=== PATIENT | male | born 1930 | race Caucasian/White ===

== ENCOUNTER → 2016-08-13 | Outpatient (CLI) | payer MEDICARE ==
[~2016-08-13] VITALS: Ht 180.3 cm; Wt 93.0 kg
[~2016-08-13] MED LIST: AMLO5TAB2 PO; ASCO25TA PO; BUSP5TA PO; CELE40TA PO; FERR325T3 PO; FIOR1CAP2 PO; FLOM5CAP PO; FURO20TA2 PO; GABA300C3 PO; GLUCTAB6 PO; LIDOCAINE 2% INJ 100 MG/5 ML SDV (FOR ANES.) As Ordered ONE; LIPI20TA PO; LOSA100T36 PO; MAGN1TAB25 PO; MECL-68 PO; MECL12.575 PO; MECL25CH PO; MIDO25TA PO; MIRA3350 PO; NITR4TASL SL; NS 1,000 ML IV SCH; OMEP40CA2 PO; PERC5TAB6 PO; PROPOFOL 200 MG/20 ML VIAL As Ordered ONE; PROS5TAB PO; PROT1TAB2 PO; PROTPAK PO; RIBO100C PO; ROBA750T4 PO; SENO8.6T2 PO; SUCR1TA PO; TYLE325T5 PO; TYLE650T30 PO; VITA-112 PO; VITA10002 PO; WARF05TA PO; ZONI100C2 PO; ZYRT10CA PO; [UNRECOGNIZED DRUG - CODE] SL; ePHEDrine SULFATE 25 MG/5 ML(5MG/ML) SYRINGE As Ordered ONE
--- NOTE | 2016-08-13 07:52 | ROOR ---
Patient Name: Grupo Shah Procedure Date: 08/13/2016 7:27 AM Date of : 1930 Age: 86 Room: M OPP Gender: Male Note Status: Finalized Procedure: Upper GI endoscopy Indications: Heartburn Providers: Marty FERNANDEZ MD Referring MD: Josep Solitario MD Requesting Provider: Medicines: Monitored Anesthesia Care Complications: No immediate complications. Procedure: Pre-Anesthesia Assessment: - The heart rate, respiratory rate, oxygen saturations, blood pressure, adequacy of pulmonary ventilation, and response to care were monitored throughout the procedure. The Endoscope was introduced through the mouth, and advanced to the second part of duodenum. The upper GI endoscopy was accomplished without difficulty. The patient tolerated the procedure well. Findings: The esophagus was normal. The stomach was normal. The examined duodenum was normal. Impression: - Normal esophagus. - Normal stomach. - Normal examined duodenum. - No specimens collected. Recommendation: - Continue present medications. - Observe patient's clinical course. Marty Fernandez MD Marty FERNANDEZ MD 08/13/2016 7:52:17 AM This report has been signed electronically. Number of Addenda: 0 Note Initiated On: 08/13/2016 7:27 AM Estimated Blood Loss: Estimated blood loss: none.
--- NOTE | 2016-08-13 08:15 | ROOR ---
Patient Name: Grupo Shah Procedure Date: 08/13/2016 7:28 AM Date of : 1930 Age: 86 Room: [facility] Gender: Male Note Status: Finalized Procedure: Colonoscopy Indications: High risk colon cancer surveillance: Personal history of colonic polyps, Last colonoscopy: April 2013 Providers: Marty FERNANDEZ MD Referring MD: Josep Solitario MD Requesting Provider: Medicines: Monitored Anesthesia Care Complications: No immediate complications. Procedure: Pre-Anesthesia Assessment: - The heart rate, respiratory rate, oxygen saturations, blood pressure, adequacy of pulmonary ventilation, and response to care were monitored throughout the procedure. The Colonoscope was introduced through the anus and advanced to the cecum, identified by appendiceal orifice and ileocecal valve. The colonoscopy was performed without difficulty. The patient tolerated the procedure well. The quality of the bowel preparation was good. Findings: The perianal and digital rectal examinations were normal. Three semi-sessile polyps were found in the sigmoid colon and in the ascending colon. The polyps were 4 to 6 mm in size. These polyps were removed with a cold snare. Resection and retrieval were complete. Multiple diverticula were found in the sigmoid colon. Internal hemorrhoids were found during retroflexion. The hemorrhoids were medium-sized. The exam was otherwise without abnormality on direct and retroflexion views. Impression: - Three 4 to 6 mm polyps in the sigmoid colon and in the ascending colon, removed with a cold snare. Resected and retrieved. - Mild diverticulosis in the sigmoid colon. - Internal hemorrhoids. - The examination was otherwise normal on direct and retroflexion views. Recommendation: - Await pathology results. - Telephone endoscopist for pathology results in 2 weeks. - If the pathology report reveals adenomatous tissue, then repeat the colonoscopy for surveillance in 3 years. Marty Fernandez MD Marty FERNANDEZ MD 08/13/2016 8:15:01 AM This report has been signed electronically. Number of Addenda: 0 Note Initiated On: 08/13/2016 7:28 AM Estimated Blood Loss: Estimated blood loss: none.
[2016-08-13 08:40] VITALS: BP 109/74
== END | disposition home or self-care (01) ==
LOC: M OPP 06:30
PROVIDERS: ATTEND Internal Medicine Gastroenterology
DX: Z12.11 Encounter for screening for malignant neoplasm of colon (principal); D12.5 Benign neoplasm of sigmoid colon; D12.2 Benign neoplasm of ascending colon; K57.30 Diverticulosis of large intestine without perforation or abscess without bleeding; K64.8 Other hemorrhoids; R12 Heartburn; Z95.5 Presence of coronary angioplasty implant and graft; I48.91 Unspecified atrial fibrillation; I25.10 Atherosclerotic heart disease of native coronary artery without angina pectoris; I25.2 Old myocardial infarction; E78.00 Pure hypercholesterolemia, unspecified; D64.9 Anemia, unspecified; Z97.4 Presence of external hearing-aid; Z95.0 Presence of cardiac pacemaker; Z79.899 Other long term (current) drug therapy

== ENCOUNTER 2016-08-14 16:43 | Emergency (ER) | payer MEDICARE ==
[~2016-08-14 16:43] MED LIST changes: -LIDOCAINE 2% INJ 100 MG/5 ML SDV (FOR ANES.) As Ordered ONE; -NS 1,000 ML IV SCH; -PROPOFOL 200 MG/20 ML VIAL As Ordered ONE; -ePHEDrine SULFATE 25 MG/5 ML(5MG/ML) SYRINGE As Ordered ONE
[2016-08-14 19:08] LABS: BASO % 0.5 % (0.0-1.0); EOS # 0.2 K/mm3 (0.0-0.50); EOS % 3.8 % (0.0-3.0); LARGE UNSTAINED CELL # 0.1 K/mm3 (0.0-0.4); LARGE UNSTAINED CELL % 1.6 % (0.0-4.0); LYMPH # 1.5 K/mm3 (1.5-4.5); LYMPH % 23.9 % (24.0-44.0); MEAN CORPUSCULAR HEMOGLOBIN 30.7 pg (27.0-33.0); MEAN CORPUSCULAR HGB CONC 33.9 g/dl (32.0-36.5); MEAN CORPUSCULAR VOLUME 90.6 fl (80.0-96.0); MONO # 0.5 K/mm3 (0.0-0.8); NEUTROPHILS # 3.9 K/mm3 (1.8-7.7); NEUTROPHILS % 62.3 % (36.0-66.0); PLATELET COUNT, AUTOMATED 166 k/mm3 (150-450); RED CELL DISTRIBUTION WIDTH 12.8 % (11.5-14.5); WHITE BLOOD COUNT 6.3 K/mm3 (4.0-10.0)
--- NOTE | 2016-08-14 19:10 | REPUSA ---
CLINICAL HISTORY: Weakness. TECHNIQUE: Multiple axial CT images were obtained through the brain without IV contrast material. COMMENTS: There is normal configuration of sella turcica. There are no intra or extra-axial collections. There is no mass effect or midline shift. There is no evidence of hematoma formation. No hydrocephalus is p resent. The ventricles are symmetrical. No abnormal calcifications are present. There is diffuse age-appropriate cerebellar and cerebral atrophy with proportionally dilated ventricl es and cortical sulci. There are bilateral periventricular and subcortical white matter hypolucencies compatible with mild c hronic microvascular disease. Otherwise, no significant focal abnormalities are seen either in the posterior fossa or supratentoria l compartment. IMPRESSION: 1. 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 2. Mild chronic microvascular disease. 3. No evidence of acute intracranial pathology. Thank you for your kind referral of this patient.
[2016-08-14 19:19] LABS: INR 1.19
[2016-08-14 19:35] LABS: ANION GAP 12 MEQ/L (8-16); BLOOD UREA NITROGEN 38 MG/DL (7-18); CALCIUM LEVEL 9.1 MG/DL (8.8-10.2); CARBON DIOXIDE LEVEL 24 MEQ/L (21-32); CHLORIDE LEVEL 108 MEQ/L (98-107); CREATININE FOR GFR 3.13 MG/DL (0.70-1.30); GLOMERULAR FILTRATION RATE 20.2 (>35); GLUCOSE, FASTING 106 MG/DL (83-110); SODIUM LEVEL 144 MEQ/L (136-145)
--- NOTE | 2016-08-14 22:00 | EDDOCDS ---
Nurse's Notes [facility] Name: Grupo Shah Age: 86 yrs Sex: Male : 1930 Arrival Date: 08/14/2016 Time: 16:43 Bed 10 Private MD: Sharad Mclaughlin D Diagnosis: Dehydration Presentation: 08/14 16:46 Presenting complaint: Patient states: im shakey and cant talk right- states all srm day. pt states probably started around 0830. weakness. states he cant seem to get the words out and sentences. headache everyday but not new and no different than any other day. dizziness all day also. Presenting complaint: Patient states: feels like when i walk like my legs are going to go out from under me. The last date and time the patient was known to be well was on August 13, 2016. No acute neurological deficit is noted. Adult Sepsis Screening: The patient does not have new or worsening altered mentation. Patient's respiratory rate is less than 22. Systolic blood pressure is greater than 100. Patient has a qSOFA score of 0- Negative Sepsis Screen. Suicide/Homicide risk assessment- the patient denies having any suicidal and/or homicidal ideations and does not present with any other emotional, behavioral or mental health complaints. Status: Patient is not a pharmacy services director or dependent. Transition of care: patient was not received from another setting of care. 16:46 Acuity: NOMI Level 3 [facility] 16:46 Method Of Arrival: Walkin/Carried/[facility] Triage Assessment: 16:56 The onset of the patients symptoms was more than three hours ago. General: Appears in [facility] no apparent distress, Behavior is appropriate for age, cooperative. Pain: Pain currently is 6 out of 10 on a pain scale. Neurological: Level of Consciousness is awake, alert, Oriented to person, place, time, Moves all extremities. Full function Facial symmetry appears normal, Reports dizziness, headache weakness. Historical: - Allergies: no known allergies; - Home Meds: 1. zonisamide 200mg oral cap 2 times per day (Last dose: Unknown) 2. riboflavin (vitamin B2) 100 mg oral tab daily (Last dose: 08/14/2016 09:00) 3. gabapentin 300 mg Oral tab twice a day 4. Lipitor 40 mg Oral tab 1 tab nightly 5. furosemide 20 mg Oral tab 1 tab once daily 6. Vitamin D Oral 1000 unit daily 7. midodrine 2.5 mg oral tab 1 tab 3 times per day 8. Flomax 0.4 mg Oral cp24 2 caps once daily 9. cefdinir 300 mg Oral cap every 12 hours 10. omeprazole 40 mg oral cpDR 2 times per day 11. Proscar 5 mg Oral tab 1 tab once daily 12. meclizine 25 mg Oral tab 4 times per day prn (Last dose: 08/14/2016 09:00) 13. Coumadin 1 mg tabs- 3 tabs m,w,f,sun and 2 mg tues, th, sat oral tab 14. Vitamin C 500 mg Oral tab 500 mg daily 15. cpap 16. Nitrostat 0.4 mg SL subl 1 tab every 5 minutes - PMHx: Arthritis; BPH; gi bleed; Hard of Hearing; Hypercholesterolemia; Hypertension; Myocardial infarction; Sleep Apnea w/ CPAP; - PSHx: Cataract Surgery- Bilateral; Stents, Coronary; inguinal hernia; knee left- arthritis; Pacemaker Insertion; Colonoscopy; - Social history: Smoking status: Patient states former smoker of tobacco. No barriers to communication noted, The patient speaks fluent Ecuadorean, Speaks appropriately for age. - Family history: Not pertinent. - : The pt / caregiver states he / she is on anticoagulants: coumadin. Home medication list is obtained from the patient. - Exposure Risk Screening:: None identified. Screenin:15 Screening information is obtained from the patient. Fall risk: At risk due to age, gait js13 disturbance. Assistance ADL's: requires no assistance with activities of daily living. Abuse/DV Screen: The patient / caregiver reports he/she is: not in a situation that causes fear, pain or injury. Nutritional screening: No deficits noted. Advance Directives: There is no active DNR order. home support is adequate. Assessment: 18:16 General: Appears in no apparent distress, Behavior is appropriate for age, cooperative. js13 Pain: Location: head Pain currently is 5 out of 10 on a pain scale. Neurological: Level of Consciousness is awake, alert, obeys commands, Oriented to person, place, time. Cardiovascular: Rhythm is sinus rhythm Chest pain is denied. Respiratory: Airway is patent Respiratory effort is even, unlabored, Respiratory pattern is regular, symmetrical. Derm: Skin is pink, warm & dry. 18:16 Neurological: Reports dizziness. js13 19:55 General: Appears in no apparent distress, comfortable, Behavior is appropriate for age, mlc cooperative. Pain: Denies pain. Neurological: Level of Consciousness is awake, alert, obeys commands, Oriented to person, place, time, Merchandise Carrier are equal bilaterally Moves all extremities. Speech is normal, Facial droop on left, Facial symmetry: tongue is midline, Pupils are PERRLA, Reports dizziness. Cardiovascular: Heart tones S1 S2 present Rhythm is sinus rhythm. Respiratory: Airway is patent Respiratory effort is even, unlabored, Respiratory pattern is regular, symmetrical, Breath sounds are clear bilaterally. Denies shortness of breath. Derm: Skin is pink, warm & dry. 20:40 Reassessment: Patient appears in no apparent distress at this time. IV fluids infusing mlc per order. . 21:05 Reassessment: Patient appears in no apparent distress at this time. Patient denies pain mlc at this time. pt able to stand and use urinal. resp easy/unlabored. pt offers no complaints. . 21:57 General: Appears in no apparent distress, Behavior is appropriate for age, cooperative. mgs Pain: Denies pain. Neurological: Level of Consciousness is awake, alert, Oriented to person, place, time. Cardiovascular: Capillary refill < 3 seconds. Respiratory: Airway is patent Respiratory effort is even, unlabored, Respiratory pattern is regular, symmetrical. Derm: Skin is pink, warm & dry. Vital Signs: 16:44 BP 136 / 81; Pulse 91; Resp 18 S; Temp 95.9(O); Weight 90.72 kg (R); Height 5 ft. 11 gr2 in. (180.34 cm) (R); Pain 2/10; 17:18 BP 128 / 81 (auto/); js13 17:18 Pulse 72 MON; Resp 16; Pulse Ox 96% on R/A; 13 17:33 BP 130 / 88 (auto/); 13 17:33 Pulse 72 MON; Resp 16; Pulse Ox 98% on R/A; 13 17:48 BP 118 / 85 (auto/); 13 17:48 Pulse 78 MON; Resp 16; Pulse Ox 95% on R/A; 13 18:03 BP 147 / 84 (auto/); 13 18:03 Pulse 68 MON; Resp 16; Pulse Ox 97% on R/A; js13 18:18 BP 143 / 88 (auto/); mlc 18:18 Pulse 68 MON; Pulse Ox 96% ; mlc 19:19 Pulse 70 MON; Pulse Ox 93% ; mlc 19:19 BP 153 / 87 (auto/); mlc 21:05 Pulse 78 MON; Pulse Ox 95% ; mlc 21:50 BP 138 / 86 (man/); Pulse 84; Resp 18; Temp 99.1(TE); Pulse Ox 96% on R/A; Pain 0/10; mireille 16:44 Body Mass Index 27.89 (90.72 kg, 180.34 cm) gr2 16:44 O2 UNABLE TO READ gr2 Vitals: 16:44 Log In Time: August 14, 2016 at 16:44. gr2 ED Course: 16:44 Patient visited by Catalina Guo. gr2 16:44 Sharad Mclaughlin is Private Physician. gr2 16:44 Patient moved to Waiting gr2 16:46 Patient visited by Catalina Guo. gr2 16:46 Patient visited by Catalina Guo. gr2 16:46 Patient moved to Pre RCE gr2 16:49 Triage Initiated srm 16:57 Eveline Mack,RN is Primary Nurse. srm 16:57 Patient moved to 10 srm 17:02 [facility] Fitzgerald [facility]. jo4 17:02 Jace Allan MD is Attending Physician. jo4 17:30 Patient visited by Fide Fitzgerald DO. jo4 18:15 The patient / caregiver is instructed regarding the plan of care and ED course. Placed js13 in gown. Bed in low position. Call light in reach. Side rails up X2. manager respiratory on. Pulse ox on. NIBP on. 18:17 Patient visited by Eveline Mack,RENEE. js13 18:18 [facility] Payment Agreement was scanned into [employer] and attached to record. ks16 18:43 Patient visited by Sallie Richards PCA. mireille 18:43 EKG done. (by ED staff). Reviewed by Fide Fitzgerald DO. mireille 18:58 Wilma Tilley,RENEE is Primary Nurse. mlc 19:00 PT/INR Sent. js13 19:00 Cardiac Marker Panel Sent. js13 19:00 BMP Sent. js13 19:00 CBC with Diff Sent. js13 19:00 Inserted saline lock: 18 gauge in right antecubital area and blood collected. The js13 patient tolerated the procedure well. No procedures done that require assistance. 19:01 Patient visited by Eveline Mack,RENEE. js13 19:18 CT Head Without Contrast Returned. EDMS 19:25 Attending Physician role handed off by Jace Allan MD mm11 19:25 Alfred Harris DO is Attending Physician. mm11 19:57 Patient visited by Wilma Tilley RN. mlc 20:08 Primary Nurse role handed off by Eveline Mack,RENEE sls1 20:59 Patient visited by Glenna Gonzales PCA. ar3 20:59 Urine Culture Sent. ar3 20:59 UA Sent. ar3 21:44 Josep Solitario is Referral Physician. mm11 21:50 Patient visited by Sallie Richards PCA. mireille Administered Medications: 19:54 Drug: NS 0.9% 500 ml [sodium chloride 0.9 % intravenous solution] Route: IV; Rate: mlc bolus; Site: right antecubital; Order Results: Lab Order: CBC with Diff; SPEC'M 08/14/16 18:51 Test: WHITE BLOOD COUNT; Value: 6.3; Range: 4.0-10.0; Units: K/mm3; Status: F Test: RED BLOOD COUNT; Value: 4.06; Range: 4.30-6.10; Abnormal: Below low normal; Units: M/mm3; Status: F Test: HEMOGLOBIN; Value: 12.5; Range: 14.0-18.0; Abnormal: Below low normal; Units: g/dl; Status: F Test: HEMATOCRIT; Value: 36.7; Range: 42.0-52.0; Abnormal: Below low normal; Units: %; Status: F Test: MEAN CORPUSCULAR VOLUME; Value: 90.6; Range: 80.0-96.0; Units: fl; Status: F Test: MEAN CORPUSCULAR HEMOGLOBIN; Value: 30.7; Range: 27.0-33.0; Units: pg; Status: F Test: MEAN CORPUSCULAR HGB CONC; Value: 33.9; Range: 32.0-36.5; Units: g/dl; Status: F Test: RED CELL DISTRIBUTION WIDTH; Value: 12.8; Range: 11.5-14.5; Units: %; Status: F Test: PLATELET COUNT, AUTOMATED; Value: 166; Range: 150-450; Units: k/mm3; Status: F Test: NEUTROPHILS %; Value: 62.3; Range: 36.0-66.0; Units: %; Status: F Test: LYMPH %; Value: 23.9; Range: 24.0-44.0; Abnormal: Below low normal; Units: %; Status: F Test: MONO %; Value: 8.0; Range: 0.0-5.0; Abnormal: Above high normal; Units: %; Status: F Test: EOS %; Value: 3.8; Range: 0.0-3.0; Abnormal: Above high normal; Units: %; Status: F Test: BASO %; Value: 0.5; Range: 0.0-1.0; Units: %; Status: F Test: LARGE UNSTAINED CELL %; Value: 1.6; Range: 0.0-4.0; Units: %; Status: F Test: NEUTROPHILS #; Value: 3.9; Range: 1.8-7.7; Units: K/mm3; Status: F Test: LYMPH #; Value: 1.5; Range: 1.5-4.5; Units: K/mm3; Status: F Test: MONO #; Value: 0.5; Range: 0.0-0.8; Units: K/mm3; Status: F Test: EOS #; Value: 0.2; Range: 0.0-0.50; Units: K/mm3; Status: F Test: BASO #; Value: 0.0; Range: 0.0-0.2; Units: K/mm3; Status: F Test: LARGE UNSTAINED CELL #; Value: 0.1; Range: 0.0-0.4; Units: K/mm3; Status: F Lab Order: [facility]; SPEC'M 08/14/16 18:51 Test: GLUCOSE, FASTING; Value: 106; Range: 83-110; Units: MG/DL; Status: F Test: BLOOD UREA NITROGEN; Value: 38; Range: 7-18; Abnormal: Above high normal; Units: MG/DL; Status: F Test: CREATININE FOR GFR; Value: 3.13; Range: 0.70-1.30; Abnormal: Above high normal; Units: MG/DL; Status: F Test: GLOMERULAR FILTRATION RATE; Value: 20.2; Range: >35; Abnormal: Below low normal; Status: F Test: SODIUM LEVEL; Value: 144; Range: 136-145; Units: MEQ/L; Status: F Test: POTASSIUM SERUM; Value: 4.0; Range: 3.5-5.1; Units: MEQ/L; Status: F Test: CHLORIDE LEVEL; Value: 108; Range: 98-107; Abnormal: Above high normal; Units: MEQ/L; Status: F Test: CARBON DIOXIDE LEVEL; Value: 24; Range: 21-32; Units: MEQ/L; Status: F Test: ANION GAP; Value: 12; Range: 8-16; Units: MEQ/L; Status: F Test: CALCIUM LEVEL; Value: 9.1; Range: 8.8-10.2; Units: MG/DL; Status: F Test Note: ; Units are mL/min/1.73 m2 Chronic Kidney Disease Staging per NKF: Stage I & II GFR >=60 Normal to Mildly Decreased Stage III GFR 30-59 Moderately Decreased Stage IV GFR 15-29 Severely Decreased Stage V GFR <15 Very Little GFR Left ESRD GFR <15 on NEGOTIATOR Lab Order: Cardiac Marker Panel; SPEC'M 08/14/16 18:51 Test: CPK CREATINE PHOSPHOKINASE; Value: 107; Range: 39-308; Units: U/L; Status: F Test: CK-MB VALUE MASS; Value: 5.9; Range: 0.0-3.6; Abnormal: Above high normal; Units: NG/ML; Status: F Test: MB/CK RELATIVE INDEX; Value: 5.51; Range: < OR =4; Abnormal: Above high normal; Status: F Test: TROPONIN I; Value: < 0.02; Range: < 0.10; Units: NG/ML; Status: F Test Note: ; DIAGNOSIS CRITERIA MMB ng/ml Relative Index (RI) NON-AMI < or = 5 N/A JIMÉNEZ ZONE > 5 < or = 4 AMI > 5 > 4 Lab Order: PT/INR; SPEC'M 08/14/16 18:51 Test: PROTHROMBIN TIME; Value: 15.2; Range: 12.3-14.5; Abnormal: Above high normal; Units: SECONDS; Status: F Test: INR; Value: 1.19; Status: F Test Note: ; THERAPUTIC HUMAN INR VALUES INDICATIONS NORMAL RANGES PROPHYLAXIS/TREATMENT OF: VENOUS THROMBOSIS 2.0-3.0 PULMONARY EMBOLISM 2.0-3.0 PREVENTION OF SYSTEMIC EMBOLISM FROM: TISSUE HEART VALVES 2.0-3.0 ACUTE MYOCARDIAL INFARCTION 2.0-3.0 VALVULAR HEART DISEASE 2.0-3.0 ATRIAL FIBRILLATION 2.0-3.0 MECHANICAL VALVES(HIGH RISK) 2.5-3.5 RECURRENT MYOCARDIAL INFARCTION 2.5-3.5 Lab Order: UA; SPEC'M 08/14/16 20:58 Test: APPEARANCE, URINE; Value: CLEAR; Range: CLEAR; Status: F Test: COLOR, URINE; Value: YELLOW; Range: YELLOW; Status: F Test: PH,URINE; Value: 7.0; Range: 5.0-9.0; Units: UNITS; Status: F Test: SPECIFIC GRAVITY URINE AUTO; Value: 1.008; Range: 1.002-1.035; Status: F Test: PROTEIN, URINE AUTO; Value: NEGATIVE; Range: NEGATIVE; Units: mg/dL; Status: F Test: GLUCOSE, URINE (UA) AUTO; Value: NEGATIVE; Range: NEGATIVE; Units: mg/dL; Status: F Test: KETONE, URINE AUTO; Value: NEGATIVE; Range: NEGATIVE; Units: mg/dL; Status: F Test: UROBILINOGEN, URINE AUTO; Value: 0.2; Range: 0.0-2.0; Units: mg/dL; Status: F Test: BILIRUBIN, URINE AUTO; Value: NEGATIVE; Range: NEGATIVE; Status: F Test: NITRITE, URINE AUTO; Value: NEGATIVE; Range: NEGATIVE; Status: F Test: LEUKOCYTE ESTERASE, URINE AUTO; Value: TRACE; Range: NEGATIVE; Abnormal: Above high normal; Status: F Test: BLOOD, URINE BLOOD; Value: NEGATIVE; Range: NEGATIVE; Status: F Test: WBC, URINE AUTO; Value: 1; Range: 0-3; Units: /HPF; Status: F Test: RBC, URINE AUTO; Value: 1; Range: 0-3; Units: /HPF; Status: F Test: BACTERIA, URINE AUTO; Value: NEGATIVE; Range: NEGATIVE; Status: F Test: SQUAMOUS EPITHELIAL CELL UR AU; Value: 0; Range: 0-6; Units: /HPF; Status: F Test: HYALINE CAST, URINE AUTO; Value: 0; Range: 0-1; Units: /LPF; Status: F Radiology Order: CT Head Without Contrast Test: CT Head Without Contrast REASON FOR EXAMINATION: Weakness; ; CLINICAL HISTORY: Weakness.; TECHNIQUE: Multiple axial CT images were obtained through the brain without IV contrast material.; COMMENTS:; There is normal configuration of sella turcica. There are no intra or extra-axial collections. There; is no mass effect or midline shift. There is no evidence of hematoma formation. No hydrocephalus is p; resent. The ventricles are symmetrical. No abnormal calcifications are present.; There is diffuse age-appropriate cerebellar and cerebral atrophy with proportionally dilated ventricl; es and cortical sulci.; There are bilateral periventricular and subcortical white matter hypolucencies compatible with mild c; hronic microvascular disease.; Otherwise, no significant focal abnormalities are seen either in the posterior fossa or supratentoria; l compartment.; IMPRESSION:; 1. 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 Mild chronic microvascular disease.; 3. No evidence of acute intracranial pathology.; Thank you for your kind referral of this patient.; ; ; Outcome: 19:57 CT Study completed. [facility] 21:44 Discharge ordered by Provider. mm11 21:58 Discharge Assessment: Patient awake, alert and oriented x 3. No cognitive and/or mgs functional deficits noted. Patient verbalized understanding of disposition instructions. patient administered narcotics - no. The following High Risk Discharge criteria are identified: None. Discharged to home ambulatory, with family. Condition: stable. Discharge instructions given to patient, family, Instructed on discharge instructions, follow up and referral plans. Demonstrated understanding of instructions, Pt was receptive of discharge instructions/ teaching. Property sent home with patient. 21:59 Patient left the ED. mgs Signatures: Dispatcher [employer] EDMS Carly Armando RN RN srm Maynard, Matthew, DO DO mm11 Glenna Gonzales, CERTIFIED PHYSICIAN'S ASSISTANT CERTIFIED PHYSICIAN'S ASSISTANT ar3 Maurice, Sallie, CERTIFIED PHYSICIAN'S ASSISTANT CERTIFIED PHYSICIAN'S ASSISTANT mireille Krissy Ash RN RN sls1 Eveline Mack RN RN js13 Catalina Guo gr2 Wilma Tilley RN RN [facility] Alfred Barrios RN RN mgs Fide Fitzgerald DO DO jo4 [place], Reg Reg [id number] Corrections: (The following items were deleted from the chart) 16:46 16:44 BP 136 / 81; Pulse 91bpm; Resp 18bpm; Spontaneous; Temp 95.9F Oral; 90.72 kg gr2 Reported; Height 5 ft. 11 in. Reported; BMI: 27.8; Pain 2/10; UNABLE TO READ O2, PT HAND IS COLD.; gr2 MTDD
--- NOTE | 2016-08-14 22:00 | EDDOCDS ---
Physician Documentation [facility] Name: Grupo Shah Age: 86 yrs Sex: Male : 1930 Arrival Date: 08/14/2016 Time: 16:43 Bed 10 Private MD: Sharad Mclaughlin D Disposition: 08/14/16 21:44 Discharged to Home/Self Care. Impression: Dehydration. - Condition is Stable. - Discharge Instructions: Dehydration, Elderly, Rehydration, Elderly. - Medication Reconciliation, Local Pharmacy Hours form. - Follow up: Josep Solitario; When: 1 week; Reason: Continuance of care. - Problem is an acute exacerbation. - Symptoms have improved. Historical: - Allergies: no known allergies; - Home Meds: 1. zonisamide 200mg oral cap 2 times per day (Last dose: Unknown) 2. riboflavin (vitamin B2) 100 mg oral tab daily (Last dose: 08/14/2016 09:00) 3. gabapentin 300 mg Oral tab twice a day 4. Lipitor 40 mg Oral tab 1 tab nightly 5. furosemide 20 mg Oral tab 1 tab once daily 6. Vitamin D Oral 1000 unit daily 7. midodrine 2.5 mg oral tab 1 tab 3 times per day 8. Flomax 0.4 mg Oral cp24 2 caps once daily 9. cefdinir 300 mg Oral cap every 12 hours 10. omeprazole 40 mg oral cpDR 2 times per day 11. Proscar 5 mg Oral tab 1 tab once daily 12. meclizine 25 mg Oral tab 4 times per day prn (Last dose: 08/14/2016 09:00) 13. Coumadin 1 mg tabs- 3 tabs m,w,f,sun and 2 mg tu, , sat oral tab 14. Vitamin C 500 mg Oral tab 500 mg daily 15. cpap 16. Nitrostat 0.4 mg SL subl 1 tab every 5 minutes - PMHx: Arthritis; BPH; gi bleed; Hard of Hearing; Hypercholesterolemia; Hypertension; Myocardial infarction; Sleep Apnea w/ CPAP; - PSHx: Cataract Surgery- Bilateral; Stents, Coronary; inguinal hernia; knee left- arthritis; Pacemaker Insertion; Colonoscopy; - Social history: Smoking status: Patient states former smoker of tobacco. No barriers to communication noted, The patient speaks fluent Danish, Speaks appropriately for age. - Family history: Not pertinent. - : The pt / caregiver states he / she is on anticoagulants: coumadin. Home medication list is obtained from the patient. - Exposure Risk Screening:: None identified. Vital Signs: 08/14 16:44 BP 136 / 81; Pulse 91; Resp 18 S; Temp 95.9(O); Weight 90.72 kg / 200 lbs (R); Height 5 gr2 ft. 11 in. (180.34 cm) (R); Pain 2/10; 17:18 BP 128 / 81 (auto/); js13 17:18 Pulse 72 MON; Resp 16; Pulse Ox 96% on R/A; js13 17:33 BP 130 / 88 (auto/); js13 17:33 Pulse 72 MON; Resp 16; Pulse Ox 98% on R/A; js13 17:48 BP 118 / 85 (auto/); js13 17:48 Pulse 78 MON; Resp 16; Pulse Ox 95% on R/A; js13 18:03 BP 147 / 84 (auto/); js13 18:03 Pulse 68 MON; Resp 16; Pulse Ox 97% on R/A; js13 18:18 BP 143 / 88 (auto/); mlc 18:18 Pulse 68 MON; Pulse Ox 96% ; mlc 19:19 Pulse 70 MON; Pulse Ox 93% ; mlc 19:19 BP 153 / 87 (auto/); mlc 21:05 Pulse 78 MON; Pulse Ox 95% ; mlc 21:50 BP 138 / 86 (man/); Pulse 84; Resp 18; Temp 99.1(TE); Pulse Ox 96% on R/A; Pain 0/10; mireille 16:44 Body Mass Index 27.89 (90.72 kg, 180.34 cm) gr2 16:44 O2 UNABLE TO READ gr2 MDM: 18:18 Financial registration complete. [email or web address] 18:18 [place] Payment Agreement was scanned into [employer] and attached to record. [email or web address] 18:25 CT Head Without Contrast Ordered. EDMS 18:25 ECG WITH READING ER PHYS+CARDIAG ordered. EDMS 18:26 CBC with Diff Ordered. EDMS 18:26 BMP Ordered. EDMS 18:26 Cardiac Marker Panel Ordered. EDMS 18:26 PT/INR Ordered. EDMS 19:00 IV Saline Lock ordered. js13 19:13 CBC with Diff Reviewed. jo4 19:27 PT/INR Reviewed. mm11 19:27 CT Head Without Contrast Reviewed. mm11 19:28 UA Ordered. EDMS 19:28 Urine Culture Ordered. EDMS 19:49 BMP Reviewed. mm11 19:49 Cardiac Marker Panel Reviewed. mm11 19:51 NS 0.9% 500 ml IV at bolus once ordered. mm11 21:24 UA Reviewed. mm11 Administered Medications: 19:54 Drug: NS 0.9% 500 ml [sodium chloride 0.9 % intravenous solution] Route: IV; Rate: mlc bolus; Site: right antecubital; Signatures: Dispatcher [employer] EDMS Carly Armando, RN RN Alfred Edwards DO DO mm11 Eveline Mack RN RN js13 Alfred aBrrios RN RN Fide Fuentes DO DO jo4 Winnie Collado, Reg Reg ks16 Wilma Tilley RN mlc The chart was reviewed and I authenticate all verbal orders and agree with the evaluation and treatment provided.Attachments: 18:18 [facility] Payment Agreement [email or web address] MTDD
--- NOTE | 2016-08-15 08:03 | ECGEPIP ---
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
--- NOTE | 2016-08-16 23:01 | EDDOCDS ---
Physician Documentation [facility] Name: Grupo Shah Age: 86 yrs Sex: Male : 1930 Arrival Date: 08/14/2016 Time: 16:43 Bed 10 Private MD: Sharad Mclaughlin D Disposition: 08/14/16 21:44 Discharged to Home/Self Care. Impression: Dehydration. - Condition is Stable. - Discharge Instructions: Dehydration, Elderly, Rehydration, Elderly. - Medication Reconciliation, Local Pharmacy Hours form. - Follow up: Josep Solitario; When: 1 week; Reason: Continuance of care. - Problem is an acute exacerbation. - Symptoms have improved. Historical: - Allergies: no known allergies; - Home Meds: 1. zonisamide 200mg oral cap 2 times per day (Last dose: Unknown) 2. riboflavin (vitamin B2) 100 mg oral tab daily (Last dose: 08/14/2016 09:00) 3. gabapentin 300 mg Oral tab twice a day 4. Lipitor 40 mg Oral tab 1 tab nightly 5. furosemide 20 mg Oral tab 1 tab once daily 6. Vitamin D Oral 1000 unit daily 7. midodrine 2.5 mg oral tab 1 tab 3 times per day 8. Flomax 0.4 mg Oral cp24 2 caps once daily 9. cefdinir 300 mg Oral cap every 12 hours 10. omeprazole 40 mg oral cpDR 2 times per day 11. Proscar 5 mg Oral tab 1 tab once daily 12. meclizine 25 mg Oral tab 4 times per day prn (Last dose: 08/14/2016 09:00) 13. Coumadin 1 mg tabs- 3 tabs m,w,f,sun and 2 mg tu, , sat oral tab 14. Vitamin C 500 mg Oral tab 500 mg daily 15. cpap 16. Nitrostat 0.4 mg SL subl 1 tab every 5 minutes - PMHx: Arthritis; BPH; gi bleed; Hard of Hearing; Hypercholesterolemia; Hypertension; Myocardial infarction; Sleep Apnea w/ CPAP; - PSHx: Cataract Surgery- Bilateral; Stents, Coronary; inguinal hernia; knee left- arthritis; Pacemaker Insertion; Colonoscopy; - Social history: Smoking status: Patient states former smoker of tobacco. No barriers to communication noted, The patient speaks fluent Mozambican, Speaks appropriately for age. - Family history: Not pertinent. - : The pt / caregiver states he / she is on anticoagulants: coumadin. Home medication list is obtained from the patient. - Exposure Risk Screening:: None identified. Vital Signs: 08/14 16:44 BP 136 / 81; Pulse 91; Resp 18 S; Temp 95.9(O); Weight 90.72 kg / 200 lbs (R); Height 5 gr2 ft. 11 in. (180.34 cm) (R); Pain 2/10; 17:18 BP 128 / 81 (auto/); js13 17:18 Pulse 72 MON; Resp 16; Pulse Ox 96% on R/A; js13 17:33 BP 130 / 88 (auto/); js13 17:33 Pulse 72 MON; Resp 16; Pulse Ox 98% on R/A; js13 17:48 BP 118 / 85 (auto/); js13 17:48 Pulse 78 MON; Resp 16; Pulse Ox 95% on R/A; js13 18:03 BP 147 / 84 (auto/); js13 18:03 Pulse 68 MON; Resp 16; Pulse Ox 97% on R/A; js13 18:18 BP 143 / 88 (auto/); mlc 18:18 Pulse 68 MON; Pulse Ox 96% ; mlc 19:19 Pulse 70 MON; Pulse Ox 93% ; mlc 19:19 BP 153 / 87 (auto/); mlc 21:05 Pulse 78 MON; Pulse Ox 95% ; mlc 21:50 BP 138 / 86 (man/); Pulse 84; Resp 18; Temp 99.1(TE); Pulse Ox 96% on R/A; Pain 0/10; mireille 16:44 Body Mass Index 27.89 (90.72 kg, 180.34 cm) gr2 16:44 O2 UNABLE TO READ gr2 MDM: 18:18 Financial registration complete. [email or web address] 18:18 [facility] Payment Agreement was scanned into [employer] and attached to record. [email or web address] 18:25 CT Head Without Contrast Ordered. EDMS 18:25 ECG WITH READING ER PHYS+CARDIAG ordered. EDMS 18:26 CBC with Diff Ordered. EDMS 18:26 BMP Ordered. EDMS 18:26 Cardiac Marker Panel Ordered. EDMS 18:26 PT/INR Ordered. EDMS 19:00 IV Saline Lock ordered. js13 19:13 CBC with Diff Reviewed. jo4 19:27 PT/INR Reviewed. mm11 19:27 CT Head Without Contrast Reviewed. mm11 19:28 UA Ordered. EDMS 19:28 Urine Culture Ordered. EDMS 19:49 BMP Reviewed. mm11 19:49 Cardiac Marker Panel Reviewed. mm11 19:51 NS 0.9% 500 ml IV at bolus once ordered. mm11 21:24 UA Reviewed. mm11 08/15 10:15 T-Sheet-- Draft Copy was scanned into [employer] and attached to record. gb 10:15 ECG/EKG was scanned into [employer] and attached to record. gb Administered Medications: 08/14 19:54 Drug: NS 0.9% 500 ml [sodium chloride 0.9 % intravenous solution] Route: IV; Rate: mlc bolus; Site: right antecubital; Signatures: Dispatcher [employer] Carly Garcia, RN RN [facility] Keyla Leal, Reg Reg gb Alfred Harris, DO mm11 Eveline Mack RN RN js13 Alfred Barrios RN RN s Fide Fitzgerald, DO DO jo4 Winnie Collado, Reg Reg ks16 Wilma Tilley RN mlc The chart was reviewed and I authenticate all verbal orders and agree with the evaluation and treatment provided.Attachments: 18:18 [facility] Payment Agreement [email or web address] 08/15 10:15 T-Sheet-- Draft Copy gb 10:15 ECG/EKG gb Chart Complete MTDD
--- NOTE | 2016-08-16 23:01 | EDDOCDS ---
Nurse's Notes [facility] Name: Jasmyne De Jesus Age: 86 yrs Sex: Male : 1930 Arrival Date: 08/14/2016 Time: 16:43 Bed 10 Private MD: Sharad Mclaughlin D Diagnosis: Dehydration Presentation: 08/14 16:46 Presenting complaint: Patient states: im shakey and cant talk right- states all srm day. pt states probably started around 0830. weakness. states he cant seem to get the words out and sentences. headache everyday but not new and no different than any other day. dizziness all day also. Presenting complaint: Patient states: feels like when i walk like my legs are going to go out from under me. The last date and time the patient was known to be well was on August 13, 2016. No acute neurological deficit is noted. Adult Sepsis Screening: The patient does not have new or worsening altered mentation. Patient's respiratory rate is less than 22. Systolic blood pressure is greater than 100. Patient has a qSOFA score of 0- Negative Sepsis Screen. Suicide/Homicide risk assessment- the patient denies having any suicidal and/or homicidal ideations and does not present with any other emotional, behavioral or mental health complaints. Status: Patient is not a donor services coordinator or dependent. Transition of care: patient was not received from another setting of care. 16:46 Acuity: [facility] Level [facility] 16:46 Method Of Arrival: Walkin/Carried/[facility] Triage Assessment: 16:56 The onset of the patients symptoms was more than three hours ago. General: Appears in [facility] no apparent distress, Behavior is appropriate for age, cooperative. Pain: Pain currently is 6 out of 10 on a pain scale. Neurological: Level of Consciousness is awake, alert, Oriented to person, place, time, Moves all extremities. Full function Facial symmetry appears normal, Reports dizziness, headache weakness. Historical: - Allergies: no known allergies; - Home Meds: 1. zonisamide 200mg oral cap 2 times per day (Last dose: Unknown) 2. riboflavin (vitamin B2) 100 mg oral tab daily (Last dose: 08/14/2016 09:00) 3. gabapentin 300 mg Oral tab twice a day 4. Lipitor 40 mg Oral tab 1 tab nightly 5. furosemide 20 mg Oral tab 1 tab once daily 6. Vitamin D Oral 1000 unit daily 7. midodrine 2.5 mg oral tab 1 tab 3 times per day 8. Flomax 0.4 mg Oral cp24 2 caps once daily 9. cefdinir 300 mg Oral cap every 12 hours 10. omeprazole 40 mg oral cpDR 2 times per day 11. Proscar 5 mg Oral tab 1 tab once daily 12. meclizine 25 mg Oral tab 4 times per day prn (Last dose: 08/14/2016 09:00) 13. Coumadin 1 mg tabs- 3 tabs m,w,f,sun and 2 mg tues, th, sat oral tab 14. Vitamin C 500 mg Oral tab 500 mg daily 15. cpap 16. Nitrostat 0.4 mg SL subl 1 tab every 5 minutes - PMHx: Arthritis; BPH; gi bleed; Hard of Hearing; Hypercholesterolemia; Hypertension; Myocardial infarction; Sleep Apnea w/ CPAP; - PSHx: Cataract Surgery- Bilateral; Stents, Coronary; inguinal hernia; knee left- arthritis; Pacemaker Insertion; Colonoscopy; - Social history: Smoking status: Patient states former smoker of tobacco. No barriers to communication noted, The patient speaks fluent Bolivian, Speaks appropriately for age. - Family history: Not pertinent. - : The pt / caregiver states he / she is on anticoagulants: coumadin. Home medication list is obtained from the patient. - Exposure Risk Screening:: None identified. Screenin:15 Screening information is obtained from the patient. Fall risk: At risk due to age, gait js13 disturbance. Assistance ADL's: requires no assistance with activities of daily living. Abuse/DV Screen: The patient / caregiver reports he/she is: not in a situation that causes fear, pain or injury. Nutritional screening: No deficits noted. Advance Directives: There is no active DNR order. home support is adequate. Assessment: 18:16 General: Appears in no apparent distress, Behavior is appropriate for age, cooperative. js13 Pain: Location: head Pain currently is 5 out of 10 on a pain scale. Neurological: Level of Consciousness is awake, alert, obeys commands, Oriented to person, place, time. Cardiovascular: Rhythm is sinus rhythm Chest pain is denied. Respiratory: Airway is patent Respiratory effort is even, unlabored, Respiratory pattern is regular, symmetrical. Derm: Skin is pink, warm & dry. 18:16 Neurological: Reports dizziness. js13 19:55 General: Appears in no apparent distress, comfortable, Behavior is appropriate for age, mlc cooperative. Pain: Denies pain. Neurological: Level of Consciousness is awake, alert, obeys commands, Oriented to person, place, time, Apron Trimmer are equal bilaterally Moves all extremities. Speech is normal, Facial droop on left, Facial symmetry: tongue is midline, Pupils are PERRLA, Reports dizziness. Cardiovascular: Heart tones S1 S2 present Rhythm is sinus rhythm. Respiratory: Airway is patent Respiratory effort is even, unlabored, Respiratory pattern is regular, symmetrical, Breath sounds are clear bilaterally. Denies shortness of breath. Derm: Skin is pink, warm & dry. 20:40 Reassessment: Patient appears in no apparent distress at this time. IV fluids infusing mlc per order. . 21:05 Reassessment: Patient appears in no apparent distress at this time. Patient denies pain mlc at this time. pt able to stand and use urinal. resp easy/unlabored. pt offers no complaints. . 21:57 General: Appears in no apparent distress, Behavior is appropriate for age, cooperative. mgs Pain: Denies pain. Neurological: Level of Consciousness is awake, alert, Oriented to person, place, time. Cardiovascular: Capillary refill < 3 seconds. Respiratory: Airway is patent Respiratory effort is even, unlabored, Respiratory pattern is regular, symmetrical. Derm: Skin is pink, warm & dry. Vital Signs: 16:44 BP 136 / 81; Pulse 91; Resp 18 S; Temp 95.9(O); Weight 90.72 kg (R); Height 5 ft. 11 gr2 in. (180.34 cm) (R); Pain 2/10; 17:18 BP 128 / 81 (auto/); js13 17:18 Pulse 72 MON; Resp 16; Pulse Ox 96% on R/A; 13 17:33 BP 130 / 88 (auto/); 13 17:33 Pulse 72 MON; Resp 16; Pulse Ox 98% on R/A; 13 17:48 BP 118 / 85 (auto/); 13 17:48 Pulse 78 MON; Resp 16; Pulse Ox 95% on R/A; 13 18:03 BP 147 / 84 (auto/); 13 18:03 Pulse 68 MON; Resp 16; Pulse Ox 97% on R/A; js13 18:18 BP 143 / 88 (auto/); mlc 18:18 Pulse 68 MON; Pulse Ox 96% ; mlc 19:19 Pulse 70 MON; Pulse Ox 93% ; mlc 19:19 BP 153 / 87 (auto/); mlc 21:05 Pulse 78 MON; Pulse Ox 95% ; mlc 21:50 BP 138 / 86 (man/); Pulse 84; Resp 18; Temp 99.1(TE); Pulse Ox 96% on R/A; Pain 0/10; mireille 16:44 Body Mass Index 27.89 (90.72 kg, 180.34 cm) gr2 16:44 O2 UNABLE TO READ gr2 Vitals: 16:44 Log In Time: August 14, 2016 at 16:44. gr2 ED Course: 16:44 Patient visited by Catalina Guo. gr2 16:44 Sharad Mclaughlin is Private Physician. gr2 16:44 Patient moved to Waiting gr2 16:46 Patient visited by Catalina Guo. gr2 16:46 Patient visited by Catalina Guo. gr2 16:46 Patient moved to Pre RCE gr2 16:49 Triage Initiated srm 16:57 Eveline Mack,RN is Primary Nurse. srm 16:57 Patient moved to 10 srm 17:02 [facility] Fitzgerald [facility] jo4 17:02 Jace Allan MD is Attending Physician. jo4 17:30 Patient visited by Fide Fitzgerald DO. jo4 18:15 The patient / caregiver is instructed regarding the plan of care and ED course. Placed js13 in gown. Bed in low position. Call light in reach. Side rails up X2. night monitor on. Pulse ox on. NIBP on. 18:17 Patient visited by Eveline Mack,RENEE. js13 18:18 [facility] [place] was scanned into [employer] and attached to record. ks16 18:43 Patient visited by Sallie Richards PCA. mireille 18:43 EKG done. (by ED staff). Reviewed by Fide Fitzgerald DO. mireille 18:58 Wilma Tilley,RENEE is Primary Nurse. mlc 19:00 PT/INR Sent. js13 19:00 Cardiac Marker Panel Sent. js13 19:00 BMP Sent. js13 19:00 CBC with Diff Sent. js13 19:00 Inserted saline lock: 18 gauge in right antecubital area and blood collected. The js13 patient tolerated the procedure well. No procedures done that require assistance. 19:01 Patient visited by Eveline Mack,RENEE. js13 19:18 CT Head Without Contrast Returned. EDMS 19:25 Attending Physician role handed off by Jace Allan MD mm11 19:25 Alfred Harris DO is Attending Physician. mm11 19:57 Patient visited by Wilma Tilley,RENEE. mlc 20:08 Primary Nurse role handed off by Eveline Mack,RENEE sls1 20:59 Patient visited by Glenna Gonzales PCA. ar3 20:59 Urine Culture Sent. ar3 20:59 UA Sent. ar3 21:44 Josep Solitario is Referral Physician. mm11 21:50 Patient visited by Sallie Richards PCA. mireille 08/15 08:22 EKG-ADULT Returned. EDMS 10:15 T-Sheet-- Draft Copy was scanned into [employer] and attached to record. gb 10:15 ECG/EKG was scanned into [employer] and attached to record. gb Administered Medications: 08/14 19:54 Drug: NS 0.9% 500 ml [sodium chloride 0.9 % intravenous solution] Route: IV; Rate: mlc bolus; Site: right antecubital; Order Results: Lab Order: CBC with Diff; SPEC'M 08/14/16 18:51 Test: WHITE BLOOD COUNT; Value: 6.3; Range: 4.0-10.0; Units: K/mm3; Status: F Test: RED BLOOD COUNT; Value: 4.06; Range: 4.30-6.10; Abnormal: Below low normal; Units: M/mm3; Status: F Test: HEMOGLOBIN; Value: 12.5; Range: 14.0-18.0; Abnormal: Below low normal; Units: g/dl; Status: F Test: HEMATOCRIT; Value: 36.7; Range: 42.0-52.0; Abnormal: Below low normal; Units: %; Status: F Test: MEAN CORPUSCULAR VOLUME; Value: 90.6; Range: 80.0-96.0; Units: fl; Status: F Test: MEAN CORPUSCULAR HEMOGLOBIN; Value: 30.7; Range: 27.0-33.0; Units: pg; Status: F Test: MEAN CORPUSCULAR HGB CONC; Value: 33.9; Range: 32.0-36.5; Units: g/dl; Status: F Test: RED CELL DISTRIBUTION WIDTH; Value: 12.8; Range: 11.5-14.5; Units: %; Status: F Test: PLATELET COUNT, AUTOMATED; Value: 166; Range: 150-450; Units: k/mm3; Status: F Test: NEUTROPHILS %; Value: 62.3; Range: 36.0-66.0; Units: %; Status: F Test: LYMPH %; Value: 23.9; Range: 24.0-44.0; Abnormal: Below low normal; Units: %; Status: F Test: MONO %; Value: 8.0; Range: 0.0-5.0; Abnormal: Above high normal; Units: %; Status: F Test: EOS %; Value: 3.8; Range: 0.0-3.0; Abnormal: Above high normal; Units: %; Status: F Test: BASO %; Value: 0.5; Range: 0.0-1.0; Units: %; Status: F Test: LARGE UNSTAINED CELL %; Value: 1.6; Range: 0.0-4.0; Units: %; Status: F Test: NEUTROPHILS #; Value: 3.9; Range: 1.8-7.7; Units: K/mm3; Status: F Test: LYMPH #; Value: 1.5; Range: 1.5-4.5; Units: K/mm3; Status: F Test: MONO #; Value: 0.5; Range: 0.0-0.8; Units: K/mm3; Status: F Test: EOS #; Value: 0.2; Range: 0.0-0.50; Units: K/mm3; Status: F Test: BASO #; Value: 0.0; Range: 0.0-0.2; Units: K/mm3; Status: F Test: LARGE UNSTAINED CELL #; Value: 0.1; Range: 0.0-0.4; Units: K/mm3; Status: F Lab Order: BMP; SPEC'M 01/17/17 18:51 Test: GLUCOSE, FASTING; Value: 106; Range: 83-110; Units: MG/DL; Status: F Test: BLOOD UREA NITROGEN; Value: 38; Range: 7-18; Abnormal: Above high normal; Units: MG/DL; Status: F Test: CREATININE FOR GFR; Value: 3.13; Range: 0.70-1.30; Abnormal: Above high normal; Units: MG/DL; Status: F Test: GLOMERULAR FILTRATION RATE; Value: 20.2; Range: >35; Abnormal: Below low normal; Status: F Test: SODIUM LEVEL; Value: 144; Range: 136-145; Units: MEQ/L; Status: F Test: POTASSIUM SERUM; Value: 4.0; Range: 3.5-5.1; Units: MEQ/L; Status: F Test: CHLORIDE LEVEL; Value: 108; Range: 98-107; Abnormal: Above high normal; Units: MEQ/L; Status: F Test: CARBON DIOXIDE LEVEL; Value: 24; Range: 21-32; Units: MEQ/L; Status: F Test: ANION GAP; Value: 12; Range: 8-16; Units: MEQ/L; Status: F Test: CALCIUM LEVEL; Value: 9.1; Range: 8.8-10.2; Units: MG/DL; Status: F Test Note: ; Units are mL/min/1.73 m2 Chronic Kidney Disease Staging per NKF: Stage I & II GFR >=60 Normal to Mildly Decreased Stage III GFR 30-59 Moderately Decreased Stage IV GFR 15-29 Severely Decreased Stage V GFR <15 Very Little GFR Left ESRD GFR <15 on LOSS PREVENTION COORDINATOR Lab Order: Cardiac Marker Panel; SPEC'M 08/14/16 18:51 Test: CPK CREATINE PHOSPHOKINASE; Value: 107; Range: 39-308; Units: U/L; Status: F Test: CK-MB VALUE MASS; Value: 5.9; Range: 0.0-3.6; Abnormal: Above high normal; Units: NG/ML; Status: F Test: MB/CK RELATIVE INDEX; Value: 5.51; Range: < OR =4; Abnormal: Above high normal; Status: F Test: TROPONIN I; Value: < 0.02; Range: < 0.10; Units: NG/ML; Status: F Test Note: ; DIAGNOSIS CRITERIA MMB ng/ml Relative Index (RI) NON-AMI < or = 5 N/A JIMÉNEZ ZONE > 5 < or = 4 AMI > 5 > 4 Lab Order: PT/INR; SPEC'M 08/14/16 18:51 Test: PROTHROMBIN TIME; Value: 15.2; Range: 12.3-14.5; Abnormal: Above high normal; Units: SECONDS; Status: F Test: INR; Value: 1.19; Status: F Test Note: ; THERAPUTIC HUMAN INR VALUES INDICATIONS NORMAL RANGES PROPHYLAXIS/TREATMENT OF: VENOUS THROMBOSIS 2.0-3.0 PULMONARY EMBOLISM 2.0-3.0 PREVENTION OF SYSTEMIC EMBOLISM FROM: TISSUE HEART VALVES 2.0-3.0 ACUTE MYOCARDIAL INFARCTION 2.0-3.0 VALVULAR HEART DISEASE 2.0-3.0 ATRIAL FIBRILLATION 2.0-3.0 MECHANICAL VALVES(HIGH RISK) 2.5-3.5 RECURRENT MYOCARDIAL INFARCTION 2.5-3.5 Lab Order: UA; SPEC'M 08/14/16 20:58 Test: APPEARANCE, URINE; Value: CLEAR; Range: CLEAR; Status: F Test: COLOR, URINE; Value: YELLOW; Range: YELLOW; Status: F Test: PH,URINE; Value: 7.0; Range: 5.0-9.0; Units: UNITS; Status: F Test: SPECIFIC GRAVITY URINE AUTO; Value: 1.008; Range: 1.002-1.035; Status: F Test: PROTEIN, URINE AUTO; Value: NEGATIVE; Range: NEGATIVE; Units: mg/dL; Status: F Test: GLUCOSE, URINE (UA) AUTO; Value: NEGATIVE; Range: NEGATIVE; Units: mg/dL; Status: F Test: KETONE, URINE AUTO; Value: NEGATIVE; Range: NEGATIVE; Units: mg/dL; Status: F Test: UROBILINOGEN, URINE AUTO; Value: 0.2; Range: 0.0-2.0; Units: mg/dL; Status: F Test: BILIRUBIN, URINE AUTO; Value: NEGATIVE; Range: NEGATIVE; Status: F Test: NITRITE, URINE AUTO; Value: NEGATIVE; Range: NEGATIVE; Status: F Test: LEUKOCYTE ESTERASE, URINE AUTO; Value: TRACE; Range: NEGATIVE; Abnormal: Above high normal; Status: F Test: BLOOD, URINE BLOOD; Value: NEGATIVE; Range: NEGATIVE; Status: F Test: WBC, URINE AUTO; Value: 1; Range: 0-3; Units: /HPF; Status: F Test: RBC, URINE AUTO; Value: 1; Range: 0-3; Units: /HPF; Status: F Test: BACTERIA, URINE AUTO; Value: NEGATIVE; Range: NEGATIVE; Status: F Test: SQUAMOUS EPITHELIAL CELL UR AU; Value: 0; Range: 0-6; Units: /HPF; Status: F Test: HYALINE CAST, URINE AUTO; Value: 0; Range: 0-1; Units: /LPF; Status: F Lab Order: Urine Culture; SPEC'M 08/14/16 20:58 Test: URINE CULTURE; Value: URINE CULTURE RESULT NO GROWTH; Status: F Radiology Order: CT Head Without Contrast Test: CT Head Without Contrast REASON FOR EXAMINATION: Weakness; ; CLINICAL HISTORY: Weakness.; TECHNIQUE: Multiple axial CT images were obtained through the brain without IV contrast material.; COMMENTS:; There is normal configuration of sella turcica. There are no intra or extra-axial collections. There; is no mass effect or midline shift. There is no evidence of hematoma formation. No hydrocephalus is p; resent. The ventricles are symmetrical. No abnormal calcifications are present.; There is diffuse age-appropriate cerebellar and cerebral atrophy with proportionally dilated ventricl; es and cortical sulci.; There are bilateral periventricular and subcortical white matter hypolucencies compatible with mild c; hronic microvascular disease.; Otherwise, no significant focal abnormalities are seen either in the posterior fossa or supratentoria; l compartment.; IMPRESSION:; 1. 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 Mild chronic microvascular disease.; 3. 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 [facility] [place]:44 Discharge ordered by Provider. mm11 21:58 Discharge Assessment: Patient awake, alert and oriented x 3. No cognitive and/or mgs functional deficits noted. Patient verbalized understanding of disposition instructions. patient administered narcotics - no. The following High Risk Discharge criteria are identified: None. Discharged to home ambulatory, with family. Condition: stable. Discharge instructions given to patient, family, Instructed on discharge instructions, follow up and referral plans. Demonstrated understanding of instructions, Pt was receptive of discharge instructions/ teaching. Property sent home with patient. 21:59 Patient left the ED. mgs Signatures: Dispatcher [employer] EDMS Carly Armando, RN [facility] Keyla Leal, Reg Reg gb Alfred Harris, DO mm11 Glenna Gonzales, LEAK GANG SUPERVISOR LEAK GANG SUPERVISOR ar3 Sallie Richards, LEAK GANG SUPERVISOR LEAK GANG SUPERVISOR Krissy Boswell RN RN sls1 Eveline Mack RN RN js13 Catalina Guo gr2 Wilma Tilley RN RN mlc Sheldon, Matthew, RN RN s Fide Fitzgerald, DO DO jo4 Winnie Collado, Reg Reg ks16 Corrections: (The following items were deleted from the chart) 16:46 16:44 BP 136 / 81; Pulse 91bpm; Resp 18bpm; Spontaneous; Temp 95.9F Oral; 90.72 kg gr2 Reported; Height 5 ft. 11 in. Reported; BMI: 27.8; Pain 2/10; UNABLE TO READ O2, PT HAND IS COLD.; gr2 Chart Complete MTDD
--- NOTE | 2016-08-16 23:01 | EDDOCDS ---
Physician Documentation [facility] Name: Grupo Shah Age: 86 yrs Sex: Male : 1930 Arrival Date: 08/14/2016 Time: 16:43 Bed 10 Private MD: Sharad Mclaughlin D Disposition: 08/14/16 21:44 Discharged to Home/Self Care. Impression: Dehydration. - Condition is Stable. - Discharge Instructions: Dehydration, Elderly, Rehydration, Elderly. - Medication Reconciliation, Local Pharmacy Hours form. - Follow up: Josep Solitario; When: 1 week; Reason: Continuance of care. - Problem is an acute exacerbation. - Symptoms have improved. Historical: - Allergies: no known allergies; - Home Meds: 1. zonisamide 200mg oral cap 2 times per day (Last dose: Unknown) 2. riboflavin (vitamin B2) 100 mg oral tab daily (Last dose: 08/14/2016 09:00) 3. gabapentin 300 mg Oral tab twice a day 4. Lipitor 40 mg Oral tab 1 tab nightly 5. furosemide 20 mg Oral tab 1 tab once daily 6. Vitamin D Oral 1000 unit daily 7. midodrine 2.5 mg oral tab 1 tab 3 times per day 8. Flomax 0.4 mg Oral cp24 2 caps once daily 9. cefdinir 300 mg Oral cap every 12 hours 10. omeprazole 40 mg oral cpDR 2 times per day 11. Proscar 5 mg Oral tab 1 tab once daily 12. meclizine 25 mg Oral tab 4 times per day prn (Last dose: 08/14/2016 09:00) 13. Coumadin 1 mg tabs- 3 tabs m,w,f,sun and 2 mg tu, , sat oral tab 14. Vitamin C 500 mg Oral tab 500 mg daily 15. cpap 16. Nitrostat 0.4 mg SL subl 1 tab every 5 minutes - PMHx: Arthritis; BPH; gi bleed; Hard of Hearing; Hypercholesterolemia; Hypertension; Myocardial infarction; Sleep Apnea w/ CPAP; - PSHx: Cataract Surgery- Bilateral; Stents, Coronary; inguinal hernia; knee left- arthritis; Pacemaker Insertion; Colonoscopy; - Social history: Smoking status: Patient states former smoker of tobacco. No barriers to communication noted, The patient speaks fluent Filipino, Speaks appropriately for age. - Family history: Not pertinent. - : The pt / caregiver states he / she is on anticoagulants: coumadin. Home medication list is obtained from the patient. - Exposure Risk Screening:: None identified. Vital Signs: 08/14 16:44 BP 136 / 81; Pulse 91; Resp 18 S; Temp 95.9(O); Weight 90.72 kg / 200 lbs (R); Height 5 gr2 ft. 11 in. (180.34 cm) (R); Pain 2/10; 17:18 BP 128 / 81 (auto/); js13 17:18 Pulse 72 MON; Resp 16; Pulse Ox 96% on R/A; js13 17:33 BP 130 / 88 (auto/); js13 17:33 Pulse 72 MON; Resp 16; Pulse Ox 98% on R/A; js13 17:48 BP 118 / 85 (auto/); js13 17:48 Pulse 78 MON; Resp 16; Pulse Ox 95% on R/A; js13 18:03 BP 147 / 84 (auto/); js13 18:03 Pulse 68 MON; Resp 16; Pulse Ox 97% on R/A; js13 18:18 BP 143 / 88 (auto/); mlc 18:18 Pulse 68 MON; Pulse Ox 96% ; mlc 19:19 Pulse 70 MON; Pulse Ox 93% ; mlc 19:19 BP 153 / 87 (auto/); mlc 21:05 Pulse 78 MON; Pulse Ox 95% ; mlc 21:50 BP 138 / 86 (man/); Pulse 84; Resp 18; Temp 99.1(TE); Pulse Ox 96% on R/A; Pain 0/10; mireille 16:44 Body Mass Index 27.89 (90.72 kg, 180.34 cm) gr2 16:44 O2 UNABLE TO READ gr2 MDM: 18:18 Financial registration complete. ks16 18:18 [facility] [place] Payment Agreement was scanned into [employer] and attached to record. ks16 18:25 CT Head Without Contrast Ordered. EDMS 18:25 ECG WITH READING ER PHYS+CARDIAG ordered. EDMS 18:26 CBC with Diff Ordered. EDMS 18:26 BMP Ordered. EDMS 18:26 Cardiac Marker Panel Ordered. EDMS 18:26 PT/INR Ordered. EDMS 19:00 IV Saline Lock ordered. js13 19:13 CBC with Diff Reviewed. jo4 19:27 PT/INR Reviewed. mm11 19:27 CT Head Without Contrast Reviewed. mm11 19:28 UA Ordered. EDMS 19:28 Urine Culture Ordered. EDMS 19:49 BMP Reviewed. mm11 19:49 Cardiac Marker Panel Reviewed. mm11 19:51 NS 0.9% 500 ml IV at bolus once ordered. mm11 21:24 UA Reviewed. mm11 08/15 10:15 T-Sheet-- Draft Copy was scanned into [employer] and attached to record. gb 10:15 ECG/EKG was scanned into [employer] and attached to record. gb Administered Medications: 08/14 19:54 Drug: NS 0.9% 500 ml [sodium chloride 0.9 % intravenous solution] Route: IV; Rate: mlc bolus; Site: right antecubital; Signatures: Dispatcher [employer] Carly Garcia, RN RN [facility] Keyla Leal, Reg Reg gb Alfred Harris, DO mm11 Eveline Mack RN RN js13 Alfred Barrios RN RN s Fide Fitzgerald, DO DO jo4 Winnie Collado, Reg Reg ks16 Wilma Tilley RN mlc The chart was reviewed and I authenticate all verbal orders and agree with the evaluation and treatment provided.Attachments: 18:18 [facility] Payment Agreement [email or web address] 08/15 10:15 T-Sheet-- Draft Copy gb 10:15 ECG/EKG gb Chart Complete MTDD
== END 2016-08-14 21:59 | disposition home or self-care (01) ==
LOC: M ED 16:43
DX: E86.0 Dehydration (principal); R94.31 Abnormal electrocardiogram [ECG] [EKG]; E78.00 Pure hypercholesterolemia, unspecified; I10 Essential (primary) hypertension; I25.2 Old myocardial infarction; G47.30 Sleep apnea, unspecified; Z95.5 Presence of coronary angioplasty implant and graft; Z95.0 Presence of cardiac pacemaker; Z87.891 Personal history of nicotine dependence; Z79.01 Long term (current) use of anticoagulants; Z79.899 Other long term (current) drug therapy

== ENCOUNTER → 2016-08-20 | Outpatient (REF) | payer MEDICARE ==
[2016-08-20 15:48] LABS: CALCIUM LEVEL 8.6 MG/DL (8.8-10.2); CREATININE FOR GFR 2.86 MG/DL (0.70-1.30); GLOMERULAR FILTRATION RATE 22.4 (>35); POTASSIUM SERUM 4.6 MEQ/L (3.5-5.1)
== END ==
LOC: M SFHCPLAZ 13:39
PROVIDERS: ATTEND Internal Medicine
DX: I12.9 Hypertensive chronic kidney disease with stage 1 through stage 4 chronic kidney disease, or unspecified chronic kidney disease (principal); N18.3 Chronic kidney disease, stage 3 (moderate)
CPT/HCPCS: 36415; 80048; 83735; G0463

== ENCOUNTER → 2016-08-29 | Outpatient (REF) | payer MEDICARE | LOC: M LAB REF 16:47 | PROVIDERS: ATTEND Internal Medicine Nephrology | DX: N18.9 Chronic kidney disease, unspecified (principal); D63.1 Anemia in chronic kidney disease ==

== ENCOUNTER → 2016-10-10 | Outpatient (REF) | payer MEDICARE ==
[~2016-10-10] MED LIST changes: +CIPR500T89 PO
[2016-10-10 12:52] LABS: ALBUMIN 3.6 GM/DL (3.2-5.2); ALBUMIN/GLOBULIN RATIO 1.5 (1.00-1.93); BILIRUBIN,TOTAL 0.4 MG/DL (0.2-1.0); CALCIUM LEVEL 8.6 MG/DL (8.8-10.2); CREATININE FOR GFR 2.68 MG/DL (0.70-1.30); GLOMERULAR FILTRATION RATE 24.2 (>35); POTASSIUM SERUM 4.9 MEQ/L (3.5-5.1)
== END ==
LOC: M SFHCPLAZ 09:41
PROVIDERS: ATTEND Internal Medicine
DX: N18.3 Chronic kidney disease, stage 3 (moderate) (principal)

== ENCOUNTER → 2016-10-11 | Outpatient (CLI) | payer MEDICARE ==
--- NOTE | 2016-10-11 13:27 | REP ---
CT LUMBAR SPINE WITHOUT CONTRAST: 10/11/2016. Comparison: 12/23/2015. Clinical history: Spinal stenosis. Technique: Axial thin-section images with coronal and sagittal bone reconstructions. Angled images through the L4-5 and L5-S1 were reconstructed. Findings: Normal lumbar lordosis is maintained. T11-12 and T12-L1 levels show no spinal or foraminal stenosis. There are marginal osteophytes anteriorly at T11-12. No compression deformities of those vertebral bodies. At L1-2, there is broad-based disc bulge with ligamentum flavum and facet hypertrophy. Cross-sectional area of the canal is minimally stenotic due to combined factors. No foraminal encroachment. Marginal osteophytes are greatest at this level in the lumbar spine. At L3-4, there is a diffuse broad-based disc bulge, ligamentum flavum and facet hypertrophy. Central canal stenosis without significant foraminal encroachment or nerve root compression. At L3-L4, there is a broad-based disc bulge, ligamentum flavum and facet hypertrophy which combined cause moderately severe spinal stenosis and this is unchanged. The L3 foramina show nerve root compression of the L3 roots. At L4-L5, there is a broad-based disc bulge, vacuum phenomenon at that disc level with discogenic endplate changes noted. Small posterior osteophyte is seen. All of this grossly unchanged. There is ligamentum flavum and facet hypertrophy combining to cause moderately severe to severe spinal stenosis, unchanged. There is some foraminal encroachment due to combined factors with L4 nerve root compression as before. At L5-S1, there is broad-based disc bulge with flattening of the ventral thecal sac. Facet hypertrophy is noted. No central canal stenosis is seen. The L5 nerve roots view do show nerve root compression due to combined factor, narrowing of facet and marginal osteophytes on the foramina. The degree of degenerative disc change at L4-5 is the greatest and is unchanged from the previous study. Impression: 1. L4-5 spinal stenosis, moderately severe to severe with moderate stenosis at L3-4 and mild stenosis at L1-2, L2-3 levels. 2. Foraminal encroachment at L4-5 and L5-S1 bilaterally due to combined factors. Stable exam. No new or progressive findings. Signed by Shawn Bonilla MD 10/11/2016 04:16 P
== END ==
LOC: M RAD 09:24
PROVIDERS: ATTEND Orthopaedic Surgery
DX: M54.5 Low back pain (principal)

== ENCOUNTER → 2016-10-14 | Outpatient (REF) | payer MEDICARE | LOC: M LAB REF 10:04 | PROVIDERS: ATTEND Physician Assistant | DX: N39.0 Urinary tract infection, site not specified (principal) ==

== ENCOUNTER 2016-10-16 04:35 | Emergency (ER) | payer MEDICARE ==
[~2016-10-16] VITALS: Ht 180.3 cm; Wt 95.3 kg
[~2016-10-16 04:35] MED LIST changes: -CIPR500T89 PO
[2016-10-16 04:52] VITALS: BP 109/82
[2016-10-16] MEDS ORDERED: CIPR500T89 PO (04:57)
== END 2016-10-16 05:37 | disposition home or self-care (01) ==
LOC: M ED 05:24
DX: R33.9 Retention of urine, unspecified (principal)

== ENCOUNTER 2016-12-05 09:53 | Day surgery (SDC) | payer MEDICARE ==
[~2016-12-05] VITALS: Ht 180.3 cm; Wt 90.7 kg
[~2016-12-05 09:53] MED LIST changes: +CIPR500T89 PO; +GABA-282 PO; -GABA300C3 PO
[2016-12-05] MEDS ORDERED: LR 1,000 ML IV ONE (10:15)
[2016-12-05 10:38] LABS: INR 1.06
[2016-12-05] MEDS ORDERED: fentaNYL 100 MCG/2 ML INJECTION (J3010) As Ordered ONE ×3 (11:46→15:11)
[2016-12-05] MEDS ORDERED: MIDAZOLAM INJ 2 MG/2 ML VIAL (J2250) As Ordered ONE (11:46)
[2016-12-05] MEDS ORDERED: LIDOCAINE 2% INJ 100 MG/5 ML SDV (FOR ANES.) As Ordered ONE (11:47)
[2016-12-05] MEDS ORDERED: PROPOFOL 200 MG/20 ML VIAL As Ordered ONE (11:47)
[2016-12-05] MEDS ORDERED: ONDANSETRON 4MG/2ML VIAL (J2405) As Ordered ONE (14:46)
[2016-12-05] MEDS ORDERED: KETOROLAC 30 MG/ML VIAL (J1885) IV ONE (14:55)
[2016-12-05] MEDS ORDERED: PERCOCET PO (15:04)
[2016-12-05] MEDS ORDERED: BACT800T5 PO (15:05)
[2016-12-05] MEDS: fentaNYL 100 MCG/2 ML INJECTION (J3010) IV PRN ×4 (15:13→16:05)
[2016-12-05] MEDS ORDERED: KETOROLAC 30 MG/ML VIAL (J1885) As Ordered ONE (15:27)
[2016-12-05] MEDS ORDERED: LR 1,000 ML IV SCH (15:30)
[2016-12-05] MEDS ORDERED: ONDANSETRON 4MG/2ML VIAL (J2405) IV PRN (15:30)
[2016-12-05] MEDS ORDERED: MORPHINE 2 MG/ML 1ML SYRINGE IV PRN (15:30)
[2016-12-05] MEDS ORDERED: PERCOCET 5MG/325MG TAB PO PRN ×3 (15:45→19:45)
[2016-12-05] MEDS ORDERED: [UNRECOGNIZED DRUG - REMARK] XX SCH (16:00)
[2016-12-05 17:30] VITALS: BP 123/74
[2016-12-05 18:00] VITALS: BP 127/84
[2016-12-05] MEDS ORDERED: BACTRIM 160MG/800MG DS TAB PO SCH (21:00)
--- NOTE | 2016-12-06 13:26 | RO ---
DATE OF PROCEDURE: 12/05/2016 PREOPERATIVE DIAGNOSIS: Benign prostatic enlargement with lower urinary tract symptoms. 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 SURGERY PERFORMED: Cystoscopy, plus urethral dilation with Sargent sounds, plus GreenLight laser vaporization of the prostate gland with MoXy fiber AMS GreenLight. SURGEON: Giovanni Coppola MD RESEARCH ASSOCIATE PROFESSOR: None. ANESTHESIA: General. FINDINGS: Bilateral lobe benign prostatic enlargement with small middle lobe causing severe lower urinary tract symptoms having failed medical therapy. COMPLICATIONS: None. ESTIMATED BLOOD LOSS: N/A. HISTORY OF PRESENT ILLNESS: 86-year-old male patient that has severe prostatic symptoms, severe lower urinary tract symptoms due to prostatic enlargement. The patient has consented for cystoscopy, plus GreenLight laser ablation of the prostate with a MoXy fiber AMS. DESCRIPTION OF PROCEDURE: With the patient under general anesthesia, in supine modified low lithotomy position after prepping and draping the area of concern, which included the entire genitalia and abdomen, we started by dilating the urethra with Ranjeet sounds up to Chiari 26. We then proceeded to pass a cystoscope with a 30 degree lens through the urethra. The fossa navicularis, penile urethra, bulbar urethra, and membranous urethra were totally normal. The prostatic urethra had of stretching in the middle lobe, which was very small. We could see both ureteral orifice near the middle lobe. There was severe trabeculations of the bladder, no tumors. At that moment and time, with endoscopic guidance and with GreenLight laser lens placed, we actively passed the GreenLight laser fiber, MoXy fiber through the cystoscope to actively start ablating the middle lobe at a power of 80 sutton. Once the middle lobe was totally finished, we ablated the lateral lobes, power of 120. There was no bleeding from vessels. The small vessels were cauterized actively and created hemostasis with ring-like laser fiber coagulation. We then proceeded to actively grab take out all the carbonized pieces and secured hemostasis with laser coagulation. We then proceeded to take out the cystoscope and place a Cornell catheter, 20-Lao to gravity with normal saline irrigation. PLAN: The patient will go home today once the urine returns clear and he has no irrigations. He will go home with antibiotic and pain medication. Followup at [facility] [place] in about 2 weeks for a voiding trial.
== END 2016-12-05 20:15 | disposition home or self-care (01) ==
LOC: M SDC 09:53 → M MS5PR 17:20 → M SDC 20:15
PROVIDERS: ATTEND Urology
DX: N40.1 Benign prostatic hyperplasia with lower urinary tract symptoms (principal); E78.00 Pure hypercholesterolemia, unspecified; N18.3 Chronic kidney disease, stage 3 (moderate); I25.10 Atherosclerotic heart disease of native coronary artery without angina pectoris; G47.33 Obstructive sleep apnea (adult) (pediatric); G44.89 Other headache syndrome; I48.0 Paroxysmal atrial fibrillation; D69.6 Thrombocytopenia, unspecified; I12.9 Hypertensive chronic kidney disease with stage 1 through stage 4 chronic kidney disease, or unspecified chronic kidney disease; I95.1 Orthostatic hypotension; M48.00 Spinal stenosis, site unspecified; I25.2 Old myocardial infarction; K21.9 Gastro-esophageal reflux disease without esophagitis; D64.9 Anemia, unspecified; M12.9 Arthropathy, unspecified; R29.898 Other symptoms and signs involving the musculoskeletal system; R06.83 Snoring; Z88.5 Allergy status to narcotic agent; Z79.899 Other long term (current) drug therapy; Z79.01 Long term (current) use of anticoagulants; Z95.0 Presence of cardiac pacemaker; Z95.5 Presence of coronary angioplasty implant and graft; Z96.1 Presence of intraocular lens
CPT/HCPCS: 36415; 52601; 84132; 85610; 86850; 86900; 86901; 96374; 96375; J0690; J1885; J2250; J2405; J3010

== ENCOUNTER → 2017-01-10 | Outpatient (REF) | payer MEDICARE ==
[~2017-01-10] MED LIST changes: +BACT800T5 PO; +PERCOCET PO
== END ==
LOC: M SMT 17:11
PROVIDERS: ATTEND Urology
DX: N40.1 Benign prostatic hyperplasia with lower urinary tract symptoms (principal); F31.30 Bipolar disorder, current episode depressed, mild or moderate severity, unspecified

== ENCOUNTER → 2017-02-07 | Outpatient (REF) | payer MEDICARE ==
[~2017-02-07] MED LIST changes: +CIPR-249 PO; -CIPR500T89 PO; +MECL1CHW2 PO; -MECL25CH PO; +MIDO2.5T PO; -MIDO25TA PO; +PERC5TAB12 PO; -PERC5TAB6 PO; -SENO8.6T2 PO; +SENO8.6T5 PO
== END ==
LOC: M SMT 17:08
PROVIDERS: ATTEND Urology
DX: N40.1 Benign prostatic hyperplasia with lower urinary tract symptoms (principal)
CPT/HCPCS: 51798; 81001; 87086; G0463

== ENCOUNTER → 2017-02-11 | Outpatient (CLI) | payer MEDICARE ==
[2017-02-11 21:25] LABS: INR 2.25
== END ==
LOC: M WUC 15:37
PROVIDERS: ATTEND Nurse Practitioner Family
DX: I48.0 Paroxysmal atrial fibrillation (principal)

== ENCOUNTER → 2017-03-12 | Outpatient (CLI) | payer MEDICARE ==
[2017-03-12 15:00] LABS: ALBUMIN/GLOBULIN RATIO 1.43 (1.00-1.93); BILIRUBIN,TOTAL 0.6 MG/DL (0.2-1.0); CALCIUM LEVEL 9.2 MG/DL (8.8-10.2); CREATININE FOR GFR 2.28 MG/DL (0.70-1.30); GLOMERULAR FILTRATION RATE 29.1 (>35); POTASSIUM SERUM 4.9 MEQ/L (3.5-5.1); TOTAL PROTEIN 6.8 GM/DL (6.4-8.2)
== END ==
LOC: M WUC 11:52
PROVIDERS: ATTEND Internal Medicine
DX: N18.3 Chronic kidney disease, stage 3 (moderate) (principal); E78.00 Pure hypercholesterolemia, unspecified

== ENCOUNTER → 2017-03-21 | Outpatient (REF) | payer MEDICARE | LOC: M SMT 17:03 | PROVIDERS: ATTEND Urology | DX: N40.1 Benign prostatic hyperplasia with lower urinary tract symptoms (principal) | CPT/HCPCS: 51798; 81001; 87086; G0463 ==

== ENCOUNTER → 2017-05-01 | Outpatient (REF) | payer MEDICARE | LOC: M SMT 16:58 | PROVIDERS: ATTEND Urology | DX: N40.1 Benign prostatic hyperplasia with lower urinary tract symptoms (principal) | CPT/HCPCS: 81001; 87086; G0463 ==

== ENCOUNTER → 2017-08-07 | Outpatient (REF) | payer MEDICARE ==
[2017-08-07 18:33] LABS: HEMATOCRIT 40.6 % (42.0-52.0); HEMOGLOBIN 13.1 g/dl (14.0-18.0); MEAN CORPUSCULAR HEMOGLOBIN 30.4 pg (27.0-33.0); MEAN CORPUSCULAR HGB CONC 32.3 g/dl (32.0-36.5); MEAN CORPUSCULAR VOLUME 94.2 fl (80.0-96.0); PLATELET COUNT, AUTOMATED 147 10^3/uL (150-450); RED BLOOD COUNT 4.31 10^6/uL (4.30-6.10); RED CELL DISTRIBUTION WIDTH 12.2 % (11.5-14.5); WHITE BLOOD COUNT 5.9 10^3/uL (4.0-10.0)
[2017-08-07 20:17] LABS: ALBUMIN 4.1 GM/DL (3.2-5.2); ALBUMIN/GLOBULIN RATIO 1.41 (1.00-1.93); ALKALINE PHOSPHATASE 126 U/L (45-117); ALT/SGPT 26 U/L (12-78); ANION GAP 5 MEQ/L (8-16); AST/SGOT 15 U/L (7-37); BILIRUBIN,TOTAL 0.6 MG/DL (0.2-1.0); BLOOD UREA NITROGEN 35 MG/DL (7-18); CALCIUM LEVEL 8.8 MG/DL (8.8-10.2); CARBON DIOXIDE LEVEL 26 MEQ/L (21-32); CHLORIDE LEVEL 112 MEQ/L (98-107); GLOMERULAR FILTRATION RATE 27.4 (>35); GLUCOSE, FASTING 117 MG/DL (83-110); POTASSIUM SERUM 4.4 MEQ/L (3.5-5.1); SODIUM LEVEL 143 MEQ/L (136-145)
[2017-08-07 21:25] LABS: PTH INTACT 95.4 PG/ML (14.0-72.0)
== END ==
LOC: M SFHCPLAZ 14:55
DX: D69.6 Thrombocytopenia, unspecified (principal); N18.3 Chronic kidney disease, stage 3 (moderate)
CPT/HCPCS: 80053

== ENCOUNTER 2017-09-05 13:50 | Inpatient (IN) | payer MEDICARE ==
[~2017-09-05 13:50] MED LIST changes: -AMLO5TAB2 PO; -ASCO25TA PO; -BACT800T5 PO; -BUSP5TA PO; -CELE40TA PO; -CIPR-249 PO; -FERR325T3 PO; -FIOR1CAP2 PO; -FLOM5CAP PO; -FURO20TA2 PO; -GABA-282 PO; -GLUCTAB6 PO; -LIPI20TA PO; -LOSA100T36 PO; -MAGN1TAB25 PO; -MECL-68 PO; -MECL12.575 PO; -MECL1CHW2 PO; +MECLIZINE 25 MG TABLET PO; -MIDO2.5T PO; -MIRA3350 PO; -NITR4TASL SL; -OMEP40CA2 PO; -PERC5TAB12 PO; -PERCOCET PO; -PROS5TAB PO; -PROT1TAB2 PO; -PROTPAK PO; -RIBO100C PO; -ROBA750T4 PO; -SENO8.6T5 PO; -SUCR1TA PO; -TYLE325T5 PO; -TYLE650T30 PO; -VITA-112 PO; -VITA10002 PO; -WARF05TA PO; -ZONI100C2 PO; -ZYRT10CA PO; -[UNRECOGNIZED DRUG - CODE] SL
[2017-09-05 14:46] LABS: BASO % 0.2 % (0.0-1.0); EOS # 0.2 10^3/uL (0.0-0.50); HEMATOCRIT 25.4 % (42.0-52.0); HEMOGLOBIN 8.2 g/dl (14.0-18.0); IMMATURE GRANULOCYTE % 0.7 % (0-3.0); LYMPH # 0.9 10^3/uL (1.5-4.5); LYMPH % 9.2 % (24.0-44.0); MEAN CORPUSCULAR HEMOGLOBIN 29.7 pg (27.0-33.0); MEAN CORPUSCULAR HGB CONC 32.3 g/dl (32.0-36.5); MONO # 1.4 10^3/uL (0.0-0.8); NEUTROPHILS # 7.6 10^3/uL (1.8-7.7); NEUTROPHILS % 73.9 % (36.0-66.0); RED BLOOD COUNT 2.76 10^6/uL (4.30-6.10); RED CELL DISTRIBUTION WIDTH 13.2 % (11.5-14.5); WHITE BLOOD COUNT 10.3 10^3/uL (4.0-10.0)
[2017-09-05 14:56] LABS: APPEARANCE, URINE HAZY (CLEAR); BACTERIA, URINE AUTO NEGATIVE (NEGATIVE); BILIRUBIN, URINE AUTO NEGATIVE (NEGATIVE); BLOOD, URINE BLOOD 1+ (NEGATIVE); COLOR, URINE YELLOW (YELLOW); GLUCOSE, URINE (UA) AUTO NEGATIVE (NEGATIVE); KETONE, URINE AUTO NEGATIVE (NEGATIVE); LEUKOCYTE ESTERASE, URINE AUTO 2+ (NEGATIVE); MUCUS, URINE SMALL (NEGATIVE); NITRITE, URINE AUTO NEGATIVE (NEGATIVE); PROTEIN, URINE AUTO 1+ mg/dL (NEGATIVE); RBC, URINE AUTO 7 /HPF (0-3); SPECIFIC GRAVITY URINE AUTO 1.012 (1.002-1.035); SQUAMOUS EPITHELIAL CELL UR AU 0 /HPF (0-6); UROBILINOGEN, URINE AUTO 0.2 mg/dL (0.0-2.0); WBC, URINE AUTO 16 /HPF (0-3)
[2017-09-05] MEDS: ACETAMINOPHEN 500 MG TAB PO ×2 (14:56→22:49)
[2017-09-05 14:59] LABS: IMMATURE PLATELET FRACTION % 5.5 % (0.0-10.9); PLATELET COUNT, AUTOMATED 91 10^3/uL (150-450)
[2017-09-05] MEDS: MIDODRINE 2.5 MG TAB PO (16:26)
[2017-09-05] MEDS: SUCRALFATE 1 GM TAB PO (17:13)
[2017-09-05 17:49] LABS: IMMEDIATE SPIN CROSSMATCH 1 2
[2017-09-05] MEDS: OMEPRAZOLE 20 MG CAP PO (20:10)
[2017-09-05] MEDS: GABAPENTIN 100 MG CAP PO (20:10)
[2017-09-05] MEDS: MAGNESIUM OXIDE 400 MG TAB (MAG-OX) PO (20:10)
[2017-09-05] MEDS: DOCUSATE SODIUM 100 MG CAP PO (20:10)
[2017-09-05] MEDS: CARVedilol 6.25 MG TAB PO (20:10)
[2017-09-05] MEDS: ZONISAMIDE 100 MG CAP (ZONEGRAN) PO (20:11)
[2017-09-05] MEDS: FUROSEMIDE 20 MG TAB PO (20:11)
[2017-09-05] MEDS: ATORVASTATIN 20 MG TAB PO (20:12)
[2017-09-05] MEDS ORDERED: OMEPRAZOLE 20 MG CAP PO (21:00)
[2017-09-05] MEDS: oxyCODONE 5MG TAB PO (22:49)
[2017-09-06] MEDS: traMADol 50 MG TAB PO ×3 (06:05→21:20)
[2017-09-06 07:23] LABS: HEMATOCRIT 28.2 % (42.0-52.0); HEMOGLOBIN 9.3 g/dl (14.0-18.0); MEAN CORPUSCULAR HEMOGLOBIN 29.9 pg (27.0-33.0); MEAN CORPUSCULAR VOLUME 90.7 fl (80.0-96.0); RED BLOOD COUNT 3.11 10^6/uL (4.30-6.10)
[2017-09-06 07:25] LABS: PLATELET COUNT, AUTOMATED 99 10^3/uL (150-450)
[2017-09-06 07:55] LABS: ALBUMIN 2.7 GM/DL (3.2-5.2); ALBUMIN/GLOBULIN RATIO 0.82 (1.00-1.93); ALKALINE PHOSPHATASE 109 U/L (45-117); ALT/SGPT 23 U/L (12-78); ANION GAP 8 MEQ/L (8-16); AST/SGOT 45 U/L (7-37); BILIRUBIN,TOTAL 0.7 MG/DL (0.2-1.0); BLOOD UREA NITROGEN 31 MG/DL (7-18); CALCIUM LEVEL 8.2 MG/DL (8.8-10.2); CARBON DIOXIDE LEVEL 22 MEQ/L (21-32); CHLORIDE LEVEL 107 MEQ/L (98-107); CREATININE FOR GFR 2.13 MG/DL (0.70-1.30); FERRITIN 207 NG/ML (26-388); GLOMERULAR FILTRATION RATE 31.4 (>35); GLUCOSE, FASTING 129 MG/DL (70-100); IRON (FE) 17 UG/DL (65-175); PERCENT SATURATION 5.6 % (19.7-50.0); SODIUM LEVEL 137 MEQ/L (136-145); TOTAL IRON BINDING CAPACITY 306 UG/DL (250-450)
[2017-09-06] MEDS: VITAMIN D 1,000 INTERNATIONAL UNITS TABLET PO (08:40)
[2017-09-06] MEDS: OMEPRAZOLE 20 MG CAP PO ×2 (08:40→21:18)
[2017-09-06] MEDS: ASPIRIN ENTERIC 325 MG TAB PO (08:40)
[2017-09-06] MEDS: ZONISAMIDE 100 MG CAP (ZONEGRAN) PO ×2 (08:40→21:17)
[2017-09-06] MEDS: GABAPENTIN 100 MG CAP PO ×2 (08:40→21:18)
[2017-09-06] MEDS: ASCORBIC ACID 500 MG TAB PO (08:40)
[2017-09-06] MEDS: SUCRALFATE 1 GM TAB PO ×3 (08:40→17:21)
[2017-09-06] MEDS: DOCUSATE SODIUM 100 MG CAP PO ×2 (08:40→21:18)
[2017-09-06] MEDS: CYANOCOBALAMIN 500 MCG TAB PO (08:41)
[2017-09-06] MEDS: CARVedilol 6.25 MG TAB PO ×2 (08:41→21:18)
[2017-09-06] MEDS: MIDODRINE 2.5 MG TAB PO ×3 (08:41→15:04)
[2017-09-06] MEDS ORDERED: ZONISAMIDE 100 MG CAP (ZONEGRAN) PO (09:00)
[2017-09-06 09:56] LABS: VITAMIN B12 LEVEL 555 PG/ML (247-911)
[2017-09-06 09:57] LABS: FOLATE 7.9 NG/ML (>5.4)
[2017-09-06] MEDS: oxyCODONE 5MG TAB PO (10:22)
[2017-09-06] MEDS: TAMSULOSIN 0.4 MG CAP PO (21:18)
[2017-09-06] MEDS: ATORVASTATIN 20 MG TAB PO (21:20)
[2017-09-06] MEDS: MAGNESIUM OXIDE 400 MG TAB (MAG-OX) PO (21:20)
[2017-09-07] MEDS: traMADol 50 MG TAB PO ×2 (05:15→20:26)
[2017-09-07 07:13] LABS: HEMATOCRIT 29.5 % (42.0-52.0); HEMOGLOBIN 9.7 g/dl (14.0-18.0); MEAN CORPUSCULAR HEMOGLOBIN 29.7 pg (27.0-33.0); MEAN CORPUSCULAR HGB CONC 32.9 g/dl (32.0-36.5); MEAN CORPUSCULAR VOLUME 90.2 fl (80.0-96.0); PLATELET COUNT, AUTOMATED 133 10^3/uL (150-450); RED BLOOD COUNT 3.27 10^6/uL (4.30-6.10); RED CELL DISTRIBUTION WIDTH 13.8 % (11.5-14.5); WHITE BLOOD COUNT 7.8 10^3/uL (4.0-10.0)
[2017-09-07] MEDS: ASCORBIC ACID 500 MG TAB PO (08:21)
[2017-09-07] MEDS: VITAMIN D 1,000 INTERNATIONAL UNITS TABLET PO (08:21)
[2017-09-07] MEDS: GABAPENTIN 100 MG CAP PO ×2 (08:21→20:27)
[2017-09-07] MEDS: oxyCODONE 5MG TAB PO (08:21)
[2017-09-07] MEDS: OMEPRAZOLE 20 MG CAP PO ×2 (08:21→20:27)
[2017-09-07] MEDS: CARVedilol 6.25 MG TAB PO ×2 (08:21→20:26)
[2017-09-07] MEDS: MIDODRINE 2.5 MG TAB PO ×3 (08:22→16:14)
[2017-09-07] MEDS: ZONISAMIDE 100 MG CAP (ZONEGRAN) PO ×2 (08:22→20:26)
[2017-09-07] MEDS: CYANOCOBALAMIN 500 MCG TAB PO (08:22)
[2017-09-07] MEDS: SUCRALFATE 1 GM TAB PO ×3 (08:22→17:17)
[2017-09-07] MEDS: DOCUSATE SODIUM 100 MG CAP PO ×2 (08:22→20:27)
[2017-09-07] MEDS: ASPIRIN ENTERIC 325 MG TAB PO (08:22)
[2017-09-07] MEDS: MIRALAX *UNIT DOSE* 17GM PACKET PO (17:17)
[2017-09-07] MEDS: MAGNESIUM OXIDE 400 MG TAB (MAG-OX) PO (20:27)
[2017-09-07] MEDS: TAMSULOSIN 0.4 MG CAP PO (20:27)
[2017-09-07] MEDS: ATORVASTATIN 20 MG TAB PO (20:27)
[2017-09-08 06:46] LABS: HEMATOCRIT 30.5 % (42.0-52.0); MEAN CORPUSCULAR HEMOGLOBIN 29.6 pg (27.0-33.0); MEAN CORPUSCULAR HGB CONC 32.8 g/dl (32.0-36.5); MEAN CORPUSCULAR VOLUME 90.2 fl (80.0-96.0); PLATELET COUNT, AUTOMATED 161 10^3/uL (150-450); RED BLOOD COUNT 3.38 10^6/uL (4.30-6.10); RED CELL DISTRIBUTION WIDTH 13.4 % (11.5-14.5); WHITE BLOOD COUNT 7.3 10^3/uL (4.0-10.0)
[2017-09-08] MEDS: ACETAMINOPHEN 500 MG TAB PO (06:47)
[2017-09-08] MEDS: SUCRALFATE 1 GM TAB PO ×3 (07:28→17:43)
[2017-09-08] MEDS: MIRALAX *UNIT DOSE* 17GM PACKET PO (07:28)
[2017-09-08] MEDS: MIDODRINE 2.5 MG TAB PO ×3 (07:28→15:40)
[2017-09-08] MEDS: OMEPRAZOLE 20 MG CAP PO ×2 (08:57→20:31)
[2017-09-08] MEDS: VITAMIN D 1,000 INTERNATIONAL UNITS TABLET PO (08:57)
[2017-09-08] MEDS: ASCORBIC ACID 500 MG TAB PO (08:57)
[2017-09-08] MEDS: DOCUSATE SODIUM 100 MG CAP PO ×2 (08:57→20:30)
[2017-09-08] MEDS: ASPIRIN ENTERIC 325 MG TAB PO (08:57)
[2017-09-08] MEDS: ZONISAMIDE 100 MG CAP (ZONEGRAN) PO ×2 (08:57→20:31)
[2017-09-08] MEDS: GABAPENTIN 100 MG CAP PO ×2 (08:57→21:51)
[2017-09-08] MEDS: CYANOCOBALAMIN 500 MCG TAB PO (08:57)
[2017-09-08] MEDS: CARVedilol 6.25 MG TAB PO ×2 (08:58→20:37)
[2017-09-08] MEDS: traMADol 50 MG TAB PO ×2 (11:42→19:39)
[2017-09-08] MEDS: MOM 30ML SUSPENSION UDC PO (13:08)
[2017-09-08] MEDS: FLEET ENEMA PR (15:40)
[2017-09-08] MEDS: oxyCODONE 5MG TAB PO ×2 (15:47→21:51)
[2017-09-08] MEDS: TAMSULOSIN 0.4 MG CAP PO (20:31)
[2017-09-08] MEDS: MAGNESIUM OXIDE 400 MG TAB (MAG-OX) PO (20:31)
[2017-09-08] MEDS: ATORVASTATIN 20 MG TAB PO (20:31)
[2017-09-09] MEDS: ACETAMINOPHEN 500 MG TAB PO (01:01)
[2017-09-09] MEDS: traMADol 50 MG TAB PO ×3 (02:49→20:26)
[2017-09-09] MEDS: oxyCODONE 5MG TAB PO ×2 (04:55→11:06)
[2017-09-09 07:10] LABS: HEMATOCRIT 31.8 % (42.0-52.0); HEMOGLOBIN 10.5 g/dl (14.0-18.0); MEAN CORPUSCULAR HEMOGLOBIN 29.9 pg (27.0-33.0); MEAN CORPUSCULAR VOLUME 90.6 fl (80.0-96.0); PLATELET COUNT, AUTOMATED 179 10^3/uL (150-450); RED BLOOD COUNT 3.51 10^6/uL (4.30-6.10); RED CELL DISTRIBUTION WIDTH 13.4 % (11.5-14.5)
[2017-09-09 07:23] LABS: ANION GAP 8 MEQ/L (8-16); BLOOD UREA NITROGEN 32 MG/DL (7-18); CALCIUM LEVEL 8.7 MG/DL (8.8-10.2); CARBON DIOXIDE LEVEL 24 MEQ/L (21-32); CHLORIDE LEVEL 105 MEQ/L (98-107); CREATININE FOR GFR 1.89 MG/DL (0.70-1.30); GLOMERULAR FILTRATION RATE 36.1 (>35); GLUCOSE, FASTING 126 MG/DL (70-100); POTASSIUM SERUM 4.6 MEQ/L (3.5-5.1); SODIUM LEVEL 137 MEQ/L (136-145)
[2017-09-09] MEDS: OMEPRAZOLE 20 MG CAP PO ×2 (09:18→20:24)
[2017-09-09] MEDS: CARVedilol 6.25 MG TAB PO ×2 (09:18→20:25)
[2017-09-09] MEDS: DOCUSATE SODIUM 100 MG CAP PO ×2 (09:18→20:24)
[2017-09-09] MEDS: VITAMIN D 1,000 INTERNATIONAL UNITS TABLET PO (09:18)
[2017-09-09] MEDS: CYANOCOBALAMIN 500 MCG TAB PO (09:19)
[2017-09-09] MEDS: ASPIRIN ENTERIC 325 MG TAB PO (09:19)
[2017-09-09] MEDS: GABAPENTIN 100 MG CAP PO ×3 (09:19→20:24)
[2017-09-09] MEDS: ASCORBIC ACID 500 MG TAB PO (09:20)
[2017-09-09] MEDS: SUCRALFATE 1 GM TAB PO ×3 (09:20→17:02)
[2017-09-09] MEDS: ZONISAMIDE 100 MG CAP (ZONEGRAN) PO ×2 (09:20→20:24)
[2017-09-09] MEDS: MIDODRINE 2.5 MG TAB PO ×3 (09:20→17:02)
[2017-09-09] MEDS: TAMSULOSIN 0.4 MG CAP PO (20:24)
[2017-09-09] MEDS: ATORVASTATIN 20 MG TAB PO (20:24)
[2017-09-09] MEDS: MAGNESIUM OXIDE 400 MG TAB (MAG-OX) PO (20:25)
[2017-09-09] MEDS: NITROGLYCERIN 0.4 MG SUBL TABLET SL (21:53)
[2017-09-09 22:47] LABS: CPK CREATINE PHOSPHOKINASE 91 U/L (39-308); TROPONIN I 0.02 NG/ML (< 0.10)
[2017-09-09 22:51] LABS: CK-MB VALUE MASS 1.8 NG/ML (0.0-3.6); MB/CK RELATIVE INDEX 1.97 (< OR =4)
[2017-09-10] MEDS: traMADol 50 MG TAB PO ×3 (03:26→21:58)
[2017-09-10 04:19] LABS: CPK CREATINE PHOSPHOKINASE 82 U/L (39-308); MB/CK RELATIVE INDEX 2.43 (< OR =4); TROPONIN I 0.02 NG/ML (< 0.10)
[2017-09-10 06:55] LABS: HEMATOCRIT 30.5 % (42.0-52.0); MEAN CORPUSCULAR HEMOGLOBIN 29.7 pg (27.0-33.0); MEAN CORPUSCULAR HGB CONC 32.8 g/dl (32.0-36.5); MEAN CORPUSCULAR VOLUME 90.5 fl (80.0-96.0); PLATELET COUNT, AUTOMATED 232 10^3/uL (150-450); RED BLOOD COUNT 3.37 10^6/uL (4.30-6.10); RED CELL DISTRIBUTION WIDTH 13.2 % (11.5-14.5); WHITE BLOOD COUNT 8.3 10^3/uL (4.0-10.0)
[2017-09-10] MEDS: ASCORBIC ACID 500 MG TAB PO (08:47)
[2017-09-10] MEDS: SUCRALFATE 1 GM TAB PO ×3 (08:47→16:37)
[2017-09-10] MEDS: ASPIRIN ENTERIC 325 MG TAB PO (08:47)
[2017-09-10] MEDS: ZONISAMIDE 100 MG CAP (ZONEGRAN) PO ×2 (08:47→21:57)
[2017-09-10] MEDS: OMEPRAZOLE 20 MG CAP PO ×2 (08:48→20:51)
[2017-09-10] MEDS: MIDODRINE 2.5 MG TAB PO ×3 (08:48→16:36)
[2017-09-10] MEDS: CARVedilol 6.25 MG TAB PO ×2 (08:48→20:51)
[2017-09-10] MEDS: VITAMIN D 1,000 INTERNATIONAL UNITS TABLET PO (08:48)
[2017-09-10] MEDS: DOCUSATE SODIUM 100 MG CAP PO ×2 (08:48→20:51)
[2017-09-10] MEDS: GABAPENTIN 100 MG CAP PO ×3 (08:49→21:57)
[2017-09-10] MEDS: CYANOCOBALAMIN 500 MCG TAB PO (08:54)
[2017-09-10] MEDS: MAGNESIUM OXIDE 400 MG TAB (MAG-OX) PO (20:51)
[2017-09-10] MEDS: ATORVASTATIN 20 MG TAB PO (20:51)
[2017-09-10] MEDS: TAMSULOSIN 0.4 MG CAP PO (21:57)
[2017-09-11] MEDS: traMADol 50 MG TAB PO ×4 (02:00→16:04)
[2017-09-11] MEDS: CYANOCOBALAMIN 500 MCG TAB PO (08:04)
[2017-09-11] MEDS: ASPIRIN ENTERIC 325 MG TAB PO (08:04)
[2017-09-11] MEDS: VITAMIN D 1,000 INTERNATIONAL UNITS TABLET PO (08:04)
[2017-09-11] MEDS: ZONISAMIDE 100 MG CAP (ZONEGRAN) PO ×2 (08:05→21:20)
[2017-09-11] MEDS: SUCRALFATE 1 GM TAB PO ×3 (08:05→17:34)
[2017-09-11] MEDS: MIDODRINE 2.5 MG TAB PO ×3 (08:05→16:03)
[2017-09-11] MEDS: OMEPRAZOLE 20 MG CAP PO ×2 (08:05→21:20)
[2017-09-11] MEDS: CARVedilol 6.25 MG TAB PO ×2 (08:05→21:23)
[2017-09-11] MEDS: DOCUSATE SODIUM 100 MG CAP PO ×2 (08:05→21:20)
[2017-09-11] MEDS: ASCORBIC ACID 500 MG TAB PO (08:06)
[2017-09-11] MEDS: GABAPENTIN 100 MG CAP PO ×3 (08:06→21:19)
[2017-09-11] MEDS: TAMSULOSIN 0.4 MG CAP PO (21:18)
[2017-09-11] MEDS: ATORVASTATIN 20 MG TAB PO (21:19)
[2017-09-11] MEDS: ACETAMINOPHEN 500 MG TAB PO (21:20)
[2017-09-11] MEDS: MAGNESIUM OXIDE 400 MG TAB (MAG-OX) PO (21:21)
[2017-09-12] MEDS: VITAMIN D 1,000 INTERNATIONAL UNITS TABLET PO (08:34)
[2017-09-12] MEDS: ASPIRIN ENTERIC 325 MG TAB PO (08:34)
[2017-09-12] MEDS: SUCRALFATE 1 GM TAB PO (08:34)
[2017-09-12] MEDS: ASCORBIC ACID 500 MG TAB PO (08:34)
[2017-09-12] MEDS: OMEPRAZOLE 20 MG CAP PO (08:34)
[2017-09-12] MEDS: ZONISAMIDE 100 MG CAP (ZONEGRAN) PO (08:34)
[2017-09-12] MEDS: DOCUSATE SODIUM 100 MG CAP PO (08:35)
[2017-09-12] MEDS: GABAPENTIN 100 MG CAP PO (08:35)
[2017-09-12] MEDS: MIDODRINE 2.5 MG TAB PO (08:35)
[2017-09-12] MEDS: traMADol 50 MG TAB PO (08:35)
[2017-09-12] MEDS: CYANOCOBALAMIN 500 MCG TAB PO (08:36)
[2017-09-12] MEDS: CARVedilol 6.25 MG TAB PO (08:36)
== END 2017-09-12 12:45 | disposition home health service (06) | DRG 552 ==
LOC: M PM&R 13:50
PROC: 30233N1 Transfusion of Nonautologous Red Blood Cells into Peripheral Vein, Percutaneous Approach (ICD-10-PCS; principal; 2017-09-05)
DX: M51.16 Intervertebral disc disorders with radiculopathy, lumbar region (principal); Z98.1 Arthrodesis status; N18.3 Chronic kidney disease, stage 3 (moderate); G89.4 Chronic pain syndrome; D64.9 Anemia, unspecified; H81.09 Meniere's disease, unspecified ear; K21.9 Gastro-esophageal reflux disease without esophagitis; G47.33 Obstructive sleep apnea (adult) (pediatric); E83.42 Hypomagnesemia; R51 Headache; I48.0 Paroxysmal atrial fibrillation; I25.10 Atherosclerotic heart disease of native coronary artery without angina pectoris; I12.9 Hypertensive chronic kidney disease with stage 1 through stage 4 chronic kidney disease, or unspecified chronic kidney disease; E78.5 Hyperlipidemia, unspecified; I25.2 Old myocardial infarction; Z87.891 Personal history of nicotine dependence; Z88.5 Allergy status to narcotic agent; Z88.2 Allergy status to sulfonamides; Z79.01 Long term (current) use of anticoagulants; Z95.0 Presence of cardiac pacemaker; Z79.899 Other long term (current) drug therapy; Z99.89 Dependence on other enabling machines and devices

== ENCOUNTER → 2017-10-01 | Outpatient (REF) | payer MEDICARE ==
[2017-10-01 16:20] LABS: INR 2.01; PROTHROMBIN TIME 23.4 SECONDS (12.4-14.5)
== END ==
LOC: M SHH 15:48
DX: I48.0 Paroxysmal atrial fibrillation (principal)
CPT/HCPCS: 85610

== ENCOUNTER → 2017-10-16 | Outpatient (REF) | payer MEDICARE ==
[2017-10-16 16:41] LABS: INR 2.24; PROTHROMBIN TIME 25.6 SECONDS (12.4-14.5)
== END ==
LOC: M LABWUC 16:19
DX: I48.0 Paroxysmal atrial fibrillation (principal)
CPT/HCPCS: 85610

== ENCOUNTER → 2018-04-29 | Outpatient (CLI) | payer MEDICARE | LOC: M RAD 13:44 | DX: I67.82 Cerebral ischemia (principal); R42 Dizziness and giddiness | CPT/HCPCS: 70450 ==

== ENCOUNTER → 2018-05-22 | Outpatient (REF) | payer MEDICARE ==
[2018-05-22 15:53] LABS: HEMATOCRIT 45.2 % (42.0-52.0); HEMOGLOBIN 14.4 g/dl (13.5-17.5); MEAN CORPUSCULAR HEMOGLOBIN 29.9 pg (27.0-33.0); MEAN CORPUSCULAR HGB CONC 31.9 g/dl (32.0-36.5); MEAN CORPUSCULAR VOLUME 93.8 fl (80.0-96.0); PLATELET COUNT, AUTOMATED 199 10^3/uL (150-450); RED BLOOD COUNT 4.82 10^6/uL (4.30-6.10); RED CELL DISTRIBUTION WIDTH 13.2 % (11.5-14.5); WHITE BLOOD COUNT 8.5 10^3/uL (4.0-10.0)
[2018-05-22 16:34] LABS: ALBUMIN 3.9 GM/DL (3.2-5.2); ALBUMIN/GLOBULIN RATIO 1.34 (1.00-1.93); ALKALINE PHOSPHATASE 129 U/L (45-117); ALT/SGPT 26 U/L (12-78); ANION GAP 5 MEQ/L (8-16); AST/SGOT 13 U/L (7-37); BILIRUBIN,TOTAL 0.6 MG/DL (0.2-1.0); BLOOD UREA NITROGEN 34 MG/DL (7-18); CALCIUM LEVEL 9.1 MG/DL (8.8-10.2); CARBON DIOXIDE LEVEL 27 MEQ/L (21-32); CHLORIDE LEVEL 109 MEQ/L (98-107); CREATININE FOR GFR 2.36 MG/DL (0.70-1.30); GLOMERULAR FILTRATION RATE 27.9 (>35); GLUCOSE, FASTING 108 MG/DL (70-100); POTASSIUM SERUM 5.7 MEQ/L (3.5-5.1); SODIUM LEVEL 141 MEQ/L (136-145); TOTAL PROTEIN 6.8 GM/DL (6.4-8.2)
[2018-05-23 11:03] LABS: HEP C VIRUS AB SCREEN MEDICARE < 0.0 INDEX (<0.8)
== END ==
LOC: M LABDRAW1 12:15
DX: D69.6 Thrombocytopenia, unspecified (principal); I12.9 Hypertensive chronic kidney disease with stage 1 through stage 4 chronic kidney disease, or unspecified chronic kidney disease; N18.3 Chronic kidney disease, stage 3 (moderate); Z11.59 Encounter for screening for other viral diseases
CPT/HCPCS: 83735

== ENCOUNTER → 2018-07-18 | Outpatient (CLI) | payer MEDICARE ==
[~2018-07-18] MED LIST changes: +AMLO5TAB6 PO; +ASCO25TA PO; +ASCO500T PO; +ASPI325T25 PO; +ATOR40TA75 PO; +BACT800T5 PO; +BUSP5TA PO; +CARA1TAB6 PO; +CARV6.25 PO; +CELE40TA PO; +CIPR-249 PO; +DOCU100C16 PO; +FERR325T3 PO; +FIOR1CAP2 PO; +FLOM0.4C39 PO; +FURO20TA2 PO; +GABA-1171 PO; +GABA-843 PO; +GLUCTAB6 PO; +LIPI20TA PO; +LOSA100T50 PO; +MAGN1TAB25 PO; +MECL-68 PO; +MECL12.575 PO; +MECL1CHW2 PO; -MECLIZINE 25 MG TABLET PO; +MIDO2.5T PO; +MIRA3350 PO; +NITR4TASL SL; +OMEP40CA2 PO; +OXYC-517 PO; +PERC5TAB12 PO; +PERCOCET PO; +PROS5TAB PO; +PROT1TAB2 PO; +PROTPAK PO; +RIBO100C PO; +ROBA750T4 PO; +SENO8.6T5 PO; +SUCR1TA PO; +TRAM50TA2 PO; +TYLE325T5 PO; +TYLE500T78 PO; +TYLE650T30 PO; +VITA-112 PO; +VITA10002 PO; +WARF05TA PO; +ZONI100C2 PO; +ZYRT10CA PO; +[UNRECOGNIZED DRUG - CODE] SL
--- NOTE | 2018-07-18 13:45 | REP ---
Bilateral lower extremity arterial Doppler ultrasound: History: Intermittent claudication. Findings: Ankle brachial indices are normal bilaterally, 1.1 on the right and 1.05 on the left. Normal triphasic flow is seen bilaterally in the lower extremity arteries. Mild plaquing is seen. Monophasic flow is seen in the distal anterior tibial artery on the right side. Arterial Doppler velocity chart right lower extremity: Right CF A 58 cm/S Profunda 43 Proximal SFA 54 Mid SFA 71 Distal SFA 32 Popliteal 34 Proximal AT 820 Tibioperoneal trunk 31 Proximal CONCESSION ATTENDANT 35 Distal CONCESSION ATTENDANT 64 Distal AT A 15 Arterial Doppler velocity chart left lower extremity: Left CF A 46 cm/S Profunda 35 Proximal SFA 59 Mid SFA 65 Distal SFA 45 Popliteal 41 Proximal AT A 25 Tibioperoneal trunk 29 Proximal CONCESSION ATTENDANT 41 Distal CONCESSION ATTENDANT 50 one Distal AT A 13 Electronically Signed by Dusty Ty MD 07/18/2018 01:36 P
== END ==
LOC: M RAD 09:32
PROVIDERS: ATTEND Surgery Vascular Surgery
DX: I70.213 Atherosclerosis of native arteries of extremities with intermittent claudication, bilateral legs (principal)

== ENCOUNTER 2018-09-16 13:48 | Inpatient (IN) | payer MEDICARE ==
[~2018-09-16] VITALS: Ht 180.3 cm; Wt 92.7 kg
[2018-09-16] MEDS ORDERED: MIDO5TA PO (14:30)
[2018-09-16] MEDS ORDERED: MIDO2.5T PO (14:30)
[2018-09-16] MEDS ORDERED: TIZA2CAP PO (14:31)
[2018-09-16] MEDS ORDERED: DIGO0.12 PO (14:31)
[2018-09-16] MEDS ORDERED: ONDANSETRON 4MG/2ML VIAL (J2405) IV ONE (15:15)
[2018-09-16] MEDS ORDERED: MORPHINE 4 MG/ML 1ML VIAL/SYRINGE (J2270) IV ONE (15:15)
[2018-09-16 16:05] LABS: HEMOGLOBIN 11.5 g/dl (13.5-17.5); MEAN CORPUSCULAR HEMOGLOBIN 30.5 pg (27.0-33.0); MEAN CORPUSCULAR HGB CONC 32.9 g/dl (32.0-36.5); MEAN CORPUSCULAR VOLUME 92.8 fl (80.0-96.0); PLATELET COUNT, AUTOMATED 125 10^3/uL (150-450); RED BLOOD COUNT 3.77 10^6/uL (4.30-6.10); WHITE BLOOD COUNT 14.9 10^3/uL (4.0-10.0)
[2018-09-16 16:18] LABS: CALCIUM LEVEL 8.4 MG/DL (8.8-10.2); CREATININE FOR GFR 1.75 MG/DL (0.70-1.30); GLOMERULAR FILTRATION RATE 39.4 (>35); POTASSIUM SERUM 4.8 MEQ/L (3.5-5.1)
[2018-09-16] MEDS ORDERED: OXYC1TAB23 PO (17:15)
[2018-09-16] MEDS ORDERED: CARV3.12 PO (17:15)
[2018-09-16] MEDS ORDERED: MAGN400T5 PO (17:15)
[2018-09-16] MEDS ORDERED: NITR4TASL SL (17:15)
[2018-09-16] MEDS ORDERED: WARF4TAB52 PO ×2 (17:15)
[2018-09-16] MEDS ORDERED: TIZA2TA PO (17:15)
[2018-09-16] MEDS ORDERED: MECL-68 PO (17:15)
[2018-09-16] MEDS ORDERED: SUCR1TAB56 PO (17:15)
[2018-09-16] MEDS ORDERED: ATOR40TA75 PO (17:15)
[2018-09-16] MEDS ORDERED: METOCLOPRAMIDE 10 MG TAB PO PRN (17:45)
[2018-09-16] MEDS ORDERED: NITROGLYCERIN 0.4 MG SUBL TABLET SL PRN (17:45)
[2018-09-16] MEDS ORDERED: MECLIZINE 25 MG TABLET PO PRN (17:45)
--- NOTE | 2018-09-16 18:27 | HPE ---
DATE OF ADMISSION: 09/16/2018 This is an 88-year-old male with a past medical history of chronic low back pain, lumbar stenosis, history of coronary artery disease - status post stent placement times two in 2011, who presents to the emergency room due to inability to ambulate. Apparently on 09/07/2018, he fell on the ice on his right side and sustained a right proximal humeral fracture and a hairline fracture of his right femoral neck. Orthopedics saw at the time and did not recommend any surgical intervention, and he was sent home. However, the patient has been not able to ambulate at all, so he came back to the emergency room (ER) for evaluation. In the ER, he was given 4 mg of intravenous (IV) morphine, and it did help his pain quite a bit. Orthopedics was called and recommended 2 weeks of non-weightbearing on his right leg. The patient's right arm is in a sling, so he will be admitted for further management. He denies any chest pain or shortness of breath, abdominal pain, nausea, vomiting. PAST MEDICAL HISTORY: Chronic low back pain. Lumbar stenosis. Osteoarthritis. History of Meniere's disease. Coronary artery disease, status post stent placement times two in 2011. Gastroesophageal reflux disease (GERD). Chronic kidney disease 3B. History of hyperlipidemia. Hypertension. Paroxysmal atrial fibrillation, status post pacemaker placement. Chronic headaches. PAST SURGICAL HISTORY: Appendectomy. Right inguinal hernia repair. 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 Dupuytren's contracture release on the left hand in 2005 and 2008. History of cataract surgery both eyes. Right rotator cuff repair. Lumbar laminectomy on 09/02/2017. ALLERGIES: He has drug allergies to SULFA, and HYDROCODONE. FAMILY HISTORY: Noncontributory. SOCIAL HISTORY: The patient used to be a 10 pack-year smoker, quit many years ago. He denies alcohol or illicit drugs. MEDICATIONS: He takes at home are as follows: - Tylenol 500 mg orally every 6 hours as needed - ascorbic acid 500 mg orally daily - atorvastatin 40 mg orally at bedtime - Coreg 3.125 mg orally daily - cholecalciferol 2000 units orally daily - cyanocobalamin 1000 mcg orally daily - digoxin 0.125 mcg orally three times a week - magnesium oxide 400 mg orally at bedtime - meclizine 25 mg orally every 8 hours as needed - nitroglycerin 0.4 mg sublingual as needed - omeprazole 40 mg orally twice daily - oxycodone APAP 5/325 one tablet orally four times a day as needed - sucralfate 1 gram orally twice daily - tizanidine 2 mg orally three times a day as needed - warfarin 1.5 mg orally one time a week - warfarin 3 mg orally six times a week REVIEW OF SYSTEMS: Negative all ten major systems except what is mentioned in the history of the present illness. Vital Signs: Blood pressure is 129/80, heart rate 87, regular, respiratory rate is 19, temperature is 98.9, oxygen saturation 92% on room air. Head is atraumatic, normocephalic. Neck supple. No jugular venous distention (JVD). Lungs are clear to auscultation. S1, S2 audible, No murmurs appreciated. Abdomen: Soft, positive bowel sounds. No pedal edema. Skin: Intact. Neurologic Examination: Patient awake, alert, oriented times three. LABORATORY: Sodium 131, potassium 4.8, chloride 101, CO2 20, anion gap 10, BUN 44, creatinine is 1.75, glucose is 123. WBC is 14.9, hemoglobin is 11.5, hematocrit is 35, platelets are 125,000. IMPRESSION: 1. Debility. 2. Right hairline fracture of the femoral neck. 3. Right humeral fracture. PLAN: The patient is to be admitted to the medical-surgical floor. Will continue giving this patient morphine 2 mg IV every 6 hours as needed for pain. I will continue his hydrocodone APAP as well orally. Physical therapy (PT), occupational therapy (OT) has been consulted, and this patient, due to the fact that he cannot mobilize at home and he is stuck being non-weightbearing for 2 weeks, as per orthopedics, will likely need to go to subacute rehabilitation. Will continue his preadmission medications and continue his care on the medical-surgical floor. RUDOLPH
[2018-09-16] MEDS: OMEPRAZOLE 20 MG CAP PO SCH (19:34)
[2018-09-16] MEDS: MAGNESIUM OXIDE 400 MG TAB (MAG-OX) PO SCH (19:34)
[2018-09-16] MEDS: ATORVASTATIN 20 MG TAB PO SCH (19:35)
[2018-09-16] MEDS: CARVedilol 3.125 MG TAB PO SCH ×2 (19:35→19:39)
[2018-09-16] MEDS: SUCRALFATE 1 GM TAB PO SCH (19:35)
[2018-09-16] MEDS: ENOXAPARIN 40 MG/0.4 ML SYRINGE (J1650) SC SCH (19:35)
[2018-09-16] MEDS: PERCOCET 5MG/325MG TAB PO PRN (19:50)
[2018-09-16] MEDS: WARFARIN SOD 3 MG TAB PO SCH (19:50)
[2018-09-16 19:55] VITALS: BP 157/83
[2018-09-17] MEDS: ACETAMINOPHEN 500 MG TAB PO PRN ×2 (00:42→20:53)
[2018-09-17] MEDS: PERCOCET 5MG/325MG TAB PO PRN ×3 (02:40→17:44)
[2018-09-17 06:00] VITALS: BP 138/79
[2018-09-17 06:49] LABS: CREATININE FOR GFR 1.78 MG/DL (0.70-1.30); GLOMERULAR FILTRATION RATE 38.6 (>35); POTASSIUM SERUM 4.4 MEQ/L (3.5-5.1)
[2018-09-17 06:50] LABS: CALCIUM LEVEL 8.5 MG/DL (8.8-10.2)
[2018-09-17 07:15] LABS: HEMATOCRIT 31.5 % (42.0-52.0); HEMOGLOBIN 10.6 g/dl (13.5-17.5); MEAN CORPUSCULAR HEMOGLOBIN 30.6 pg (27.0-33.0); MEAN CORPUSCULAR HGB CONC 33.7 g/dl (32.0-36.5); PLATELET COUNT, AUTOMATED 117 10^3/uL (150-450); RED BLOOD COUNT 3.46 10^6/uL (4.30-6.10)
[2018-09-17] MEDS: DIGOXIN 0.125 MG TAB PO SCH (09:39)
[2018-09-17] MEDS: CARVedilol 3.125 MG TAB PO SCH (09:40)
[2018-09-17] MEDS: OMEPRAZOLE 20 MG CAP PO SCH ×2 (09:40→20:53)
[2018-09-17] MEDS: CYANOCOBALAMIN 500 MCG TAB PO SCH (09:40)
[2018-09-17] MEDS: ASCORBIC ACID 500 MG TAB PO SCH (09:40)
[2018-09-17] MEDS: SUCRALFATE 1 GM TAB PO SCH ×2 (09:40→20:52)
[2018-09-17] MEDS: VITAMIN D 1,000 INTERNATIONAL UNITS TABLET PO SCH (09:40)
[2018-09-17] MEDS: ENOXAPARIN 40 MG/0.4 ML SYRINGE (J1650) SC SCH (09:41)
--- NOTE | 2018-09-17 11:26 | REP ---
A CT of the pelvis without IV contrast: There are no comparison plain film or CT studies in this patient for follow-up of fracture. There is an avulsion type fracture at the superior tip of the right greater trochanter. The major fracture fragment is distracted cephalic approximately 11 mm. No other fracture is identified. There is no dislocation. There are bilateral pedicle screws and stabilization rods spanning the L3 - L4-L5 vertebra. There is a 3.9 cm parapelvic cyst in the right kidney. This measured 3.4 cm on 12/07/2014. There is a 2.6 cm hyperdense cyst in the left kidney. This measured 1.8 cm on 12/07/2014. Follow-up IV contrast enhanced CT might be considered for further evaluation of these renal lesions to confirm that they are benign. The comparison study was performed without IV contrast. There are no follow-up CT studies with IV contrast. Impression: Avulsion fracture of the right greater trochanter as described. Bilateral renal lesions as described. Consider follow-up CT with IV contrast as discussed. Electronically Signed by Ata Sterling MD 09/17/2018 11:17 A
--- NOTE | 2018-09-17 12:12 | REP ---
Right humerus four views: There is a nondisplaced fracture at the surgical neck of the humerus. There is no dislocation. The acromioclavicular joint is widened. Electronically Signed by Ata Sterling MD 09/17/2018 12:04 P
--- NOTE | 2018-09-17 12:14 | REP ---
Right shoulder three views: There is a nondisplaced fracture at the surgical neck of the humerus. There is no dislocation. Mineralization is normal. The acromioclavicular joint is widened. Electronically Signed by Ata Sterling MD 09/17/2018 12:04 P
--- NOTE | 2018-09-17 12:15 | REP ---
Right hip two views: There is an avulsion fracture at the superior tip of the greater trochanter. The major fracture fragment is distracted cephalad approximately 11 mm. There is no dislocation. Mineralization is normal. The joint space is unremarkable. Electronically Signed by Ata Sterling MD 09/17/2018 12:06 P
[2018-09-17 14:00] VITALS: BP 110/72
--- NOTE | 2018-09-17 14:47 | IPNPDOC ---
Date Seen The patient was seen on 09/17/18. Progress Note SUBJECTIVE: Patient complains of significant right shoulder pain and right hip pain to the point that he is unable to care for himself at home he tells me that his pain is not well controlled at the present time OBJECTIVE PHYSICAL EXAMINATION: VITAL SIGNS: Please see below. GENERAL: Obese elderly man lying flat in bed he appears comfortable in no acute distress HEENT: Cranial nerves II through XII grossly intact CARDIOVASCULAR: S1-S2 regular. RESPIRATORY: Clear to auscultation bilaterally. ABDOMINAL: Bowel sounds are present abdomen is soft and nontender EXTREMITIES: Significant ecchymosis of the right shoulder decreased range of motion at the right arm as well as the right lower extremity cyanosis or edema good pulses throughout all 4 extremities LABORATORY DATA, IMAGING STUDIES, MICROBIOLOGY: Please see below. DVT prophylaxis ordered?: Therapeutic Coumadin ASSESSMENT AND PLAN: This is a 88-year-old man with right femoral neck fracture and right humeral fracture. PROBLEMS: 1. Right femoral neck and right humeral fractures: Patient reportedly had a fall at home as he'll imaging in a record however given his worsening pain I will check plain films of the hips as well as the right humerus and shoulder. He tells me he has been seen by orthopedic recently been on in the last several days and given his worsening pain and inability to care for himself I have asked Dr. Odom of orthopedic surgery to see and evaluate the patient right better guidance regarding his fractures as well as weightbearing status and pain control. PT and OT have been ordered I suspect he would benefit from rehabilitation and a U screen will be entered as well. For the time being he is on Zanaflex Percocet Tylenol 2. Paroxysmal atrial fibrillation: Patient is antiplatelet with Coumadin he is status post pacer. He is rate controlled with digoxin and carvedilol. I will check his INR at this time and hold the Lovenox previously ordered for his DVT prophylaxis until we receive an INR 3. History of Mnire's: Continue with meclizine as needed. 4. Dyslipidemia: Continue with Lipitor 5. Gastroesophageal reflux disease: Continue with omeprazole and Carafate 6. Chronic kidney disease stable 7. Hyponatremia: Possibly hypovolemic. Resolving continue to monitor daily 8. Anemia: He does have significant ecchymosis possibly secondary to internal bleeding secondary to recent trauma continue to monitor daily DISPOSITION: Pending orthopedic surgery eval as well as PT. VS, I&O, 24H, Fishbone Vital Signs/I&O Vital Signs Date Time Temp Pulse Resp B/P (MAP) Pulse Ox O2 Delivery O2 Flow Rate FiO2 09/17/18 10:11 18 09/17/18 09:40 82 127/71 09/17/18 06:00 97.4 100 09/16/18 16:48 Room Air I&O- Last 24 Hours up to 6 AM 09/17/18 06:00 Intake Total 0 ml Output Total 1000 ml Balance -1000 ml Laboratory Data 24H LABS Laboratory Tests 2 09/16/18 15:21: Nucleated Red Blood Cells % (auto) 0.0, Anion Gap 10, Glomerular Filtration Rate 39.4, Blood Urea Nitrogen 44H, Creatinine 1.75H, Sodium Level 131L, Potassium Level 4.8, Chloride Level 101, Carbon Dioxide Level 20L, Calcium Level 8.4L 09/17/18 05:20: Nucleated Red Blood Cells % (auto) 0.0 09/17/18 05:24: Anion Gap 7L, Glomerular Filtration Rate 38.6, Blood Urea Nitrogen 39H, Creatinine 1.78H, Sodium Level 134L, Potassium Level 4.4, Chloride Level 100, Carbon Dioxide Level 27, Calcium Level 8.5L CBC/BMP Laboratory Tests 09/16/18 15:21 Red Blood Count 3.77 L, Mean Corpuscular Volume 92.8, Mean Corpuscular Hemoglobin 30.5, Mean Corpuscular Hemoglobin Concent 32.9, Red Cell Distribution Width 12.9, Calcium Level 8.4 L 09/17/18 05:20 Red Blood Count 3.46 L, Mean Corpuscular Volume 91.0, Mean Corpuscular Hemoglobin 30.6, Mean Corpuscular Hemoglobin Concent 33.7, Red Cell Distribution Width 12.9 09/17/18 05:24 Calcium Level 8.5 L NOLVIA HERNANDEZ MD Sep 17, 2018 14:47
[2018-09-17 15:58] LABS: INR 2.71; PROTHROMBIN TIME 29.3 SECONDS (12.1-14.4)
--- NOTE | 2018-09-17 17:14 | CR ---
DATE OF CONSULTATION: 09/17/2018 CHIEF COMPLAINT: Right shoulder and bilateral hip pain. HISTORY OF PRESENT ILLNESS: This is an 88-year-old male who three days ago slipped on the ice and had a fall, mainly onto his right side. The patient and his state that they went to [facility] on this evening and were found to have a right proximal humerus fracture and right greater trochanteric fracture of the hip. They were sent home. He was then seen two days ago in the [facility] by one of the physician assistants (PAs). He was made nonweightbearing and placed in a sling on the right side and was told to be nonweightbearing in the right lower extremity. The patient was having significant difficulties getting along at home and presented to the emergency room last evening. The patient states he has significant pain in his bilateral hips. This is making it very difficult for him to weight bear and he feels unsteady. Of note, the patient prior to this fall was ambulating without difficulty and did not require a walker or cane. He feels the pain in his hips is limiting him. PAST MEDICAL HISTORY: 1. Chronic low back pain status post lumbar surgery. 2. Osteoarthritis. 3. Meniere's disease. 4. Coronary artery disease status post stent placement in 2011. 5. Gastroesophageal reflux disease (GERD). 6. Chronic kidney disease. 7. Hyperlipidemia. 8. Hypertension. 9. Atrial fibrillation with pacemaker. 10. Chronic headaches. PAST SURGICAL HISTORY: 1. Appendectomy. 2. Right inguinal hernia repair. 3. 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 4. Left hand Dupuytren's release. 5. Cataract surgery. 6. Right rotator cuff repair. 7. Lumbar laminectomy and fusion in August of 2017. ALLERGIES: SULFA and HYDROCODONE. SOCIAL HISTORY: The patient does not smoke. He lives at home with his . MEDICATIONS: Tylenol, ascorbic acid, atorvastatin, Coreg, vitamin D, cyanocobalamin, digoxin, magnesium, meclizine, nitroglycerin, omeprazole, oxycodone, sucralfate, tizanidine, warfarin. PHYSICAL EXAMINATION: GENERAL: Well-appearing, alert and oriented, in no acute distress. PULMONARY: Regular nonlabored breathing. ABDOMEN: Soft, nontender. CARDIOVASCULAR: Regular, dorsalis pedis (DP) pulses bilaterally. MUSCULOSKELETAL: In the right upper extremity, the patient has moderate swelling and ecchymosis extending over his shoulder and arm into his elbow. The arm is soft and compressible. He has tenderness to palpation in the region of the proximal humerus. Intact flexion and extension of the wrist and fingers. Normal sensation to light touch in the medial, ulnar, radial and axillary distribution. Probable radial pulse. Skin is intact. In the right hip, there is tenderness to palpation of the lateral aspect of the hip. There is pain with internal and external rotation of the hip as well. The patient is able to extend his hip a small amount but with pain. He has intact extensor hallucis longus (EHL), flexor hallucis longus (FHL), tibialis anterior (TA), gastroc-soleus, and normal sensation to light touch in superficial peroneal, deep peroneal, tibial distribution. On the left side, there is tenderness along the lateral aspect of the hip extending into the thigh. Pain with extension of the hip and internal and external rotation. Pain is primarily in the groin. The patient has intact TA, GS, FHL, EHL. Normal sensation to light touch in the superficial peroneal, deep peroneal, tibial distribution. IMAGING: X-rays from [facility] are reviewed. On the right shoulder and humerus films, there is a minimally displaced proximal humerus fracture. The glenohumeral joint is reduced. Right hip x-rays show a greater trochanteric fracture with about a centimeter of displacement. Left hip x-rays are negative. CT pelvis again shows the greater trochanteric fracture of the right side. There is also evidence of pedicle screws in L3 through L5. No other fractures are identified. There is a cyst in both the right and the left kidney. LABORATORY STUDIES: White blood cell count is 10, hematocrit is 31.5. Creatinine is 1.78, sodium 134. VITAL SIGNS: Temperature is 97.4, heart rate 84, respiratory rate 18, blood pressure 138/79, pulse oximetry 100% on room air. IMPRESSION: 1. Right proximal humerus fracture. 2. Right hip greater trochanteric fracture. 3. Left hip and groin pain. PLAN: In regards to the right proximal humerus fracture, the patient should be nonweightbearing in the right upper extremity with a sling. He would be able to platform weight bear on this side if his hips are cleared for ambulation. In regards to the hips, I would get an MRI of the bilateral hips. The patient is really having more pain than I would anticipate at this point. On the left side, I do not see any obvious fractures but given his groin pain and pain extending into his thigh I wand to make sure he did not have a nondisplaced femoral neck fracture which would only be apparent on an MRI. Similarly on the right side, he does have the greater trochanteric avulsion fracture and would want to make sure this does not extend in the inner trochanteric region as this could require intramedullary (IM) nail placement. If the MRIs are negative, we may be able to let him start doing some protected weightbearing with trochanteric precautions using a walker. This would be able to speed up his rehabilitation significantly. I will followup on the MRIs and we will proceed depending on the results. In regards to the cyst in the kidneys, I will leave that up to medicine for further recommendations. He will need a followup at [facility] in the next 1-2 weeks in regards to his proximal humerus fracture and greater trochanteric fracture.
[2018-09-17] MEDS: WARFARIN SOD 3 MG TAB PO SCH (17:44)
[2018-09-17] MEDS: tiZANidine 4 MG TAB PO PRN (17:45)
[2018-09-17] MEDS: MAGNESIUM OXIDE 400 MG TAB (MAG-OX) PO SCH (20:53)
[2018-09-17] MEDS: ATORVASTATIN 20 MG TAB PO SCH (20:53)
[2018-09-17 22:00] VITALS: BP 110/69
[2018-09-18] MEDS: PERCOCET 5MG/325MG TAB PO PRN ×4 (00:51→19:56)
[2018-09-18] MEDS: tiZANidine 4 MG TAB PO PRN ×2 (00:51→12:59)
[2018-09-18 06:00] VITALS: BP 109/74
[2018-09-18 06:59] LABS: HEMATOCRIT 31.6 % (42.0-52.0); HEMOGLOBIN 10.4 g/dl (13.5-17.5); MEAN CORPUSCULAR HEMOGLOBIN 30.6 pg (27.0-33.0); MEAN CORPUSCULAR HGB CONC 32.9 g/dl (32.0-36.5); MEAN CORPUSCULAR VOLUME 92.9 fl (80.0-96.0); PLATELET COUNT, AUTOMATED 126 10^3/uL (150-450); WHITE BLOOD COUNT 10.1 10^3/uL (4.0-10.0)
[2018-09-18 07:23] LABS: CALCIUM LEVEL 8.4 MG/DL (8.8-10.2); CREATININE FOR GFR 1.73 MG/DL (0.70-1.30); GLOMERULAR FILTRATION RATE 39.9 (>35); POTASSIUM SERUM 4.2 MEQ/L (3.5-5.1)
[2018-09-18] MEDS ORDERED: PERCOCET 5MG/325MG TAB PO PRN (07:45)
[2018-09-18] MEDS ORDERED: ONDANSETRON 4 MG TAB (S0181) PO PRN (07:45)
[2018-09-18] MEDS: CYANOCOBALAMIN 500 MCG TAB PO SCH (08:12)
[2018-09-18] MEDS: ASCORBIC ACID 500 MG TAB PO SCH (08:12)
[2018-09-18] MEDS: OMEPRAZOLE 20 MG CAP PO SCH ×2 (08:12→19:54)
[2018-09-18] MEDS: VITAMIN D 1,000 INTERNATIONAL UNITS TABLET PO SCH (08:13)
[2018-09-18] MEDS: SUCRALFATE 1 GM TAB PO SCH ×2 (08:13→19:55)
--- NOTE | 2018-09-18 12:10 | IPNPDOC ---
Date Seen The patient was seen on 09/18/18. Progress Note SUBJECTIVE: Patient complains of significant pain mostly in his bilateral lower extremities he tells me he was set up to be seen in the pain clinic in the very near future but is not going to make that appointment since he is hospitalized and requests to be seen by them while here OBJECTIVE PHYSICAL EXAMINATION: VITAL SIGNS: Please see below. GENERAL: Obese elderly man lying flat in bed he appears comfortable in no acute distress HEENT: Cranial nerves II through XII grossly intact CARDIOVASCULAR: S1-S2 regular. RESPIRATORY: Clear to auscultation bilaterally. ABDOMINAL: Bowel sounds are present abdomen is soft and nontender EXTREMITIES: Significant ecchymosis of the right shoulder decreased range of motion at the right arm as well as the right lower extremity cyanosis or edema good pulses throughout all 4 extremities. He does appear somewhat more comfortable today than previous days LABORATORY DATA, IMAGING STUDIES, MICROBIOLOGY: Please see below. DVT prophylaxis ordered?: Therapeutic Coumadin ASSESSMENT AND PLAN: This is a 88-year-old man with right femoral neck fracture and right humeral fracture. PROBLEMS: 1. Right femoral neck and right humeral fractures: Orthopedic surgery help greatly appreciated unfortunately the patient was unable to tolerate an MRI se condary to having his pacemaker. Patient CT findings orthopedic surgery has allowed him to have some partial weightbearing status we're optimistic it will improve his rehabilitation and a U screen is in his pain is difficult to control. I have placed a pain management consult or the computer a lot was no message on the hotline as well as her earlier I did leave all pertinent information as well as a callback number and anticipate him being seen within the next 24 hours. I think this patient would benefit greatly from his pain regimen optimization as well as rehabilitation 2. Paroxysmal atrial fibrillation: Patient is anticoagulated with Coumadin he is status post pacer. He is rate controlled with digoxin and carvedilol. 3. History of Mnire's: Continue with meclizine as needed. 4. Dyslipidemia: Continue with Lipitor 5. Gastroesophageal reflux disease: Continue with omeprazole and Carafate 6. Chronic kidney disease stable 7. Hyponatremia: Possibly hypovolemic. Stable encouraged him to take good by mouth continue monitoring daily 8. Anemia: He does have significant ecchymosis possibly secondary to internal bleeding secondary to recent trauma continue to monitor daily thus far appears to be quite stable DISPOSITION: Pending PT and pain. VS, I&O, [facility] Vital Signs/I&O Vital Signs Date Time Temp Pulse Resp B/P (MAP) Pulse Ox O2 Delivery O2 Flow Rate FiO2 09/18/18 09:38 16 09/18/18 06:00 97.8 77 109/74 (86) 98 09/16/18 16:48 Room Air I&O- Last 24 Hours up to 6 AM 09/18/18 06:00 Intake Total 1080 ml Output Total 1650 ml Balance -570 ml Laboratory Data 24H LABS Laboratory Tests 2 09/17/18 14:58: Prothrombin Time 29.3H, Prothromb Time International Ratio 2.71 09/18/18 06:44: Nucleated Red Blood Cells % (auto) 0.0, Anion Gap 8, Glomerular Filtration Rate 39.9, Blood Urea Nitrogen 42H, Creatinine 1.73H, Sodium Level 132L, Potassium Level 4.2, Chloride Level 100, Carbon Dioxide Level 24, Calcium Level 8.4L CBC/BMP Laboratory Tests 09/18/18 06:44 Red Blood Count 3.40 L, Mean Corpuscular Volume 92.9, Mean Corpuscular Hemoglobin 30.6, Mean Corpuscular Hemoglobin Concent 32.9, Red Cell Distribution Width 12.6, Calcium Level 8.4 L NOLVIA HERNANDEZ MD Sep 18, 2018 12:09
[2018-09-18 14:00] VITALS: BP 125/75
[2018-09-18] MEDS: WARFARIN SOD 3 MG TAB PO SCH (16:33)
--- NOTE | 2018-09-18 17:08 | CR ---
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 Interesting to note that his chief complaint today is bilateral calf pain. He states that this has been happening for many months. He is a poor historian. He does mention a visit to Dr. Sterling and I am not sure really what the cause of the bilateral calf pain but it is his chief complaint today. He denies any significant low back pain. He states that his right arm and his right hip area are painful. Discussed medications. PAST MEDICAL HISTORY: Chronic low back pain, lumbar stenosis, osteoarthritis, Meniere's disease, coronary artery disease status-post stent placement times two in 2011. Chronic kidney disease stage 3B. History of hyperlipidemia, hypertension, paroxysmal atrial fibrillation, status-post pacemaker placement, chronic headache. 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 ALLERGIES: Sulfa, hydrocodone. SOCIAL HISTORY: Patient lives with his . He denies alcohol or illicit drug use, remote history of smoking. REVIEW OF SYSTEMS: 10 point review of systems is negative except as mentioned in the HPI. PHYSICAL EXAM: Awake, alert. VITAL SIGNS: 97.2, 80, 18, blood pressure 125/75, 02 saturation 98% on room air. CARDIAC: Slightly irregular. Normal rate. RESPIRATORY: Lungs sounds are clear- respirations nonlabored. EXTREMITIES: Lower extremities, no swelling noted. Reporting normal sensation to light touch. Reporting increase in calf pain with application of small pressure. Right arm is in sling with obvious bruising over the entire right arm. Patient states that it hurts too much to move and that his back is not hurting so back exam was deferred. ASSESSMENT: 1. Bilateral calf pain. 2. Acute pain secondary to trauma. PLAN: Recommendation would be to continue the oxycodone 2 tablets as needed for severe pain episodes. Consider a trial of gabapentin 100 mg twice a day, this could be increased to three times a day if he can tolerate it. This should help with some of the pain in his calves. Continue with efforts to place him in a rehabilitation situation for continued PT and OT. We will be glad to see him on his scheduled appointment to evaluate his chronic pain which is scheduled in November. Thank you for allowing us to participate in the care of your patient. If you have any questions, please do not hesitate to contact me.
[2018-09-18] MEDS: ATORVASTATIN 20 MG TAB PO SCH (19:54)
[2018-09-18] MEDS: MAGNESIUM OXIDE 400 MG TAB (MAG-OX) PO SCH (19:55)
[2018-09-18 22:00] VITALS: BP 135/80
[2018-09-19] MEDS: PERCOCET 5MG/325MG TAB PO PRN ×3 (00:20→20:36)
[2018-09-19 06:00] VITALS: BP 132/81
[2018-09-19 07:02] LABS: HEMATOCRIT 31.3 % (42.0-52.0); HEMOGLOBIN 10.2 g/dl (13.5-17.5); MEAN CORPUSCULAR HEMOGLOBIN 29.8 pg (27.0-33.0); MEAN CORPUSCULAR HGB CONC 32.6 g/dl (32.0-36.5); MEAN CORPUSCULAR VOLUME 91.5 fl (80.0-96.0); PLATELET COUNT, AUTOMATED 163 10^3/uL (150-450); RED BLOOD COUNT 3.42 10^6/uL (4.30-6.10); WHITE BLOOD COUNT 8.7 10^3/uL (4.0-10.0)
[2018-09-19 07:26] LABS: CALCIUM LEVEL 8.7 MG/DL (8.8-10.2); CREATININE FOR GFR 1.94 MG/DL (0.70-1.30); GLOMERULAR FILTRATION RATE 34.9 (>35); POTASSIUM SERUM 4.3 MEQ/L (3.5-5.1)
[2018-09-19 08:30] VITALS: BP 127/75
[2018-09-19] MEDS: VITAMIN D 1,000 INTERNATIONAL UNITS TABLET PO SCH (09:46)
[2018-09-19] MEDS: DIGOXIN 0.125 MG TAB PO SCH (09:47)
[2018-09-19] MEDS: CYANOCOBALAMIN 500 MCG TAB PO SCH (09:49)
[2018-09-19] MEDS: OMEPRAZOLE 20 MG CAP PO SCH ×2 (09:49→20:34)
[2018-09-19] MEDS: SUCRALFATE 1 GM TAB PO SCH ×2 (09:49→20:34)
[2018-09-19] MEDS: CARVedilol 3.125 MG TAB PO SCH (09:50)
[2018-09-19] MEDS: ASCORBIC ACID 500 MG TAB PO SCH (09:50)
--- NOTE | 2018-09-19 10:47 | IPNPDOC ---
Date Seen The patient was seen on 09/19/18. Progress Note SUBJECTIVE: Patient tells me that his pain is better controlled. He does complain that he had difficulty getting packs of ice overnight but otherwise he is feeling well OBJECTIVE PHYSICAL EXAMINATION: VITAL SIGNS: Please see below. GENERAL: Obese elderly man lying in bed he appears comfortable in no acute distress HEENT: Cranial nerves II through XII grossly intact CARDIOVASCULAR: S1-S2 regular. RESPIRATORY: Clear to auscultation bilaterally. ABDOMINAL: Bowel sounds are present abdomen is soft and nontender EXTREMITIES: Significant ecchymosis of the right shoulder unchanged, good pulses throughout all 4 extremities. LABORATORY DATA, IMAGING STUDIES, MICROBIOLOGY: Please see below. DVT prophylaxis ordered?: Therapeutic Coumadin ASSESSMENT AND PLAN: This is a 88-year-old man with right femoral neck fracture and right humeral fracture. PROBLEMS: 1. Right femoral neck and right humeral fractures: Orthopedic surgery help greatly appreciated unfortunately the patient was unable to tolerate an MRI secondary to having his pacemaker. Patient CT findings orthopedic surgery has allowed him to have some partial weightbearing status we're optimistic it will improve his rehabilitation I suspect he can be dispositioned to [facility] for subacute rehabilitation potentially on Saturday. Pain management and orthopedic surgery consult appreciated if needed we will add gabapentin and titrate up as needed 2. Paroxysmal atrial fibrillation: Patient is anticoagulated with Coumadin he is status post pacer. He is rate controlled with digoxin and carvedilol. 3. History of Mnire's: Continue with meclizine as needed. 4. Dyslipidemia: Continue with Lipitor 5. Gastroesophageal reflux disease: Continue with omeprazole and Carafate 6. Chronic kidney disease stable continue to monitor 7. Hyponatremia: Possibly hypovolemic. Stable encouraged him to take good by [facility] continue monitoring daily 8. Anemia: He does have significant ecchymosis possibly secondary to internal bleeding secondary to recent trauma continue to monitor daily thus far appears to be quite stable DISPOSITION: Pending PT and likely subacute rehabilitation placement VS, I&O, 24H, Fishbone Vital Signs/I&O Vital Signs Date Time Temp Pulse Resp B/P (MAP) Pulse Ox O2 Delivery O2 Flow Rate FiO2 09/19/18 10:13 16 09/19/18 09:50 84 127/75 09/19/18 08:30 97.1 92 09/16/18 16:48 Room Air I&O- Last 24 Hours up to 6 AM 09/19/18 06:00 Intake Total 1080 ml Output Total 1550 ml Balance -470 ml Laboratory Data 24H LABS Laboratory Tests 2 09/19/18 06:44: Nucleated Red Blood Cells % (auto) 0.0, Anion Gap 8, Glomerular Filtration Rate 34.9L, Blood Urea Nitrogen 40H, Creatinine 1.94H, Sodium Level 134L, Potassium Level 4.3, Chloride Level 100, Carbon Dioxide Level 26, Calcium Level 8.7L CBC/BMP Laboratory Tests 09/19/18 06:44 Red Blood Count 3.42 L, Mean Corpuscular Volume 91.5, Mean Corpuscular Hemoglobin 29.8, Mean Corpuscular Hemoglobin Concent 32.6, Red Cell Distribution Width 12.7, Calcium Level 8.7 L NOLVIA HERNANDEZ MD Sep 19, 2018 10:47
--- NOTE | 2018-09-19 13:53 | IPN ---
DATE: 09/19/2018 CHIEF COMPLAINT: 1. Right proximal humerus fracture. 2. Right hip greater trochanteric fracture. HISTORY OF PRESENT ILLNESS: Grupo Shah is an 88-year-old male who is status post mechanical fall with a right hip greater trochanteric fracture and a right proximal humerus fracture. He was also having fairly severe left hip pain upon arrival. The patient states over the past two days his left hip pain is beginning to improve. It is still slightly sore, but not as sore as after his fall. The right side is still fairly painful for him. He has unfortunately not been able to ambulate much, but he did just receive a platform walker which will hopefully help him. We were unable to get MRIs to look for fracture extension on the right side or a nondisplaced femoral neck on the left due to the patient's pacemaker. I do not see fracture extension on the right on the CT or x-ray, nor do I see a fracture on the left. However, I did explain to the patient that sometimes there can be nondisplaced fractures that regularly show up on the MRI, so we are somewhat limited not having these studies. In regards to his right upper extremity, he does have pain, however, it is controlled. PHYSICAL EXAMINATION: Vital Signs: Temperature 97.1, heart rate 84, respiratory rate 18, blood pressure 127/75 and oxygen 92% on room air. Pulmonary: Regular, nonlabored breathing. Cardiovascular (CV): Regular radial pulse in right upper extremity and regular dorsalis pedis (DP) pulses bilaterally. Musculoskeletal: In the right upper extremity, swelling has decreased. Patient has intact sensation in the medial, ulnar, radial and axillary distribution. Intact flexion and extension of the wrist and fingers. On the right lower extremity, the patient continues to have tenderness mainly on the lateral aspect of the hip. He has mild pain with internal and external rotation. He continues to be neurovascularly intact with positive TA/GS/EHL/FHL. Normal sensation to light touch in the superficial peroneal, deep peroneal distribution. The foot is warm and well perfused. On the left hip, the patient has some mild tenderness along the lateral thigh, however, this is decreased from prior. He has mild pain with internal and external rotation of the hip. He also is neurovascularly intact on this side as well. IMPRESSION: Overall improved symptoms in the bilateral lower extremities and right upper extremity, however, patient has not yet really ambulated much. PLAN: I would continue nonweight bearing on the right upper extremity, except for he may platform with the walker. He can use a sling as well. For the bilateral lower hips, I would work with therapy and once he has ambulated a couple of times, get repeat x-rays of bilateral hips to ensure that there has not been any sort of fracture propagation on the right side and that there is no evidence of a fracture on the left. This was explained to the patient and he was in agreement with this plan.
[2018-09-19 14:20] VITALS: BP 129/84
[2018-09-19] MEDS: WARFARIN SOD 3 MG TAB PO SCH (17:16)
[2018-09-19] MEDS: ATORVASTATIN 20 MG TAB PO SCH (20:34)
[2018-09-19] MEDS: MAGNESIUM OXIDE 400 MG TAB (MAG-OX) PO SCH (20:34)
[2018-09-19 22:00] VITALS: BP 131/82
[2018-09-20 06:00] VITALS: BP 111/70
[2018-09-20 08:23] LABS: CALCIUM LEVEL 8.3 MG/DL (8.8-10.2); CREATININE FOR GFR 1.63 MG/DL (0.70-1.30); GLOMERULAR FILTRATION RATE 42.7 (>35); POTASSIUM SERUM 5.1 MEQ/L (3.5-5.1)
[2018-09-20] MEDS: CYANOCOBALAMIN 500 MCG TAB PO SCH (09:46)
[2018-09-20] MEDS: VITAMIN D 1,000 INTERNATIONAL UNITS TABLET PO SCH (09:46)
[2018-09-20] MEDS: SUCRALFATE 1 GM TAB PO SCH ×2 (09:46→20:14)
[2018-09-20] MEDS: PERCOCET 5MG/325MG TAB PO PRN ×3 (09:46→22:22)
[2018-09-20] MEDS: CARVedilol 3.125 MG TAB PO SCH (09:47)
[2018-09-20] MEDS: OMEPRAZOLE 20 MG CAP PO SCH ×2 (09:47→20:14)
[2018-09-20] MEDS: ASCORBIC ACID 500 MG TAB PO SCH (09:47)
[2018-09-20] MEDS ORDERED: CALCIUM CARBONATE 500 MG CHEW U/D PO PRN (11:30)
[2018-09-20 12:33] LABS: HEMATOCRIT 33.1 % (42.0-52.0); HEMOGLOBIN 10.8 g/dl (13.5-17.5); MEAN CORPUSCULAR HEMOGLOBIN 30.2 pg (27.0-33.0); MEAN CORPUSCULAR HGB CONC 32.6 g/dl (32.0-36.5); MEAN CORPUSCULAR VOLUME 92.5 fl (80.0-96.0); PLATELET COUNT, AUTOMATED 179 10^3/uL (150-450); RED BLOOD COUNT 3.58 10^6/uL (4.30-6.10); WHITE BLOOD COUNT 11.7 10^3/uL (4.0-10.0)
--- NOTE | 2018-09-20 12:42 | IPNPDOC ---
Date Seen The patient was seen on 09/20/18. Progress Note SUBJECTIVE: Patient tells me that his pain is better controlled. He complains of some indigestion and would like some Tums otherwise no complaints OBJECTIVE PHYSICAL EXAMINATION: VITAL SIGNS: Please see below. GENERAL: Obese elderly man lying in bed he appears comfortable in no acute distress HEENT: Cranial nerves II through XII grossly intact CARDIOVASCULAR: S1-S2 regular. RESPIRATORY: Clear to auscultation bilaterally. ABDOMINAL: Bowel sounds are present abdomen is soft EXTREMITIES: Significant ecchymosis of the right shoulder unchanged, good pulses throughout all 4 extremities. LABORATORY DATA, IMAGING STUDIES, MICROBIOLOGY: Please see below. DVT prophylaxis ordered?: Therapeutic Coumadin ASSESSMENT AND PLAN: This is a 88-year-old man with right femoral neck fracture and right humeral fracture. PROBLEMS: 1. Right femoral neck and right humeral fractures: Orthopedic surgery help greatly appreciated unfortunately the patient was unable to tolerate an MRI secondary to having his pacemaker. Patient CT findings orthopedic surgery has allowed him to have some partial weightbearing status we're optimistic it will improve his rehabilitation I suspect he can be dispositioned to [facility] for subacute rehabilitation potentially on Saturday as per orthopedics recommendations will have a mammogram today and recheck plain films tomorrow. Pain management and orthopedic surgery consult appreciated if needed we will add gabapentin and titrate up as needed at this time appears. Appears controlled 2. Paroxysmal atrial fibrillation: Patient is anticoagulated with Coumadin he is status post pacer. He is rate controlled with digoxin and carvedilol. 3. History of Mnire's: Continue with meclizine as needed. 4. Dyslipidemia: Continue with Lipitor 5. Gastroesophageal reflux disease: Continue with omeprazole and Carafate 6. Chronic kidney disease stable continue to monitor 7. Hyponatremia: Possibly hypovolemic. Stable encouraged him to take good by m outh continue monitoring daily 8. Anemia: He does have significant ecchymosis possibly secondary to internal bleeding secondary to recent trauma continue to monitor daily thus far appears to be quite stable DISPOSITION: Pending PT and likely subacute rehabilitation placement Saturday VS, I&O, 24H, Fishbone Vital Signs/I&O Vital Signs Date Time Temp Pulse Resp B/P (MAP) Pulse Ox O2 Delivery O2 Flow Rate FiO2 09/20/18 10:40 18 09/20/18 09:47 90 111/70 09/20/18 06:00 97.2 96 09/16/18 16:48 Room Air I&O- Last 24 Hours up to 6 AM 09/20/18 06:00 Intake Total 1320 ml Output Total 1100 ml Balance 220 ml Laboratory Data 24H LABS Laboratory Tests 2 09/20/18 07:20: Anion Gap 10, Glomerular Filtration Rate 42.7, Blood Urea Nitrogen 37H, Creatinine 1.63H, Sodium Level 130L, Potassium Level 5.1, Chloride Level 102, Carbon Dioxide Level 18L, Calcium Level 8.3L CBC/BMP Laboratory Tests 09/20/18 07:20 Calcium Level 8.3 L NOLVIA HERNANDEZ MD Sep 20, 2018 12:42
[2018-09-20] MEDS: WARFARIN SOD 3 MG TAB PO SCH (17:55)
[2018-09-20] MEDS: ATORVASTATIN 20 MG TAB PO SCH (20:14)
[2018-09-20] MEDS: MAGNESIUM OXIDE 400 MG TAB (MAG-OX) PO SCH (20:14)
[2018-09-20 22:00] VITALS: BP 121/80
[2018-09-21 06:00] VITALS: BP 137/74
[2018-09-21 06:51] LABS: HEMATOCRIT 31.6 % (42.0-52.0); HEMOGLOBIN 10.5 g/dl (13.5-17.5); MEAN CORPUSCULAR HEMOGLOBIN 30.4 pg (27.0-33.0); MEAN CORPUSCULAR HGB CONC 33.2 g/dl (32.0-36.5); MEAN CORPUSCULAR VOLUME 91.6 fl (80.0-96.0); PLATELET COUNT, AUTOMATED 184 10^3/uL (150-450); RED BLOOD COUNT 3.45 10^6/uL (4.30-6.10); WHITE BLOOD COUNT 8.2 10^3/uL (4.0-10.0)
[2018-09-21 07:10] LABS: CREATININE FOR GFR 1.83 MG/DL (0.70-1.30); GLOMERULAR FILTRATION RATE 37.4 (>35); POTASSIUM SERUM 4.5 MEQ/L (3.5-5.1)
[2018-09-21] MEDS: CARVedilol 3.125 MG TAB PO SCH (08:01)
[2018-09-21] MEDS: OMEPRAZOLE 20 MG CAP PO SCH ×2 (08:01→20:15)
[2018-09-21] MEDS: SUCRALFATE 1 GM TAB PO SCH ×2 (08:01→20:13)
[2018-09-21] MEDS: VITAMIN D 1,000 INTERNATIONAL UNITS TABLET PO SCH (08:01)
[2018-09-21] MEDS: ASCORBIC ACID 500 MG TAB PO SCH (08:01)
[2018-09-21] MEDS: CYANOCOBALAMIN 500 MCG TAB PO SCH (08:01)
[2018-09-21] MEDS: PERCOCET 5MG/325MG TAB PO PRN ×2 (08:02→14:12)
--- NOTE | 2018-09-21 08:43 | IPNPDOC ---
Date Seen The patient was seen on 09/21/18. Progress Note SUBJECTIVE: Patient tells me that he needs a stool softner, but otherwise no complaints. OBJECTIVE PHYSICAL EXAMINATION: VITAL SIGNS: Please see below. GENERAL: Obese elderly man sitting up in bed he appears comfortable in no acute distress HEENT: Cranial nerves II through XII grossly intact CARDIOVASCULAR: S1-S2 regular. RESPIRATORY: Clear to auscultation bilaterally. ABDOMINAL: Bowel sounds are present abdomen is soft EXTREMITIES: Significant ecchymosis of the right shoulder unchanged, good pulses throughout all 4 extremities. LABORATORY DATA, IMAGING STUDIES, MICROBIOLOGY: Please see below. DVT prophylaxis ordered?: Therapeutic Coumadin ASSESSMENT AND PLAN: This is a 88-year-old man with right femoral neck fracture and right humeral fracture. PROBLEMS: 1. Right femoral neck and right humeral fractures: Orthopedic surgery help greatly appreciated unfortunately the patient was unable to tolerate an MRI secondary to having his pacemaker. Patient CT findings orthopedic surgery has allowed him to have some partial weightbearing status we're optimistic it will improve his rehabilitation I suspect he can be dispositioned to subacute rehabilitation potentially on Saturday as per orthopedics recommendations will have repeat plain films today. Pain management and orthopedic surgery consult appreciated if needed we will add gabapentin and titrate up as needed at this time appears. Appears controlled 2. Paroxysmal atrial fibrillation: Patient is anticoagulated with Coumadin he is status post pacer. He is rate controlled with digoxin and carvedilol. 3. History of Mnire's: Continue with meclizine as needed. 4. Dyslipidemia: Continue with Lipitor 5. Gastroesophageal reflux disease: Continue with omeprazole and Carafate 6. Chronic kidney disease stable continue to monitor 7. Hyponatremia: Possibly hypovolemic. Stable encouraged him to take good by [facility] continue monitoring daily 8. Anemia: He does have significant ecchymosis possibly secondary to internal bleeding secondary to recent trauma continue to monitor daily thus far appears to be quite stable DISPOSITION: Pending PT and likely subacute rehabilitation placement Saturday VS, I&O, 24H, Fishbone Vital Signs/I&O Vital Signs Date Time Temp Pulse Resp B/P (MAP) Pulse Ox O2 Delivery O2 Flow Rate FiO2 09/21/18 08:02 18 09/21/18 08:01 76 137/74 09/21/18 06:00 97.4 96 09/16/18 16:48 Room Air I&O- Last 24 Hours up to 6 AM 09/21/18 06:00 Intake Total 1680 ml Output Total 1450 ml Balance 230 ml Laboratory Data 24H LABS Laboratory Tests 2 09/20/18 12:17: Nucleated Red Blood Cells % (auto) 0.0 09/21/18 06:17: Nucleated Red Blood Cells % (auto) 0.0, Anion Gap 8, Glomerular Filtration Rate 37.4, Blood Urea Nitrogen 40H, Creatinine 1.83H, Sodium Level 136, Potassium Level 4.5, Chloride Level 102, Carbon Dioxide Level 26, Calcium Level 9.0 CBC/BMP Laboratory Tests 09/20/18 12:17 Red Blood Count 3.58 L, Mean Corpuscular Volume 92.5, Mean Corpuscular Hemoglobin 30.2, Mean Corpuscular Hemoglobin Concent 32.6, Red Cell Distribution Width 12.6 09/21/18 06:17 Red Blood Count 3.45 L, Mean Corpuscular Volume 91.6, Mean Corpuscular Hemoglobin 30.4, Mean Corpuscular Hemoglobin Concent 33.2, Red Cell Distribution Width 12.7, Calcium Level 9.0 NOLVIA HERNANDEZ MD Sep 21, 2018 08:43
--- NOTE | 2018-09-21 10:31 | REP ---
Right hip two views: Comparison is 09/17/2018. There is an a avulsion fracture of the greater trochanter superiorly with the major fracture fragment distracted cephalic approximate 11 mm, unchanged. Mineralization and joint space are normal. There is no other fracture or dislocation. Impression: Avulsion fracture of the greater trochanter, unchanged. Left hip two views: Comparison is 09/17/2018. Mineralization and joint space are normal. There is no fracture or dislocation. There are no calcifications or foreign bodies. Impression: Negative left hip. No interval change. Electronically Signed by Ata Sterling MD 09/21/2018 09:46 A
[2018-09-21 14:00] VITALS: BP 109/70
[2018-09-21] MEDS: WARFARIN SOD 3 MG TAB PO SCH (16:08)
[2018-09-21] MEDS: SENOKOT S TAB PO PRN (20:14)
[2018-09-21] MEDS: MOM 30ML SUSPENSION UDC PO PRN (20:14)
[2018-09-21] MEDS: ATORVASTATIN 20 MG TAB PO SCH (20:14)
[2018-09-21] MEDS: MAGNESIUM OXIDE 400 MG TAB (MAG-OX) PO SCH (20:15)
[2018-09-21 22:00] VITALS: BP 119/77
[2018-09-22] MEDS: PERCOCET 5MG/325MG TAB PO PRN ×3 (01:24→13:27)
[2018-09-22 05:55] LABS: HEMATOCRIT 31.3 % (42.0-52.0); HEMOGLOBIN 10.4 g/dl (13.5-17.5); MEAN CORPUSCULAR HEMOGLOBIN 29.9 pg (27.0-33.0); MEAN CORPUSCULAR HGB CONC 33.2 g/dl (32.0-36.5); MEAN CORPUSCULAR VOLUME 89.9 fl (80.0-96.0); PLATELET COUNT, AUTOMATED 217 10^3/uL (150-450); RED BLOOD COUNT 3.48 10^6/uL (4.30-6.10); WHITE BLOOD COUNT 9.4 10^3/uL (4.0-10.0)
[2018-09-22 06:00] VITALS: BP 113/73
[2018-09-22 06:03] LABS: CALCIUM LEVEL 8.6 MG/DL (8.8-10.2); CREATININE FOR GFR 1.74 MG/DL (0.70-1.30); GLOMERULAR FILTRATION RATE 39.6 (>35); POTASSIUM SERUM 4.7 MEQ/L (3.5-5.1)
[2018-09-22] MEDS: ASCORBIC ACID 500 MG TAB PO SCH (08:00)
[2018-09-22] MEDS: SENOKOT S TAB PO PRN (08:00)
[2018-09-22] MEDS: MOM 30ML SUSPENSION UDC PO PRN (08:00)
[2018-09-22 08:01] VITALS: BP 113/73
[2018-09-22] MEDS: DIGOXIN 0.125 MG TAB PO SCH (08:01)
[2018-09-22] MEDS: CARVedilol 3.125 MG TAB PO SCH (08:01)
[2018-09-22] MEDS: OMEPRAZOLE 20 MG CAP PO SCH (08:01)
[2018-09-22] MEDS: CYANOCOBALAMIN 500 MCG TAB PO SCH (08:01)
[2018-09-22] MEDS: SUCRALFATE 1 GM TAB PO SCH (08:01)
[2018-09-22] MEDS: VITAMIN D 1,000 INTERNATIONAL UNITS TABLET PO SCH (08:02)
[2018-09-22 13:47] VITALS: BP 97/66
[2018-09-22 14:00] VITALS: BP 108/69
[2018-09-22] MEDS ORDERED: WARFARIN SOD 3 MG TAB PO SCH (17:00)
--- NOTE | 2018-09-23 22:01 | DSES ---
DATE OF ADMISSION: 09/17/2018 DATE OF DISCHARGE: 09/22/2018 DISCHARGE DIAGNOSIS: Right femoral neck fracture. SECONDARY DIAGNOSIS: 1. Right humeral fracture. 2. Paroxysmal atrial fibrillation. 3. Dyslipidemia. 4. Gastroesophageal reflux disease. 5. Chronic kidney disease. 6. Anemia. 7. Hyponatremia. 8. History of Meniere's. HOSPITAL COURSE: The patient is an 88-year-old man who previously had a fall at home and fractured his right femoral neck and humerus. He had been following in the orthopedic group on the outpatient setting. However, he had had worsening of his symptoms which prompted him to present to the emergency room. He was admitted to the hospitalist service and seen in consultation by orthopedic group while here. He did have CT scan of his pelvis, re-imaging of his shoulder, hip and humerus which did not show any progression or change. He remained medically stable, hemodynamically stable. Orthopedic surgery initially wanted MRI, but we were unable to obtain this secondary to him having a pacemaker. They did feel that he was capable for some weightbearing after walking several times and repeat imaging was done once again which once again showed no change. He was felt to be unsafe to return home by physical therapy. He was seen by the pain management clinic as well to help with his pain medication optimization. At this time, he is safe for disposition to the acute rehabilitation unit. SUBJECTIVE: Today, the patient tells me he is feeling well and has no complaints. OBJECTIVE: VITAL SIGNS: Temperature 97.2, pulse 73, respiratory rate 16, blood pressure 108/69, oxygen saturation 98% on room air. GENERAL: He is an obese, elderly, man sitting up in bed, in no acute distress. NEUROLOGIC: Cranial nerves II-XII are grossly intact. HEENT: He has moist mucous membranes. Diffuse ecchymosis of the right shoulder which is in a sling. CARDIOVASCULAR: S1, S2, regular. RESPIRATORY: Clear. ABDOMEN: Obese. Bowel sounds are present. The abdomen is soft. EXTREMITIES: No clubbing, cyanosis, or edema. LABORATORY STUDIES: WBC 9.4, hemoglobin 10.4, platelet count 217. Chemistry Panel: Sodium 133, potassium 4.7, chloride 100, bicarbonate 5, BUN 41, creatinine 1.7. IMAGING: As outlined above. ASSESSMENT AND PLAN: This is an 88-year-old man with right femoral neck fracture and right humeral fracture. 1. Right femoral neck fracture and right humeral fracture. Orthopedic surgery's help is greatly appreciated. He is to followup with Dr. Odom in two weeks as well as his primary care provider (PCP) in seven days. His activity is as orthopedic surgery's recommendations. Diet is as prior to admission. He is to return to the emergency room if symptoms worsen. He is being discharged to acute rehabilitation unit (ARU) to continue rehabilitation. His is well-controlled. Should it be difficult to control, could consider the addition of low-dose gabapentin with titrating up. Currently, he is requiring 1-2 tablets of Percocet. 2. Paroxysmal atrial fibrillation, anticoagulated with Coumadin. He is status post pacer. He is rate controlled with digoxin and carvedilol. 3. History of Meniere's. He is on meclizine as needed. 4. Dyslipidemia. He is on Lipitor. 5. Gastroesophageal reflux disease. He is on omeprazole, Carafate, and does occasionally use TUMS. 6. Chronic kidney disease, stable. 7. Hyponatremia, appears to be quite stable and he is encouraged to take oral intake. 8. Anemia, stable throughout his hospitalization. No evidence of any active bleeding. DISPOSITION: Acute rehabilitation unit. MEDICATIONS AT THE TIME OF DISCHARGE: - Tylenol 500 mg every six hours as needed for pain - vitamin C 500 mg daily - atorvastatin 40 mg at bedtime - carvedilol 3.125 mg daily - vitamin D 2000 units daily - vitamin B12 1000 mcg daily - digoxin 125 mcg three times a week - magnesium oxide 400 mg at bedtime - meclizine 25 mg every eight hours - nitroglycerin 0.4 mg sublingually every five minutes as needed for chest pain - omeprazole 40 mg twice a day - oxycodone/acetaminophen 5/325 one tablet every four hours as needed for pain - sucralfate 1 gram twice a day - tizanidine 1.5 mg once a week on Mondays - warfarin 3 mg six days a week Greater than 30 minutes spent organizing disposition.
== END 2018-09-22 15:00 | DRG 562 ==
LOC: M ED 13:48 → M ED INP 17:34 → M MS5PR 19:55 → OBSVTOIN 09-17 14:40
PROVIDERS: ADMIT Internal Medicine; ATTEND Internal Medicine
DX: S42.214A Unspecified nondisplaced fracture of surgical neck of right humerus, initial encounter for closed fracture (principal); S72.114A Nondisplaced fracture of greater trochanter of right femur, initial encounter for closed fracture; E87.1 Hypo-osmolality and hyponatremia; M48.061 Spinal stenosis, lumbar region without neurogenic claudication; I25.10 Atherosclerotic heart disease of native coronary artery without angina pectoris; M19.90 Unspecified osteoarthritis, unspecified site; K21.9 Gastro-esophageal reflux disease without esophagitis; N18.3 Chronic kidney disease, stage 3 (moderate); E78.5 Hyperlipidemia, unspecified; I12.9 Hypertensive chronic kidney disease with stage 1 through stage 4 chronic kidney disease, or unspecified chronic kidney disease; R53.81 Other malaise; I48.0 Paroxysmal atrial fibrillation; D64.9 Anemia, unspecified; R51 Headache; H81.09 Meniere's disease, unspecified ear; Z95.0 Presence of cardiac pacemaker; Z95.5 Presence of coronary angioplasty implant and graft; W00.0XXA Fall on same level due to ice and snow, initial encounter; Y92.009 Unspecified place in unspecified non-institutional (private) residence as the place of occurrence of the external cause; Z90.49 Acquired absence of other specified parts of digestive tract; Z89.022 Acquired absence of left finger(s); Z98.41 Cataract extraction status, right eye; Z98.42 Cataract extraction status, left eye; Z88.2 Allergy status to sulfonamides; Z88.5 Allergy status to narcotic agent; Z87.891 Personal history of nicotine dependence; Z79.01 Long term (current) use of anticoagulants; Z79.891 Long term (current) use of opiate analgesic; Z79.899 Other long term (current) drug therapy

== ENCOUNTER 2018-09-22 13:39 | Inpatient (IN) | payer MEDICARE ==
[~2018-09-22] VITALS: Ht 180.3 cm; Wt 93.2 kg
[~2018-09-22 13:39] MED LIST changes: +CARV3.12 PO; +DIGO0.12 PO; +MAGN400T5 PO; +MIDO5TA PO; +OXYC1TAB23 PO; +SUCR1TAB56 PO; +TIZA2CAP PO; +TIZA2TA PO; +WARF4TAB52 PO
[2018-09-22] MEDS ORDERED: BISACODYL 10 MG SUPP PR PRN (15:15)
[2018-09-22] MEDS ORDERED: PERCOCET 5MG/325MG TAB PO PRN (15:15)
[2018-09-22] MEDS ORDERED: MOM 30ML SUSPENSION UDC PO PRN (15:15)
[2018-09-22] MEDS ORDERED: NITROGLYCERIN 0.4 MG SUBL TABLET SL PRN (15:30)
[2018-09-22] MEDS ORDERED: CALCIUM CARBONATE 500 MG CHEW U/D PO PRN (15:30)
[2018-09-22] MEDS ORDERED: ACETAMINOPHEN 500 MG TAB PO PRN (15:30)
[2018-09-22 15:34] VITALS: BP 127/73
[2018-09-22] MEDS ORDERED: WARFARIN SOD 3 MG TAB PO SCH (17:00)
[2018-09-22 20:00] VITALS: BP 119/75
[2018-09-22] MEDS: DOCUSATE SODIUM 100 MG CAP PO SCH (20:07)
[2018-09-22] MEDS: OMEPRAZOLE 20 MG CAP PO SCH (20:07)
[2018-09-22] MEDS: SENNA 8.6 MG TAB (SENOKOT) PO SCH (20:07)
[2018-09-22] MEDS: ATORVASTATIN 20 MG TAB PO SCH (20:07)
[2018-09-22] MEDS: SUCRALFATE 1 GM TAB PO SCH (20:07)
[2018-09-22] MEDS: MAGNESIUM OXIDE 400 MG TAB (MAG-OX) PO SCH (20:07)
[2018-09-22] MEDS: PERCOCET 5MG/325MG TAB PO PRN (20:10)
[2018-09-23] LABS: APPEARANCE, URINE CLEAR (CLEAR); BACTERIA, URINE AUTO NEGATIVE (NEGATIVE); BILIRUBIN, URINE AUTO NEGATIVE (NEGATIVE); BLOOD, URINE BLOOD NEGATIVE (NEGATIVE); COLOR, URINE YELLOW (YELLOW); GLUCOSE, URINE (UA) AUTO NEGATIVE (NEGATIVE); KETONE, URINE AUTO NEGATIVE (NEGATIVE); LEUKOCYTE ESTERASE, URINE AUTO NEGATIVE (NEGATIVE); MUCUS, URINE SMALL (NEGATIVE); NITRITE, URINE AUTO NEGATIVE (NEGATIVE); PROTEIN, URINE AUTO NEGATIVE (NEGATIVE); RBC, URINE AUTO 1 /HPF (0-3); SPECIFIC GRAVITY URINE AUTO 1.008 (1.002-1.035); SQUAMOUS EPITHELIAL CELL UR AU 0 /HPF (0-6); UROBILINOGEN, URINE AUTO 0.2 mg/dL (0.0-2.0); WBC, URINE AUTO 0 /HPF (0-3)
[2018-09-23] MEDS: PERCOCET 5MG/325MG TAB PO PRN ×2 (01:04→09:05)
[2018-09-23 06:00] VITALS: BP 121/70
[2018-09-23 07:34] LABS: BASO # 0.1 10^3/uL (0.0-0.2); BASO % 0.7 % (0.0-1.0); EOS # 0.3 10^3/uL (0.0-0.50); EOS % 3.2 % (0.0-3.0); HEMATOCRIT 32.7 % (42.0-52.0); HEMOGLOBIN 10.7 g/dl (13.5-17.5); LYMPH # 1.6 10^3/uL (1.5-4.5); LYMPH % 19.6 % (24.0-44.0); MEAN CORPUSCULAR HEMOGLOBIN 30.1 pg (27.0-33.0); MEAN CORPUSCULAR HGB CONC 32.7 g/dl (32.0-36.5); MEAN CORPUSCULAR VOLUME 92.1 fl (80.0-96.0); NEUTROPHILS # 5.3 10^3/uL (1.8-7.7); NEUTROPHILS % 63.9 % (36.0-66.0); PLATELET COUNT, AUTOMATED 247 10^3/uL (150-450); RED BLOOD COUNT 3.55 10^6/uL (4.30-6.10); WHITE BLOOD COUNT 8.4 10^3/uL (4.0-10.0)
[2018-09-23 07:44] LABS: INR 3.23; PROTHROMBIN TIME 33.7 SECONDS (12.1-14.4)
[2018-09-23 07:54] LABS: ALBUMIN 2.7 GM/DL (3.2-5.2); BILIRUBIN,TOTAL 1.2 MG/DL (0.2-1.0); CALCIUM LEVEL 8.7 MG/DL (8.8-10.2); CREATININE FOR GFR 1.83 MG/DL (0.70-1.30); GLOMERULAR FILTRATION RATE 37.4 (>35); POTASSIUM SERUM 4.9 MEQ/L (3.5-5.1); TOTAL PROTEIN 6.2 GM/DL (6.4-8.2)
[2018-09-23] MEDS: DOCUSATE SODIUM 100 MG CAP PO SCH ×2 (09:04→20:23)
[2018-09-23] MEDS: CYANOCOBALAMIN 500 MCG TAB PO SCH (09:04)
[2018-09-23] MEDS: SUCRALFATE 1 GM TAB PO SCH ×2 (09:04→20:23)
[2018-09-23] MEDS: VITAMIN D 1,000 INTERNATIONAL UNITS TABLET PO SCH (09:04)
[2018-09-23] MEDS: ASCORBIC ACID 500 MG TAB PO SCH (09:05)
[2018-09-23] MEDS: OMEPRAZOLE 20 MG CAP PO SCH ×2 (09:05→20:24)
[2018-09-23] MEDS: CARVedilol 3.125 MG TAB PO SCH (09:06)
--- NOTE | 2018-09-23 11:31 | IPNPDOC ---
Date Seen The patient was seen on 09/23/18. Progress Note PCP Dr Solitario Nephrology Dr Almanzar HPI: 88year oldM who on 09/07/2018 fell on ice on his right side, sustained a right proximal humeral fracture and hairline fracture of his right femoral neck. Orthopedics saw at the time and did not recommend any surgical intervention and he was discharged home. The pt returned to the ED and was admitted 09/16/18- 09/22/18 related to pain and difficulty ambulating. The pt was followed by Orthopedics and pain management during his hospitalization as well. The pt was transferrred to the care of [facility], Dr Silva, 09/22/18. The pt states he has a CLAYTON, has pain in his arms, back and LEs. Denies any fevers, chills, weakness, fatigue, Headache, Chest Pain, Shortness of breath, cough, palpitations, abdominal pain, N/V/D or changes in bowel or bladder habits. PMHx: Chronic LBP Lumbar stenosis OA [place]. CPAP. Meniere's disease CAD/ALEJA x 2 2011. GERD CKD3 HLD HTN PAF/Pacemaker Follows with [facility]. Chronic CLAYTON. [facility], Dr Dubon. BPH/LUTS 09/07/2018, fell on the ice on his right side, sustained a right proximal humeral fracture and hairline fracture of his right femoral neck. 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 RIGHT ROTATOR CUFF REPAIR 04/2015 PACEMAKER 02/2015 GREEN LIGHT LASER ABLATION OF THE PROSTATE GLAND 12/04/2016 Lumbar laminectomy [place] 09/02/17 PE: GEN: 88yoM, appears stated age. Well-nourished, well developed. No acute distress. Alert and oriented x 3. Keep eyes closed throughout exam. HEENT: Normocephalic, atraumatic. Moist mucous membranes. CHEST: Regular rate and rhythm, +S1, +S2 LUNGS: Clear to auscultation bilaterally. No wheezes, rales, or rhonchi. ABD: Round, soft, non-tender, non-distended. +Bowel sounds throughout. . EXT: No lower extremity edema appreciated. SKIN: [place], dry, warm. No rashes. NEURO: Alert and oriented x 3. No focal deficits appreciated. A&P: 88year oldM who on 09/07/2018 fell on ice on his right side, sustained a right proximal humeral fracture and hairline fracture of his right femoral neck. Orthopedics saw at the time and did not recommend any surgical intervention and he was discharged home. The pt returned to the ED and was admitted 09/16/18- 09/22/18 related to pain and difficulty ambulating. The pt was followed by Orthopedics and pain management during his hospitalization as well. The pt was transferrred to the care of Dr Ricardo SALVADOR, 09/22/18. 1. Mechanical Fall on ice on his right side, sustained a right proximal humeral fracture and hairline fracture of his right femoral neck. No surgical intervention recommended as per Orthopedic surgery. Continue F/U with Orthopedics. WB as per Orthopedics. PT/OT/ST as per Dr Ricardo SALVADOR. Pain control as per Dr Ricardo SALVADOR. Consider pain mgmt consultation if needed. Pt follows as outpt with [facility] Pain Mgmt. Bowel care as per Dr Ricardo SALVADOR. DVT prophylaxi. Pt remains on Coumadin. Dose adjustment thid AM as per Dr Ricardo SALVADOR, related to INR supra therapeutic. Monitor daily INR. 2. Paroxysmal atrial fibrillation: Patient is anticoagulated with Coumadin Status post pacer. Rate controlled with digoxin and carvedilol. 3. History of Mnire's: Continue with meclizine as needed. 4. Dyslipidemia: Continue with Lipitor 5. Gastroesophageal reflux disease: Continue with omeprazole and Carafate 6. Chronic kidney disease 3 Appears to be at baseline. Avoid nephrotoxic agents. CT Pelvis 09/17/18 indicated B/L cysts. Continue outpt f/u with Nephrology. Request renal U/S. Monitor. 7. Hyponatremia: Possibly hypovolemic. Stable, encourage po intake. 8. Anemia: Hgb 10.7. Fe studies, B12, folate 09/06/17. FOB neg 09/08/18. Pt continues with B12 supplement. Monitor. 9. [place]. CPAP with home settings. 10. Chronic HAs. Follows with [facility], Dr Holland. 11. Chronic pain. Percocet as outpt. Follows with [facility] Pain Mgmt. 12. H/O BPH. as per record Pt has not been taking Proscar or Flomax recently. Denies urinary complaints. Monitor. 13. Abnormal LFTs. Recheck CMP in AM. Add hepatitis profile. Check RUQ U/S. Monitor. VS, I&O, 24H, Fishbone Vital Signs/I&O Vital Signs Date Time Temp Pulse Resp B/P (MAP) Pulse Ox O2 Delivery O2 Flow Rate FiO2 09/23/18 09:35 16 09/23/18 09:06 69 121/70 09/23/18 06:00 97.2 97 I&O- Last 24 Hours up to 6 AM 09/23/18 06:00 Intake Total 960 ml Output Total 1525 ml Balance -565 ml Laboratory Data 24H LABS Laboratory Tests 2 09/22/18 23:40: Urine Appearance CLEAR, Urine Color YELLOW, Urine pH 6.0, Urine Specific [place] 1.008, Urine Protein NEGATIVE, Urine Glucose (UA) NEGATIVE, Urine Ketones NEGATIVE, Urine Urobilinogen 0.2, Urine Bilirubin NEGATIVE, Urine Leukocyte Esterase NEGATIVE, Urine Blood NEGATIVE, Urine Nitrite NEGATIVE, Urine WBC (Auto) 0, Urine RBC (Auto) 1, Urine Hyaline Casts (Auto) 0, Urine Bacteria (Auto) NEGATIVE, Urine Squamous Epithelial Cells 0, Urine Mucus (Auto) SMALL, Urine Sperm (Auto) 09/23/18 07:08: Immature Granulocyte % (Auto) 0.6, White Blood Count 8.4, Red Blood Count 3.55L, Hemoglobin 10.7L, Hematocrit 32.7L, Mean Corpuscular Volume 92.1, Mean Corpuscular Hemoglobin 30.1, Mean Corpuscular Hemoglobin Concent 32.7, Red Cell Distribution Width 12.6, Platelet Count 247, Neutrophils (%) (Auto) 63.9, Lymphocytes (%) (Auto) 19.6L, Monocytes (%) (Auto) 12.0H, Eosinophils (%) (Auto) 3.2H, Basophils (%) (Auto) 0.7, Neutrophils # (Auto) 5.3, Lymphocytes # (Auto) 1.6, Monocytes # (Auto) 1.0H, Eosinophils # (Auto) 0.3, Basophils # (Auto) 0.1, Nucleated Red Blood Cells % (auto) 0.0, Prothrombin Time 33.7H, Prothromb Time International Ratio 3.23, Anion Gap 7L, Glomerular Filtration Rate 37.4, Blood Urea Nitrogen 43H, Creatinine 1.83H, Sodium Level 132L, Potassium Level 4.9, Chloride Level 99, Carbon Dioxide Level 26, Calcium Level 8.7L, Aspartate Amino Transf (AST/SGOT) 107H, Alanine Aminotransferase (ALT/SGPT) 116H, Alkaline Phosphatase 185H, Total Bilirubin 1.2H, Total Protein 6.2L, Albumin 2.7L, Albumin/Globulin Ratio 0.77L CBC/BMP Laboratory Tests 09/23/18 07:08 Red Blood Count 3.55 L, Mean Corpuscular Volume 92.1, Mean Corpuscular Hemoglobin 30.1, Mean Corpuscular Hemoglobin Concent 32.7, Red Cell Distribution Width 12.6, Neutrophils (%) (Auto) 63.9, Lymphocytes (%) (Auto) 19.6 L, Monocytes (%) (Auto) 12.0 H, Eosinophils (%) (Auto) 3.2 H, Basophils (%) (Auto) 0.7, Neutrophils # (Auto) 5.3, Lymphocytes # (Auto) 1.6, Monocytes # (Auto) 1.0 H, Eosinophils # (Auto) 0.3, Basophils # (Auto) 0.1, Calcium Level 8.7 L, Aspartate Amino Transf (AST/SGOT) 107 H, Alanine Aminotransferase (ALT/SGPT) 116 H, Alkaline Phosphatase 185 H, Total Bilirubin 1.2 H, Total Protein 6.2 L, Albumin 2.7 L Microbiology Microbiology 09/22/18 Urine Culture, Received Pending Shabnam Calhoun Sep 23, 2018 11:31
[2018-09-23] MEDS: MECLIZINE 25 MG TABLET PO PRN (12:01)
--- NOTE | 2018-09-23 12:47 | HPEPDOC ---
Button Maker Note DATE OF ADMISSION: Sep 22, 2018 at 15:28 SOURCE OF ADMISSION INFORMATION: patient and [facility] records CHIEF COMPLAINT: right hip and humeral fracture HISTORY OF PRESENT ILLNESS: 88M pmh Afib, CAD s/p stents with PM, CKD3b, chronic low back pain who fell onto his right side while walking on ice on 09/07/18 was seen in the ED found to have a right femur fracture and humeral fracture. He was deemed non-surgical and told to go home, however was unable to a bear weight on his right side and presented to [facility] ED on 09/16/17. Xray of the right hip showed, There is an avulsion fracture at the superior tip of the greater trochanter. The major fracture fra gment is distracted cephalad approximately 11 mm. There is no dislocation. X- ray of the right arm showed, There is a nondisplaced fracture at the surgical neck of the humerus. There is no dislocation. CT pelvis was also performed which confirmed avulsion fracture of the right greater trochanter and also showed, There is a 3.9 cm parapelvic cyst in the right kidney. This measured 3.4 cm on 12/07/2014. There is a 2.6 cm hyperdense cyst in the left kidney. This measured 1.8 cm on 12/07/2014. He was evaluated by orthopedics who deemed him to be a non-surgical candidate and was made NWB to the right upper extremity and partial weight bearing to the right lower extremity. He reported worsening left sided groin pain and out of concern for another hip fracture, X-ray of the hip was performed on 09/11/18 which showed, no fracture or dislocation with preserved joint space. He was evaluated by pain management for his pain who recommended continuing oxycodone and adding gabapentin. He was seen by therapy and noted to have significant gait and ADL impairments and deemed medically appropriate for discharge to [facility]. REVIEW OF SYSTEMS: The following is a completed review of systems and has been reviewed. Review of systems otherwise unremarkable. PAIN: Patient self reports bilateral groin and calf pain EYES: no recent changes in vision, no eye pain EARS, NOSE, & THROAT: no rhinorrhea, throat pain or dysphagia CARDIOVASCULAR:denies chest pain or palpitations PULMONARY: Negative. Denies shortness of breath GASTROINTESTINAL: Negative for constipation or diarrhea GENITOURINARY: Negative for hematuria or dysuria MUSCULOSKELETAL: right humeral and right femur fracture NEUROLOGICAL: no tremor or seizures SKIN: no rashes PSYCHIATRIC: Unremarkable All other review of systems found to be negative. PAST MEDICAL HISTORY: Afib, CAD s/p stents with PM, CKD3b, chronic low back, Meniere's PAST SURGICAL HISTORY: Appendectomy, Right inguinal hernia repair, traumatic amputation of distal ends of last three fingers on his left hand in 2004, Dupuytren's contracture release on the left hand in 2005 and 2008, bilateral cataract surgery, right rotator cuff repair, lumbar laminectomy on 09/02/2017 ALLERGIES: Please see below. MEDICATIONS: Please see below. SOCIAL HISTORY: lives with , denies ETOH, ex-smoker or illicit drugs DIET: Regular PHYSICAL EXAMINATION: VITAL SIGNS: Please see below. GENERAL: Pleasant and cooperative. No acute distress. HEENT: PERRL. Extraocular movements intact. Clear conjunctiva, +glasses CARDIOVASCULAR: Regular rate and rhythm. No murmurs, rubs, or gallops, +PM LUNGS: Clear to auscultation bilaterally. No wheezes. No rhonchi ABDOMEN: Soft, nontender, nondistended. Positive bowel sounds. Normal active bowel sound NEUROLOGICAL: Alert and oriented times three. Cranial nerves II through XII g rossly intact. Sensation grossly intact including right hand EXTREMITIES: 5\5 strength left upper extremities. right wrist extension and duct installer 5-/5 rest of limb not tested due to weight bearing restrictions 5-\5 strength right lower extremity. 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 GOALS: Mod-I with quad cane for ambulation, stairs, functional transfers, dressing, showering, pain optimization, medical optimization, assess for DME needs, family training. ASSESSMENT:88-year-old M with past medical history of Afib with PM who presents status post fall with right femur and humeral fracture. PLAN: 1. Rehab: PT/OT assess for DMEs 2. Ortho: s/p right greater trochanteric fracture and right humeral neck fractu re, NWB to RUE and PWB to RLE- ortho consulted 3. Neuro: stable, hx of Meniere's meclizine ordered prn 4. CArdio: pmh Afib with pacemaker, continue digoxin, warfarin, and carvedilol- medicine consulted -HLD on statin 5. Resp: encourage incentive spirometry 6. 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 Pain: percocet, and gabapentin, will star Cymbalta 8. GIppx: Prilosec 9. DVT ppx: on Warfarin 10. Dispo: TBD POST ADMISSION PHYSICIAN EVALUATION: Medical and functional status: Description of medical status, medical assessment: As above. Rehabilitation diagnosis and current and prior cold morbid medical conditions as above. Risk of complications and plans to mitigate them as above. Description of functional status current status is as above. Prior status as above. Status compared to preadmission: There are no clinically significant differences between the patient's current status and the information described on the preadmission screening document. Treatment plan anticipated: Treatment plan is as described above. Required disciplines including physical therapy, occupational therapy, others as noted above]. Intensity of services: 3 hours a day, 6 days a week. Special considerations: There are no specific special or safety considerations that would likely preclude immediate implementation of an intensive rehabilitation program or subsequently influence the plan of care. ATTESTATION: Considering all the information above, it is my best judgment that this patient requires intensive rehabilitation therapy as described above and an inpatient hospital environment due to the complexity of nursing, medical, and rehabilitation needs required by the patient. Furthermore, this patient can reasonably be expected to participate in an benefit from an inpatient rehabilitation stay with an interdisciplinary team approach to the delivery of rehabilitation care under the direction and supervision of rehabilitation physician PROGNOSIS: Excellent. ESTIMATED LENGTH OF STAY:10-14 days. PROJECTED DISCHARGE DESTINATION: Home with family support and any durable medical equipment required to increase functional safety and mobility. TIME SPENT COUNSELING AND COORDINATING INITIAL CARE: Greater than 70 minutes. Vital Signs Vital Sign - Last 24 Hours 09/22/18 09/22/18 09/22/18 09/23/18 15:34 20:00 20:10 01:04 Temp 97.5 97.4 Pulse 69 71 Resp 18 19 18 18 B/P (MAP) 127/73 (91) 119/75 (90) Pulse Ox 97 95 09/23/18 09/23/18 09/23/18 09/23/18 06:00 09:05 09:06 09:35 Temp 97.2 Pulse 69 69 Resp 18 18 16 B/P (MAP) 121/70 (87) 121/70 Pulse Ox 97 Laboratory Data CBC/BMP Laboratory Tests 09/23/18 07:08 Red Blood Count 3.55 L, Mean Corpuscular Volume 92.1, Mean Corpuscular Hemoglobin 30.1, Mean Corpuscular Hemoglobin Concent 32.7, Red Cell Distribution Width 12.6, Neutrophils (%) (Auto) 63.9, Lymphocytes (%) (Auto) 19.6 L, Monocytes (%) (Auto) 12.0 H, Eosinophils (%) (Auto) 3.2 H, Basophils (%) (Auto) 0.7, Neutrophils # (Auto) 5.3, Lymphocytes # (Auto) 1.6, Monocytes # (Auto) 1.0 H, Eosinophils # (Auto) 0.3, Basophils # (Auto) 0.1, Calcium Level 8.7 L, Aspartate Amino Transf (AST/SGOT) 107 H, Alanine Aminotransferase (ALT/SGPT) 116 H, Alkaline Phosphatase 185 H, Total Bilirubin 1.2 H, Total Protein 6.2 L, Al bumin 2.7 L Labs 24H Laboratory Tests 2 09/22/18 23:40: Urine Appearance CLEAR, Urine Color YELLOW, Urine pH 6.0, Urine Specific [place] 1.008, Urine Protein NEGATIVE, Urine Glucose (UA) NEGATIVE, Urine Ketones NEGATIVE, Urine Urobilinogen 0.2, Urine Bilirubin NEGATIVE, Urine Leukocyte Esterase NEGATIVE, Urine Blood NEGATIVE, Urine Nitrite NEGATIVE, Urine WBC (Auto) 0, Urine RBC (Auto) 1, Urine Hyaline Casts (Auto) 0, Urine Bacteria (Auto) NEGATIVE, Urine Squamous Epithelial Cells 0, Urine Mucus (Auto) SMALL, Urine Sperm (Auto) 09/23/18 07:08: Immature Granulocyte % (Auto) 0.6, White Blood Count 8.4, Red Blood Count 3.55L, Hemoglobin 10.7L, Hematocrit 32.7L, Mean Corpuscular Volume 92.1, Mean Corpuscular Hemoglobin 30.1, Mean Corpuscular Hemoglobin Concent 32.7, Red Cell Distribution Width 12.6, Platelet Count 247, Neutrophils (%) (Auto) 63.9, Lymphocytes (%) (Auto) 19.6L, Monocytes (%) (Auto) 12.0H, Eosinophils (%) (Auto) 3.2H, Basophils (%) (Auto) 0.7, Neutrophils # (Auto) 5.3, Lymphocytes # (Auto) 1.6, Monocytes # (Auto) 1.0H, Eosinophils # (Auto) 0.3, Basophils # (Auto) 0.1, Nucleated Red Blood Cells % (auto) 0.0, Prothrombin Time 33.7H, Prothromb Time International Ratio 3.23, Anion Gap 7L, Glomerular Filtration Rate 37.4, Blood Urea Nitrogen 43H, Creatinine 1.83H, Sodium Level 132L, Potassium Level 4.9, Chloride Level 99, Carbon Dioxide Level 26, Calcium Level 8.7L, Aspartate Amino Transf (AST/SGOT) 107H, Alanine Aminotransferase (ALT/SGPT) 116H, Alkaline Phosphatase 185H, Total Bilirubin 1.2H, Total Protein 6.2L, Albumin 2.7L, Albumin/Globulin Ratio 0.77L Microbiology Microbiology 09/22/18 Urine Culture, Received Pending Home Medications Scheduled (Digoxin) 125 Mcg Tab, 125 MCG PO 3XW, (Reported) SAT, SAT, SAT Ascorbic Acid (Ascorbic Acid) 500 Mg Tab, 500 MG PO DAILY, (Reported) Atorvastatin Calcium (Atorvastatin Calcium) 40 Mg Tab, 40 MG PO QHS, (Reported) Carvedilol (Carvedilol) 3.125 Mg Tab, 3.125 MG PO DAILY, (Reported) Cholecalciferol (Vitamin D-1000) 1,000 Unit Tab, 2,000 UNIT PO DAILY, (Reported) Cyanocobalamin (Vitamin B-12) 1,000 Mcg Tab, 1,000 MCG PO DAILY, (Reported) Magnesium Oxide (Magnesium Oxide 400) 400 Mg Tab, 400 MG PO QHS, (Reported) Omeprazole (Omeprazole) 40 Mg Cap, 40 MG PO BID, (Reported) Sucralfate (Sucralfate) 1 Gm Tab, 1 GM PO BID, (Reported) Warfarin Sod (Warfarin Sodium) 1 Mg Tab, 1.5 MG PO 1XWK, (Reported) QHS: MONDAYS Warfarin Sod (Warfarin Sodium) 1 Mg Tab, 3 MG PO 6XWK, (Reported) QHS: SAT, , SAT, , SAT, SAT Scheduled PRN Acetaminophen (Tylenol Extra Strength) 500 Mg Tab, 500 MG PO Q6H PRN for PAIN, (Reported) Meclizine HCl (Meclizine HCl) 25 Mg Tab, 25 MG PO Q8H PRN for DIZZINESS, (Reported) Nitroglycerin (Nitrostat) 0.4 Mg Subl, 0.4 MG SL NITRO PRN for CHEST PAIN, (Reported) Oxycodone/Acetaminophen (Oxycodone/Acetaminophen 5-325 mg) 1 Tab Tab, 1 TAB PO QID PRN for PAIN, (Reported) Tizanidine HCl (Tizanidine HCl) 2 Mg Tab, 2 MG PO TID PRN for SPASMS, (Reported) Allergies Coded Allergies: Sulfa Antibiotics (Verified Allergy, Unknown, 09/16/18) Hydrocodone (Verified Adverse Reaction, Intermediate, Nausea and Vomiting, 09/22/18) OK HARRISON MD Sep 23, 2018 12:47
[2018-09-23 14:00] VITALS: BP 104/69
--- NOTE | 2018-09-23 16:36 | IPNPDOC ---
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 He is ambulating well with a hem-walker. REVIEW OF SYSTEMS: The following is a completed review of systems and has been reviewed. Review of systems otherwise unremarkable. PAIN: Patient self reports bilateral groin and calf pain EYES: no recent changes in vision, no eye pain EARS, NOSE, & THROAT: no rhinorrhea, throat pain or dysphagia CARDIOVASCULAR:denies chest pain or palpitations PULMONARY: Negative. Denies shortness of breath GASTROINTESTINAL: Negative for constipation or diarrhea, +nausea GENITOURINARY: Negative for hematuria or dysuria MUSCULOSKELETAL: right humeral and right femur fracture NEUROLOGICAL: no tremor or seizures SKIN: no rashes PSYCHIATRIC: Unremarkable All other review of systems found to be negative. PHYSICAL EXAMINATION: VITAL SIGNS: Please see below. GENERAL: Pleasant and cooperative. No acute distress. HEENT: PERRL. Extraocular movements intact. Clear conjunctiva, +glasses CARDIOVASCULAR: Regular rate and rhythm. No murmurs, rubs, or gallops, +PM LUNGS: Clear to auscultation bilaterally. No wheezes. No rhonchi ABDOMEN: Soft, nontender, nondistended. Positive bowel sounds. Normal active bowel sound NEUROLOGICAL: Alert and oriented times three. Cranial nerves II through XII grossly intact. Sensation grossly intact including right hand EXTREMITIES: 5\5 strength left upper extremities. right wrist extension and diagnostic tech 5-/5 rest of limb not tested due to weight bearing restrictions 5-\5 strength right lower extremity. 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 PLAN: 1. Rehab: PT/OT assess for DMEs 2. Ortho: s/p right greater trochanteric fracture and right humeral neck fracture, NWB to RUE and PWB to RLE- ortho consulted 3. Neuro: stable, hx of Meniere's meclizine ordered prn 4. CArdio: pmh Afib with pacemaker, continue digoxin, warfarin, and carvedilol- medicine consulted -HLD on statin 5. Resp: encourage incentive spirometry 6. Renal pmh CKD 3b, avoid nephrotoxic agents and monitor Histology Aide 7. Pain: d/c percocet due to nausea, will add standing Tylenol, continue gabapentin and Cymbalta 8. GIppx: Prilosec 9. DVT ppx: on Warfarin 10. Dispo: TBD Allergies Coded Allergies: Sulfa Antibiotics (Verified Allergy, Unknown, 09/16/18) Hydrocodone (Verified Adverse Reaction, Intermediate, Nausea and Vomiting, 09/22/18) Vital Signs Vital Signs Date Time Temp Pulse Resp B/P (MAP) Pulse Ox O2 Delivery O2 Flow Rate FiO2 09/23/18 14:00 96.7 70 17 104/69 (81) 97 Laboratory Data CBC/BMP Laboratory Tests 09/23/18 07:08 Red Blood Count 3.55 L, Mean Corpuscular Volume 92.1, Mean Corpuscular Hemoglo bin 30.1, Mean Corpuscular Hemoglobin Concent 32.7, Red Cell Distribution Width 12.6, Neutrophils (%) (Auto) 63.9, Lymphocytes (%) (Auto) 19.6 L, Monocytes (%) (Auto) 12.0 H, Eosinophils (%) (Auto) 3.2 H, Basophils (%) (Auto) 0.7, Neutrophils # (Auto) 5.3, Lymphocytes # (Auto) 1.6, Monocytes # (Auto) 1.0 H, Eosinophils # (Auto) 0.3, Basophils # (Auto) 0.1, Calcium Level 8.7 L, Aspartate Amino Transf (AST/SGOT) 107 H, Alanine Aminotransferase (ALT/SGPT) 116 H, Alkaline Phosphatase 185 H, Total Bilirubin 1.2 H, Total Protein 6.2 L, Albumin 2.7 L Labs 24H Laboratory Tests 2 09/22/18 23:40: Urine Appearance CLEAR, Urine Color YELLOW, Urine pH 6.0, Urine Specific Hunter 1.008, Urine Protein NEGATIVE, Urine Glucose (UA) NEGATIVE, Urine Ketones NEGATIVE, Urine Urobilinogen 0.2, Urine Bilirubin NEGATIVE, Urine Leukocyte Esterase NEGATIVE, Urine Blood NEGATIVE, Urine Nitrite NEGATIVE, Urine WBC (Auto) 0, Urine RBC (Auto) 1, Urine Hyaline Casts (Auto) 0, Urine Bacteria (Auto) NEGATIVE, Urine Squamous Epithelial Cells 0, Urine Mucus (Auto) SMALL, Urine Sperm (Auto) 09/23/18 07:08: Immature Granulocyte % (Auto) 0.6, White Blood Count 8.4, Red Blood Count 3.55L, Hemoglobin 10.7L, Hematocrit 32.7L, Mean Corpuscular Volume 92.1, Mean Corpuscular Hemoglobin 30.1, Mean Corpuscular Hemoglobin Concent 32.7, Red Cell Distribution Width 12.6, Platelet Count 247, Neutrophils (%) (Auto) 63.9, Lymphocytes (%) (Auto) 19.6L, Monocytes (%) (Auto) 12.0H, Eosinophils (%) (Auto) 3.2H, Basophils (%) (Auto) 0.7, Neutrophils # (Auto) 5.3, Lymphocytes # (Auto) 1.6, Monocytes # (Auto) 1.0H, Eosinophils # (Auto) 0.3, Basophils # (Auto) 0.1, Nucleated Red Blood Cells % (auto) 0.0, Prothrombin Time 33.7H, Prothromb Time International Ratio 3.23, Anion Gap 7L, Glomerular Filtration Rate 37.4, Blood Urea Nitrogen 43H, Creatinine 1.83H, Sodium Level 132L, Potassium Level 4.9, Chloride Level 99, Carbon Dioxide Level 26, Calcium Level 8.7L, Aspartate Amino Transf (AST/SGOT) 107H, Alanine Aminotransferase (ALT/SGPT) 116H, Alkaline Phosphatase 185H, Total Bilirubin 1.2H, Total Protein 6.2L, Albumin 2.7L, Albumin/Globulin Ratio 0.77L Microbiology Microbiology 09/22/18 Urine Culture, Received Pending Current Medications Current Medications Current Medications Acetaminophen (Tylenol Tab) 500 mg Q8H PRN PO fever/PAIN Last administered on 09/23/18at 12:01; Start 09/22/18 at 15:30; Stop 09/23/18 at 16:18; Status DC Acetaminophen (Tylenol Tab) 1,000 mg TID PO ; Start 09/23/18 at 21:00 Ascorbic Acid (Vitamin C) 500 mg DAILY PO Last administered on 09/23/18at 09:05; Start 09/23/18 at 09:00 Atorvastatin Calcium (Lipitor) 40 mg QHS PO Last administered on 09/22/18at 20:07; Start 09/22/18 at 21:00 Bisacodyl (Dulcolax Suppository) 10 mg DAILYPRN PRN MD CONSTIPATION; Start 09/22/18 at 15:15 Calcium Carbonate (Tums) 1,000 mg Q4HP PRN PO HEARTBURN; Start 09/22/18 at 15:30 Carvedilol (COReg) 3.125 mg DAILY PO Last administered on 09/23/18at 09:06; Start 09/23/18 at 09:00 Cyanocobalamin (Vitamin B12) 1,000 mcg DAILY PO Last administered on 09/23/18at 09:04; Start 09/23/18 at 09:00 Digoxin (Lanoxin) 0.125 mg MoWeFr@0900 PO ; Start 09/24/18 at 09:00 Docusate Sodium (Colace) 100 mg BID PO Last administered on 09/23/18at 09:04; Start 09/22/18 at 21:00 Duloxetine HCl (Cymbalta) 30 mg DAILY PO ; Start 09/24/18 at 09:00 Gabapentin (Neurontin) 100 mg TID PO ; Start 09/23/18 at 21:00 Magnesium Hydroxide (Milk Of Magnesia) 30 ml DAILYPRN PRN PO CONSTIPATION; Start 09/22/18 at 15:15 Magnesium Oxide (Mag-Ox) 400 mg QHS PO Last administered on 09/22/18at 20:07; Start 09/22/18 at 21:00 Meclizine HCl (Antivert) 25 mg Q8HP PRN PO DIZZINESS Last administered on 09/23/18at 12:01; Start 09/22/18 at 15:30 Nitroglycerin (Nitrostat (1/ 150)) 0.4 mg Q5MP PRN SL CHEST PAIN; Start 09/22/18 at 15:30 Omeprazole (PriLOSEC) 40 mg BID PO Last administered on 09/23/18at 09:05; Start 09/22/18 at 21:00 Ondansetron HCl (Zofran) 4 mg Q6HP PRN PO NAUSEA; Start 09/22/18 at 15:15 Oxycodone/ Acetaminophen (Percocet 5mg/ 325mg Tablet) 1 tab Q4HP PRN PO MODERATE PAIN (PS 5-7); Start 09/22/18 at 15:15; Stop 09/23/18 at 16:18; Status DC Oxycodone/ Acetaminophen (Percocet 5mg/ 325mg Tablet) 2 tab Q4HP PRN PO SEVERE PAIN (PS 8-10) Last administered on 09/23/18 09:05; Start 09/22/18 at 15:15; Stop 09/23/18 at 16:18; Status DC Senna (Senokot) 1 tab QHS PO Last administered on 09/22/18at 20:07; Start 09/22/18 at 21:00 Sucralfate (Carafate) 1 gm BID PO Last administered on 09/23/18at 09:04; Start 09/22/18 at 21:00 Vitamin D (Vitamin D) 2,000 units DAILY PO Last administered on 09/23/18at 09:04; Start 09/23/18 at 09:00 Warfarin Sodium (Coumadin) 1.5 mg Mo@1700 PO Last administered on 09/22/18at 16:30; Start 09/22/18 at 17:00 Warfarin Sodium (Coumadin) 2 mg SuTuWeThFrSa@1700 PO ; Start 09/23/18 at 17:00 Warfarin Sodium (Coumadin) 3 mg SuTuWeThFrSa@1700 PO ; Start 09/23/18 at 17:00; Stop 09/23/18 at 17:00; Status DC OK HARRISON MD Sep 23, 2018 16:36
[2018-09-23] MEDS ORDERED: WARFARIN SOD 3 MG TAB PO SCH (17:00)
[2018-09-23] MEDS: ONDANSETRON 4 MG TAB (S0181) PO PRN (18:32)
[2018-09-23] MEDS: WARFARIN SOD 2 MG TAB PO SCH (18:33)
[2018-09-23 20:00] VITALS: BP 138/73
[2018-09-23] MEDS: GABAPENTIN 100 MG CAP PO SCH ×2 (20:23→20:56)
[2018-09-23] MEDS: MAGNESIUM OXIDE 400 MG TAB (MAG-OX) PO SCH (20:23)
[2018-09-23] MEDS: SENNA 8.6 MG TAB (SENOKOT) PO SCH (20:23)
[2018-09-23] MEDS: ACETAMINOPHEN 500 MG TAB PO SCH (20:24)
[2018-09-23] MEDS: ATORVASTATIN 20 MG TAB PO SCH (20:24)
[2018-09-24 06:00] VITALS: BP 121/80
[2018-09-24 06:46] LABS: INR 2.65; PROTHROMBIN TIME 28.9 SECONDS (12.1-14.4)
[2018-09-24 06:56] LABS: ALBUMIN 2.6 GM/DL (3.2-5.2); ALT/SGPT 139 U/L (12-78); BILIRUBIN,TOTAL 1.1 MG/DL (0.2-1.0); BLOOD UREA NITROGEN 40 MG/DL (7-18); CALCIUM LEVEL 8.4 MG/DL (8.8-10.2); CARBON DIOXIDE LEVEL 28 MEQ/L (21-32); CHLORIDE LEVEL 102 MEQ/L (98-107); CREATININE FOR GFR 1.76 MG/DL (0.70-1.30); GLOMERULAR FILTRATION RATE 39.1 (>35); GLUCOSE, FASTING 111 MG/DL (70-100); POTASSIUM SERUM 4.7 MEQ/L (3.5-5.1); SODIUM LEVEL 137 MEQ/L (136-145); TOTAL PROTEIN 5.2 GM/DL (6.4-8.2)
[2018-09-24] MEDS: DULoxetine 30 MG CAP (CYMBALTA) PO SCH (08:50)
[2018-09-24] MEDS: SUCRALFATE 1 GM TAB PO SCH ×2 (08:50→20:49)
[2018-09-24] MEDS: VITAMIN D 1,000 INTERNATIONAL UNITS TABLET PO SCH (08:50)
[2018-09-24] MEDS: DIGOXIN 0.125 MG TAB PO SCH (08:50)
[2018-09-24] MEDS: ASCORBIC ACID 500 MG TAB PO SCH (08:51)
[2018-09-24] MEDS: OMEPRAZOLE 20 MG CAP PO SCH ×2 (08:51→20:49)
[2018-09-24] MEDS: CARVedilol 3.125 MG TAB PO SCH (08:51)
[2018-09-24] MEDS: CYANOCOBALAMIN 500 MCG TAB PO SCH (08:51)
[2018-09-24] MEDS: ACETAMINOPHEN 500 MG TAB PO SCH ×3 (08:51→20:51)
[2018-09-24] MEDS: DOCUSATE SODIUM 100 MG CAP PO SCH ×2 (08:52→20:49)
[2018-09-24] MEDS: MECLIZINE 25 MG TABLET PO PRN ×2 (08:58→20:49)
--- NOTE | 2018-09-24 09:26 | REP ---
Clinical: Abnormal liver function tests. Technique: Real time ohara scale and color evaluation using curved array transducer. Findings: Examination is significantly limited. The liver is incompletely evaluated but visualized portions appear relatively normal in contour and echogenicity without focal hepatic lesion identified. The pancreas is incompletely evaluated due to interposed bowel gas. Gallbladder demonstrates large amount of internal echogenic material without shadowing suggesting the possibility of mass versus tumefactive sludge. Associated gallbladder wall thickening to approximately 8 mm noted without pericholecystic fluid or sonographic Sagastume sign. No biliary ductal dilatation is appreciated and the common bile duct measures 5 mm diameter. The spleen is mildly enlarged but normal in echogenicity without focal splenic lesion identified. Spleen measures 11.3 x 11.1 x 4.5 cm. Left kidney is normal in reniform shape and demonstrates increased parenchymal echogenicity suggesting chronic medical renal disease. No hydronephrosis noted. A 2.1 x 2.0 x 2.6 cm complex mid pole cyst is identified. Right kidney is normal in reniform shape and demonstrates increased parenchymal echogenicity suggesting chronic medical renal disease. Extrarenal pelvis versus hydronephrosis cannot definitively be excluded no obvious nephrolithiasis. Right kidney measures 10.0 x 5.2 x 4.8 cm. Visualized portions of the abdominal aorta are essentially unremarkable. No ascites. Impression: 1. Gallbladder with tumefactive sludge versus mass with chronic wall thickening. Consider follow up contrast enhanced CT of the abdomen. 2. Possible right hydronephrosis versus extrarenal pelvis may also be evaluated by CT. 3. Splenomegaly. 4. Limited evaluation of the liver. Electronically Signed by Ravi Avila MD 09/24/2018 09:17 A
[2018-09-24 09:32] LABS: HEPATITIS C VIRUS ABY INDEX < 0.0 INDEX (<0.8)
[2018-09-24 09:50] LABS: HEPATITIS B SURFACE ANTIGEN NEGATIVE (NEGATIVE)
[2018-09-24 10:19] LABS: HEPATITIS B CORE ANTIBODY IGM NEGATIVE (NEGATIVE)
[2018-09-24 10:20] LABS: HEPATITIS A ANTIBODY IGM NEGATIVE (NEGATIVE)
[2018-09-24] MEDS: ONDANSETRON 4 MG TAB (S0181) PO PRN (11:31)
--- NOTE | 2018-09-24 13:40 | IPNPDOC ---
Date Seen The patient was seen on 09/24/18. Progress Note PCP Dr Solitario Nephrology Dr Almanzar HPI: 88year oldM who on 09/07/2018 fell on ice on his right side, sustained a right proximal humeral fracture and hairline fracture of his right femoral neck. Orthopedics saw at the time and did not recommend any surgical intervention and he was discharged home. The pt returned to the ED and was admitted 09/16/18- 09/22/18 related to pain and difficulty ambulating. The pt was followed by Orthopedics and pain management during his hospitalization as well. The pt was transferrred to the care of [facility], Dr Silva, 09/22/18. The pt states his pain has not been well controlled. States pain with therapy. The pt is frustrated during PT today. Denies any fevers, chills, weakness, fatigue, Headache, Chest Pain, Shortness of breath, cough, palpitations, abdominal pain, N/V/D or changes in bowel or bladder habits. PMHx: Chronic LBP Lumbar stenosis OA [place]. CPAP. Meniere's disease CAD/ALEJA x 2 2011. GERD CKD3 HLD HTN PAF/Pacemaker Follows with [facility]. Chronic [place]. [facility], Dr Dubon. BPH/LUTS 09/07/2018, fell on the ice on his right side, sustained a right proximal humeral fracture and hairline fracture of his right femoral neck. 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 RIGHT ROTATOR CUFF REPAIR 04/2015 PACEMAKER 02/2015 GREEN LIGHT LASER ABLATION OF THE PROSTATE GLAND 12/04/2016 Lumbar laminectomy [place] 09/02/17 PE: GEN: 88yoM, appears stated age. Well-nourished, well developed. No acute distress. Alert and oriented x 3. HEENT: Normocephalic, atraumatic. Moist mucous membranes. CHEST: Regular rate and rhythm, +S1, +S2 LUNGS: Clear to auscultation bilaterally. No wheezes, rales, or rhonchi. ABD: Round, soft, non-tender, non-distended. +Bowel sounds throughout. . EXT: No lower extremity edema appreciated. RUE in a sling. SKIN: [place], dry, warm. No rashes. NEURO: Alert and oriented x 3. No focal deficits appreciated. A&P: 88year oldM who on 09/07/2018 fell on ice on his right side, sustained a right proximal humeral fracture and hairline fracture of his right femoral neck. Orthopedics saw at the time and did not recommend any surgical intervention and he was discharged home. The pt returned to the ED and was admitted 09/16/18- 09/22/18 related to pain and difficulty ambulating. The pt was followed by Orthopedics and pain management during his hospitalization as well. The pt was transferrred to the care of KATHERINU, Dr Silva, 09/22/18. 1. Mechanical Fall on ice on his right side, sustained a right proximal humeral fracture and hairline fracture of his right femoral neck. No surgical intervention recommended as per Orthopedic surgery. Continue F/U with Orthopedics. WB as per Orthopedics. PT/OT/ST as per Dr Ricardo SALVADOR. Pain control as per Dr Ricardo SALVADOR. Consider pain mgmt consultation if needed. Pt follows as outpt with [facility]. Bowel care as per Dr Ricardo SALVADOR. DVT prophylaxis. Pt remains on Coumadin. INR 2.65. 2. Paroxysmal atrial fibrillation: Patient is anticoagulated with Coumadin, INR 2.65. Status post pacer. Rate controlled with digoxin and carvedilol. 3. History of Mnire's: Continue with meclizine as needed. 4. Dyslipidemia: Continue with Lipitor 5. Gastroesophageal reflux disease: Continue with omeprazole and Carafate 6. Chronic kidney disease 3 Appears to be at baseline. Avoid nephrotoxic agents. CT Pelvis 09/17/18 indicated B/L cysts. Abd U/S 09/24/18 Possible right hydronephrosis versus extrarenal pelvis may also be evaluated by CT. Discussed with Nephrology, Dr Vera, who also reviewed imaging. Plan is for outpt F/U. Monitor. 7. Hyponatremia: Possibly hypovolemic. Stable, encourage po intake. 8. Anemia: Hgb 10.7. Fe studies, B12, folate 09/06/17. FOB neg 09/08/18. Pt continues with B12 supplement. Monitor. 9. [place]. CPAP with home settings. 10. Chronic HAs. Follows with [facility], Dr Holland. 11. Chronic pain. Percocet as outpt. Follows with [facility]. 12. H/O BPH. as per record Pt has not been taking Proscar or Flomax recently. Denies urinary complaints. Monitor. 13. Elevated LFTS hepatitis profile neg. Abd U/S Gallbladder with tumefactive sludge versus mass with chronic wall thickening. Consider follow up contrast enhanced CT of the abdomen. Unable to obtain CT with contrast related to CKD3. Avoid use of Tylenol. Discussed with Dr Silva, plan to Clt GI. Monitor CMP. VS, I&O, 24H, Fishbone Vital Signs/I&O Vital Signs Date Time Temp Pulse Resp B/P (MAP) Pulse Ox O2 Delivery O2 Flow Rate FiO2 09/24/18 08:51 84 121/80 09/24/18 06:00 98.5 19 95 I&O- Last 24 Hours up to 6 AM 09/24/18 06:00 Intake Total 900 ml Output Total 3525 ml Balance -2625 ml Laboratory Data 24H LABS Laboratory Tests 2 09/24/18 06:23: Prothrombin Time 28.9H, Prothromb Time International Ratio 2.65, Anion Gap 7L, Glomerular Filtration Rate 39.1, Blood Urea Nitrogen 40H, Creatinine 1.76H, Sodium Level 137, Potassium Level 4.7, Chloride Level 102, Carbon Dioxide Level 28, Calcium Level 8.4L, Aspartate Amino Transf (AST/SGOT) 70H, Alanine Aminotransferase (ALT/SGPT) 139H, Alkaline Phosphatase 214H, Total Bilirubin 1.1H, Total Protein 5.2L, Albumin 2.6L, Albumin/Globulin Ratio 1.00, Hepatitis A IgM Antibody NEGATIVE, Hepatitis B Surface Antigen NEGATIVE, Hepatitis B Core IgM Antibody NEGATIVE, Hepatitis C Antibody Index < 0.0 CBC/BMP Laboratory Tests 09/24/18 06:23 Calcium Level 8.4 L, Aspartate Amino Transf (AST/SGOT) 70 H, Alanine Aminotransferase (ALT/SGPT) 139 H, Alkaline Phosphatase 214 H, Total Bilirubin 1.1 H, Total Protein 5.2 L, Albumin 2.6 L Microbiology Microbiology 09/22/18 Urine Culture - Final, Complete Shabnam Calhoun Sep 24, 2018 12:49
[2018-09-24 14:00] VITALS: BP 115/74
--- NOTE | 2018-09-24 14:47 | IPNPDOC ---
PM&R Progress Note DATE OF SERVICE: Sep 24, 2018 Reacher Progress Note Subjective: Patient seen in his room eating breakfast and later today after therapy stating his calves continue to cramp and that he is interested in speaking to a surgeon regarding his gallbladder mass. REVIEW OF SYSTEMS: The following is a completed review of systems and has been reviewed. Review of systems otherwise unremarkable. PAIN: Patient self reports bilateral groin and calf pain EYES: no recent changes in vision, no eye pain EARS, NOSE, & THROAT: no rhinorrhea, throat pain or dysphagia CARDIOVASCULAR:denies chest pain or palpitations PULMONARY: Negative. Denies shortness of breath GASTROINTESTINAL: Negative for constipation or diarrhea, +nausea GENITOURINARY: Negative for hematuria or dysuria MUSCULOSKELETAL: right humeral and right femur fracture NEUROLOGICAL: no tremor or seizures SKIN: no rashes PSYCHIATRIC: Unremarkable All other review of systems found to be negative. PHYSICAL EXAMINATION: VITAL SIGNS: Please see below. GENERAL: Pleasant and cooperative. No acute distress. HEENT: PERRL. Extraocular movements intact. Clear conjunctiva, +glasses CARDIOVASCULAR: Regular rate and rhythm. No murmurs, rubs, or gallops, +PM LUNGS: Clear to auscultation bilaterally. No wheezes. No rhonchi ABDOMEN: Soft, nontender, nondistended. Positive bowel sounds. Normal active bowel sound NEUROLOGICAL: Alert and oriented times three. Cranial nerves II through XII grossly intact. Sensation grossly intact including right hand EXTREMITIES: 5\\5 strength left upper extremities. right wrist extension and interventional neuroradiologist 5-/5 rest of limb not tested due to weight bearing restrictions 5-\\5 strength right lower extremity. 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 PLAN: 1. Rehab: PT/OT assess for DMEs, ambulating 40-50 feet with sandy-walker 2. Ortho: s/p right greater trochanteric fracture and right humeral neck fracture, NWB to RUE and PWB to RLE- ortho consulted 3. Neuro: stable, hx of Meniere's meclizine ordered prn 4. CArdio: pmh Afib with pacemaker, continue digoxin, warfarin, and carvedilol- medicine consulted -HLD on statin 5. Resp: encourage incentive spirometry 6. Renal pmh CKD 3b, avoid nephrotoxic agents and monitor [employer], abdominal US today showing, "Possible right hydronephrosis versus extrarenal pelvis" medicine to discuss with nephrology 7. Pain: d/c percocet due to nausea, continue standing Tylenol, continue Cymbalta and avoid gabapentin as patient reports having gynecomastia from this -will add Elavil qHS for neuropathic pain and menthol salicylate rub for calves 8. GI: Patient with mildly elevated liver enzymes, US ordered today per medicine showing "Gallbladder with tumefactive sludge versus mass with chronic wall thickening..." -spoke with Dr. Stephenson who recommended a surgical consult to discuss the po ssibility of gallbladder mass -ppx continue Prilosec 9. DVT ppx: on Warfarin 10. Dispo: TBD Allergies Coded Allergies: Sulfa Antibiotics (Verified Allergy, Unknown, 09/16/18) Gabapentin (Verified Adverse Reaction, Intermediate, chest pain, 09/23/18) Hydrocodone (Verified Adverse Reaction, Intermediate, Nausea and Vomiting, 09/22/18) Vital Signs Vital Signs Date Time Temp Pulse Resp B/P (MAP) Pulse Ox O2 Delivery O2 Flow Rate FiO2 09/24/18 14:00 97.7 72 16 115/74 (88) 92 Laboratory Data CBC/BMP Laboratory Tests 09/24/18 06:23 Calcium Level 8.4 L, Aspartate Amino Transf (AST/SGOT) 70 H, Alanine Aminotransferase (ALT/SGPT) 139 H, Alkaline Phosphatase 214 H, Total Bilirubin 1.1 H, Total Protein 5.2 L, Albumin 2.6 L Labs 24H Laboratory Tests 2 09/24/18 06:23: Prothrombin Time 28.9H, Prothromb Time International Ratio 2.65, Anion Gap 7L, Glomerular Filtration Rate 39.1, Blood Urea Nitrogen 40H, Creatinine 1.76H, Sodium Level 137, Potassium Level 4.7, Chloride Level 102, Carbon Dioxide Level 28, Calcium Level 8.4L, Aspartate Amino Transf (AST/SGOT) 70H, Alanine Aminotransferase (ALT/SGPT) 139H, Alkaline Phosphatase 214H, Total Bilirubin 1.1H, Total Protein 5.2L, Albumin 2.6L, Albumin/Globulin Ratio 1.00, Hepatitis A IgM Antibody NEGATIVE, Hepatitis B Surface Antigen NEGATIVE, Hepatitis B Core I gM Antibody NEGATIVE, Hepatitis C Antibody Index < 0.0 Microbiology Microbiology 09/22/18 Urine Culture - Final, Complete Current Medications Current Medications Current Medications Acetaminophen (Tylenol Tab) 500 mg Q8H PRN PO fever/PAIN Last administered on 09/23/18 12:01; Start 09/22/18 at 15:30; Stop 09/23/18 at 16:18; Status DC Acetaminophen (Tylenol Tab) 1,000 mg TID PO Last administered on 09/24/18 08:51; Start 09/23/18 at 21:00 Amitriptyline HCl (Elavil) 25 mg QHS PO ; Start 09/24/18 at 21:00 Ascorbic Acid (Vitamin C) 500 mg DAILY PO Last administered on 09/24/18 08:51; Start 09/23/18 at 09:00 Atorvastatin Calcium (Lipitor) 40 mg QHS PO Last administered on 09/23/18 20:24; Start 09/22/18 at 21:00 Bisacodyl (Dulcolax Suppository) 10 mg DAILYPRN PRN [place] CONSTIPATION; Start at 15:15 Calcium Carbonate (Tums) 1,000 mg Q4HP PRN PO HEARTBURN; Start 09/22/18 at 15:30 Carvedilol (COReg) 3.125 mg DAILY PO Last administered on 09/24/18 08:51; Start 09/23/18 at 09:00 Cyanocobalamin (Vitamin B12) 1,000 mcg DAILY PO Last administered on 09/24/18 08:51; Start 09/23/18 at 09:00 Digoxin (Lanoxin) 0.125 mg MoWeFr@0900 PO Last administered on 09/24/18 08:50; Start 09/24/18 at 09:00 Docusate Sodium (Colace) 100 mg BID PO Last administered on 09/24/18 08:52; Start 09/22/18 at 21:00 Duloxetine HCl (Cymbalta) 30 mg DAILY PO Last administered on 09/24/18 08:50; Start 09/24/18 at 09:00 Gabapentin (Neurontin) 100 mg TID PO ; Start 09/23/18 at 21:00; Stop 09/24/18 at 14:12; Status DC Magnesium Hydroxide (Milk Of Magnesia) 30 ml DAILYPRN PRN PO CONSTIPATION; Start 09/22/18 at 15:15 Magnesium Oxide (Mag-Ox) 400 mg QHS PO Last administered on 09/23/18at 20:23; Start 09/22/18 at 21:00 Meclizine HCl (Antivert) 25 mg Q8HP PRN PO DIZZINESS Last administered on at 08:58; Start 09/22/18 at 15:30 Menthol/Methyl Salicylate (Bengay Cream) APPLY TO bilateral calves QID TOP ; Start 09/24/18 at 17:00 Nitroglycerin (Nitrostat (1/ 150)) 0.4 mg Q5MP PRN SL CHEST PAIN; Start 09/22/18 at 15:30 Omeprazole (PriLOSEC) 40 mg BID PO Last administered on 09/24/18at 08:51; Start 09/22/18 at 21:00 Ondansetron HCl (Zofran) 4 mg Q6HP PRN PO NAUSEA Last administered on 09/24/18at 11:31; Start 09/22/18 at 15:15 Oxycodone/ Acetaminophen (Percocet 5mg/ 325mg Tablet) 1 tab Q4HP PRN PO MODERATE PAIN (PS 5-7); Start 09/22/18 at 15:15; Stop 09/23/18 at 16:18; Status DC Oxycodone/ Acetaminophen (Percocet 5mg/ 325mg Tablet) 2 tab Q4HP PRN PO SEVERE PAIN (PS 8-10) Last administered on 09/23/18at 09:05; Start 09/22/18 at 15:15; Stop 09/23/18 at 16:18; Status DC Senna (Senokot) 1 tab QHS PO Last administered on 09/23/18at 20:23; Start 09/22/18 at 21:00 Sucralfate (Carafate) 1 gm BID PO Last administered on 09/24/18at 08:50; Start 09/22/18 at 21:00 Vitamin D (Vitamin D) 2,000 units DAILY PO Last administered on 09/24/18at 08:50; Start 09/23/18 at 09:00 Warfarin Sodium (Coumadin) 1.5 mg Mo@1700 PO Last administered on 09/22/18at 16:30; Start 09/22/18 at 17:00 Warfarin Sodium (Coumadin) 2 mg SuTuWeThFrSa@1700 PO Last administered on 09/23/18at 18:33; Start 09/23/18 at 17:00 Warfarin Sodium (Coumadin) 3 mg SuTuWeThFrSa@1700 PO ; Start 09/23/18 at 17:00; Stop 09/23/18 at 17:00; Status DC OK HARRISON MD Sep 24, 2018 14:47
[2018-09-24] MEDS: ANALGESIC BALM CRM 120 GM TOP SCH ×2 (16:51→20:52)
[2018-09-24] MEDS: WARFARIN SOD 2 MG TAB PO SCH (16:52)
[2018-09-24 20:00] VITALS: BP 118/72
[2018-09-24] MEDS: MAGNESIUM OXIDE 400 MG TAB (MAG-OX) PO SCH (20:49)
[2018-09-24] MEDS: SENNA 8.6 MG TAB (SENOKOT) PO SCH (20:49)
[2018-09-24] MEDS: AMITRIPTYLINE 25 MG TAB PO SCH (20:49)
[2018-09-24] MEDS: ATORVASTATIN 20 MG TAB PO SCH (20:51)
[2018-09-25 06:00] VITALS: BP 121/74
[2018-09-25 06:52] LABS: HEMATOCRIT 29.5 % (42.0-52.0); HEMOGLOBIN 9.8 g/dl (13.5-17.5); MEAN CORPUSCULAR HEMOGLOBIN 29.9 pg (27.0-33.0); MEAN CORPUSCULAR HGB CONC 33.2 g/dl (32.0-36.5); MEAN CORPUSCULAR VOLUME 89.9 fl (80.0-96.0); PLATELET COUNT, AUTOMATED 245 10^3/uL (150-450); RED BLOOD COUNT 3.28 10^6/uL (4.30-6.10); WHITE BLOOD COUNT 8.7 10^3/uL (4.0-10.0)
[2018-09-25 07:04] LABS: INR 2.28; PROTHROMBIN TIME 25.6 SECONDS (12.1-14.4)
[2018-09-25 07:22] LABS: ALBUMIN 2.5 GM/DL (3.2-5.2); BILIRUBIN,TOTAL 0.9 MG/DL (0.2-1.0); CALCIUM LEVEL 8.6 MG/DL (8.8-10.2); CREATININE FOR GFR 1.74 MG/DL (0.70-1.30); GLOMERULAR FILTRATION RATE 39.6 (>35); POTASSIUM SERUM 4.6 MEQ/L (3.5-5.1); TOTAL PROTEIN 5.8 GM/DL (6.4-8.2)
[2018-09-25] MEDS: ANALGESIC BALM CRM 120 GM TOP SCH ×4 (09:00→20:55)
[2018-09-25] MEDS: DOCUSATE SODIUM 100 MG CAP PO SCH ×2 (09:08→20:49)
[2018-09-25] MEDS: CARVedilol 3.125 MG TAB PO SCH (09:09)
[2018-09-25] MEDS: DULoxetine 30 MG CAP (CYMBALTA) PO SCH (09:09)
[2018-09-25] MEDS: ACETAMINOPHEN 500 MG TAB PO SCH ×3 (09:09→20:53)
[2018-09-25] MEDS: ASCORBIC ACID 500 MG TAB PO SCH (09:10)
[2018-09-25] MEDS: CYANOCOBALAMIN 500 MCG TAB PO SCH (09:10)
[2018-09-25] MEDS: OMEPRAZOLE 20 MG CAP PO SCH ×2 (09:15→20:50)
[2018-09-25] MEDS: VITAMIN D 1,000 INTERNATIONAL UNITS TABLET PO SCH (09:15)
[2018-09-25] MEDS: ONDANSETRON 4 MG TAB (S0181) PO PRN (10:21)
[2018-09-25] MEDS: SUCRALFATE 1 GM TAB PO SCH ×2 (10:21→20:49)
--- NOTE | 2018-09-25 13:12 | IPNPDOC ---
Date Seen The patient was seen on 09/25/18. Progress Note HPI: 88year oldM who on 09/07/2018 fell on ice on his right side, sustained a right proximal humeral fracture and hairline fracture of his right femoral neck. Orthopedics saw at the time and did not recommend any surgical intervention and he was discharged home. The pt returned to the ED and was admitted 09/16/18- 09/22/18 related to pain and difficulty ambulating. The pt was followed by Orthopedics and pain management during his hospitalization as well. The pt was transferred to the care of [facility], Dr Silva, 09/22/18. The pt continues to report pain in UEs and LEs. States pain with therapy. Percocet was d/cd. Cymbalta and Elavil, topical addie ward added as per Dr Silva. Pt is intolerant to Gabapentin. Denies any fevers, chills, weakness, fatigue, Headache, Chest Pain, Shortness of breath, cough, palpitations, abdominal pain, N/V/D or changes in bowel or bladder habits. PMHx: Chronic LBP Lumbar stenosis OA [place]. CPAP. Meniere's disease CAD/ALEJA x 2 2011. GERD CKD3 HLD HTN PAF/Pacemaker Follows with [facility]. Chronic [place]. [facility], Dr Dubon. BPH/LUTS 09/07/2018, fell on the ice on his right side, sustained a right proximal humeral fracture and hairline fracture of his right femoral neck. 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 RIGHT ROTATOR CUFF REPAIR 04/2015 PACEMAKER 02/2015 GREEN LIGHT LASER ABLATION OF THE PROSTATE GLAND 12/04/2016 Lumbar laminectomy [place] 09/02/17 PE: GEN: 88yoM, appears stated age. Well-nourished, well developed. No acute distress. Alert and oriented x 3. HEENT: Normocephalic, atraumatic. Moist mucous membranes. CHEST: Regular rate and rhythm, +S1, +S2 LUNGS: Clear to auscultation bilaterally. No wheezes, rales, or rhonchi. ABD: Round, soft, non-tender, non-distended. +Bowel sounds throughout. EXT: No lower extremity edema appreciated. RUE in a sling. SKIN: [place], dry, warm. No rashes. NEURO: Alert and oriented x 3. No focal deficits appreciated. A&P: 88year oldM who on 09/07/2018 fell on ice on his right side, sustained a right proximal humeral fracture and hairline fracture of his right femoral neck. Orthopedics saw at the time and did not recommend any surgical intervention and he was discharged home. The pt returned to the ED and was admitted 09/16/18- 09/22/18 related to pain and difficulty ambulating. The pt was followed by Ortho pedics and pain management during his hospitalization as well. The pt was transferrred to the care of KATHERINU, Dr Silva, 09/22/18. 1. Mechanical Fall on ice on his right side, sustained a right proximal humeral fracture and hairline fracture of his right femoral neck. No surgical intervention recommended as per Orthopedic surgery. Continue F/U with Orthopedics. WB as per Orthopedics. PT/OT/ST as per Dr Ricardo SALVADOR. Pain control as per Dr Ricardo SALVADOR. Consider pain mgmt consultation if needed. Pt follows as outpt with [facility]. Pt intolerant to gabapentin. Cymbalta and Elavil added. Bowel care as per Dr Ricardo SALVADOR. DVT prophylaxis. Pt remains on Coumadin. INR 2.28. 2. Paroxysmal atrial fibrillation: Patient is anticoagulated with Coumadin, INR 2.28. Status post pacer. Rate controlled with digoxin and carvedilol. 3. History of Mnire's: Continue with meclizine as needed. 4. Dyslipidemia: Continue with Lipitor 5. Gastroesophageal reflux disease: Continue with omeprazole and Carafate 6. Chronic kidney disease 3 Appears to be at baseline. Avoid nephrotoxic agents. CT Pelvis 09/17/18 indicated B/L cysts. Abd U/S 09/24/18 Possible right hydronephrosis versus extrarenal pelvis may also be evaluated by CT. Discussed with Nephrology, Dr Vera, who also reviewed imaging. He also reviewed imaging in office chart from 2014 which is similar to these images from 09/17 and 09/24. Plan is for outpt F/U. Monitor. 7. Hyponatremia: Possibly hypovolemic. Stable, encourage po intake. 8. Anemia: Hgb 9.8. Fe studies, B12, folate 09/06/17. FOB neg 09/08/18. Pt continues with B12 supplement. Monitor. 9. [place]. CPAP with home settings. 10. Chronic HAs. Follows with [facility], Dr Holland. 11. Chronic pain. Percocet as outpt. This has been discontinued. Pain control as above. Pt intolerant to Gabapentin. Cymbalta and Elavil added. Follows with [facility]. 12. H/O BPH. as per record Pt has not been taking Proscar or Flomax recently. Denies urinary complaints. Monitor. 13. Elevated LFTS. trend improved today. Pt with no abdominal pain reported. hepatitis profile neg. Abd U/S Gallbladder with tumefactive sludge versus mass with chronic wall thickening. Recommended consider follow up contrast enhanced CT of the abdomen. *Unable to obtain CT with contrast related to CKD3*. Discussed with Dr Silva, plan to Clt Dr Prather for opinion. Monitor CMP. VS, I&O, 24H, Fishbone Vital Signs/I&O Vital Signs Date Time Temp Pulse Resp B/P (MAP) Pulse Ox O2 Delivery O2 Flow Rate FiO2 09/25/18 10:00 20 09/25/18 09:09 75 121/74 09/25/18 06:00 98.4 96 I&O- Last 24 Hours up to 6 AM 09/25/18 06:00 Intake Total 1540 ml Output Total 1675 ml Balance -135 ml Laboratory Data 24H LABS Laboratory Tests 2 09/25/18 06:36: Nucleated Red Blood Cells % (auto) 0.0, Prothrombin Time 25.6H, Prothromb Time International Ratio 2.28, Anion Gap 7L, Glomerular Filtration Rate 39.6, Blood Urea Nitrogen 40H, Creatinine 1.74H, Sodium Level 136, Potassium Level 4.6, Chloride Level 104, Carbon Dioxide Level 25, Calcium Level 8.6L, Aspartate Amino Transf (AST/SGOT) 30, Alanine Aminotransferase (ALT/SGPT) 92H, Alkaline Phosphatase 190H, Total Bilirubin 0.9, Total Protein 5.8L, Albumin 2.5L, Albumin/Globulin Ratio 0.76L CBC/BMP Laboratory Tests 09/25/18 06:36 Red Blood Count 3.28 L, Mean Corpuscular Volume 89.9, Mean Corpuscular Hemoglobin 29.9, Mean Corpuscular Hemoglobin Concent 33.2, Red Cell Distribution Width 12.5, Calcium Level 8.6 L, Aspartate Amino Transf (AST/SGOT) 30, Alanine Aminotransferase (ALT/SGPT) 92 H, Alkaline Phosphatase 190 H, Total Bilirubin 0.9, Total Protein 5.8 L, Albumin 2.5 L Microbiology Microbiology 09/22/18 Urine Culture - Final, Complete Shabnam Calhoun Sep 25, 2018 13:12
[2018-09-25 14:00] VITALS: BP 122/71
[2018-09-25] MEDS: WARFARIN SOD 2 MG TAB PO SCH (17:10)
[2018-09-25 20:00] VITALS: BP 117/68
[2018-09-25] MEDS: SENNA 8.6 MG TAB (SENOKOT) PO SCH (20:49)
[2018-09-25] MEDS: AMITRIPTYLINE 25 MG TAB PO SCH (20:49)
[2018-09-25] MEDS: MAGNESIUM OXIDE 400 MG TAB (MAG-OX) PO SCH (20:50)
[2018-09-25] MEDS: ATORVASTATIN 20 MG TAB PO SCH (20:50)
[2018-09-25 22:00] VITALS: BP 117/68
[2018-09-26 04:00] VITALS: BP 133/74
[2018-09-26 07:27] LABS: INR 1.98; PROTHROMBIN TIME 22.9 SECONDS (12.1-14.4)
[2018-09-26 07:46] LABS: ALBUMIN 2.6 GM/DL (3.2-5.2); CALCIUM LEVEL 8.6 MG/DL (8.8-10.2); CREATININE FOR GFR 1.82 MG/DL (0.70-1.30); GLOMERULAR FILTRATION RATE 37.6 (>35); POTASSIUM SERUM 4.7 MEQ/L (3.5-5.1); TOTAL PROTEIN 5.4 GM/DL (6.4-8.2)
[2018-09-26] MEDS: ANALGESIC BALM CRM 120 GM TOP SCH ×4 (09:00→21:07)
[2018-09-26] MEDS: DOCUSATE SODIUM 100 MG CAP PO SCH ×2 (09:46→21:06)
[2018-09-26] MEDS: ASCORBIC ACID 500 MG TAB PO SCH (09:46)
[2018-09-26] MEDS: DULoxetine 30 MG CAP (CYMBALTA) PO SCH (09:46)
[2018-09-26] MEDS: OMEPRAZOLE 20 MG CAP PO SCH ×2 (09:46→21:06)
[2018-09-26] MEDS: SUCRALFATE 1 GM TAB PO SCH ×2 (09:46→21:06)
[2018-09-26] MEDS: ACETAMINOPHEN 500 MG TAB PO SCH ×3 (09:47→21:06)
[2018-09-26] MEDS: VITAMIN D 1,000 INTERNATIONAL UNITS TABLET PO SCH (09:47)
[2018-09-26] MEDS: CARVedilol 3.125 MG TAB PO SCH (09:47)
[2018-09-26] MEDS: CYANOCOBALAMIN 500 MCG TAB PO SCH (09:47)
[2018-09-26] MEDS: DIGOXIN 0.125 MG TAB PO SCH (09:47)
[2018-09-26] MEDS ORDERED: BISACODYL 10 MG SUPP PR ONE (10:30)
[2018-09-26] MEDS ORDERED: LACTULOSE 20 GM/30 ML SYRUP UD PO ONE (10:30)
--- NOTE | 2018-09-26 11:43 | IPNPDOC ---
Date Seen The patient was seen on 09/26/18. Progress Note HPI: 88year oldM who on 09/07/2018 fell on ice on his right side, sustained a right proximal humeral fracture and hairline fracture of his right femoral neck. Orthopedics saw at the time and did not recommend any surgical intervention and he was discharged home. The pt returned to the ED and was admitted 09/16/18- 09/22/18 related to pain and difficulty ambulating. The pt was followed by Orthopedics and pain management during his hospitalization as well. The pt was transferred to the care of [facility], Dr Silva, 09/22/18. The pt continues to report pain in UEs and LEs. States pain with therapy. P ercocet was d/cd. Cymbalta and Elavil, topical addie ward added as per Dr Silva. Pt is intolerant to Gabapentin. Pt states he has had some mild nausea, no vomiting. Reports he has constipation. Last BM documented 09/23/18. Denies any fevers, chills, weakness, fatigue, Headache, Chest Pain, Shortness of breath, cough, palpitations, changes in bladder habits. PMHx: Chronic LBP Lumbar stenosis OA [place]. CPAP. Meniere's disease CAD/ALEJA x 2 2011. GERD CKD3 HLD HTN PAF/Pacemaker Follows with [facility]. Chronic [place]. NC[facility], Dr Dubon. BPH/LUTS 09/07/2018, fell on the ice on his right side, sustained a right proximal humeral fracture and hairline fracture of his right femoral neck. 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 RIGHT ROTATOR CUFF REPAIR 04/2015 PACEMAKER 02/2015 GREEN LIGHT LASER ABLATION OF THE PROSTATE GLAND 12/04/2016 Lumbar laminectomy [place] 09/02/17 PE: GEN: 88yoM, appears stated age. Well-nourished, well developed. No acute distress. Alert and oriented x 3. HEENT: Normocephalic, atraumatic. Moist mucous membranes. CHEST: Regular rate and rhythm, +S1, +S2 LUNGS: Clear to auscultation bilaterally. No wheezes, rales, or rhonchi. ABD: Round, soft, non-tender, non-distended. +Bowel sounds throughout. EXT: No lower extremity edema appreciated. RUE in a sling. SKIN: [place], dry, warm. No rashes. NEURO: Alert and oriented x 3. No focal deficits appreciated. A&P: 88year oldM who on 09/07/2018 fell on ice on his right side, sustained a right proximal humeral fracture and hairline fracture of his right femoral neck. Orthopedics saw at the time and did not recommend any surgical intervention and he was discharged home. The pt returned to the ED and was admitted 09/16/18- related to pain and difficulty ambulating. The pt was followed by Orthopedics and pain management during his hospitalization as well. The pt was transferrred to the care of KATHERINUDr Silva, 09/22/18. 1. Mechanical Fall on ice on his right side, sustained a right proximal humeral fracture and hairline fracture of his right femoral neck. No surgical intervention recommended as per Orthopedic surgery. Continue F/U with Orthopedics. WB as per Orthopedics. PT/OT/ST as per Dr Ricardo SALVADOR. Pain control as per Dr Ricardo SALVADOR. Consider pain mgmt consultation if needed. Pt follows as outpt with [facility]. Pt intolerant to gabapentin. Cymbalta and Elavil added as per Dr Silva. Bowel care as per Dr Ricardo SALVADOR. DVT prophylaxis. Pt remains on Coumadin. INR 1.98. Coumadin dose adjusted as per Dr Silva this AM. 2. Paroxysmal atrial fibrillation: Patient is anticoagulated with Coumadin, INR 1.98. Coumadin dose adjusted as per Dr Silva this AM. Status post pacer. Rate controlled with digoxin and carvedilol. 3. History of Mnire's: Continue with meclizine as needed. 4. Dyslipidemia: Continue with Lipitor 5. Gastroesophageal reflux disease: Continue with omeprazole and Carafate 6. Chronic kidney disease 3 Appears to be at baseline. Scr 1.[address] Pelvis 09/17/18 indicated B/L cysts. Abd U/S 09/24/18 Possible right hydronephrosis versus extrarenal pelvis may also be evaluated by CT. Discussed with Nephrology, Dr Vera, who also reviewed imaging. He also reviewed imaging in office chart from 2015 which is similar to these images from 09/17 and 09/24. Plan is for outpt F/U. Monitor. 7. Hyponatremia: Resolved Possibly previously related to hypovolemia. Na 137. Stable, encourage po intake. 8. Anemia: Hgb 9.8. Fe studies, B12, folate 09/06/17. FOB neg 09/08/18. Pt continues with B12 supplement. Monitor. 9. [place]. CPAP with home settings. 10. Chronic HAs. Follows with [facility], Dr Holland. 11. Chronic pain. Percocet as outpt. This has been discontinued. Pain control as above. Pt intolerant to Gabapentin. Cymbalta and Elavil added as per Dr Silva. Follows as outpt with [facility]. 12. H/O BPH. as per record Pt has not been taking Proscar or Flomax recently. Denies urinary complaints. Monitor. 13. Elevated LFTS. downtrending. Pt with no abdominal pain reported. hepatitis profile neg. Abd U/S Gallbladder with tumefactive sludge versus mass with chronic wall thickening. Recommended consider follow up contrast enhanced CT of the abdomen. *Unable to obtain CT with contrast related to CKD3*. Unable to obtain MR related to pacemaker. Discussed with Dr Silva, plan to Clt Dr Prather for opinion. Monitor CMP. VS, I&O, 24H, Fishbone Vital Signs/I&O Vital Signs Date Time Temp Pulse Resp B/P (MAP) Pulse Ox O2 Delivery O2 Flow Rate FiO2 09/26/18 09:47 77 133/74 09/26/18 04:00 97.4 17 96 I&O- Last 24 Hours up to 6 AM 09/26/18 06:00 Intake Total 2340 ml Output Total 2375 ml Balance -35 ml Laboratory Data 24H LABS Laboratory Tests 2 09/26/18 06:50: Prothrombin Time 22.9H, Prothromb Time International Ratio 1.98, Anion Gap 8, Glomerular Filtration Rate 37.6, Blood Urea Nitrogen 44H, Creatinine 1.82H, Sodium Level 137, Potassium Level 4.7, Chloride Level 102, Carbon Dioxide Level 27, Calcium Level 8.6L, Aspartate Amino Transf (AST/SGOT) 20, Alanine Aminotransferase (ALT/SGPT) 66, Alkaline Phosphatase 200H, Total Bilirubin 1.0, Total Protein 5.4L, Albumin 2.6L, Albumin/Globulin Ratio 0.93L CBC/BMP Laboratory Tests 09/26/18 06:50 Calcium Level 8.6 L, Aspartate Amino Transf (AST/SGOT) 20, Alanine Aminotrans ferase (ALT/SGPT) 66, Alkaline Phosphatase 200 H, Total Bilirubin 1.0, Total Protein 5.4 L, Albumin 2.6 L Microbiology Microbiology 09/22/18 Urine Culture - Final, Complete Shabnam Calhoun Sep 26, 2018 11:43
[2018-09-26] MEDS: MECLIZINE 25 MG TABLET PO PRN (13:28)
[2018-09-26] MEDS ORDERED: WARFARIN SOD 2.5 MG TAB PO SCH (17:00)
[2018-09-26 20:00] VITALS: BP 143/77
[2018-09-26] MEDS: ATORVASTATIN 20 MG TAB PO SCH (21:06)
[2018-09-26] MEDS: MAGNESIUM OXIDE 400 MG TAB (MAG-OX) PO SCH (21:06)
[2018-09-26] MEDS: AMITRIPTYLINE 50 MG TAB PO SCH (21:06)
[2018-09-26] MEDS: MECLIZINE 12.5 MG TAB PO SCH (21:06)
[2018-09-26] MEDS: SENNA 8.6 MG TAB (SENOKOT) PO SCH (21:08)
[2018-09-27 06:00] VITALS: BP 125/78
[2018-09-27 07:33] LABS: HEMATOCRIT 31.3 % (42.0-52.0); HEMOGLOBIN 10.2 g/dl (13.5-17.5); MEAN CORPUSCULAR HEMOGLOBIN 29.7 pg (27.0-33.0); MEAN CORPUSCULAR HGB CONC 32.6 g/dl (32.0-36.5); MEAN CORPUSCULAR VOLUME 91.3 fl (80.0-96.0); PLATELET COUNT, AUTOMATED 273 10^3/uL (150-450); RED BLOOD COUNT 3.43 10^6/uL (4.30-6.10); WHITE BLOOD COUNT 7.9 10^3/uL (4.0-10.0)
[2018-09-27 07:46] LABS: INR 1.91; PROTHROMBIN TIME 22.2 SECONDS (12.1-14.4)
[2018-09-27 08:01] LABS: CALCIUM LEVEL 8.3 MG/DL (8.8-10.2); CREATININE FOR GFR 1.79 MG/DL (0.70-1.30); GLOMERULAR FILTRATION RATE 38.3 (>35); MAGNESIUM LEVEL 2.3 MG/DL (1.8-2.4); POTASSIUM SERUM 4.6 MEQ/L (3.5-5.1)
[2018-09-27 09:00] VITALS: BP 115/69
[2018-09-27] MEDS: ASCORBIC ACID 500 MG TAB PO SCH (10:04)
[2018-09-27] MEDS: CYANOCOBALAMIN 500 MCG TAB PO SCH (10:04)
[2018-09-27] MEDS: OMEPRAZOLE 20 MG CAP PO SCH ×2 (10:04→20:02)
[2018-09-27] MEDS: ACETAMINOPHEN 500 MG TAB PO SCH ×3 (10:05→20:03)
[2018-09-27] MEDS: DULoxetine 30 MG CAP (CYMBALTA) PO SCH (10:05)
[2018-09-27] MEDS: DOCUSATE SODIUM 100 MG CAP PO SCH (10:05)
[2018-09-27] MEDS: SUCRALFATE 1 GM TAB PO SCH ×2 (10:05→20:02)
[2018-09-27] MEDS: VITAMIN D 1,000 INTERNATIONAL UNITS TABLET PO SCH (10:05)
[2018-09-27] MEDS: CARVedilol 3.125 MG TAB PO SCH (10:07)
[2018-09-27] MEDS: MECLIZINE 12.5 MG TAB PO SCH ×2 (10:07→20:02)
[2018-09-27] MEDS: ANALGESIC BALM CRM 120 GM TOP SCH ×4 (10:08→20:04)
[2018-09-27 14:00] VITALS: BP 109/71
[2018-09-27] MEDS: PERCOCET 5MG/325MG TAB PO PRN ×2 (14:00→20:03)
[2018-09-27] MEDS ORDERED: WARFARIN SOD 3 MG TAB PO SCH (17:00)
[2018-09-27] MEDS ORDERED: tiZANidine 4 MG TAB PO PRN (17:00)
--- NOTE | 2018-09-27 17:36 | IPN ---
DATE: 09/27/2018 Patient seen and examined. No acute events overnight. Denies any chest pain, pressure, or discomfort. Reported right humeral arm pain and right thigh pain, 6/10. Denies any chest pain, pressure, or discomfort, shortness of breath, fevers, or chills. VITAL SIGNS: Temperature 97.6, pulse 87, respirations 18, blood pressure 109/71, pulse oximetry 96% on room air. LABORATORY DATA: WBC 7.9, hemoglobin and hematocrit 10.2/31.3, platelets 273. Chemistry: Sodium 139, potassium 4.6, chloride 104, bicarbonate 27, BUN 39, creatinine 1.79. PHYSICAL EXAMINATION: GENERAL: Patient well nourished, alert, comfortable in no acute distress. HEENT: Normocephalic, atraumatic. PULMONARY: Bilaterally clear. CARDIAC: Regular, S1, S2. ABDOMEN: Soft, nontender. Positive bowel sounds. EXTREMITIES: No edema, lower extremities. Right upper extremity with sling. ASSESSMENT AND PLAN: This is an 88-year-old male patient who on 09/07/2018 fell on ice on his right side and sustained right proximal humeral fracture and hairline fracture of the right femoral neck. Orthopedics saw the patient and did not recommend any surgical intervention. Patient was discharged home. Patient returned to the emergency department (ED) and was admitted on September 16 to September 22 for issue related to the pain and difficulty ambulating. Patient was followed by orthopedics and pain management during hospitalization and was transferred to acute rehabilitation for further care. Patient has underlying medical history of atrial fibrillation, coronary artery disease with stents, and with pacemaker as well as chronic kidney disease (CKD), chronic lower back pain, obstructive sleep apnea, BPH. 1. Mechanical fall on ice on patient's right side. Sustained right proximal humeral fracture and hairline fracture of right femoral neck. No surgical intervention recommended by orthopedic surgery. Continue to followup with orthopedic surgery. Physical therapy (PT)/occupational therapy (OT) as per acute rehabilitation provider. Pain control as per acute rehabilitation provider. Pain management consultation as needed. Continue current medication. Percocet was added. Bowel care. Deep vein thrombosis (DVT) prophylaxis. Patient on Coumadin. Dosage has been adjusted. Followup INR. 2. Paroxysmal atrial fibrillation. Patient's anticoagulation was on Coumadin. INR appreciated. Dosage was adjusted. Continue to follow. Patient has a pacemaker. Continue digoxin and Coreg. 3. History of Meniere's disease. Continue current medication. 4. Dyslipidemia. Continue statin. 5. Gastroesophageal reflux disease (GERD). Continue current medication. 6. Chronic kidney disease (CKD), stage III. Will monitor BUN and creatinine. Ultrasound finding: Possible right hydronephrosis versus extrarenal pelvis. Case discussed with nephrology. Recommend followup outpatient. 7. Hyponatremia, resolved. 8. Anemia. Monitor hemoglobin and hematocrit. Continue supplementation as ordered. Workup appreciated. Fecal occult negative. 9. Obstructive sleep apnea. Continue continuous positive airway pressure (CPAP). 10. History of chronic headache. Continue current medication. 11. Chronic pain. Continue medication as ordered. Percocet has been restarted given severe pain. Followup with pain management as outpatient. 12. BPH. No complaint. Will monitor. 13. Elevated liver function tests (LFTs). Downtrending. Hepatitis profile negative. Ultrasound of gallbladder appreciated. Sludge versus mass with chronic wall thickening. Unable to do contrast study given kidney function. Unable to obtain MRI due to pacemaker. Discuss with acute rehabilitation provider, Dr. Carballo. Consulted Dr. Prather. Recommend outpatient followup. 14. Deep vein thrombosis (DVT) prophylaxis. Patient on Coumadin. Followup INR. DISPOSITION: As per acute rehabilitation provider.
[2018-09-27 20:00] VITALS: BP 116/69
[2018-09-27] MEDS: ATORVASTATIN 20 MG TAB PO SCH (20:02)
[2018-09-27] MEDS: AMITRIPTYLINE 50 MG TAB PO SCH (20:02)
[2018-09-27] MEDS: SENOKOT S TAB PO SCH (20:02)
[2018-09-27] MEDS: SENNA 8.6 MG TAB (SENOKOT) PO SCH (20:02)
[2018-09-27] MEDS: MAGNESIUM OXIDE 400 MG TAB (MAG-OX) PO SCH (20:02)
[2018-09-28 06:00] VITALS: BP 133/74
[2018-09-28] MEDS: PERCOCET 5MG/325MG TAB PO PRN ×2 (06:31→13:46)
[2018-09-28 07:25] LABS: HEMATOCRIT 31.6 % (42.0-52.0); HEMOGLOBIN 10.2 g/dl (13.5-17.5); MEAN CORPUSCULAR HEMOGLOBIN 30.2 pg (27.0-33.0); MEAN CORPUSCULAR HGB CONC 32.3 g/dl (32.0-36.5); MEAN CORPUSCULAR VOLUME 93.5 fl (80.0-96.0); PLATELET COUNT, AUTOMATED 283 10^3/uL (150-450); RED BLOOD COUNT 3.38 10^6/uL (4.30-6.10); WHITE BLOOD COUNT 7.8 10^3/uL (4.0-10.0)
[2018-09-28 07:34] LABS: INR 1.78
[2018-09-28 07:55] LABS: CALCIUM LEVEL 8.3 MG/DL (8.8-10.2); CREATININE FOR GFR 1.85 MG/DL (0.70-1.30); GLOMERULAR FILTRATION RATE 36.9 (>35); MAGNESIUM LEVEL 2.1 MG/DL (1.8-2.4); POTASSIUM SERUM 4.3 MEQ/L (3.5-5.1)
[2018-09-28] MEDS: ANALGESIC BALM CRM 120 GM TOP SCH ×4 (09:00→21:04)
[2018-09-28] MEDS: SUCRALFATE 1 GM TAB PO SCH ×2 (09:38→21:02)
[2018-09-28] MEDS: MECLIZINE 12.5 MG TAB PO SCH ×2 (09:38→21:02)
[2018-09-28] MEDS: CARVedilol 3.125 MG TAB PO SCH (09:38)
[2018-09-28] MEDS: CYANOCOBALAMIN 500 MCG TAB PO SCH (09:39)
[2018-09-28] MEDS: ASCORBIC ACID 500 MG TAB PO SCH (09:39)
[2018-09-28] MEDS: SENOKOT S TAB PO SCH ×2 (09:39→21:03)
[2018-09-28] MEDS: OMEPRAZOLE 20 MG CAP PO SCH ×2 (09:39→21:03)
[2018-09-28] MEDS: VITAMIN D 1,000 INTERNATIONAL UNITS TABLET PO SCH (09:39)
[2018-09-28] MEDS: DULoxetine 30 MG CAP (CYMBALTA) PO SCH (09:39)
[2018-09-28] MEDS: ACETAMINOPHEN 500 MG TAB PO SCH ×3 (09:39→21:04)
[2018-09-28 14:00] VITALS: BP 116/77
--- NOTE | 2018-09-28 14:00 | IPNPDOC ---
Text Note Date of Service The patient was seen on 09/28/18. NOTE Patient seen and examined. No acute events overnight. Denies any chest pain, pressure, or discomfort. Reported right humeral arm pain and right thigh pain, 6/10. Denies any chest pain, pressure, or discomfort, shortness of breath, fevers, or chills. PHYSICAL EXAMINATION: GENERAL: Patient well nourished, alert, comfortable in no acute distress. HEENT: Normocephalic, atraumatic. PULMONARY: Bilaterally clear. CARDIAC: Regular, S1, S2. ABDOMEN: Soft, nontender. Positive bowel sounds. EXTREMITIES: No edema, lower extremities. Right upper extremity with sling. ASSESSMENT AND PLAN: This is an 88-year-old male patient who on 09/07/2018 fell on ice on his right side and sustained right proximal humeral fracture and hairline fracture of the right femoral neck. Orthopedics saw the patient and did not recommend any surgical intervention. Patient was discharged home. Patient returned to the emergency department (ED) and was admitted on September 16 to September 22 for issue related to the pain and difficulty ambulating. Patient was followed by orthopedics and pain management during hospitalization and was transferred to acute rehabilitation for further care. Patient has underlying medical history of atrial fibrillation, coronary artery disease with stents, and with pacemaker as well as chronic kidney disease (CKD), chronic lower back pain, obstructive sleep apnea, BPH. 1. Mechanical fall on ice on patient's right side. Sustained right proximal humeral fracture and hairline fracture of right femoral neck. No surgical intervention recommended by orthopedic surgery. Continue to followup with orthopedic surgery. Physical therapy (PT)/occupational therapy (OT) as per acute rehabilitation provider. Pain control as per acute rehabilitation provider. Pain management consultation as needed. Continue current medication. Percocet was added. Bowel care. Deep vein thrombosis (DVT) prophylaxis. Patient on Coumadin. Dosage has been adjusted. Followup INR. 2. Paroxysmal atrial fibrillation. Patient's anticoagulation was on Coumadin. INR appreciated. Dosage was adjusted. Continue to follow. Patient has a pacemaker. Continue digoxin and Coreg. 3. History of Meniere's disease. Continue current medication. 4. Dyslipidemia. Continue statin. 5. Gastroesophageal reflux disease (GERD). Continue current medication. 6. Chronic kidney disease (CKD), stage III. Will monitor BUN and creatinine. Ultrasound finding: Possible right hydronephrosis versus extrarenal pelvis. Case discussed with nephrology. Recommend followup outpatient. 7. Hyponatremia, resolved. 8. Anemia. Monitor hemoglobin and hematocrit. Continue supplementation as ordered. Workup appreciated. Fecal occult negative. 9. Obstructive sleep apnea. Continue continuous positive airway pressure (CPAP). 10. History of chronic headache. Continue current medication. 11. Chronic pain. Continue medication as ordered. Percocet has been restarted given severe pain. Followup with pain management as outpatient. 12. BPH. No complaint. Will monitor. 13. Elevated liver function tests (LFTs). Downtrending. Hepatitis profile negative. Ultrasound of gallbladder appreciated. Sludge versus mass with chronic wall thickening. Unable to do contrast study given kidney function. Unable to obtain MRI due to pacemaker. Discuss with acute rehabilitation provider, Dr. Carballo. Consulted Dr. Prather. Recommend outpatient followup. 14. Deep vein thrombosis (DVT) prophylaxis. Patient on Coumadin. Followup INR. DISPOSITION: As per acute rehabilitation provider. VS,Fishbone, I+O VS, Fishbone, I+O Laboratory Tests 09/28/18 07:03 Red Blood Count 3.38 L, Mean Corpuscular Volume 93.5, Mean Corpuscular Hemoglobin 30.2, Mean Corpuscular Hemoglobin Concent 32.3, Red Cell Distribution Width 12.9, Calcium Level 8.3 L Vital Signs Date Time Temp Pulse Resp B/P (MAP) Pulse Ox O2 Delivery O2 Flow Rate FiO2 09/28/18 09:38 80 136/72 09/28/18 07:01 18 09/28/18 06:00 97.0 93 I&O- Last 24 Hours up to 6 AM 09/28/18 06:00 Intake Total 890 ml Output Total 1085 ml Balance -195 ml SUMEET RUBIN MD Sep 28, 2018 14:00
[2018-09-28] MEDS: WARFARIN SOD 5 MG TAB PO SCH (16:47)
--- NOTE | 2018-09-28 18:23 | IPNPDOC ---
PM&R Progress Note DATE OF SERVICE: Sep 25, 2018 Systems Administrator Progress Note Subjective: Patient reports he feels constipated and wants to know if he is going to have surgery. He cannot tell if his calf cramping is better. REVIEW OF SYSTEMS: The following is a completed review of systems and has been reviewed. Review of systems otherwise unremarkable. PAIN: Patient self reports bilateral groin and calf pain EYES: no recent changes in vision, no eye pain EARS, NOSE, & THROAT: no rhinorrhea, throat pain or dysphagia CARDIOVASCULAR:denies chest pain or palpitations PULMONARY: Negative. Denies shortness of breath GASTROINTESTINAL: Negative for constipation or diarrhea, +nausea GENITOURINARY: Negative for hematuria or dysuria MUSCULOSKELETAL: right humeral and right femur fracture NEUROLOGICAL: no tremor or seizures SKIN: no rashes PSYCHIATRIC: Unremarkable All other review of systems found to be negative. PHYSICAL EXAMINATION: VITAL SIGNS: Please see below. GENERAL: Pleasant and cooperative. No acute distress. HEENT: PERRL. Extraocular movements intact. Clear conjunctiva, +glasses CARDIOVASCULAR: Regular rate and rhythm. No murmurs, rubs, or gallops, +PM LUNGS: Clear to auscultation bilaterally. No wheezes. No rhonchi ABDOMEN: Soft, nontender, nondistended. Positive bowel sounds. Normal active bowel sound NEUROLOGICAL: Alert and oriented times three. Cranial nerves II through XII grossly intact. Sensation grossly intact including right hand EXTREMITIES: 5\\5 strength left upper extremities. right wrist extension and process owner 5-/5 rest of limb not tested due to weight bearing restrictions 5-\\5 strength right lower extremity. 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 PLAN: 1. Rehab: PT/OT assess for DMEs, ambulating 40-50 feet with sandy-walker 2. Ortho: s/p right greater trochanteric fracture and right humeral neck fracture, NWB to RUE and PWB to RLE- ortho consulted 3. Neuro: stable, hx of Meniere's meclizine ordered prn 4. CArdio: pmh Afib with pacemaker, continue digoxin, warfarin, and carvedilol- medicine consulted -HLD on statin 5. Resp: encourage incentive spirometry 6. 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 Pain: d/c percocet due to nausea, continue standing Tylenol, continue Cymbalta and avoid gabapentin as patient reports having gynecomastia from this -continue Elavil qHS for neuropathic pain and menthol salicylate rub for calves 8. GI: Patient with mildly elevated liver enzymes, US ordered medicine showing " Gallbladder with tumefactive sludge versus mass with chronic wall thickening..." -spoke with Dr. Stephenson who recommended a surgical consult to discuss the possibility of gallbladder mass, surgery consulted would need CT with contrast, however will hold off for now given kidney function -ppx continue Prilosec 9. DVT ppx: on Warfarin 10. Dispo: TBD Allergies Coded Allergies: Sulfa Antibiotics (Verified Allergy, Unknown, 09/16/18) Gabapentin (Verified Adverse Reaction, Intermediate, chest pain, 09/23/18) Hydrocodone (Verified Adverse Reaction, Intermediate, Nausea and Vomiting, 09/22/18) Vital Signs Vital Signs Date Time Temp Pulse Resp B/P (MAP) Pulse Ox O2 Delivery O2 Flow Rate FiO2 09/28/18 14:16 18 09/28/18 14:00 97.7 81 116/77 (90) 97 Laboratory Data CBC/BMP Laboratory Tests 09/28/18 07:03 Red Blood Count 3.38 L, Mean Corpuscular Volume 93.5, Mean Corpuscular Hemoglobin 30.2, Mean Corpuscular Hemoglobin Concent 32.3, Red Cell Distribution Width 12.9, Calcium Level 8.3 L Labs 24H Laboratory Tests 2 09/28/18 07:03: Nucleated Red Blood Cells % (auto) 0.0, Prothrombin Time 21.0H, Prothromb Time International Ratio 1.78, Anion Gap 7L, Glomerular Filtration Rate 36.9, Blood Urea Nitrogen 41H, Creatinine 1.85H, Sodium Level 136, Potassium Level 4.3, Chloride Level 105, Carbon Dioxide Level 24, Calcium Level 8.3L, Magnesium Level 2.1 Microbiology Microbiology 09/22/18 Urine Culture - Final, Complete Current Medications Current Medications Current Medications Acetaminophen (Tylenol Tab) 500 mg Q8H PRN PO fever/PAIN Last administered on 09/23/18 12:01; Start 09/22/18 at 15:30; Stop 09/23/18 at 16:18; Status DC Acetaminophen (Tylenol Tab) 1,000 mg TID PO Last administered on 09/28/18 15:47; Start 09/23/18 at 21:00 Amitriptyline HCl (Elavil) 25 mg QHS PO Last administered on 09/25/18 20:49; Start 09/24/18 at 21:00; Stop 09/26/18 at 17:21; Status DC Amitriptyline HCl (Elavil) 50 mg QHS PO Last administered on 09/27/18 20:02; Start 09/26/18 at 21:00 Ascorbic Acid (Vitamin C) 500 mg DAILY PO Last administered on 09/28/18 09:39; Start 09/23/18 at 09:00 Atorvastatin Calcium (Lipitor) 40 mg QHS PO Last administered on 09/27/18 20:02; Start 09/22/18 at 21:00 Bisacodyl (Dulcolax Suppository) 10 mg DAILYPRN PRN [place] CONSTIPATION; Start 09/22/18 at 15:15 Calcium Carbonate (Tums) 1,000 mg Q4HP PRN PO HEARTBURN; Start 09/22/18 at 15:30 Carvedilol (COReg) 3.125 mg DAILY PO Last administered on 09/28/18 09:38; Start 09/23/18 at 09:00 Cyanocobalamin (Vitamin B12) 1,000 mcg DAILY PO Last administered on 09/28/18 09:39; Start 09/23/18 at 09:00 Digoxin (Lanoxin) 0.125 mg MoWeFr@0900 PO Last administered on 09/26/18 09:47; Start 09/24/18 at 09:00 Docusate Sodium (Colace) 100 mg BID PO Last administered on 09/27/18 10:05; Start 09/22/18 at 21:00; Stop 09/27/18 at 11:52; Status DC Duloxetine HCl (Cymbalta) 30 mg DAILY PO Last administered on 09/28/18 09:39; Start 09/24/18 at 09:00 Gabapentin (Neurontin) 100 mg TID PO ; Start 09/23/18 at 21:00; Stop 09/24/18 at 14:12; Status DC Home Med (Med Rec Complete!) ASDIRECTED XX ; Start 09/27/18 at 12:30; Stop 09/27/18 at 12:38; Status DC Magnesium Hydroxide (Milk Of Magnesia) 30 ml DAILYPRN PRN PO CONSTIPATION; Start 09/22/18 at 15:15 Magnesium Oxide (Mag-Ox) 400 mg QHS PO Last administered on 09/27/18 20:02; Start 09/22/18 at 21:00 Meclizine HCl (Antivert) 12.5 mg BID PO Last administered on 09/28/18 09:38; Start 09/26/18 at 18:00 Meclizine HCl (Antivert) 25 mg Q8HP PRN PO DIZZINESS Last administered on 09/26/18 13:28; Start 09/22/18 at 15:30 Menthol/Methyl Salicylate (Bengay Cream) APPLY TO bilateral calves QID TOP Last administered on 09/28/18 16:47; Start 09/24/18 at 17:00 Nitroglycerin (Nitrostat (1/ 150)) 0.4 mg Q5MP PRN SL CHEST PAIN; Start 09/22/18 at 15:30 Omeprazole (PriLOSEC) 40 mg BID PO Last administered on 09/28/18 09:39; Start 09/22/18 at 21:00 Ondansetron HCl (Zofran) 4 mg Q6HP PRN PO NAUSEA Last administered on 09/25/18at 10:21; Start 09/22/18 at 15:15 Oxycodone/ Acetaminophen (Percocet 5mg/ 325mg Tablet) 1 tab Q4HP PRN PO MODERATE PAIN (PS 5-7); Start 09/22/18 at 15:15; Stop 09/23/18 at 16:18; Status DC Oxycodone/ Acetaminophen (Percocet 5mg/ 325mg Tablet) 1 tab Q6HP PRN PO MILD/MODERATE PAIN (PS 1-7) Last administered on 09/28/18 13:46; Start 09/27/18 at 12:00 Oxycodone/ Acetaminophen (Percocet 5mg/ 325mg Tablet) 2 tab Q4HP PRN PO SEVERE PAIN (PS 8-10) Last administered on 09/23/18 09:05; Start 09/22/18 at 15:15; Stop 09/23/18 at 16:18; Status DC Senna (Senokot) 1 tab QHS PO Last administered on 09/27/18 20:02; Start 09/22/18 at 21:00 Senna/Docusate Sodium (Senokot S) 1 tab BID PO Last administered on 09/28/18 09:39; Start 09/27/18 at 21:00 Sucralfate (Carafate) 1 gm BID PO Last administered on 09/28/18 09:38; Start 09/22/18 at 21:00 Tizanidine HCl (Zanaflex) 2 mg Q8HP PRN PO headache Last administered on 09/28/18 09:40; Start 09/27/18 at 17:00 Vitamin D (Vitamin D) 2,000 units DAILY PO Last administered on 09/28/18 09:39; Start 09/23/18 at 09:00 Warfarin Sodium (Coumadin) 1.5 mg Mo@1700 PO Last administered on 09/22/18 16:30; Start 09/22/18 at 17:00; Stop 09/27/18 at 08:01; Status DC Warfarin Sodium (Coumadin) 2 mg SuTuWeThFrSa@1700 PO Last administered on 09/25/18 17:10; Start 09/23/18 at 17:00; Stop 09/26/18 at 10:22; Status DC Warfarin Sodium (Coumadin) 2.5 mg SuTuWeThFrSa@1700 PO Last administered on 09/26/18 17:22; Start 09/26/18 at 17:00; Stop 09/27/18 at 08:01; Status DC Warfarin Sodium (Coumadin) 3 mg DAILY@17 PO Last administered on 09/27/18 17:07; Start 09/27/18 at 17:00; Stop 09/28/18 at 08:19; Status DC Warfarin Sodium (Coumadin) 3 mg SuTuWeThFrSa@1700 PO ; Start 09/23/18 at 17:00; Stop 09/23/18 at 17:00; Status DC Warfarin Sodium (Coumadin) 5 mg DAILY@17 PO Last administered on 09/28/18at 16:47; Start 09/28/18 at 17:00 OK HARRISON MD Sep 28, 2018 18:23
--- NOTE | 2018-09-28 18:26 | IPNPDOC ---
PM&R Progress Note DATE OF SERVICE: Sep 26, 2018 [employer] Progress Note Subjective: Patient reports he would like to have the CT with contrast to move along his possible surgery while in rehab. He reports his pain is gradually getting better . REVIEW OF SYSTEMS: The following is a completed review of systems and has been reviewed. Review of systems otherwise unremarkable. PAIN: Patient self reports bilateral groin and calf pain EYES: no recent changes in vision, no eye pain EARS, NOSE, & THROAT: no rhinorrhea, throat pain or dysphagia CARDIOVASCULAR:denies chest pain or palpitations PULMONARY: Negative. Denies shortness of breath GASTROINTESTINAL: Negative for constipation or diarrhea, +nausea GENITOURINARY: Negative for hematuria or dysuria MUSCULOSKELETAL: right humeral and right femur fracture NEUROLOGICAL: no tremor or seizures SKIN: no rashes PSYCHIATRIC: Unremarkable All other review of systems found to be negative. PHYSICAL EXAMINATION: VITAL SIGNS: Please see below. GENERAL: Pleasant and cooperative. No acute distress. HEENT: PERRL. Extraocular movements intact. Clear conjunctiva, +glasses CARDIOVASCULAR: Regular rate and rhythm. No murmurs, rubs, or gallops, +PM LUNGS: Clear to auscultation bilaterally. No wheezes. No rhonchi ABDOMEN: Soft, nontender, nondistended. Positive bowel sounds. Normal active bow el sound NEUROLOGICAL: Alert and oriented times three. Cranial nerves II through XII grossly intact. Sensation grossly intact including right hand EXTREMITIES: 5\\5 strength left upper extremities. 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 PLAN: 1. Rehab: PT/OT assess for DMEs, ambulating 40-50 feet with sandy-walker 2. Ortho: s/p right greater trochanteric fracture and right humeral neck fracture, NWB to RUE and PWB to RLE- ortho consulted 3. Neuro: stable, hx of Meniere's meclizine ordered prn 4. CArdio: pmh Afib with pacemaker, continue digoxin, warfarin, and carvedilol- medicine consulted -HLD on statin 5. Resp: encourage incentive spirometry 6. 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 Pain: d/c percocet due to nausea, continue standing Tylenol, continue Cymbalta and avoid gabapentin as patient reports having gynecomastia from this -will increase Elavil qHS for neuropathic pain and continue menthol salicylate rub for calves 8. GI: Patient with mildly elevated liver enzymes, US ordered medicine showing " Gallbladder with tumefactive sludge versus mass with chronic wall thickening..." -spoke with Dr. Stephenson who recommended a surgical consult to discuss the p ossibility of gallbladder mass, surgery consulted would need CT with contrast, however will hold off for now given kidney function- patient requesting CT to be done while inpatient, will ask renal to coordinate with surgery and help plan for outpatient surgical f/u- surgery recs appreciated -ppx continue Prilosec 9. DVT ppx: on Warfarin 10. Dispo: TBD Allergies Coded Allergies: Sulfa Antibiotics (Verified Allergy, Unknown, 09/16/18) Gabapentin (Verified Adverse Reaction, Intermediate, chest pain, 09/23/18) Hydrocodone (Verified Adverse Reaction, Intermediate, Nausea and Vomiting, 09/22/18) Vital Signs Vital Signs Date Time Temp Pulse Resp B/P (MAP) Pulse Ox O2 Delivery O2 Flow Rate FiO2 09/28/18 14:16 18 09/28/18 14:00 97.7 81 116/77 (90) 97 Laboratory Data CBC/BMP Laboratory Tests 09/28/18 07:03 Red Blood Count 3.38 L, Mean Corpuscular Volume 93.5, Mean Corpuscular Hemoglobin 30.2, Mean Corpuscular Hemoglobin Concent 32.3, Red Cell Distribution Width 12.9, Calcium Level 8.3 L Labs 24H Laboratory Tests 2 09/28/18 07:03: Nucleated Red Blood Cells % (auto) 0.0, Prothrombin Time 21.0H, Prothromb Time International Ratio 1.78, Anion Gap 7L, Glomerular Filtration Rate 36.9, Blood Urea Nitrogen 41H, Creatinine 1.85H, Sodium Level 136, Potassium Level 4.3, Chloride Level 105, Carbon Dioxide Level 24, Calcium Level 8.3L, Magnesium Level 2.1 Microbiology Microbiology 09/22/18 Urine Culture - Final, Complete Current Medications Current Medications Current Medications Acetaminophen (Tylenol Tab) 500 mg Q8H PRN PO fever/PAIN Last administered on 09/23/18 12:01; Start 09/22/18 at 15:30; Stop 09/23/18 at 16:18; Status DC Acetaminophen (Tylenol Tab) 1,000 mg TID PO Last administered on 09/28/18 15:47; Start 09/23/18 at 21:00 Amitriptyline HCl (Elavil) 25 mg QHS PO Last administered on 09/25/18 20:49; Start 09/24/18 at 21:00; Stop 09/26/18 at 17:21; Status DC Amitriptyline HCl (Elavil) 50 mg QHS PO Last administered on 09/27/18 20:02; Start 09/26/18 at 21:00 Ascorbic Acid (Vitamin C) 500 mg DAILY PO Last administered on 09/28/18 09:39; Start 09/23/18 at 09:00 Atorvastatin Calcium (Lipitor) 40 mg QHS PO Last administered on 09/27/18 20:02; Start 09/22/18 at 21:00 Bisacodyl (Dulcolax Suppository) 10 mg DAILYPRN PRN MO CONSTIPATION; Start 09/22/18 at 15:15 Calcium Carbonate (Tums) 1,000 mg Q4HP PRN PO HEARTBURN; Start 09/22/18 at 15:30 Carvedilol (COReg) 3.125 mg DAILY PO Last administered on 09/28/18 09:38; Start 09/23/18 at 09:00 Cyanocobalamin (Vitamin B12) 1,000 mcg DAILY PO Last administered on 09/28/18 09:39; Start 09/23/18 at 09:00 Digoxin (Lanoxin) 0.125 mg MoWeFr@0900 PO Last administered on 09/26/18 09:47; Start 09/24/18 at 09:00 Docusate Sodium (Colace) 100 mg BID PO Last administered on 09/27/18 10:05; Start 09/22/18 at 21:00; Stop 09/27/18 at 11:52; Status DC Duloxetine HCl (Cymbalta) 30 mg DAILY PO Last administered on 09/28/18 09:39; Start 09/24/18 at 09:00 Gabapentin (Neurontin) 100 mg TID PO ; Start 09/23/18 at 21:00; Stop 09/24/18 at 14:12; Status DC Home Med (Med Rec Complete!) ASDIRECTED XX ; Start 09/27/18 at 12:30; Stop 09/27/18 at 12:38; Status DC Magnesium Hydroxide (Milk Of Magnesia) 30 ml DAILYPRN PRN PO CONSTIPATION; Start 09/22/18 at 15:15 Magnesium Oxide (Mag-Ox) 400 mg QHS PO Last administered on 09/27/18 20:02; Start 09/22/18 at 21:00 Meclizine HCl (Antivert) 12.5 mg BID PO Last administered on 09/28/18 09:38; S tart 09/26/18 at 18:00 Meclizine HCl (Antivert) 25 mg Q8HP PRN PO DIZZINESS Last administered on 13:28; Start 09/22/18 at 15:30 Menthol/Methyl Salicylate (Bengay Cream) APPLY TO bilateral calves QID TOP Last administered on 09/28/18 16:47; Start 09/24/18 at 17:00 Nitroglycerin (Nitrostat (1/ 150)) 0.4 mg Q5MP PRN SL CHEST PAIN; Start 09/22/18 at 15:30 Omeprazole (PriLOSEC) 40 mg BID PO Last administered on 09/28/18 09:39; Start 09/22/18 at 21:00 Ondansetron HCl (Zofran) 4 mg Q6HP PRN PO NAUSEA Last administered on 09/25/18at 10:21; Start 09/22/18 at 15:15 Oxycodone/ Acetaminophen (Percocet 5mg/ 325mg Tablet) 1 tab Q4HP PRN PO MODERATE PAIN (PS 5-7); Start 09/22/18 at 15:15; Stop 09/23/18 at 16:18; Status DC Oxycodone/ Acetaminophen (Percocet 5mg/ 325mg Tablet) 1 tab Q6HP PRN PO MILD/MODERATE PAIN (PS 1-7) Last administered on 09/28/18 13:46; Start 09/27/18 at 12:00 Oxycodone/ Acetaminophen (Percocet 5mg/ 325mg Tablet) 2 tab Q4HP PRN PO SEVERE PAIN (PS 8-10) Last administered on 09/23/18 09:05; Start 09/22/18 at 15:15; Stop 09/23/18 at 16:18; Status DC Senna (Senokot) 1 tab QHS PO Last administered on 09/27/18 20:02; Start 09/22/18 at 21:00 Senna/Docusate Sodium (Senokot S) 1 tab BID PO Last administered on 09/28/18 09:39; Start 09/27/18 at 21:00 Sucralfate (Carafate) 1 gm BID PO Last administered on 09/28/18 09:38; Start 09/22/18 at 21:00 Tizanidine HCl (Zanaflex) 2 mg Q8HP PRN PO headache Last administered on 09/28/18 09:40; Start 09/27/18 at 17:00 Vitamin D (Vitamin D) 2,000 units DAILY PO Last administered on 09/28/18 09:39; Start 09/23/18 at 09:00 Warfarin Sodium (Coumadin) 1.5 mg Mo@1700 PO Last administered on 09/22/18 16:30; Start 09/22/18 at 17:00; Stop 09/27/18 at 08:01; Status DC Warfarin Sodium (Coumadin) 2 mg SuTuWeThFrSa@1700 PO Last administered on 09/25/18 17:10; Start 09/23/18 at 17:00; Stop 09/26/18 at 10:22; Status DC Warfarin Sodium (Coumadin) 2.5 mg SuTuWeThFrSa@1700 PO Last administered on 09/26/18 17:22; Start 09/26/18 at 17:00; Stop 09/27/18 at 08:01; Status DC Warfarin Sodium (Coumadin) 3 mg DAILY@17 PO Last administered on 09/27/18at 17:07; Start 09/27/18 at 17:00; Stop 09/28/18 at 08:19; Status DC Warfarin Sodium (Coumadin) 3 mg SuTuWeThFrSa@1700 PO ; Start 09/23/18 at 17:00; Stop 09/23/18 at 17:00; Status DC Warfarin Sodium (Coumadin) 5 mg DAILY@17 PO Last administered on 09/28/18at 16:47; Start 09/28/18 at 17:00 OK HARRISON MD Sep 28, 2018 18:26
[2018-09-28 20:00] VITALS: BP 100/57
[2018-09-28] MEDS: ATORVASTATIN 20 MG TAB PO SCH (21:03)
[2018-09-28] MEDS: MAGNESIUM OXIDE 400 MG TAB (MAG-OX) PO SCH (21:03)
[2018-09-28] MEDS: AMITRIPTYLINE 50 MG TAB PO SCH (21:03)
[2018-09-28] MEDS: SENNA 8.6 MG TAB (SENOKOT) PO SCH (21:03)
[2018-09-29] MEDS: PERCOCET 5MG/325MG TAB PO PRN ×3 (05:06→20:23)
[2018-09-29 06:00] VITALS: BP 127/70
[2018-09-29 07:10] LABS: HEMATOCRIT 31.2 % (42.0-52.0); MEAN CORPUSCULAR HEMOGLOBIN 30.1 pg (27.0-33.0); MEAN CORPUSCULAR HGB CONC 32.1 g/dl (32.0-36.5); PLATELET COUNT, AUTOMATED 294 10^3/uL (150-450); RED BLOOD COUNT 3.32 10^6/uL (4.30-6.10); WHITE BLOOD COUNT 7.2 10^3/uL (4.0-10.0)
[2018-09-29 07:23] LABS: INR 1.76; PROTHROMBIN TIME 20.8 SECONDS (12.1-14.4)
[2018-09-29 07:41] LABS: CALCIUM LEVEL 8.5 MG/DL (8.8-10.2); CREATININE FOR GFR 2.26 MG/DL (0.70-1.30); GLOMERULAR FILTRATION RATE 29.3 (>35); MAGNESIUM LEVEL 2.1 MG/DL (1.8-2.4); POTASSIUM SERUM 4.6 MEQ/L (3.5-5.1)
[2018-09-29] MEDS: SENOKOT S TAB PO SCH ×2 (08:20→20:22)
[2018-09-29] MEDS: SUCRALFATE 1 GM TAB PO SCH ×2 (08:20→20:22)
[2018-09-29] MEDS: DULoxetine 30 MG CAP (CYMBALTA) PO SCH (08:20)
[2018-09-29] MEDS: MECLIZINE 25 MG TABLET PO PRN (08:20)
[2018-09-29] MEDS: CARVedilol 3.125 MG TAB PO SCH (08:20)
[2018-09-29] MEDS: ASCORBIC ACID 500 MG TAB PO SCH (08:21)
[2018-09-29] MEDS: DIGOXIN 0.125 MG TAB PO SCH (08:21)
[2018-09-29] MEDS: OMEPRAZOLE 20 MG CAP PO SCH ×2 (08:21→20:22)
[2018-09-29] MEDS: ACETAMINOPHEN 500 MG TAB PO SCH ×3 (08:21→20:22)
[2018-09-29] MEDS: VITAMIN D 1,000 INTERNATIONAL UNITS TABLET PO SCH (08:21)
[2018-09-29] MEDS: CYANOCOBALAMIN 500 MCG TAB PO SCH (08:22)
[2018-09-29] MEDS: ANALGESIC BALM CRM 120 GM TOP SCH ×4 (08:22→20:24)
[2018-09-29] MEDS: MECLIZINE 12.5 MG TAB PO SCH ×2 (08:25→20:23)
--- NOTE | 2018-09-29 12:33 | IPNPDOC ---
Date Seen The patient was seen on 09/29/18. Progress Note HPI: 88year oldM who on 09/07/2018 fell on ice on his right side, sustained a right proximal humeral fracture and hairline fracture of his right femoral neck. Orthopedics saw at the time and did not recommend any surgical intervention and he was discharged home. The pt returned to the ED and was admitted 09/16/18- 09/22/18 related to pain and difficulty ambulating. The pt was followed by Orthopedics and pain management during his hospitalization as well. The pt was transferred to the care of [facility], Dr Silva, 09/22/18. The pt continues to report pain in UEs and LEs. States pain with therapy. P ercocet was d/cd 09/23/18, but was added back over the weekend related to pt persistent c/o pain. Cymbalta, Elavil, topical addie ward previously added as per Dr Silva. Pt is intolerant to Gabapentin. Denies any fevers, chills, weakness, fatigue, Headache, Chest Pain, Shortness of breath, cough, palpitations, abdominal pain, N/V/D, changes in bladder habits. PMHx: Chronic LBP Lumbar stenosis OA [place]. CPAP. Meniere's disease CAD/ALEJA x 2 2011. GERD CKD3 HLD HTN PAF/Pacemaker Follows with [facility]. Chronic C[place]TON. [facility], Dr Dubon. BPH/LUTS 09/07/2018, fell on the ice on his right side, sustained a right proximal humeral fracture and hairline fracture of his right femoral neck. 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 RIGHT ROTATOR CUFF REPAIR 04/2015 PACEMAKER 02/2015 GREEN LIGHT LASER ABLATION OF THE PROSTATE GLAND 12/04/2016 Lumbar laminectomy [place] 09/02/17 PE: GEN: 88yoM, appears stated age. Well-nourished, well developed. No acute distress. Alert and oriented x 3. HEENT: Normocephalic, atraumatic. Moist mucous membranes. CHEST: Regular rate and rhythm, +S1, +S2 LUNGS: Clear to auscultation bilaterally. No wheezes, rales, or rhonchi. ABD: Round, soft, non-tender, non-distended. +Bowel sounds throughout. EXT: No lower extremity edema appreciated. RUE in a sling. SKIN: [place], dry, warm. No rashes. NEURO: Alert and oriented x 3. No focal deficits appreciated. A&P: 88year oldM who on 09/07/2018 fell on ice on his right side, sustained a right proximal humeral fracture and hairline fracture of his right femoral neck. Orthopedics saw at the time and did not recommend any surgical intervention and he was discharged home. The pt returned to the ED and was admitted 09/16/18-09/22 related to pain and difficulty ambulating. The pt was followed by Orthopedics and pain management during his hospitalization as well. The pt was transferrred to the care of Dr Ricardo SALVADOR, 09/22/18. 1. Mechanical Fall on ice on his right side, sustained a right proximal humeral fracture and hairline fracture of his right femoral neck. No surgical intervention recommended as per Orthopedic surgery. Continue F/U with Orthopedics. WB as per Orthopedics. PT/OT/ST as per Dr Ricardo SALVADOR. Pain control as per Dr Ricardo SALVADOR. Consider pain mgmt consultation if needed. Pt follows as outpt with [facility]. Pt intolerant to gabapentin. Cymbalta and Elavil added as per Dr Silva. Percocet restarted 09/27/18. Bowel care as per Dr Ricardo SALVADOR. DVT prophylaxis. Pt remains on Coumadin. INR 1.76. Coumadin 5 mg daily. 2. Paroxysmal atrial fibrillation: Patient is anticoagulated with Coumadin, INR 1.76. Coumadin dose adjusted to 5 mg daily. Continue this dose for today and monitor INR in AM. Status post pacer. Rate controlled with digoxin and carvedilol. 3. History of Mnire's: Continue with meclizine as needed. 4. Dyslipidemia: Continue with Lipitor 5. Gastroesophageal reflux disease: Continue with omeprazole and Carafate 6. Chronic kidney disease 3 Scr 2.[address] Pelvis 09/17/18 indicated B/L cysts. Abd U/S 09/24/18 Possible right hydronephrosis versus extrarenal pelvis may also be evaluated by CT. Discussed with Nephrology, Dr Vera, who also reviewed imaging. He also reviewed imaging in office chart from 2014 which is similar to these images from 09/17 and 09/24. Plan is for outpt F/U. Monitor BMP in AM. 7. Hyponatremia: Resolved Possibly previously related to hypovolemia. Na 137. Stable, encourage po intake. 8. Anemia: Hgb 9.8. Fe studies, B12, folate 09/06/17. FOB neg 09/08/18. Pt continues with B12 supplement. Monitor. 9. [place]. CPAP with home settings. 10. Chronic HAs. Follows with [facility], Dr Holland. 11. Chronic pain. Percocet as outpt. This was restarted 09/27/18. Pain control as above. Pt intolerant to Gabapentin. Cymbalta and Elavil added as per Dr Silva. Follows as outpt with [facility] Pain [facility]. 12. H/O BPH. as per record Pt has not been taking Proscar or Flomax recently. Denies urinary complaints. Monitor. 13. Elevated LFTS. downtrending. Pt with no abdominal pain reported. hepatitis profile neg. Abd U/S Gallbladder with tumefactive sludge versus mass with chronic wall thickening. Recommended consider follow up contrast enhanced CT of the abdomen. Avoiding CT with contrast related to CKD3. Unable to obtain MR related to pacemaker. Likely outpt f/u with Dr Prather. Monitor CMP. VS, I&O, 24H, Fishbone Vital Signs/I&O Vital Signs Date Time Temp Pulse Resp B/P (MAP) Pulse Ox O2 Delivery O2 Flow Rate FiO2 09/29/18 08:21 78 09/29/18 08:20 127/70 09/29/18 06:00 97.4 18 95 I&O- Last 24 Hours up to 6 AM 09/29/18 06:00 Intake Total 1370 ml Output Total 1175 ml Balance 195 ml Laboratory Data 24H LABS Laboratory Tests 2 09/29/18 06:25: Nucleated Red Blood Cells % (auto) 0.0, Prothrombin Time 20.8H, Prothromb Time International Ratio 1.76, Anion Gap 9, Glomerular Filtration Rate 29.3L, Blood Urea Nitrogen 42H, Creatinine 2.26H, Sodium Level 137, Potassium Level 4.6, Chloride Level 105, Carbon Dioxide Level 23, Calcium Level 8.5L, Magnesium Level 2.1 CBC/BMP Laboratory Tests 09/29/18 06:25 Red Blood Count 3.32 L, Mean Corpuscular Volume 94.0, Mean Corpuscular Hemoglobin 30.1, Mean Corpuscular Hemoglobin Concent 32.1, Red Cell Distribution Width 13.0, Calcium Level 8.5 L Microbiology Microbiology 09/22/18 Urine Culture - Final, Complete Shabnam Calhoun Sep 29, 2018 12:33
[2018-09-29 14:00] VITALS: BP 114/66
[2018-09-29] MEDS: WARFARIN SOD 5 MG TAB PO SCH (16:21)
[2018-09-29 20:00] VITALS: BP 102/68
[2018-09-29] MEDS ORDERED: NS 1,000 ML IV SCH (20:00)
[2018-09-29] MEDS: SENNA 8.6 MG TAB (SENOKOT) PO SCH (20:22)
[2018-09-29] MEDS: MAGNESIUM OXIDE 400 MG TAB (MAG-OX) PO SCH (20:22)
[2018-09-29] MEDS: ATORVASTATIN 20 MG TAB PO SCH (20:22)
[2018-09-29] MEDS: AMITRIPTYLINE 50 MG TAB PO SCH (20:23)
[2018-09-30 05:06] VITALS: BP 148/90
[2018-09-30] MEDS: PERCOCET 5MG/325MG TAB PO PRN ×2 (06:33→20:15)
[2018-09-30 06:58] LABS: HEMATOCRIT 34.6 % (42.0-52.0); HEMOGLOBIN 10.8 g/dl (13.5-17.5); MEAN CORPUSCULAR HEMOGLOBIN 30.2 pg (27.0-33.0); MEAN CORPUSCULAR HGB CONC 31.2 g/dl (32.0-36.5); MEAN CORPUSCULAR VOLUME 96.6 fl (80.0-96.0); PLATELET COUNT, AUTOMATED 292 10^3/uL (150-450); RED BLOOD COUNT 3.58 10^6/uL (4.30-6.10)
[2018-09-30 07:11] LABS: INR 2.05; PROTHROMBIN TIME 23.5 SECONDS (12.1-14.4)
[2018-09-30 07:58] LABS: CREATININE FOR GFR 1.86 MG/DL (0.70-1.30); GLOMERULAR FILTRATION RATE 36.7 (>35); MAGNESIUM LEVEL 1.9 MG/DL (1.8-2.4); POTASSIUM SERUM 4.7 MEQ/L (3.5-5.1)
--- NOTE | 2018-09-30 08:41 | CR ---
DATE OF CONSULTATION: 09/29/2018 REQUESTING PHYSICIAN: Dr. Silva REASON FOR CONSULTATION: Possible need for contrast PET scan in this patient with chronic kidney disease stage III B, at risk for contrast induced nephropathy, HISTORY OF PRESENT ILLNESS: The patient is an 88-year-old male, established patient of Dr. Marvin Almanzar, with a past medical history of chronic kidney disease stage III B underlying, atrial fibrillation, coronary artery disease status post stents with pacemaker, chronic low back pain and other comorbidities mentioned below. The patient had a fall while walking on ice on 09/07/2018 and was subsequently found to have a right femur fracture and humeral fracture. He was initially not felt to be a candidate for surgical intervention and was discharged home; however, returned to the emergency room with complaints of pain related to his fractures and also difficulty with ambulation. The patient was hospitalized and followed by orthopedics and pain management and subsequently was transferred to the rehabilitation unit for continued rehabilitation. Over the course of the stay, the patient had an abdominal ultrasound, which showed some abnormal findings in his gallbladder and surgery had recommended further evaluation with contrast enhanced CAT scan of the abdomen. Because of his underlying chronic kidney disease stage III B, renal evaluation has been requested. I discussed with the patient regarding the risk of dye induced nephropathy. He has not made any decision regarding whether he would like to proceed with a contrast CAT scan or not. His renal function is presently below his usual baseline and we will give him gentle hydration to optimize him for contrast, if he wishes to go with for the CAT scan. PAST MEDICAL HISTORY: As mentioned above: 1. Chronic kidney disease stage III B. 2. Coronary artery disease, status post stenting. 3. Chronic low back pain. 4. Lumbar stenosis. 5. Osteoarthritis. 6. Obstructive sleep apnea with CPAP use. 7. Meniere's disease. 8. Gastroesophageal reflux disease (GERD). 9. Dyslipidemia. 10. Hypertension. 11. Paroxysmal atrial fibrillation, status post pacemaker. 12. Benign prostatic hypertrophy (BPH). PAST SURGICAL HISTORY: 1. Appendectomy in 1954. 2. Right inguinal hernia repair. 3. 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 4. Dupuytren's contracture release of the left hand. 5. Colonoscopy. 6. Cataract extraction. 7. Hemorrhoid surgery. 8. Cardiac catheterization. 9. Right rotator cuff repair. 10. Pacemaker. 11. Green light laser ablation of the prostate. 12. Lumbar laminectomy. ALLERGIES: GABAPENTIN, HYDROCODONE, SULFA, ANTIBIOTICS. HOME MEDICATIONS: Reviewed. SOCIAL HISTORY: . Denies alcohol, drugs or smoking. FAMILY HISTORY: Noncontributory due to age. REVIEW OF SYSTEMS: CONSTITUTIONAL: The patient denies fevers or chills. EYES: He denies any change in vision. No eye pain. ENT: He denies rhinorrhea, throat pain or dysphagia. CARDIAC: He denies chest pain or palpitations. He has a history of paroxysmal atrial fibrillation, coronary artery disease, and pacemaker. PULMONARY: He denies shortness of breath or dyspnea on exertion. GASTROINTESTINAL: He denies nausea, vomiting, or diarrhea. GENITOURINARY: He denies dysuria or hematuria. MUSCULOSKELETAL: Right humeral and right femur fractures reported. NEUROLOGIC: He denies seizure or syncope. SKIN: He denies any rashes or pruritus. ENDOCRINE: He denies diabetes or thyroid disease. HEMATOLOGIC: He reports chronic anticoagulant use and reports anemia. Remainder of review of systems is as per history of present illness. PHYSICAL EXAMINATION: VITAL SIGNS: Temperature 97.5, pulse 80, respiratory rate 18, blood pressure 114/66, saturating 96% on room air. Intake yesterday was 1410, urine output yesterday was 1600, net negative 200, weight on the bed scale today is not recorded. GENERAL: The patient is seen lying in bed, elderly male, well developed. No acute distress. Awake, alert, and oriented times three. Interactive and conversational. HEENT: Normocephalic, atraumatic. Moist mucous membranes. Tongue is moist. Neck is supple. Jugular veins are not elevated. CARDIAC: Regular rate and rhythm. S1, S2. LUNGS: Clear to auscultation bilaterally. No wheezing, rales or rhonchi. ABDOMEN: Soft, nontender, nondistended. There are bowel sounds. EXTREMITIES: Negative for any edema or clubbing. The right lower extremity is in a sling. SKIN: Normal turgor and temperature. No rash. NEUROLOGIC: He is at baseline mentation. Oriented times three. No focal deficit appreciated. LABORATORIES: White count 7.2, hemoglobin 10.0, platelets 294. Sodium 137, potassium 4.6, BUN 42, creatinine 2.2. INPATIENT MEDICATIONS: I started the patient on normal saline at 70 mL an hour for 1 liter only to start running overnight. He is on: - Tylenol 1 gram by mouth three times a day - amitriptyline 50 mg by mouth at night - vitamin C 500 mg by mouth daily - atorvastatin 40 mg by mouth at night - Tums as needed - Coreg 3.125 mg by mouth daily - vitamin B12 1000 mcg by mouth daily - Digoxin 0.125 mg by mouth Saturday, Saturday and Saturday - docusate one tablet by mouth twice a day - duloxetine 30 mg by mouth daily - magnesium 400 mg by mouth at night - Antivert as needed - Antivert 12.5 mg by mouth twice a day - Prilosec 40 mg by mouth twice a day - Zofran as needed - OxyContin as needed - sucralfate 1 gram by mouth twice a day - Zanaflex as needed - Coumadin 5 mg by mouth daily PROBLEMS: 1. Chronic kidney disease stage III B, underlying, with plan for possible contrast exposure for contrast CAT scan. The patient has baseline creatinine of around 1.8 and has risk of dye induced nephropathy with contrast exposure and I discussed the same with him. Presently, his renal function is actually a little worse than his usual baseline, creatinine is 2.2 today. The patient has not decided if he would like to proceed with the contrast CAT scan at present. If he is going to have it done, I feel that it may be appropriate to have it done while he is in the rehabilitation unit as we can keep a close eye on his renal function after contrast exposure. In order to optimize him for the contrast, I would give him 1 liter of normal saline overnight tonight so as not to interfere with his rehabilitation during the day. Normal saline at 70 mL an hour for 1 liter is being ordered to begin at 8:00 p.m. If he decides to have the contrast CAT scan, isotonic fluid should be continued for 12 hours post contrast administration as well to reduce the risk of renal injury from dye. Risks of contrast exposure were discussed with the patient up to and including need for dialysis. All questions were answered to the patient's satisfaction. 2. Mild acute kidney injury superimposed on chronic kidney disease stage III B. Baseline creatinine appears to be around 1.8, presently creatinine up to 2.2. Medication list is reviewed. We will give gentle IV fluids overnight and repeat renal panel in the morning. 3. Abnormality seen on the ultrasound of gallbladder imaging. The patient has been recommended to go for contrast enhanced CAT scan for better visualization of the gallbladder abnormality. He has not yet decided if he would like to proceed with this or not. He is going to stay in the rehabilitation unit at least for several more days. If he goes for the CAT scan we can keep a close eye on his renal function in case of dye induced nephropathy. Thank you for involving me in the care of Mr. Shah. I will be happy to follow him along with you.
[2018-09-30] MEDS: ANALGESIC BALM CRM 120 GM TOP SCH ×4 (09:00→20:16)
[2018-09-30] MEDS: CYANOCOBALAMIN 500 MCG TAB PO SCH (09:13)
[2018-09-30] MEDS: ACETAMINOPHEN 500 MG TAB PO SCH ×3 (09:14→20:16)
[2018-09-30] MEDS: SENOKOT S TAB PO SCH ×2 (09:14→20:14)
[2018-09-30] MEDS: SUCRALFATE 1 GM TAB PO SCH ×2 (09:14→20:14)
[2018-09-30] MEDS: ASCORBIC ACID 500 MG TAB PO SCH (09:14)
[2018-09-30] MEDS: DULoxetine 30 MG CAP (CYMBALTA) PO SCH (09:14)
[2018-09-30] MEDS: CARVedilol 3.125 MG TAB PO SCH (09:15)
[2018-09-30] MEDS: VITAMIN D 1,000 INTERNATIONAL UNITS TABLET PO SCH (09:15)
[2018-09-30] MEDS: OMEPRAZOLE 20 MG CAP PO SCH ×2 (09:15→20:14)
[2018-09-30] MEDS: MECLIZINE 12.5 MG TAB PO SCH ×2 (09:18→20:14)
[2018-09-30] MEDS ORDERED: NS 1,000 ML IV ONE (11:45)
[2018-09-30 14:00] VITALS: BP 154/89
--- NOTE | 2018-09-30 15:41 | IPNPDOC ---
Date Seen The patient was seen on 09/30/18. Progress Note HPI: 88year oldM who on 09/07/2018 fell on ice on his right side, sustained a right proximal humeral fracture and hairline fracture of his right femoral neck. Orthopedics saw at the time and did not recommend any surgical intervention and he was discharged home. The pt returned to the ED and was admitted 09/16/18- 09/22/18 related to pain and difficulty ambulating. The pt was followed by Orthopedics and pain management during his hospitalization as well. The pt was transferred to the care of [facility]U, Dr Silva, 09/22/18. The pt continues to report pain in UEs and LEs. States pain with therapy. P ercocet was d/cd 09/23/18, but was added back over the weekend related to pt persistent c/o pain. Cymbalta, Elavil, topical addie ward previously added as per Dr Silva. Pt is intolerant to Gabapentin. Denies any fevers, chills, weakness, fatigue, Headache, Chest Pain, Shortness of breath, cough, palpitations, abdominal pain, N/V/D, changes in bladder habits. PMHx: Chronic LBP Lumbar stenosis OA [place]. CPAP. Meniere's disease CAD/ALEJA x 2 2011. GERD CKD3 HLD HTN PAF/Pacemaker Follows with [facility]. Chronic CLAY[place]. [facility], Dr Dubon. BPH/LUTS 09/07/2018, fell on the ice on his right side, sustained a right proximal humeral fracture and hairline fracture of his right femoral neck. 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 RIGHT ROTATOR CUFF REPAIR 04/2015 PACEMAKER 02/2015 GREEN LIGHT LASER ABLATION OF THE PROSTATE GLAND 12/04/2016 Lumbar laminectomy [place] 09/02/17 PE: GEN: 88yoM, appears stated age. Well-nourished, well developed. No acute distress. Alert and oriented x 3. HEENT: Normocephalic, atraumatic. Moist mucous membranes. CHEST: Regular rate and rhythm, +S1, +S2 LUNGS: Clear to auscultation bilaterally. No wheezes, rales, or rhonchi. ABD: Round, soft, non-tender, non-distended. +Bowel sounds throughout. EXT: No lower extremity edema appreciated. RUE in a sling. SKIN: [place], dry, warm. No rashes. NEURO: Alert and oriented x 3. No focal deficits appreciated. A&P: 88year oldM who on 09/07/2018 fell on ice on his right side, sustained a right proximal humeral fracture and hairline fracture of his right femoral neck. Orthopedics saw at the time and did not recommend any surgical intervention and he was discharged home. The pt returned to the ED and was admitted 09/16/18-09/22 related to pain and difficulty ambulating. The pt was followed by Orthopedics and pain management during his hospitalization as well. The pt was transferrred to the care of Dr Ricardo SALVADOR, 09/22/18. 1. Mechanical Fall on ice on his right side, sustained a right proximal humeral fracture and hairline fracture of his right femoral neck. No surgical intervention recommended as per Orthopedic surgery. Continue F/U with Orthopedics. WB as per Orthopedics. PT/OT/ST as per Dr Ricardo SALVADOR. Pain control as per Dr Ricardo SALVADOR. Consider pain mgmt consultation if needed. Pt follows as outpt with [facility] Pain [facility]mt. Pt intolerant to gabapentin. Cymbalta and Elavil added as per Dr Silva. Percocet restarted 09/27/18. Bowel care as per Dr Ricardo SALVADOR. DVT prophylaxis. Pt remains on Coumadin. INR 2.05. Coumadin 5 mg daily. Adjust pending daily INR. 2. Paroxysmal atrial fibrillation: Patient is anticoagulated with Coumadin, INR 2.05. Coumadin dose adjusted to 5 mg daily. Continue this dose for today and monitor INR in AM. Status post pacer. Rate controlled with digoxin and carvedilol. 3. History of Mnire's: Continue with meclizine as needed. 4. Dyslipidemia: Continue with Lipitor 5. Gastroesophageal reflux disease: Continue with omeprazole and Carafate 6. Chronic kidney disease 3 Scr 1.[address] Pelvis 09/17/18 indicated B/L cysts. Abd U/S 09/24/18 Possible right hydronephrosis versus extrarenal pelvis may also be evaluated by CT. Discussed with Nephrology, Dr Vera, who also reviewed imaging. He also reviewed imaging in office chart from 2014 which is similar to these images from 09/17 and 09/24. Plan is for outpt F/U. Nephrology consulted, IVF given, Pt renal function has returned to baseline. Monitor BMP in AM. 7. Hyponatremia: Resolved Possibly previously related to hypovolemia. Na 141. Stable, encourage po intake. 8. Anemia: Hgb 10.8. Fe studies, B12, folate 09/06/17. FOB neg 09/08/18. Pt continues with B12 supplement. Monitor. 9. [place]. CPAP with home settings. 10. Chronic HAs. Follows with [facility], Dr Holland. 11. Chronic pain. Percocet as outpt. This was restarted 09/27/18. Pain control as above. Pt intolerant to Gabapentin. Cymbalta and Elavil added as per Dr Silva. Follows as outpt with [facility] Pain [facility]. 12. H/O BPH. as per record Pt has not been taking Proscar or Flomax recently. Denies urinary complaints. Monitor. 13. Elevated LFTS. downtrending. Pt with no abdominal pain reported. hepatitis profile neg. Abd U/S Gallbladder with tumefactive sludge versus mass with chronic wall thickening. R ecommended consider follow up contrast enhanced CT of the abdomen. Discussed with Nephrology proceeding with CT with contrast as recommended per surgery consultation. Risks were discussed with the pt as per Nephrology. Pt/ do not wish to pursue further testing at this time. Unable to obtain MR related to pacemaker. Monitor CMP. VS, I&O, 24H, Fishbone Vital Signs/I&O Vital Signs Date Time Temp Pulse Resp B/P (MAP) Pulse Ox O2 Delivery O2 Flow Rate FiO2 09/30/18 14:00 97.4 91 17 154/89 (110) 96 I&O- Last 24 Hours up to 6 AM 09/30/18 05:59 Intake Total 2360 ml Output Total 1225 ml Balance 1135 ml Laboratory Data 24H LABS Laboratory Tests 2 09/30/18 06:31: Nucleated Red Blood Cells % (auto) 0.0, Prothrombin Time 23.5H, Prothromb Time International Ratio 2.05, Anion Gap 11, Glomerular Filtration Rate 36.7, Blood Urea Nitrogen 35H, Creatinine 1.86H, Sodium Level 141, Potassium Level 4.7, Chloride Level 107, Carbon Dioxide Level 23, Calcium Level 8.0L, Magnesium Level 1.9 CBC/BMP Laboratory Tests 09/30/18 06:31 Red Blood Count 3.58 L, Mean Corpuscular Volume 96.6 H, Mean Corpuscular Hemoglobin 30.2, Mean Corpuscular Hemoglobin Concent 31.2 L, Red Cell Distribution Width 13.2, Calcium Level 8.0 L Microbiology Microbiology 09/22/18 Urine Culture - Final, Complete Shabnam Calhoun Sep 30, 2018 15:41
[2018-09-30] MEDS: WARFARIN SOD 5 MG TAB PO SCH (17:09)
[2018-09-30 20:00] VITALS: BP 133/80
[2018-09-30] MEDS: MAGNESIUM OXIDE 400 MG TAB (MAG-OX) PO SCH (20:14)
[2018-09-30] MEDS: AMITRIPTYLINE 50 MG TAB PO SCH (20:14)
[2018-09-30] MEDS: ATORVASTATIN 20 MG TAB PO SCH (20:14)
[2018-09-30] MEDS: SENNA 8.6 MG TAB (SENOKOT) PO SCH (20:15)
[2018-10-01 06:00] VITALS: BP 132/91
[2018-10-01 07:40] LABS: HEMATOCRIT 32.4 % (42.0-52.0); HEMOGLOBIN 10.1 g/dl (13.5-17.5); MEAN CORPUSCULAR HEMOGLOBIN 29.6 pg (27.0-33.0); MEAN CORPUSCULAR HGB CONC 31.2 g/dl (32.0-36.5); PLATELET COUNT, AUTOMATED 300 10^3/uL (150-450); RED BLOOD COUNT 3.41 10^6/uL (4.30-6.10); WHITE BLOOD COUNT 6.3 10^3/uL (4.0-10.0)
[2018-10-01 08:09] LABS: CALCIUM LEVEL 8.4 MG/DL (8.8-10.2); CREATININE FOR GFR 1.88 MG/DL (0.70-1.30); GLOMERULAR FILTRATION RATE 36.2 (>35); MAGNESIUM LEVEL 1.9 MG/DL (1.8-2.4); POTASSIUM SERUM 4.6 MEQ/L (3.5-5.1)
[2018-10-01 08:37] LABS: INR 2.27; PROTHROMBIN TIME 25.5 SECONDS (12.1-14.4)
[2018-10-01] MEDS: ASCORBIC ACID 500 MG TAB PO SCH (08:50)
[2018-10-01] MEDS: CYANOCOBALAMIN 500 MCG TAB PO SCH (08:50)
[2018-10-01] MEDS: OMEPRAZOLE 20 MG CAP PO SCH ×2 (08:50→20:49)
[2018-10-01] MEDS: SENOKOT S TAB PO SCH ×2 (08:50→20:48)
[2018-10-01] MEDS: DULoxetine 30 MG CAP (CYMBALTA) PO SCH (08:50)
[2018-10-01] MEDS: SUCRALFATE 1 GM TAB PO SCH ×2 (08:50→20:48)
[2018-10-01] MEDS: VITAMIN D 1,000 INTERNATIONAL UNITS TABLET PO SCH (08:51)
[2018-10-01] MEDS: DIGOXIN 0.125 MG TAB PO SCH (08:51)
[2018-10-01] MEDS: ACETAMINOPHEN 500 MG TAB PO SCH ×3 (08:51→20:49)
[2018-10-01] MEDS: ANALGESIC BALM CRM 120 GM TOP SCH ×4 (08:52→20:50)
[2018-10-01] MEDS: MECLIZINE 12.5 MG TAB PO SCH ×2 (08:52→20:48)
[2018-10-01] MEDS: CARVedilol 3.125 MG TAB PO SCH (08:52)
[2018-10-01 14:00] VITALS: BP 129/70
--- NOTE | 2018-10-01 14:14 | IPNPDOC ---
Date Seen The patient was seen on 10/01/18. Progress Note HPI: 88year oldM who on 09/07/2018 fell on ice on his right side, sustained a right proximal humeral fracture and hairline fracture of his right femoral neck. Orthopedics saw at the time and did not recommend any surgical intervention and he was discharged home. The pt returned to the ED and was admitted 09/16/18- 09/22/18 related to pain and difficulty ambulating. The pt was followed by Orthopedics and pain management during his hospitalization as well. The pt was transferred to the care of [facility], Dr Silva, 09/22/18. The pt is OOB to chair. Denies abdominal pain, N/V. Denies any fevers, chills, weakness, fatigue, Headache, Chest Pain, Shortness of breath, cough, palpitations, changes in bowel/bladder habits. PMHx: Chronic LBP Lumbar stenosis OA [place]. CPAP. Meniere's disease CAD/ALEJA x 2 2011. GERD CKD3 HLD HTN PAF/Pacemaker Follows with [facility]. Chronic [place]. NCN, Dr Dubon. BPH/LUTS 09/07/2018, fell on the ice on his right side, sustained a right proximal humeral fracture and hairline fracture of his right femoral neck. 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 RIGHT ROTATOR CUFF REPAIR 04/2015 PACEMAKER 02/2015 GREEN LIGHT LASER ABLATION OF THE PROSTATE GLAND 12/04/2016 Lumbar laminectomy [place] 09/02/17 PE: GEN: 88yoM, appears stated age. Well-nourished, well developed. No acute distress. Alert and oriented x 3. HEENT: Normocephalic, atraumatic. Moist mucous membranes. CHEST: Regular rate and rhythm, +S1, +S2 LUNGS: Clear to auscultation bilaterally. No wheezes, rales, or rhonchi. ABD: Round, soft, non-tender, non-distended. +Bowel sounds throughout. EXT: No lower extremity edema appreciated. RUE in a sling. SKIN: [place], dry, warm. No rashes. NEURO: Alert and oriented x 3. No focal deficits appreciated. A&P: 88year oldM who on 09/07/2018 fell on ice on his right side, sustained a right proximal humeral fracture and hairline fracture of his right femoral neck. Orthopedics saw at the time and did not recommend any surgical intervention and he was discharged home. The pt returned to the ED and was admitted 09/16/18- 09/22/18 related to pain and difficulty ambulating. The pt was followed by Orthopedics and pain management during his hospitalization as well. The pt was transferrred to the care of [facility], Dr Silva, 09/22/18. 1. Mechanical Fall on ice on his right side, sustained a right proximal humeral fracture and hairline fracture of his right femoral neck. No surgical intervention recommended as per Orthopedic surgery. Continue F/U with Orthopedics. WB as per Orthopedics. PT/OT/ST as per Dr Ricardo SALVADOR. Pain control as per Dr Ricardo SALVADOR. Consider pain mgmt consultation if needed. Pt follows as outpt with [facility] Pain Mgmt. Pt intolerant to gabapentin. Cymbalta and Elavil added as per Dr Silva. Percocet restarted 09/27/18. Bowel care as per Dr Ricardo SALVADOR. DVT prophylaxis. Pt remains on Coumadin. INR 2.27. Coumadin 3 mg daily. Adjust pending daily INR. 2. Paroxysmal atrial fibrillation: Patient is anticoagulated with Coumadin, INR 2.27. Coumadin dose adjusted to 3 mg daily. Monitor INR in AM. Status post pacer. Rate controlled with digoxin and carvedilol. 3. History of Mnire's: Continue with meclizine as needed. 4. Dyslipidemia: Continue with Lipitor 5. Gastroesophageal reflux disease: Continue with omeprazole and Carafate 6. Chronic kidney disease 3 Scr 1.[address] Pelvis 09/17/18 indicated B/L cysts. Abd U/S 09/24/18 Possible right hydronephrosis versus extrarenal pelvis may also be evaluated by CT. Discussed with Nephrology, Dr Vera, who also reviewed imaging. He also reviewed imaging in office chart from 2014 which is similar to these images from 09/17 and 09/24. Plan is for outpt F/U. Nephrology consulted, IVF given, Pt renal function has returned to baseline. Monitor BMP in AM. 7. Hyponatremia: Resolved Possibly previously related to hypovolemia. Na 138. Stable, encourage po intake. 8. Anemia: Hgb 10.1. Fe studies, B12, folate 09/06/17. FOB neg 09/08/18. Pt continues with B12 supplement. Monitor. 9. [place]. CPAP with home settings. 10. Chronic HAs. Follows with [facility], Dr Holland. 11. Chronic pain. Percocet as outpt. This was restarted 09/27/18. Pain control as above. Pt intolerant to Gabapentin. Cymbalta and Elavil added as per Dr Silva. Follows as outpt with [facility] Pain [facility]. 12. H/O BPH. as per record Pt has not been taking Proscar or Flomax recently. Denies urinary complaints. Monitor. 13. Elevated LFTS. Downtrending. Pt with no abdominal pain reported. hepatitis profile neg. Abd U/S Gallbladder with tumefactive sludge versus mass with chronic wall thickening. Recommended consider follow up contrast enhanced CT of the abdomen. Discussed with Nephrology proceeding with CT with contrast as recommended per surgery consultation. Risks/benefits were discussed with the pt as per Nephrology. Pt/ re iterate again today that they do not wish to pursue further testing at this time. Unable to obtain MR related to pacemaker. Outpt f/u. VS, I&O, 24H, Fishbone Vital Signs/I&O Vital Signs Date Time Temp Pulse Resp B/P (MAP) Pulse Ox O2 Delivery O2 Flow Rate FiO2 10/01/18 08:52 72 132/91 10/01/18 06:00 98.2 19 98 I&O- Last 24 Hours up to 6 AM 10/01/18 06:00 Intake Total 1990 ml Output Total 0 ml Balance 1990 ml Laboratory Data 24H LABS Laboratory Tests 2 10/01/18 07:19: Nucleated Red Blood Cells % (auto) 0.0, Anion Gap 5L, Glomerular Filtration Rate 36.2, Blood Urea Nitrogen 36H, Creatinine 1.88H, Sodium Level 138, Potassium Level 4.6, Chloride Level 106, Carbon Dioxide Level 27, Calcium Level 8.4L, Magnesium Level 1.9 10/01/18 08:12: Prothrombin Time 25.5H, Prothromb Time International Ratio 2.27 CBC/BMP Laboratory Tests 10/01/18 07:19 Red Blood Count 3.41 L, Mean Corpuscular Volume 95.0, Mean Corpuscular Hemo globin 29.6, Mean Corpuscular Hemoglobin Concent 31.2 L, Red Cell Distribution Width 13.3, Calcium Level 8.4 L Microbiology Microbiology 09/22/18 Urine Culture - Final, Complete Shabnma Calhoun Oct 01, 2018 14:14
[2018-10-01] MEDS: WARFARIN SOD 3 MG TAB PO SCH (16:25)
[2018-10-01] MEDS: PERCOCET 5MG/325MG TAB PO PRN ×2 (16:25→23:20)
[2018-10-01 20:00] VITALS: BP 135/83
--- NOTE | 2018-10-01 20:27 | IPNPDOC ---
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 REVIEW OF SYSTEMS: The following is a completed review of systems and has been reviewed. Review of systems otherwise unremarkable. PAIN: Patient self reports bilateral groin and calf pain EYES: no recent changes in vision, no eye pain EARS, NOSE, & THROAT: no rhinorrhea, throat pain or dysphagia CARDIOVASCULAR:denies chest pain or palpitations PULMONARY: Negative. Denies shortness of breath GASTROINTESTINAL: Negative for constipation or diarrhea GENITOURINARY: Negative for hematuria or dysuria MUSCULOSKELETAL: right humeral and right femur fracture NEUROLOGICAL: no tremor or seizures SKIN: no rashes PSYCHIATRIC: Unremarkable All other review of systems found to be negative. PHYSICAL EXAMINATION: VITAL SIGNS: Please see below. GENERAL: Pleasant and cooperative. No acute distress. HEENT: PERRL. Extraocular movements intact. Clear conjunctiva, +glasses CARDIOVASCULAR: Regular rate and rhythm. No murmurs, rubs, or gallops, +PM LUNGS: Clear to auscultation bilaterally. No wheezes. No rhonchi ABDOMEN: Soft, nontender, nondistended. Positive bowel sounds. Normal active bowel sound NEUROLOGICAL: Alert and oriented times three. Cranial nerves II through XII grossly intact. Sensation grossly intact including right hand EXTREMITIES: 5\\5 strength left upper extremities. right wrist extension and metal bumper 5-/5 rest of limb not tested due to weight bearing restrictions 5-\\5 strength right lower extremity. 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 PLAN: 1. Rehab: PT/OT assess for DMEs, ambulating furterh with quad cane 2. Ortho: s/p right greater trochanteric fracture and right humeral neck fracture, NWB to RUE and PWB to RLE- ortho consulted 3. Neuro: stable, hx of Meniere's meclizine ordered prn 4. CArdio: pmh Afib with pacemaker, continue digoxin, warfarin, and carvedilol- medicine consulted -HLD on statin 5. Resp: encourage incentive spirometry 6. 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 Pain: d/c percocet due to nausea, continue standing Tylenol, continue Cymbalta and avoid gabapentin as patient reports having gynecomastia from this -will increase Elavil qHS for neuropathic pain and continue menthol salicylate rub for calves 8. GI: Patient with mildly elevated liver enzymes, US ordered medicine showing " Gallbladder with tumefactive sludge versus mass with chronic wall thickening..." -spoke with Dr. Stephenson who recommended a surgical consult to discuss the possibility of gallbladder mass, surgery consulted would need CT with contrast, however will hold off for now given kidney function-can be managed outpatient if needed -ppx continue Prilosec 9. DVT ppx: on Warfarin 10. Dispo: 10/06/18 to home, progressing towards goals Allergies Coded Allergies: Sulfa Antibiotics (Verified Allergy, Unknown, 09/16/18) Gabapentin (Verified Adverse Reaction, Intermediate, chest pain, 09/23/18) Hydrocodone (Verified Adverse Reaction, Intermediate, Nausea and Vomiting, 09/22/18) Vital Signs Vital Signs Date Time Temp Pulse Resp B/P (MAP) Pulse Ox O2 Delivery O2 Flow Rate FiO2 10/01/18 16:55 18 10/01/18 14:00 97.5 70 129/70 (89) 96 Laboratory Data CBC/BMP Laboratory Tests 10/01/18 07:19 Red Blood Count 3.41 L, Mean Corpuscular Volume 95.0, Mean Corpuscular Hemoglobin 29.6, Mean Corpuscular Hemoglobin Concent 31.2 L, Red Cell Distribution Width 13.3, Calcium Level 8.4 L Labs 24H Laboratory Tests 2 10/01/18 07:19: Nucleated Red Blood Cells % (auto) 0.0, Anion Gap 5L, Glomerular Filtration Rate 36.2, Blood Urea Nitrogen 36H, Creatinine 1.88H, Sodium Level 138, Potassium [place] 4.6, Chloride Level 106, Carbon Dioxide Level 27, Calcium Level 8.4L, Magnesium Level 1.9 10/01/18 08:12: Prothrombin Time 25.5H, Prothromb Time International Ratio 2.27 Microbiology Microbiology 09/22/18 Urine Culture - Final, Complete Current Medications Current Medications Current Medications Acetaminophen (Tylenol Tab) 500 mg Q8H PRN PO fever/PAIN Last administered on 09/23/18 12:01; Start 09/22/18 at 15:30; Stop 09/23/18 at 16:18; Status DC Acetaminophen (Tylenol Tab) 1,000 mg TID PO Last administered on 10/01/18 15:06; Start 09/23/18 at 21:00 Amitriptyline HCl (Elavil) 25 mg QHS PO Last administered on 09/25/18 20:49; Start 09/24/18 at 21:00; Stop 09/26/18 at 17:21; Status DC Amitriptyline HCl (Elavil) 50 mg QHS PO Last administered on 09/30/18 20:14; Start 09/26/18 at 21:00 Ascorbic Acid (Vitamin C) 500 mg DAILY PO Last administered on 10/01/18 08:50; Start 09/23/18 at 09:00 Atorvastatin Calcium (Lipitor) 40 mg QHS PO Last administered on 09/30/18 2 0:14; Start 09/22/18 at 21:00 Bisacodyl (Dulcolax Suppository) 10 mg DAILYPRN PRN NE CONSTIPATION; Start 09/22/18 at 15:15 Calcium Carbonate (Tums) 1,000 mg Q4HP PRN PO HEARTBURN; Start 09/22/18 at 15:30 Carvedilol (COReg) 3.125 mg DAILY PO Last administered on 10/01/18 08:52; Start 09/23/18 at 09:00 Cyanocobalamin (Vitamin B12) 1,000 mcg DAILY PO Last administered on 10/01/18 08:50; Start 09/23/18 at 09:00 Digoxin (Lanoxin) 0.125 mg MoWeFr@0900 PO Last administered on 10/01/18 08:51; Start 09/24/18 at 09:00 Docusate Sodium (Colace) 100 mg BID PO Last administered on 09/27/18 10:05; Start 09/22/18 at 21:00; Stop 09/27/18 at 11:52; Status DC Duloxetine HCl (Cymbalta) 30 mg DAILY PO Last administered on 10/01/18 08:50; Start 09/24/18 at 09:00 Gabapentin (Neurontin) 100 mg TID PO ; Start 09/23/18 at 21:00; Stop 09/24/18 at 14:12; Status DC Home Med (Med Rec Complete!) ASDIRECTED XX ; Start 09/27/18 at 12:30; Stop 09/27/18 at 12:38; Status DC Magnesium Hydroxide (Milk Of Magnesia) 30 ml DAILYPRN PRN PO CONSTIPATION; Start 09/22/18 at 15:15 Magnesium Oxide (Mag-Ox) 400 mg QHS PO Last administered on 09/30/18at 20:14; Start 09/22/18 at 21:00 Meclizine HCl (Antivert) 12.5 mg BID PO Last administered on 10/01/18 08:52; Start 09/26/18 at 18:00 Meclizine HCl (Antivert) 25 mg Q8HP PRN PO DIZZINESS Last administered on 09/29/18 08:20; Start 09/22/18 at 15:30 Menthol/Methyl Salicylate (Bengay Cream) APPLY TO bilateral calves QID TOP Last administered on 10/01/18at 15:06; Start 09/24/18 at 17:00 Nitroglycerin (Nitrostat (1/ 150)) 0.4 mg Q5MP PRN SL CHEST PAIN; Start 09/22/18 at 15:30 Omeprazole (PriLOSEC) 40 mg BID PO Last administered on 10/01/18 08:50; Start 09/22/18 at 21:00 Ondansetron HCl (Zofran) 4 mg Q6HP PRN PO NAUSEA Last administered on 09/25/18at 10:21; Start 09/22/18 at 15:15 Oxycodone/ Acetaminophen (Percocet 5mg/ 325mg Tablet) 1 tab Q4HP PRN PO MODERATE PAIN (PS 5-7); Start 09/22/18 at 15:15; Stop 09/23/18 at 16:18; Status DC Oxycodone/ Acetaminophen (Percocet 5mg/ 325mg Tablet) 1 tab Q6HP PRN PO MILD/MODERATE PAIN (PS 1-7) Last administered on 10/01/18 16:25; Start 09/27/18 at 12:00 Oxycodone/ Acetaminophen (Percocet 5mg/ 325mg Tablet) 2 tab Q4HP PRN PO SEVERE PAIN (PS 8-10) Last administered on 09/23/18 09:05; Start 09/22/18 at 15:15; Stop 09/23/18 at 16:18; Status DC Senna (Senokot) 1 tab QHS PO Last administered on 09/30/18 20:15; Start 09/22/18 at 21:00 Senna/Docusate Sodium (Senokot S) 1 tab BID PO Last administered on 10/01/18 08:50; Start 09/27/18 at 21:00 Sodium Chloride 1,000 ml @ 70 mls/hr [id number] IV Last administered on 09/29/18 17:18; Start 09/29/18 at 20:00; Stop 09/30/18 at 09:18; Status DC Sucralfate (Carafate) 1 gm BID PO Last administered on 10/01/18 08:50; Start 09/22/18 at 21:00 Tizanidine HCl (Zanaflex) 2 mg Q8HP PRN PO headache Last administered on 09/28/18 09:40; Start 09/27/18 at 17:00 Vitamin D (Vitamin D) 2,000 units DAILY PO Last administered on 10/01/18 08:51; Start 09/23/18 at 09:00 Warfarin Sodium (Coumadin) 1.5 mg Mo@1700 PO Last administered on 09/22/18 16:30; Start 09/22/18 at 17:00; Stop 09/27/18 at 08:01; Status DC Warfarin Sodium (Coumadin) 2 mg SuTuWeThFrSa@1700 PO Last administered on 09/25/18 17:10; Start 09/23/18 at 17:00; Stop 09/26/18 at 10:22; Status DC Warfarin Sodium (Coumadin) 2.5 mg SuTuWeThFrSa@1700 PO Last administered on 09/26/18at 17:22; Start 09/26/18 at 17:00; Stop 09/27/18 at 08:01; Status DC Warfarin Sodium (Coumadin) 3 mg DAILY@17 PO Last administered on 09/27/18at 17:07; Start 09/27/18 at 17:00; Stop 09/28/18 at 08:19; Status DC Warfarin Sodium (Coumadin) 3 mg DAILY@17 PO Last administered on 10/01/18at 16:25; Start 10/01/18 at 17:00 Warfarin Sodium (Coumadin) 3 mg SuTuWeThFrSa@1700 PO ; Start 09/23/18 at 17:00; Stop 09/23/18 at 17:00; Status DC Warfarin Sodium (Coumadin) 5 mg DAILY@17 PO Last administered on 09/30/18at 17:09; Start 09/28/18 at 17:00; Stop 10/01/18 at 13:13; Status DC OK HARRISON MD Oct 01, 2018 20:27
--- NOTE | 2018-10-01 20:29 | IPNPDOC ---
PM&R Progress Note DATE OF SERVICE: Oct 01, 2018 Clinical Support Nurse Progress Note Subjective: Patient seen in gym working on standing leg abduction. REVIEW OF SYSTEMS: The following is a completed review of systems and has been reviewed. Review of systems otherwise unremarkable. PAIN: Patient self reports bilateral groin and calf pain EYES: no recent changes in vision, no eye pain EARS, NOSE, & THROAT: no rhinorrhea, throat pain or dysphagia CARDIOVASCULAR:denies chest pain or palpitations PULMONARY: Negative. Denies shortness of breath GASTROINTESTINAL: Negative for constipation or diarrhea GENITOURINARY: Negative for hematuria or dysuria MUSCULOSKELETAL: right humeral and right femur fracture NEUROLOGICAL: no tremor or seizures SKIN: no rashes PSYCHIATRIC: Unremarkable All other review of systems found to be negative. PHYSICAL EXAMINATION: VITAL SIGNS: Please see below. GENERAL: Pleasant and cooperative. No acute distress. HEENT: PERRL. Extraocular movements intact. Clear conjunctiva, +glasses CARDIOVASCULAR: Regular rate and rhythm. No murmurs, rubs, or gallops, +PM LUNGS: Clear to auscultation bilaterally. No wheezes. No rhonchi ABDOMEN: Soft, nontender, nondistended. Positive bowel sounds. Normal active bowel sound NEUROLOGICAL: Alert and oriented times three. Cranial nerves II through XII grossly intact. Sensation grossly intact including right hand EXTREMITIES: 5\\5 strength left upper extremities. right wrist extension and plate cutter 5-/5 rest of limb not tested due to weight bearing restrictions 5-\\5 strength right lower extremity. 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 PLAN: 1. Rehab: PT/OT assess for DMEs, ambulating furterh with quad cane 2. Ortho: s/p right greater trochanteric fracture and right humeral neck fract ure, NWB to RUE and PWB to RLE- ortho consulted 3. Neuro: stable, hx of Meniere's meclizine ordered prn 4. CArdio: pmh Afib with pacemaker, continue digoxin, warfarin, and carvedilol- medicine consulted -HLD on statin 5. Resp: encourage incentive spirometry 6. 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 Pain: d/c percocet due to nausea, continue standing Tylenol, continue Cymbalta and avoid gabapentin as patient reports having gynecomastia from this -will increase Elavil qHS for neuropathic pain and continue menthol salicylate rub for calves 8. GI: Patient with mildly elevated liver enzymes, US ordered medicine showing " Gallbladder with tumefactive sludge versus mass with chronic wall thickening..." -spoke with Dr. Stephenson who recommended a surgical consult to discuss the possibility of gallbladder mass, surgery consulted would need CT with contrast, however will hold off for now given kidney function-can be managed outpatient if needed -ppx continue Prilosec 9. DVT ppx: on Warfarin 10. Dispo: 10/06/18 to home, progressing towards goals Allergies Coded Allergies: Sulfa Antibiotics (Verified Allergy, Unknown, 09/16/18) Gabapentin (Verified Adverse Reaction, Intermediate, chest pain, 09/23/18) Hydrocodone (Verified Adverse Reaction, Intermediate, Nausea and Vomiting, 09/22/18) Vital Signs Vital Signs Date Time Temp Pulse Resp B/P (MAP) Pulse Ox O2 Delivery O2 Flow Rate FiO2 10/01/18 16:55 18 10/01/18 14:00 97.5 70 129/70 (89) 96 Laboratory Data CBC/BMP Laboratory Tests 10/01/18 07:19 Red Blood Count 3.41 L, Mean Corpuscular Volume 95.0, Mean Corpuscular Hemoglobin 29.6, Mean Corpuscular Hemoglobin Concent 31.2 L, Red Cell Distribution Width 13.3, Calcium Level 8.4 L Labs 24H Laboratory Tests 2 10/01/18 07:19: Nucleated Red Blood Cells % (auto) 0.0, Anion Gap 5L, Glomerular Filtration Rate 36.2, Blood Urea Nitrogen 36H, Creatinine 1.88H, Sodium Level 138, Potassium Level 4.6, Chloride Level 106, Carbon Dioxide Level 27, Calcium Level 8.4L, Magnesium Level 1.9 10/01/18 08:12: Prothrombin Time 25.5H, Prothromb Time International Ratio 2.27 Microbiology Microbiology 09/22/18 Urine Culture - Final, Complete Current Medications Current Medications Current Medications Acetaminophen (Tylenol Tab) 500 mg Q8H PRN PO fever/PAIN Last administered on 09/23/18 12:01; Start 09/22/18 at 15:30; Stop 09/23/18 at 16:18; Status DC Acetaminophen (Tylenol Tab) 1,000 mg TID PO Last administered on 10/01/18 15:06; Start 09/23/18 at 21:00 Amitriptyline HCl (Elavil) 25 mg QHS PO Last administered on 09/25/18 20:49; Start 09/24/18 at 21:00; Stop 09/26/18 at 17:21; Status DC Amitriptyline HCl (Elavil) 50 mg QHS PO Last administered on 09/30/18 20:14; Start 09/26/18 at 21:00 Ascorbic Acid (Vitamin C) 500 mg DAILY PO Last administered on 10/01/18 08:50; Start 09/23/18 at 09:00 Atorvastatin Calcium (Lipitor) 40 mg QHS PO Last administered on 09/30/18 20:14; Start 09/22/18 at 21:00 Bisacodyl (Dulcolax Suppository) 10 mg DAILYPRN PRN [place] CONSTIPATION; Start 09/22/18 at 15:15 Calcium Carbonate (Tums) 1,000 mg Q4HP PRN PO HEARTBURN; Start 09/22/18 at 15:30 Carvedilol (COReg) 3.125 mg DAILY PO Last administered on 10/01/18 08:52; Start 09/23/18 at 09:00 Cyanocobalamin (Vitamin B12) 1,000 mcg DAILY PO Last administered on 10/01/18 08:50; Start 09/23/18 at 09:00 Digoxin (Lanoxin) 0.125 mg MoWeFr@0900 PO Last administered on 10/01/18 08:51; Start 09/24/18 at 09:00 Docusate Sodium (Colace) 100 mg BID PO Last administered on 09/27/18 10:05; Start 09/22/18 at 21:00; Stop 09/27/18 at 11:52; Status DC Duloxetine HCl (Cymbalta) 30 mg DAILY PO Last administered on 10/01/18 08:50; Start 09/24/18 at 09:00 Gabapentin (Neurontin) 100 mg TID PO ; Start 09/23/18 at 21:00; Stop 09/24/18 at 14:12; Status DC Home Med (Med Rec Complete!) ASDIRECTED XX ; Start 09/27/18 at 12:30; Stop 09/27/18 at 12:38; Status DC Magnesium Hydroxide (Milk Of Magnesia) 30 ml DAILYPRN PRN PO CONSTIPATION; Start 09/22/18 at 15:15 Magnesium Oxide (Mag-Ox) 400 mg QHS PO Last administered on 09/30/18 20:14; Start 09/22/18 at 21:00 Meclizine HCl (Antivert) 12.5 mg BID PO Last administered on 10/01/18 08:52; Start 09/26/18 at 18:00 Meclizine HCl (Antivert) 25 mg Q8HP PRN PO DIZZINESS Last administered on 09/29/18 08:20; Start 09/22/18 at 15:30 Menthol/Methyl Salicylate (Bengay Cream) APPLY TO bilateral calves QID TOP Last administered on 10/01/18 15:06; Start 09/24/18 at 17:00 Nitroglycerin (Nitrostat (1/ 150)) 0.4 mg Q5MP PRN SL CHEST PAIN; Start 09/22/18 at 15:30 Omeprazole (PriLOSEC) 40 mg BID PO Last administered on 10/01/18 08:50; Start 09/22/18 at 21:00 Ondansetron HCl (Zofran) 4 mg Q6HP PRN PO NAUSEA Last administered on 09/25/18 10:21; Start 09/22/18 at 15:15 Oxycodone/ Acetaminophen (Percocet 5mg/ 325mg Tablet) 1 tab Q4HP PRN PO MODERATE PAIN (PS 5-7); Start 09/22/18 at 15:15; Stop 09/23/18 at 16:18; Status DC Oxycodone/ Acetaminophen (Percocet 5mg/ 325mg Tablet) 1 tab Q6HP PRN PO MILD/MODERATE PAIN (PS 1-7) Last administered on 10/01/18 16:25; Start 09/27/18 at 12:00 Oxycodone/ Acetaminophen (Percocet 5mg/ 325mg Tablet) 2 tab Q4HP PRN PO SEVERE PAIN (PS 8-10) Last administered on 09/23/18 09:05; Start 09/22/18 at 15:15; Stop 09/23/18 at 16:18; Status DC Senna (Senokot) 1 tab QHS PO Last administered on 09/30/18 20:15; Start 09/22/18 at 21:00 Senna/Docusate Sodium (Senokot S) 1 tab BID PO Last administered on 10/01/18 08:50; Start 09/27/18 at 21:00 Sodium Chloride 1,000 ml @ 70 mls/hr [id number] IV Last administered on 09/29/18 17:18; Start 09/29/18 at 20:00; Stop 09/30/18 at 09:18; Status DC Sucralfate (Carafate) 1 gm BID PO Last administered on 10/01/18 08:50; Start 09/22/18 at 21:00 Tizanidine HCl (Zanaflex) 2 mg Q8HP PRN PO headache Last administered on 09/28/18 09:40; Start 09/27/18 at 17:00 Vitamin D (Vitamin D) 2,000 units DAILY PO Last administered on 10/01/18 08:51; Start 09/23/18 at 09:00 Warfarin Sodium (Coumadin) 1.5 mg Mo@1700 PO Last administered on 09/22/18 16:30; Start 09/22/18 at 17:00; Stop 09/27/18 at 08:01; Status DC Warfarin Sodium (Coumadin) 2 mg SuTuWeThFrSa@1700 PO Last administered on 09/25/18 17:10; Start 09/23/18 at 17:00; Stop 09/26/18 at 10:22; Status DC Warfarin Sodium (Coumadin) 2.5 mg SuTuWeThFrSa@1700 PO Last administered on 3 /1/19at 17:22; Start 09/26/18 at 17:00; Stop 09/27/18 at 08:01; Status DC Warfarin Sodium (Coumadin) 3 mg DAILY@17 PO Last administered on 09/27/18at 17:07; Start 09/27/18 at 17:00; Stop 09/28/18 at 08:19; Status DC Warfarin Sodium (Coumadin) 3 mg DAILY@17 PO Last administered on 10/01/18at 16:25; Start 10/01/18 at 17:00 Warfarin Sodium (Coumadin) 3 mg SuTuWeThFrSa@1700 PO ; Start 09/23/18 at 17:00; Stop 09/23/18 at 17:00; Status DC Warfarin Sodium (Coumadin) 5 mg DAILY@17 PO Last administered on 09/30/18at 17:09; Start 09/28/18 at 17:00; Stop 10/01/18 at 13:13; Status DC OK HARRISON MD Oct 01, 2018 20:29
[2018-10-01] MEDS: AMITRIPTYLINE 50 MG TAB PO SCH (20:48)
[2018-10-01] MEDS: SENNA 8.6 MG TAB (SENOKOT) PO SCH (20:48)
[2018-10-01] MEDS: MAGNESIUM OXIDE 400 MG TAB (MAG-OX) PO SCH (20:49)
[2018-10-01] MEDS: ATORVASTATIN 20 MG TAB PO SCH (20:49)
[2018-10-02] MEDS: PERCOCET 5MG/325MG TAB PO PRN ×3 (05:21→22:50)
[2018-10-02 06:00] VITALS: BP 128/82
[2018-10-02 08:15] LABS: HEMATOCRIT 32.4 % (42.0-52.0); HEMOGLOBIN 10.2 g/dl (13.5-17.5); MEAN CORPUSCULAR HEMOGLOBIN 29.9 pg (27.0-33.0); MEAN CORPUSCULAR HGB CONC 31.5 g/dl (32.0-36.5); PLATELET COUNT, AUTOMATED 286 10^3/uL (150-450); RED BLOOD COUNT 3.41 10^6/uL (4.30-6.10); WHITE BLOOD COUNT 6.3 10^3/uL (4.0-10.0)
[2018-10-02 08:27] LABS: INR 2.26; PROTHROMBIN TIME 25.4 SECONDS (12.1-14.4)
[2018-10-02 08:28] LABS: CALCIUM LEVEL 8.8 MG/DL (8.8-10.2); CREATININE FOR GFR 1.9 MG/DL (0.70-1.30); GLOMERULAR FILTRATION RATE 35.8 (>35); POTASSIUM SERUM 5.2 MEQ/L (3.5-5.1)
[2018-10-02] MEDS: CYANOCOBALAMIN 500 MCG TAB PO SCH (08:56)
[2018-10-02] MEDS: MECLIZINE 12.5 MG TAB PO SCH ×2 (08:57→20:47)
[2018-10-02] MEDS: CARVedilol 3.125 MG TAB PO SCH (08:57)
[2018-10-02] MEDS: ACETAMINOPHEN 500 MG TAB PO SCH ×3 (08:57→20:47)
[2018-10-02] MEDS: SENOKOT S TAB PO SCH ×2 (08:57→20:47)
[2018-10-02] MEDS: DULoxetine 30 MG CAP (CYMBALTA) PO SCH (08:57)
[2018-10-02] MEDS: VITAMIN D 1,000 INTERNATIONAL UNITS TABLET PO SCH (08:58)
[2018-10-02] MEDS: OMEPRAZOLE 20 MG CAP PO SCH ×2 (08:58→20:46)
[2018-10-02] MEDS: ANALGESIC BALM CRM 120 GM TOP SCH ×4 (08:58→20:48)
[2018-10-02] MEDS: ASCORBIC ACID 500 MG TAB PO SCH (08:58)
[2018-10-02] MEDS: SUCRALFATE 1 GM TAB PO SCH ×2 (08:58→20:46)
[2018-10-02 14:00] VITALS: BP 112/61
--- NOTE | 2018-10-02 14:01 | IPNPDOC ---
Date Seen The patient was seen on 10/02/18. Progress Note HPI: 88year oldM who on 09/07/2018 fell on ice on his right side, sustained a right proximal humeral fracture and hairline fracture of his right femoral neck. Orthopedics saw at the time and did not recommend any surgical intervention and he was discharged home. The pt returned to the ED and was admitted 09/16/18- 09/22/18 related to pain and difficulty ambulating. The pt was followed by Orthopedics and pain management during his hospitalization as well. The pt was transferred to the care of [facility]U, Dr Silva, 09/22/18. The pt is OOB to chair. Denies abdominal pain, N/V. Denies any fevers, chills, weakness, fatigue, Headache, Chest Pain, Shortness of breath, cough, palpitations, changes in bowel/bladder habits. PMHx: Chronic LBP Lumbar stenosis OA [place]. CPAP. Meniere's disease CAD/ALEJA x 2 2011. GERD CKD3 HLD HTN PAF/Pacemaker Follows with [facility]. Chronic [place]. [facility], Dr Dubon. BPH/LUTS 09/07/2018, fell on the ice on his right side, sustained a right proximal humeral fracture and hairline fracture of his right femoral neck. 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 RIGHT ROTATOR CUFF REPAIR 04/2015 PACEMAKER 02/2015 GREEN LIGHT LASER ABLATION OF THE PROSTATE GLAND 12/04/2016 Lumbar laminectomy [place] 09/02/17 PE: GEN: 88yoM, appears stated age. Well-nourished, well developed. No acute distress. Alert and oriented x 3. HEENT: Normocephalic, atraumatic. Moist mucous membranes. CHEST: Regular rate and rhythm, +S1, +S2 LUNGS: Clear to auscultation bilaterally. No wheezes, rales, or rhonchi. ABD: Round, soft, non-tender, non-distended. +Bowel sounds throughout. EXT: No lower extremity edema appreciated. RUE in a sling. SKIN: [place]ubie[place], dry, warm. No rashes. NEURO: Alert and oriented x 3. No focal deficits appreciated. A&P: 88year oldM who on 09/07/2018 fell on ice on his right side, sustained a right proximal humeral fracture and hairline fracture of his right femoral neck. Orthopedics saw at the time and did not recommend any surgical intervention and he was discharged home. The pt returned to the ED and was admitted 09/16/18- 09/22/18 related to pain and difficulty ambulating. The pt was followed by Orthopedics and pain management during his hospitalization as well. The pt was transferred to the care of Dr Ricardo SALVADOR, 09/22/18. 1. Mechanical Fall on ice on his right side, sustained a right proximal humeral fracture and hairline fracture of his right femoral neck. No surgical intervention recommended as per Orthopedic surgery. Continue F/U with Orthopedics. WB as per Orthopedics. PT/OT/ST as per Dr Ricardo SALVADOR. Pain control as per Dr Ricardo SALVADOR. Consider pain mgmt consultation if needed. Pt follows as outpt with [facility]. Pt intolerant to gabapentin. Cymbalta and Elavil added as per Dr Silva. Percocet restarted 09/27/18. Bowel care as per Dr Ricardo SALVADOR. DVT prophylaxis. Pt remains on Coumadin. INR 2.26. Coumadin 3 mg daily. Adjust pending daily INR. 2. Paroxysmal atrial fibrillation: Patient is anticoagulated with Coumadin, INR 2.26. Coumadin dose adjusted to 3 mg daily. Monitor INR in AM. Status post pacer. Rate controlled with digoxin and carvedilol. 3. History of Mnire's: Continue with meclizine as needed. 4. Dyslipidemia: Continue with Lipitor 5. Gastroesophageal reflux disease: Continue with omeprazole and Carafate 6. Chronic kidney disease 3 Scr 1.[address] Pelvis 09/17/18 indicated B/L cysts. Abd U/S 09/24/18 Possible right hydronephrosis versus extrarenal pelvis may also be evaluated by CT. Discussed with Nephrology, Dr Vera, who also reviewed imaging. He also reviewed imaging in office chart from 2014 which is similar to these images from 09/17 and 09/24. Plan is for outpt F/U. Nephrology consulted, IVF given, Pt renal function has returned to baseline. Monitor BMP in AM. 7. Hyponatremia: Resolved Possibly previously related to hypovolemia. Na 139. Stable, encourage po intake. 8. Anemia: Hgb 10.2. Fe studies, B12, folate 09/06/17. FOB neg 09/08/18. Pt continues with B12 supplement. Monitor. 9. [place]. CPAP with home settings. 10. Chronic HAs. Follows with [facility], Dr Holland. 11. Chronic pain. Percocet as outpt. This was restarted 09/27/18. Pain control as above. Pt intolerant to Gabapentin. Cymbalta and Elavil added as per Dr Silva. Follows as outpt with [facility]. 12. H/O BPH. as per record Pt has not been taking Proscar or Flomax recently. Denies urinary complaints. Monitor. 13. Elevated LFTS. Downtrending. Pt with no abdominal pain reported. hepatitis profile neg. Abd U/S Gallbladder with tumefactive sludge versus mass with chronic wall thickening. Recommended consider follow up contrast enhanced CT of the abdomen. Discussed with Nephrology proceeding with CT with contrast as recommended per surgery consultation. Risks/benefits were discussed with the pt as per Nephrology. Pt/ re iterate again today that they do not wish to pursue further testing at this time. Unable to obtain MR related to pacemaker. Outpt f/u. 14. Hyperkalemia. K 5.2. Possibly hemolyzed. Recheck in AM. VS, I&O, 24H, Fishbone Vital Signs/I&O Vital Signs Date Time Temp Pulse Resp B/P (MAP) Pulse Ox O2 Delivery O2 Flow Rate FiO2 10/02/18 08:57 68 128/82 10/02/18 06:00 96.6 18 95 I&O- Last 24 Hours up to 6 AM 10/02/18 06:00 Intake Total 1650 ml Output Total 0 ml Balance 1650 ml Laboratory Data 24H LABS Laboratory Tests 2 10/02/18 07:21: Nucleated Red Blood Cells % (auto) 0.0, Prothrombin Time 25.4H, Prothromb Time International Ratio 2.26, Anion Gap 6L, Glomerular Filtration Rate 35.8, Blood Urea Nitrogen 34H, Creatinine 1.90H, Sodium Level 139, Potassium Level 5.2H, Chloride Level 107, Carbon Dioxide Level 26, Calcium Level 8.8, Magnesium Level 2.0 CBC/BMP Laboratory Tests 10/02/18 07:21 Red Blood Count 3.41 L, Mean Corpuscular Volume 95.0, Mean Corpuscular Hemoglobin 29.9, Mean Corpuscular Hemoglobin Concent 31.5 L, Red Cell Distri bution Width 13.3, Calcium Level 8.8 Microbiology Microbiology 09/22/18 Urine Culture - Final, Complete Shabnam Calhoun Oct 02, 2018 14:01
[2018-10-02] MEDS: WARFARIN SOD 3 MG TAB PO SCH (16:38)
[2018-10-02 20:00] VITALS: BP 120/79
[2018-10-02] MEDS: MAGNESIUM OXIDE 400 MG TAB (MAG-OX) PO SCH (20:46)
[2018-10-02] MEDS: SENNA 8.6 MG TAB (SENOKOT) PO SCH (20:46)
[2018-10-02] MEDS: ATORVASTATIN 20 MG TAB PO SCH (20:47)
[2018-10-02] MEDS: AMITRIPTYLINE 50 MG TAB PO SCH (20:47)
[2018-10-03 06:00] VITALS: BP 129/85
--- NOTE | 2018-10-03 06:48 | CR ---
DATE OF CONSULTATION: 10/02/2018 REASON FOR CONSULTATION: Elevated liver function tests, possible abnormal gallbladder by ultrasound. HISTORY OF PRESENT ILLNESS: The patient is an 88-year-old man who is currently residing on the physical medicine and rehabilitation unit for rehabilitation of a right humerus and the right femoral greater trochanter fracture. The patient had apparently fallen on his right side after slipping on ice back on September 12. He had been seen at [facility]. An x-ray revealed a right humerus fracture as well as a greater trochanter fracture of the right hip. He was discharged home to follow up in the office. He saw Holli Souza on the and he was subsequently admitted to the hospital on September 17. This was after he returned to the emergency department. The patient apparently has had not been able to ambulate at home. He was admitted by the hospitalist and managed for multiple medical issues and then transferred by discharge to the rehabilitation unit on the . After transfer to the rehabilitation unit, he had laboratory studies obtained which included liver function tests. These showed on the a total bilirubin of 1.2, AST 107, ALT 116, and alkaline phosphatase of 185. These remained elevated on the and I have been asked to see the patient. He did have a gallbladder ultrasound obtained on September 24 which was interpreted by the radiologist as showing a gallbladder with a large amount of internal echogenic material without shadowing suggesting the possibility of mass verses tumefactive sludge. There was some gallbladder wall thickening noted. There was no tenderness identified over the gallbladder. Because of his liver function test abnormalities and abnormal ultrasound, I was consulted. ALLERGIES: - SULFA DRUGS - HYDROCODONE, which leads to nausea and vomiting MEDICATIONS: Are as listed in the medical record. MEDICAL HISTORY: Significant for atrial fibrillation, coronary artery disease, chronic kidney disease stage III, chronic low back pain and Meniere's disease. SURGICAL HISTORY: Significant for appendectomy. He has had a right inguinal hernia. 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 He has had surgery for Dupuytren contracture of the left hand twice. He has had bilateral cataract surgery. He had a right rotator cuff repair. He has had a previous hemorrhoidectomy. In 2017, he also underwent a laser vaporization of his prostate. FAMILY/SOCIAL HISTORY/REVIEW OF SYSTEMS: Are as noted by the admitting physician. The patient does deny any history of abdominal pain. He has not noticed any jaundice. He denies any history of hepatitis, pancreatitis, or peptic ulcer disease. PHYSICAL EXAMINATION: The patient is an elderly gentleman lying quietly on the hospital bed. He is alert and oriented. Skin is warm and dry. Sclerae are anicteric. Heart exam shows a regular rate and rhythm. Lungs are clear to auscultation bilaterally. The abdomen is flat. He has active bowel sounds in all four quadrants. The abdomen shows no tenderness to percussion. There is no tympany to percussion. The abdomen is soft and nontender without appreciable mass. LABORATORY STUDIES: Show a white count of 9, hemoglobin 10, hematocrit of 30 and a platelet count of 245,000. Chemistry profile from the shows normal electrolytes with BUN of 40, creatinine 1.7 and a glucose of 119. Liver function tests on the show a total bilirubin of 0.9, AST 30, ALT 92 and an alkaline phosphatase of 190. These are slightly improved from the levels on the . Hepatitis serologies from September 24 showed no evidence to suggest hepatitis A, B or C infection. His abdominal ultrasound from September 24 was reviewed. He does appear to have a large amount of debris or material within the gallbladder. IMPRESSION: The patient has some elevations of his liver function tests which were just noted on September 23 after he was transferred from the inpatient medicine service to the rehabilitation floor. He apparently did not have any liver function tests obtained during his stay on the medicine service. The etiology of his elevated liver function tests is not clear. It could be that these represent trauma to the liver versus some sort of viral illness or drug effect. Certainly it is possible that he could have some sort of liver or gallbladder tumor. He certainly does not behave as somebody who has acute cholecystitis or cholangitis. RECOMMENDATIONS: I discussed with the patient the possibility of obtaining a CT scan of the abdomen and pelvis to evaluate his liver and gallbladder. He seems agreeable with this plan. Though his baseline renal function is elevated, his estimated glomerular filtration rate is high enough that he would be unlikely to suffer any problems from a CT scan with contrast. I will plan on scheduling a CT scan of the abdomen and pelvis with contrast as followup of his liver and gallbladder issues.
[2018-10-03 07:14] LABS: HEMATOCRIT 31.7 % (42.0-52.0); HEMOGLOBIN 10.1 g/dl (13.5-17.5); MEAN CORPUSCULAR HEMOGLOBIN 29.9 pg (27.0-33.0); MEAN CORPUSCULAR HGB CONC 31.9 g/dl (32.0-36.5); MEAN CORPUSCULAR VOLUME 93.8 fl (80.0-96.0); PLATELET COUNT, AUTOMATED 273 10^3/uL (150-450); RED BLOOD COUNT 3.38 10^6/uL (4.30-6.10); WHITE BLOOD COUNT 6.3 10^3/uL (4.0-10.0)
[2018-10-03 07:24] LABS: INR 2.7; PROTHROMBIN TIME 29.3 SECONDS (12.1-14.4)
[2018-10-03 07:41] LABS: CALCIUM LEVEL 8.4 MG/DL (8.8-10.2); CREATININE FOR GFR 1.97 MG/DL (0.70-1.30); GLOMERULAR FILTRATION RATE 34.3 (>35); MAGNESIUM LEVEL 2.1 MG/DL (1.8-2.4)
[2018-10-03] MEDS: CYANOCOBALAMIN 500 MCG TAB PO SCH (08:18)
[2018-10-03] MEDS: OMEPRAZOLE 20 MG CAP PO SCH ×2 (08:18→21:07)
[2018-10-03] MEDS: SUCRALFATE 1 GM TAB PO SCH ×2 (08:18→21:07)
[2018-10-03] MEDS: DULoxetine 30 MG CAP (CYMBALTA) PO SCH (08:18)
[2018-10-03] MEDS: CARVedilol 3.125 MG TAB PO SCH (08:18)
[2018-10-03] MEDS: ASCORBIC ACID 500 MG TAB PO SCH (08:18)
[2018-10-03] MEDS: ACETAMINOPHEN 500 MG TAB PO SCH ×3 (08:18→21:08)
[2018-10-03] MEDS: SENOKOT S TAB PO SCH ×2 (08:18→21:07)
[2018-10-03] MEDS: VITAMIN D 1,000 INTERNATIONAL UNITS TABLET PO SCH (08:18)
[2018-10-03] MEDS: MECLIZINE 12.5 MG TAB PO SCH ×2 (08:19→21:07)
[2018-10-03] MEDS: ANALGESIC BALM CRM 120 GM TOP SCH ×4 (08:19→21:08)
[2018-10-03] MEDS: DIGOXIN 0.125 MG TAB PO SCH (08:19)
[2018-10-03] MEDS: PERCOCET 5MG/325MG TAB PO PRN ×2 (09:55→22:16)
[2018-10-03 14:00] VITALS: BP 122/79
[2018-10-03] MEDS: WARFARIN SOD 2.5 MG TAB PO SCH (16:15)
--- NOTE | 2018-10-03 17:03 | IPNPDOC ---
PM&R Progress Note DATE OF SERVICE: Oct 02, 2018 Patient Safety Coordinator Progress Note Subjective: Patient requesting he see Dr. Prather for orthopedics as outpatient. REVIEW OF SYSTEMS: The following is a completed review of systems and has been reviewed. Review of systems otherwise unremarkable. PAIN: Patient self reports bilateral groin and calf pain EYES: no recent changes in vision, no eye pain EARS, NOSE, & THROAT: no rhinorrhea, throat pain or dysphagia CARDIOVASCULAR:denies chest pain or palpitations PULMONARY: Negative. Denies shortness of breath GASTROINTESTINAL: Negative for constipation or diarrhea GENITOURINARY: Negative for hematuria or dysuria MUSCULOSKELETAL: right humeral and right femur fracture NEUROLOGICAL: no tremor or seizures SKIN: no rashes PSYCHIATRIC: Unremarkable All other review of systems found to be negative. PHYSICAL EXAMINATION: VITAL SIGNS: Please see below. GENERAL: Pleasant and cooperative. No acute distress. HEENT: PERRL. Extraocular movements intact. Clear conjunctiva, +glasses CARDIOVASCULAR: Regular rate and rhythm. No murmurs, rubs, or gallops, +PM LUNGS: Clear to auscultation bilaterally. No wheezes. No rhonchi ABDOMEN: Soft, nontender, nondistended. Positive bowel sounds. Normal active bowel sound NEUROLOGICAL: Alert and oriented times three. Cranial nerves II through XII grossly intact. Sensation grossly intact including right hand EXTREMITIES: 5\\5 strength left upper extremities. 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 PLAN: 1. Rehab: PT/OT assess for DMEs, ambulating furterh with quad cane 2. Ortho: s/p right greater trochanteric fracture and right humeral neck fracture, NWB to RUE and PWB to RLE- ortho consulted 3. Neuro: stable, hx of Meniere's meclizine ordered prn 4. CArdio: pmh Afib with pacemaker, continue digoxin, warfarin, and carvedilol- medicine consulted -HLD on statin 5. Resp: encourage incentive spirometry 6. 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 Pain: d/c'd percocet due to nausea, however restarted by medicine, continue standing Tylenol, continue Cymbalta and avoid gabapentin as patient reports having gynecomastia from this -will increase Elavil qHS for neuropathic pain and continue menthol salicylate rub for calves 8. GI: Patient with mildly elevated liver enzymes, US ordered medicine showing " Gallbladder with tumefactive sludge versus mass with chronic wall thickening..." -spoke with Dr. Stephenson who recommended a surgical consult to discuss the possibility of gallbladder mass, surgery consulted would need CT with contrast, however will hold off for now given kidney function-can be managed outpatient if needed -ppx continue Prilosec 9. DVT ppx: on Warfarin 10. Dispo: 10/06/18 to home, progressing towards goals Allergies Coded Allergies: Sulfa Antibiotics (Verified Allergy, Unknown, 09/16/18) Gabapentin (Verified Adverse Reaction, Intermediate, chest pain, 09/23/18) Hydrocodone (Verified Adverse Reaction, Intermediate, Nausea and Vomiting, 09/22/18) Vital Signs Vital Signs Date Time Temp Pulse Resp B/P (MAP) Pulse Ox O2 Delivery O2 Flow Rate FiO2 10/03/18 14:00 98.3 80 18 122/79 (93) 93 Laboratory Data CBC/BMP Laboratory Tests 10/03/18 06:46 Red Blood Count 3.38 L, Mean Corpuscular Volume 93.8, Mean Corpuscular Hemoglobin 29.9, Mean Corpuscular Hemoglobin Concent 31.9 L, Red Cell Distribution Width 13.6, Calcium Level 8.4 L Labs 24H Laboratory Tests 2 10/03/18 06:46: Nucleated Red Blood Cells % (auto) 0.0, Prothrombin Time 29.3H, Prothromb Time International Ratio 2.70, Anion Gap 5L, Glomerular Filtration Rate 34.3L, Blood Urea Nitrogen 34H, Creatinine 1.97H, Sodium Level 138, Potassium Level 5.0, Chloride Level 106, Carbon Dioxide Level 27, Calcium Level 8.4L, Magnesium Level 2.1 Current Medications Current Medications Current Medications Acetaminophen (Tylenol Tab) 500 mg Q8H PRN PO fever/PAIN Last administered on 09/23/18 12:01; Start 09/22/18 at 15:30; Stop 09/23/18 at 16:18; Status DC Acetaminophen (Tylenol Tab) 1,000 mg TID PO Last administered on 10/03/18 16:15; Start 09/23/18 at 21:00 Amitriptyline HCl (Elavil) 25 mg QHS PO Last administered on 09/25/18 20:49; Start 09/24/18 at 21:00; Stop 09/26/18 at 17:21; Status DC Amitriptyline HCl (Elavil) 50 mg QHS PO Last administered on 10/02/18 20:47; Start 09/26/18 at 21:00 Ascorbic Acid (Vitamin C) 500 mg DAILY PO Last administered on 10/03/18 08:18; Start 09/23/18 at 09:00 Atorvastatin Calcium (Lipitor) 40 mg QHS PO Last administered on 10/02/18 20:47; Start 09/22/18 at 21:00 Bisacodyl (Dulcolax Suppository) 10 mg DAILYPRN PRN [place] CONSTIPATION; Start 09/22/18 at 15:15 Calcium Carbonate (Tums) 1,000 mg Q4HP PRN PO HEARTBURN; Start 09/22/18 at 15:30 Carvedilol (COReg) 3.125 mg DAILY PO Last administered on 10/03/18 08:18; Start 09/23/18 at 09:00 Cyanocobalamin (Vitamin B12) 1,000 mcg DAILY PO Last administered on 10/03/18 08:18; Start 09/23/18 at 09:00 Digoxin (Lanoxin) 0.125 mg MoWeFr@0900 PO Last administered on 10/03/18 08:19; Start 09/24/18 at 09:00 Docusate Sodium (Colace) 100 mg BID PO Last administered on 09/27/18 10:05; Start 09/22/18 at 21:00; Stop 09/27/18 at 11:52; Status DC Duloxetine HCl (Cymbalta) 30 mg DAILY PO Last administered on 10/03/18 08:18; Start 09/24/18 at 09:00 Gabapentin (Neurontin) 100 mg TID PO ; Start 09/23/18 at 21:00; Stop 09/24/18 at 14:12; Status DC Home Med (Med Rec Complete!) ASDIRECTED XX ; Start 09/27/18 at 12:30; Stop 09/27/18 at 12:38; Status DC Magnesium Hydroxide (Milk Of Magnesia) 30 ml DAILYPRN PRN PO CONSTIPATION Last administered on 10/02/18 12:19; Start 09/22/18 at 15:15 Magnesium Oxide (Mag-Ox) 400 mg QHS PO Last administered on 10/02/18at 20:46; Start 09/22/18 at 21:00 Meclizine HCl (Antivert) 12.5 mg BID PO Last administered on 10/03/18 08:19; Start 09/26/18 at 18:00 Meclizine HCl (Antivert) 25 mg Q8HP PRN PO DIZZINESS Last administered on 9at 08:20; Start 09/22/18 at 15:30 Menthol/Methyl Salicylate (Bengay Cream) APPLY TO bilateral calves QID TOP Last administered on 10/03/18at 16:16; Start 09/24/18 at 17:00 Miscellaneous (Unresolved Clarification Entry) SEE LABEL COMMENTS DAILY XX ; Start 10/03/18 at 09:00 Nitroglycerin (Nitrostat (1/ 150)) 0.4 mg Q5MP PRN SL CHEST PAIN; Start 09/22/18 at 15:30 Omeprazole (PriLOSEC) 40 mg BID PO Last administered on 10/03/18 08:18; Start 09/22/18 at 21:00 Ondansetron HCl (Zofran) 4 mg Q6HP PRN PO NAUSEA Last administered on 09/25/18at 10:21; Start 09/22/18 at 15:15 Oxycodone/ Acetaminophen (Percocet 5mg/ 325mg Tablet) 1 tab Q4HP PRN PO MODERATE PAIN (PS 5-7); Start 09/22/18 at 15:15; Stop 09/23/18 at 16:18; Status DC Oxycodone/ Acetaminophen (Percocet 5mg/ 325mg Tablet) 1 tab Q6HP PRN PO MILD/MODERATE PAIN (PS 1-7) Last administered on 10/03/18 09:55; Start 09/27/18 at 12:00 Oxycodone/ Acetaminophen (Percocet 5mg/ 325mg Tablet) 2 tab Q4HP PRN PO SEVERE PAIN (PS 8-10) Last administered on 09/23/18 09:05; Start 09/22/18 at 15:15; Stop 09/23/18 at 16:18; Status DC Senna (Senokot) 1 tab QHS PO Last administered on 10/02/18 20:46; Start 09/22/18 at 21:00 Senna/Docusate Sodium (Senokot S) 1 tab BID PO Last administered on 10/03/18 08:18; Start 09/27/18 at 21:00 Sodium Chloride 1,000 ml @ 70 mls/hr [id number] IV Last administered on 09/29/18 17:18; Start 09/29/18 at 20:00; Stop 09/30/18 at 09:18; Status DC Sucralfate (Carafate) 1 gm BID PO Last administered on 10/03/18 08:18; Start 09/22/18 at 21:00 Tizanidine HCl (Zanaflex) 2 mg Q8HP PRN PO headache Last administered on 09/28 09:40; Start 09/27/18 at 17:00 Vitamin D (Vitamin D) 2,000 units DAILY PO Last administered on 10/03/18 08:18; Start 09/23/18 at 09:00 Warfarin Sodium (Coumadin) 1.5 mg Mo@1700 PO Last administered on 09/22/18 16:30; Start 09/22/18 at 17:00; Stop 09/27/18 at 08:01; Status DC Warfarin Sodium (Coumadin) 2 mg SuTuWeThFrSa@1700 PO Last administered on 09/25/18 17:10; Start 09/23/18 at 17:00; Stop 09/26/18 at 10:22; Status DC Warfarin Sodium (Coumadin) 2.5 mg DAILY@17 PO Last administered on 10/03/18 16:15; Start 10/03/18 at 17:00 Warfarin Sodium (Coumadin) 2.5 mg SuTuWeThFrSa@1700 PO Last administered on 09/26/18at 17:22; Start 09/26/18 at 17:00; Stop 09/27/18 at 08:01; Status DC Warfarin Sodium (Coumadin) 3 mg DAILY@17 PO Last administered on 09/27/18at 17:07; Start 09/27/18 at 17:00; Stop 09/28/18 at 08:19; Status DC Warfarin Sodium (Coumadin) 3 mg DAILY@17 PO Last administered on 10/02/18at 16:38; Start 10/01/18 at 17:00; Stop 10/03/18 at 12:10; Status DC Warfarin Sodium (Coumadin) 3 mg SuTuWeThFrSa@1700 PO ; Start 09/23/18 at 17:00; Stop 09/23/18 at 17:00; Status DC Warfarin Sodium (Coumadin) 5 mg DAILY@17 PO Last administered on 09/30/18 17:09; Start 09/28/18 at 17:00; Stop 10/01/18 at 13:13; Status DC OK HARRISON MD Oct 03, 2018 17:02
--- NOTE | 2018-10-03 17:06 | IPNPDOC ---
PM&R Progress Note DATE OF SERVICE: Oct 03, 2018 Palliative Care Physician Progress Note Subjective: Patient upset he did not get ice for his legs last night and would like it ordered for the evening. REVIEW OF SYSTEMS: The following is a completed review of systems and has been reviewed. Review of systems otherwise unremarkable. PAIN: Patient self reports bilateral groin and calf pain EYES: no recent changes in vision, no eye pain EARS, NOSE, & THROAT: no rhinorrhea, throat pain or dysphagia CARDIOVASCULAR:denies chest pain or palpitations PULMONARY: Negative. Denies shortness of breath GASTROINTESTINAL: Negative for constipation or diarrhea GENITOURINARY: Negative for hematuria or dysuria MUSCULOSKELETAL: right humeral and right femur fracture NEUROLOGICAL: no tremor or seizures SKIN: no rashes PSYCHIATRIC: Unremarkable All other review of systems found to be negative. PHYSICAL EXAMINATION: VITAL SIGNS: Please see below. GENERAL: Pleasant and cooperative. No acute distress. HEENT: PERRL. Extraocular movements intact. Clear conjunctiva, +glasses CARDIOVASCULAR: Regular rate and rhythm. No murmurs, rubs, or gallops, +PM LUNGS: Clear to auscultation bilaterally. No wheezes. No rhonchi ABDOMEN: Soft, nontender, nondistended. Positive bowel sounds. Normal active bowel sound NEUROLOGICAL: Alert and oriented times three. Cranial nerves II through XII grossly intact. Sensation grossly intact including right hand EXTREMITIES: 5\\5 strength left upper extremities. 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 PLAN: 1. Rehab: PT/OT assess for DMEs, ambulating further with quad cane, mod I with most ADLs 2. Ortho: s/p right greater trochanteric fracture and right humeral neck fracture, NWB to RUE and PWB to RLE- ortho consulted 3. Neuro: stable, hx of Meniere's meclizine ordered prn 4. CArdio: pmh Afib with pacemaker, continue digoxin, warfarin, and carvedilol- medicine consulted -HLD on statin 5. Resp: encourage incentive spirometry 6. 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 Pain: d/c'd percocet due to nausea, however restarted by medicine, continue standing Tylenol, continue Cymbalta and avoid gabapentin as patient reports having gynecomastia from this -will increase Elavil qHS for neuropathic pain and continue menthol salicylate rub for calves 8. GI: Patient with mildly elevated liver enzymes, US ordered medicine showing " Gallbladder with tumefactive sludge versus mass with chronic wall thickening..." -spoke with Dr. Stephenson who recommended a surgical consult to discuss the possibility of gallbladder mass, surgery consulted would need CT with contrast, however will hold off for now given kidney function-can be managed outpatient if needed -ppx continue Prilosec 9. DVT ppx: on Warfarin 10. Dispo: 10/06/18 to home, progressing towards goals Allergies Coded Allergies: Sulfa Antibiotics (Verified Allergy, Unknown, 09/16/18) Gabapentin (Verified Adverse Reaction, Intermediate, chest pain, 09/23/18) Hydrocodone (Verified Adverse Reaction, Intermediate, Nausea and Vomiting, 09/22/18) Vital Signs Vital Signs Date Time Temp Pulse Resp B/P (MAP) Pulse Ox O2 Delivery O2 Flow Rate FiO2 10/03/18 14:00 98.3 80 18 122/79 (93) 93 Laboratory Data CBC/BMP Laboratory Tests 10/03/18 06:46 Red Blood Count 3.38 L, Mean Corpuscular Volume 93.8, Mean Corpuscular Hemoglobin 29.9, Mean Corpuscular Hemoglobin Concent 31.9 L, Red Cell Distribution Width 13.6, Calcium Level 8.4 L Labs 24H Laboratory Tests 2 10/03/18 06:46: Nucleated Red Blood Cells % (auto) 0.0, Prothrombin Time 29.3H, Prothromb Time International Ratio 2.70, Anion Gap 5L, Glomerular Filtration Rate 34.3L, Blood Urea Nitrogen 34H, Creatinine 1.97H, Sodium Level 138, Potassium Level 5.0, Chlo ride Level 106, Carbon Dioxide Level 27, Calcium Level 8.4L, Magnesium Level 2.1 Current Medications Current Medications Current Medications Acetaminophen (Tylenol Tab) 500 mg Q8H PRN PO fever/PAIN Last administered on 09/23/18 12:01; Start 09/22/18 at 15:30; Stop 09/23/18 at 16:18; Status DC Acetaminophen (Tylenol Tab) 1,000 mg TID PO Last administered on 10/03/18 16:15; Start 09/23/18 at 21:00 Amitriptyline HCl (Elavil) 25 mg QHS PO Last administered on 09/25/18 20:49; Start 09/24/18 at 21:00; Stop 09/26/18 at 17:21; Status DC Amitriptyline HCl (Elavil) 50 mg QHS PO Last administered on 10/02/18 20:47; Start 09/26/18 at 21:00 Ascorbic Acid (Vitamin C) 500 mg DAILY PO Last administered on 10/03/18 08:18; Start 09/23/18 at 09:00 Atorvastatin Calcium (Lipitor) 40 mg QHS PO Last administered on 10/02/18 20:47; Start 09/22/18 at 21:00 Bisacodyl (Dulcolax Suppository) 10 mg DAILYPRN PRN [place] CONSTIPATION; Start 09/22/18 at 15:15 Calcium Carbonate (Tums) 1,000 mg Q4HP PRN PO HEARTBURN; Start 09/22/18 at 15:30 Carvedilol (COReg) 3.125 mg DAILY PO Last administered on 10/03/18 08:18; Start 09/23/18 at 09:00 Cyanocobalamin (Vitamin B12) 1,000 mcg DAILY PO Last administered on 10/03/18 08:18; Start 09/23/18 at 09:00 Digoxin (Lanoxin) 0.125 mg MoWeFr@0900 PO Last administered on 10/03/18 08:19; Start 09/24/18 at 09:00 Docusate Sodium (Colace) 100 mg BID PO Last administered on 09/27/18 10:05; Start 09/22/18 at 21:00; Stop 09/27/18 at 11:52; Status DC Duloxetine HCl (Cymbalta) 30 mg DAILY PO Last administered on 10/03/18 08:18; Start 09/24/18 at 09:00 Gabapentin (Neurontin) 100 mg TID PO ; Start 09/23/18 at 21:00; Stop 09/24/18 at 14:12; Status DC Home Med (Med Rec Complete!) ASDIRECTED XX ; Start 09/27/18 at 12:30; Stop 09/27/18 at 12:38; Status DC Magnesium Hydroxide (Milk Of Magnesia) 30 ml DAILYPRN PRN PO CONSTIPATION Last administered on 10/02/18 12:19; Start 09/22/18 at 15:15 Magnesium Oxide (Mag-Ox) 400 mg QHS PO Last administered on 10/02/18 20:46; Start 09/22/18 at 21:00 Meclizine HCl (Antivert) 12.5 mg BID PO Last administered on 10/03/18 08:19; Start 09/26/18 at 18:00 Meclizine HCl (Antivert) 25 mg Q8HP PRN PO DIZZINESS Last administered on 09/29/18 08:20; Start 09/22/18 at 15:30 Menthol/Methyl Salicylate (Bengay Cream) APPLY TO bilateral calves QID TOP Last administered on 10/03/18 16:16; Start 09/24/18 at 17:00 Miscellaneous (Unresolved Clarification Entry) SEE LABEL COMMENTS DAILY XX ; Start 10/03/18 at 09:00 Nitroglycerin (Nitrostat (1/ 150)) 0.4 mg Q5MP PRN SL CHEST PAIN; Start 09/22/18 at 15:30 Omeprazole (PriLOSEC) 40 mg BID PO Last administered on 10/03/18 08:18; Start 09/22/18 at 21:00 Ondansetron HCl (Zofran) 4 mg Q6HP PRN PO NAUSEA Last administered on 09/25/18at 10:21; Start 09/22/18 at 15:15 Oxycodone/ Acetaminophen (Percocet 5mg/ 325mg Tablet) 1 tab Q4HP PRN PO MODERATE PAIN (PS 5-7); Start 09/22/18 at 15:15; Stop 09/23/18 at 16:18; Status DC Oxycodone/ Acetaminophen (Percocet 5mg/ 325mg Tablet) 1 tab Q6HP PRN PO MILD/MODERATE PAIN (PS 1-7) Last administered on 10/03/18 09:55; Start 09/27/18 at 12:00 Oxycodone/ Acetaminophen (Percocet 5mg/ 325mg Tablet) 2 tab Q4HP PRN PO SEVERE PAIN (PS 8-10) Last administered on 09/23/18 09:05; Start 09/22/18 at 15:15; Stop 09/23/18 at 16:18; Status DC Senna (Senokot) 1 tab QHS PO Last administered on 10/02/18 20:46; Start 09/22/18 at 21:00 Senna/Docusate Sodium (Senokot S) 1 tab BID PO Last administered on 10/03/18 08:18; Start 09/27/18 at 21:00 Sodium Chloride 1,000 ml @ 70 mls/hr [id number] IV Last administered on 09/29/18 17:18; Start 09/29/18 at 20:00; Stop 09/30/18 at 09:18; Status DC Sucralfate (Carafate) 1 gm BID PO Last administered on 10/03/18 08:18; Start 09/22/18 at 21:00 Tizanidine HCl (Zanaflex) 2 mg Q8HP PRN PO headache Last administered on 09/28/18 09:40; Start 09/27/18 at 17:00 Vitamin D (Vitamin D) 2,000 units DAILY PO Last administered on 10/03/18 08:18; Start 09/23/18 at 09:00 Warfarin Sodium (Coumadin) 1.5 mg Mo@1700 PO Last administered on 09/22/18 16:30; Start 09/22/18 at 17:00; Stop 09/27/18 at 08:01; Status DC Warfarin Sodium (Coumadin) 2 mg SuTuWeThFrSa@1700 PO Last administered on 09/25/18 17:10; Start 09/23/18 at 17:00; Stop 09/26/18 at 10:22; Status DC Warfarin Sodium (Coumadin) 2.5 mg DAILY@17 PO Last administered on 10/03/18 16:15; Start 10/03/18 at 17:00 Warfarin Sodium (Coumadin) 2.5 mg SuTuWeThFrSa@1700 PO Last administered on 09/26/18at 17:22; Start 09/26/18 at 17:00; Stop 09/27/18 at 08:01; Status DC Warfarin Sodium (Coumadin) 3 mg DAILY@17 PO Last administered on 09/27/18at 17:07; Start 09/27/18 at 17:00; Stop 09/28/18 at 08:19; Status DC Warfarin Sodium (Coumadin) 3 mg DAILY@17 PO Last administered on 10/02/18at 16:38; Start 10/01/18 at 17:00; Stop 10/03/18 at 12:10; Status DC Warfarin Sodium (Coumadin) 3 mg SuTuWeThFrSa@1700 PO ; Start 09/23/18 at 17:00; Stop 09/23/18 at 17:00; Status DC Warfarin Sodium (Coumadin) 5 mg DAILY@17 PO Last administered on 09/30/18 17:09; Start 09/28/18 at 17:00; Stop 10/01/18 at 13:13; Status DC OK HARRISON MD Oct 03, 2018 17:06
[2018-10-03 20:00] VITALS: BP 114/69
[2018-10-03] MEDS: ATORVASTATIN 20 MG TAB PO SCH (21:06)
[2018-10-03] MEDS: SENNA 8.6 MG TAB (SENOKOT) PO SCH (21:07)
[2018-10-03] MEDS: MAGNESIUM OXIDE 400 MG TAB (MAG-OX) PO SCH (21:07)
[2018-10-03] MEDS: AMITRIPTYLINE 50 MG TAB PO SCH (22:07)
[2018-10-04 06:00] VITALS: BP 140/88
[2018-10-04 07:31] LABS: INR 2.53; PROTHROMBIN TIME 27.8 SECONDS (12.1-14.4)
[2018-10-04 07:40] LABS: CALCIUM LEVEL 8.7 MG/DL (8.8-10.2); CREATININE FOR GFR 1.88 MG/DL (0.70-1.30); GLOMERULAR FILTRATION RATE 36.2 (>35); POTASSIUM SERUM 4.6 MEQ/L (3.5-5.1)
[2018-10-04] MEDS: OMEPRAZOLE 20 MG CAP PO SCH ×2 (08:44→21:47)
[2018-10-04] MEDS: VITAMIN D 1,000 INTERNATIONAL UNITS TABLET PO SCH (08:45)
[2018-10-04] MEDS: SENOKOT S TAB PO SCH ×2 (08:45→21:47)
[2018-10-04] MEDS: SUCRALFATE 1 GM TAB PO SCH ×2 (08:45→21:48)
[2018-10-04] MEDS: MECLIZINE 12.5 MG TAB PO SCH ×2 (08:45→21:47)
[2018-10-04] MEDS: CARVedilol 3.125 MG TAB PO SCH (08:46)
[2018-10-04] MEDS: DULoxetine 30 MG CAP (CYMBALTA) PO SCH (08:46)
[2018-10-04] MEDS: ASCORBIC ACID 500 MG TAB PO SCH (08:46)
[2018-10-04] MEDS: CYANOCOBALAMIN 500 MCG TAB PO SCH (08:46)
[2018-10-04] MEDS: ACETAMINOPHEN 500 MG TAB PO SCH ×3 (08:47→21:49)
[2018-10-04] MEDS: ANALGESIC BALM CRM 120 GM TOP SCH ×4 (08:47→21:50)
[2018-10-04] MEDS: PERCOCET 5MG/325MG TAB PO PRN ×3 (10:00→23:13)
[2018-10-04 14:00] VITALS: BP 129/77
[2018-10-04] MEDS: WARFARIN SOD 2.5 MG TAB PO SCH (16:14)
[2018-10-04 20:00] VITALS: BP 123/82
--- NOTE | 2018-10-04 20:26 | IPN ---
DATE: 10/04/2018 The patient is seen and examined. No acute events overnight. Currently reported right sided thigh pain that has been improving. Denies any chest pain, pressure or discomfort. Denies any fevers or chills. Going home on Saturday, according to the patient. VITAL SIGNS: Temperature 97.8, pulse 74, respirations 19, blood pressure 129/77, pulse oximetry 95% on room air. LABORATORY DATA: WBC 6.3, hemoglobin and hematocrit 10.1/31.7, platelets 273. Chemistry: Sodium 142, potassium 4.6, chloride 107, bicarbonate 27, BUN 31, creatinine 1.88. PHYSICAL EXAMINATION GENERAL: The patient is alert, comfortable and in no acute distress. HEENT: Normocephalic, atraumatic. PULMONARY: Bilaterally clear. CARDIAC: Regular. S1, S2. ABDOMEN: Soft, nontender. EXTREMITIES: No clubbing, cyanosis or edema. Right upper extremity in a sling. NEUROLOGIC: No focal deficits. ASSESSMENT AND PLAN: This is an 88-year-old male patient with underlying medical history of chronic low back pain, lumbar stenosis, obstructive sleep apnea on continuous positive airway pressure (CPAP), osteoarthritis, Meniere's disease, coronary artery disease with stent times two, gastroesophageal reflux disease (GERD), chronic kidney disease stage III, dyslipidemia, hypertension, paroxysmal atrial fibrillation and has a pacemaker, benign prostatic hypertrophy (BPH), who on 09/07/2018 fell on ice on to the right side and sustained right proximal humeral fracture and hairline fracture of the patient's right femoral neck. Orthopedics saw the patient and did not recommend any surgery or intervention. The patient was discharged home. The patient returned to the emergency department and was admitted on 09/16/2018 to 09/22/2018 secondary to pain and difficulty ambulating. Orthopedics and pain management were on consult. The patient was transferred to acute rehabilitation on 09/22/2018. 1. Mechanical fall on ice on to patient's right side, status post right proximal humeral fracture and hairline fracture of the right femoral neck. No surgical intervention recommended by orthopedics. Followup recommendations as per orthopedics. Weight bearing as per orthopedics. Physical therapy (PT) and occupational therapy (OT) as per acute rehabilitation provider. Pain management as per acute rehabilitation provider. Consider pain management consultation if the patient does not tolerate. Currently, the patient is reporting improved pain regimen. Bowel care as ordered. 2. Deep vein thrombosis (DVT) prophylaxis. The patient is on Coumadin. Followup INR. 3. Paroxysmal atrial fibrillation. The patient is on Coumadin for anticoagulation. Followup INR. Continue digoxin and Coreg. 4. History of Meniere's. Continue current medication. 5. Dyslipidemia. Continue statin. 6. Gastroesophageal reflux disease (GERD). Continue current medications. 7. Chronic kidney disease stage III. Avoid nephrotoxic agents. Abdominal ultrasound on 09/24/2018 showed possible right hydronephrosis versus extrarenal pelvis. Case discussed with nephrology. Recommended outpatient followup. IV fluids initially provided. 8. Hyponatremia, resolved. Possibly secondary to hypovolemia. 9. Anemia. Monitor hemoglobin and hematocrit. Continue supplementation. 10. Obstructive sleep apnea. Continue CPAP. 11. Chronic headache. Continue current medications. Outpatient followup with neurology. 12. Chronic pain. Continue current medications. Further adjustments as per acute rehabilitation provider. Followup pain management as an outpatient. 13. Benign prostatic hypertrophy (BPH). Continue current medications. 14. Elevated liver function tests. Ultrasound of the abdomen appreciated and showing sludge versus mass. Surgical consultation appreciated. Family currently reiterated that they do not wish to pursue further testing. Risks and benefits of additional studies, including CT with contrast has been discussed. Unable to obtain MRI due to pacemaker. 15. Hyperkalemia. We will followup potassium. Currently resolved. 16. Deep vein thrombosis (DVT) prophylaxis. The patient is on Coumadin. DISPOSITION: As per acute rehabilitation provider.
[2018-10-04] MEDS: AMITRIPTYLINE 50 MG TAB PO SCH (21:47)
[2018-10-04] MEDS: SENNA 8.6 MG TAB (SENOKOT) PO SCH (21:48)
[2018-10-04] MEDS: ATORVASTATIN 20 MG TAB PO SCH (21:48)
[2018-10-04] MEDS: MAGNESIUM OXIDE 400 MG TAB (MAG-OX) PO SCH (21:48)
[2018-10-05 06:00] VITALS: BP 157/92
[2018-10-05 06:42] LABS: HEMATOCRIT 33.1 % (42.0-52.0); HEMOGLOBIN 10.6 g/dl (13.5-17.5); MEAN CORPUSCULAR HEMOGLOBIN 30.3 pg (27.0-33.0); MEAN CORPUSCULAR VOLUME 94.6 fl (80.0-96.0); PLATELET COUNT, AUTOMATED 260 10^3/uL (150-450); WHITE BLOOD COUNT 6.3 10^3/uL (4.0-10.0)
[2018-10-05 06:57] LABS: INR 2.61; PROTHROMBIN TIME 28.5 SECONDS (12.1-14.4)
[2018-10-05 07:04] LABS: ALBUMIN 2.8 GM/DL (3.2-5.2); BILIRUBIN,DIRECT 0.2 MG/DL (0.0-0.2); BILIRUBIN,TOTAL 0.5 MG/DL (0.2-1.0); CALCIUM LEVEL 8.3 MG/DL (8.8-10.2); CREATININE FOR GFR 1.97 MG/DL (0.70-1.30); GLOMERULAR FILTRATION RATE 34.3 (>35); POTASSIUM SERUM 4.4 MEQ/L (3.5-5.1); TOTAL PROTEIN 5.7 GM/DL (6.4-8.2)
[2018-10-05] MEDS: ANALGESIC BALM CRM 120 GM TOP SCH ×4 (09:00→21:00)
[2018-10-05 09:34] VITALS: BP 140/88
[2018-10-05 09:35] VITALS: BP 140/88
[2018-10-05] MEDS: SENOKOT S TAB PO SCH ×2 (09:56→21:08)
[2018-10-05] MEDS: OMEPRAZOLE 20 MG CAP PO SCH ×2 (09:57→21:09)
[2018-10-05] MEDS: DULoxetine 30 MG CAP (CYMBALTA) PO SCH (09:58)
[2018-10-05] MEDS: ACETAMINOPHEN 500 MG TAB PO SCH ×3 (09:58→21:09)
[2018-10-05] MEDS: CYANOCOBALAMIN 500 MCG TAB PO SCH (09:59)
[2018-10-05] MEDS: ASCORBIC ACID 500 MG TAB PO SCH (09:59)
[2018-10-05] MEDS: SUCRALFATE 1 GM TAB PO SCH ×2 (09:59→21:09)
[2018-10-05] MEDS: PERCOCET 5MG/325MG TAB PO PRN ×2 (09:59→17:17)
[2018-10-05] MEDS: VITAMIN D 1,000 INTERNATIONAL UNITS TABLET PO SCH (09:59)
[2018-10-05] MEDS: MECLIZINE 12.5 MG TAB PO SCH ×2 (09:59→21:09)
[2018-10-05] MEDS: CARVedilol 3.125 MG TAB PO SCH (09:59)
[2018-10-05 15:00] VITALS: BP 130/95
[2018-10-05] MEDS: WARFARIN SOD 2.5 MG TAB PO SCH (17:17)
--- NOTE | 2018-10-05 17:52 | IPNPDOC ---
Text Note Date of Service The patient was seen on 10/05/18. NOTE The patient is seen and examined. No acute events overnight. Currently reported right sided thigh pain that has been improving. Denies any chest pain, pressure or discomfort. Denies any fevers or chills. PHYSICAL EXAMINATION GENERAL: The patient is alert, comfortable and in no acute distress. HEENT: Normocephalic, atraumatic. PULMONARY: Bilaterally clear. CARDIAC: Regular. S1, S2. ABDOMEN: Soft, nontender. EXTREMITIES: No clubbing, cyanosis or edema. Right upper extremity in a sling. NEUROLOGIC: No focal deficits. ASSESSMENT AND PLAN: This is an 88-year-old male patient with underlying medical history of chronic low back pain, lumbar stenosis, obstructive sleep apnea on continuous positive airway pressure (CPAP), osteoarthritis, Meniere's disease, coronary artery disease with stent times two, gastroesophageal reflux disease (GERD), chronic kidney disease stage III, dyslipidemia, hypertension, paroxysmal atrial fibrillation and has a pacemaker, benign prostatic hypertrophy (BPH), who on 09/07/2018 fell on ice on to the right side and sustained right proximal humeral fracture and hairline fracture of the patient's right femoral neck. Orthopedics saw the patient and did not recommend any surgery or intervention. The patient was discharged home. The patient returned to the emergency department and was admitted on 09/16/2018 to 09/22/2018 secondary to pain and difficulty ambulating. Orthopedics and pain management were on consult. The patient was transferred to acute rehabilitation on 09/22/2018. 1. Mechanical fall on ice on to patient's right side, status post right proximal humeral fracture and hairline fracture of the right femoral neck. No surgical intervention recommended by orthopedics. Followup recommendations as per orthopedics. Weight bearing as per orthopedics. Physical therapy (PT) and occupational therapy (OT) as per acute rehabilitation provider. Pain management as per acute rehabilitation provider. Consider pain management consultation if the patient does not tolerate. Currently, the patient is reporting improved pain regimen. Bowel care as ordered. Deep vein thrombosis (DVT) prophylaxis. The patient is on Coumadin. Followup INR. 2. Paroxysmal atrial fibrillation. The patient is on Coumadin for anticoagulation. Followup INR. Continue digoxin and Coreg. 3. History of Meniere's. Continue current medication. 4. Dyslipidemia. Continue statin. 5. Gastroesophageal reflux disease (GERD). Continue current medications. 6. Chronic kidney disease stage III. Avoid nephrotoxic agents. Abdominal ultrasound on 09/24/2018 showed possible right hydronephrosis versus extrarenal pelvis. Case discussed with nephrology. Recommended outpatient followup. IV fluids initially provided. 7. Hyponatremia, resolved. Possibly secondary to hypovolemia. 8. Anemia. Monitor hemoglobin and hematocrit. Continue supplementation. 9. Obstructive sleep apnea. Continue CPAP. 10. Chronic headache. Continue current medications. Outpatient followup with neurology. 11. Chronic pain. Continue current medications. Further adjustments as per acute rehabilitation provider. Followup pain management as an outpatient. 12. Benign prostatic hypertrophy (BPH). Continue current medications. 13. Elevated liver function tests. Ultrasound of the abdomen appreciated and showing sludge versus mass. Surgical consultation appreciated. Family currently reiterated that they do not wish to pursue further testing. Risks and benefits of additional studies, including CT with contrast has been discussed. Unable to obtain MRI due to pacemaker. 14. Hyperkalemia. We will followup potassium. Currently resolved. 15. Deep vein thrombosis (DVT) prophylaxis. The patient is on Coumadin. DISPOSITION: As per acute rehabilitation provider. VS,Wing, I+O VS, Wing, I+O Laboratory Tests 10/05/18 06:11 Red Blood Count 3.50 L, Mean Corpuscular Volume 94.6, Mean Corpuscular Hemoglobin 30.3, Mean Corpuscular Hemoglobin Concent 32.0, Red Cell Distribution Width 13.6 Vital Signs Date Time Temp Pulse Resp B/P (MAP) Pulse Ox O2 Delivery O2 Flow Rate FiO2 10/05/18 17:17 18 10/05/18 09:59 85 140/88 10/05/18 06:00 97.6 97 I&O- Last 24 Hours up to 6 AM 10/05/18 06:00 Intake Total 1560 ml Output Total 0 ml Balance 1560 ml SUMEET RUBIN MD Oct 05, 2018 17:52
[2018-10-05] MEDS ORDERED: AMIT50TA PO (19:37)
[2018-10-05] MEDS ORDERED: DULO30CA PO (19:37)
[2018-10-05] MEDS ORDERED: COUM2.5T17 PO (19:40)
[2018-10-05 20:00] VITALS: BP 140/78
[2018-10-05] MEDS: SENNA 8.6 MG TAB (SENOKOT) PO SCH (21:08)
[2018-10-05] MEDS: MAGNESIUM OXIDE 400 MG TAB (MAG-OX) PO SCH (21:08)
[2018-10-05] MEDS: AMITRIPTYLINE 50 MG TAB PO SCH (21:08)
[2018-10-05] MEDS: ATORVASTATIN 20 MG TAB PO SCH (21:09)
[2018-10-06] MEDS: PERCOCET 5MG/325MG TAB PO PRN ×2 (01:53→10:44)
[2018-10-06 06:23] VITALS: BP 148/86
[2018-10-06 07:12] LABS: HEMOGLOBIN 10.4 g/dl (13.5-17.5); MEAN CORPUSCULAR HEMOGLOBIN 29.8 pg (27.0-33.0); MEAN CORPUSCULAR HGB CONC 31.5 g/dl (32.0-36.5); MEAN CORPUSCULAR VOLUME 94.6 fl (80.0-96.0); PLATELET COUNT, AUTOMATED 232 10^3/uL (150-450); RED BLOOD COUNT 3.49 10^6/uL (4.30-6.10); WHITE BLOOD COUNT 6.4 10^3/uL (4.0-10.0)
[2018-10-06 07:23] LABS: INR 2.43; PROTHROMBIN TIME 26.9 SECONDS (12.1-14.4)
[2018-10-06 07:35] LABS: CALCIUM LEVEL 8.8 MG/DL (8.8-10.2); CREATININE FOR GFR 1.87 MG/DL (0.70-1.30); GLOMERULAR FILTRATION RATE 36.5 (>35); POTASSIUM SERUM 4.4 MEQ/L (3.5-5.1)
[2018-10-06] MEDS: OMEPRAZOLE 20 MG CAP PO SCH (08:58)
[2018-10-06 08:59] VITALS: BP 148/86
[2018-10-06] MEDS: CYANOCOBALAMIN 500 MCG TAB PO SCH (08:59)
[2018-10-06] MEDS: SENOKOT S TAB PO SCH (08:59)
[2018-10-06] MEDS: CARVedilol 3.125 MG TAB PO SCH (08:59)
[2018-10-06] MEDS: DULoxetine 30 MG CAP (CYMBALTA) PO SCH (08:59)
[2018-10-06] MEDS: ACETAMINOPHEN 500 MG TAB PO SCH (09:00)
[2018-10-06] MEDS: ASCORBIC ACID 500 MG TAB PO SCH (09:00)
[2018-10-06] MEDS: MECLIZINE 12.5 MG TAB PO SCH (09:00)
[2018-10-06] MEDS: VITAMIN D 1,000 INTERNATIONAL UNITS TABLET PO SCH (09:00)
[2018-10-06] MEDS: ANALGESIC BALM CRM 120 GM TOP SCH (09:00)
[2018-10-06] MEDS: SUCRALFATE 1 GM TAB PO SCH (09:00)
[2018-10-06] MEDS: DIGOXIN 0.125 MG TAB PO SCH (09:00)
[2018-10-06] MEDS ORDERED: PERCOCET PO (13:29)
== END 2018-10-06 14:10 | disposition home health service (06) | DRG 560 ==
LOC: M PM&R 15:28
PROVIDERS: ADMIT Physical Medicine & Rehabilitation; ATTEND Physical Medicine & Rehabilitation
DX: S72.114D Nondisplaced fracture of greater trochanter of right femur, subsequent encounter for closed fracture with routine healing (principal); E87.1 Hypo-osmolality and hyponatremia; N17.9 Acute kidney failure, unspecified; S42.214D Unspecified nondisplaced fracture of surgical neck of right humerus, subsequent encounter for fracture with routine healing; W00.0XXD Fall on same level due to ice and snow, subsequent encounter; Y92.009 Unspecified place in unspecified non-institutional (private) residence as the place of occurrence of the external cause; N18.3 Chronic kidney disease, stage 3 (moderate); I25.10 Atherosclerotic heart disease of native coronary artery without angina pectoris; I48.0 Paroxysmal atrial fibrillation; M48.061 Spinal stenosis, lumbar region without neurogenic claudication; R51 Headache; D64.9 Anemia, unspecified; R11.0 Nausea; E78.5 Hyperlipidemia, unspecified; H81.09 Meniere's disease, unspecified ear; T40.2X5A Adverse effect of other opioids, initial encounter; N40.0 Benign prostatic hyperplasia without lower urinary tract symptoms; K82.8 Other specified diseases of gallbladder; K59.00 Constipation, unspecified; I12.9 Hypertensive chronic kidney disease with stage 1 through stage 4 chronic kidney disease, or unspecified chronic kidney disease; Z88.2 Allergy status to sulfonamides; K21.9 Gastro-esophageal reflux disease without esophagitis; G47.33 Obstructive sleep apnea (adult) (pediatric); Z95.5 Presence of coronary angioplasty implant and graft; Z95.0 Presence of cardiac pacemaker; Z89.022 Acquired absence of left finger(s); Z90.49 Acquired absence of other specified parts of digestive tract; Z98.41 Cataract extraction status, right eye; Z98.42 Cataract extraction status, left eye; Z88.5 Allergy status to narcotic agent

== ENCOUNTER → 2018-10-21 | Outpatient (REF) | payer MEDICARE ==
[~2018-10-21] MED LIST changes: +AMIT50TA PO; +COUM2.5T17 PO; +DULO30CA PO
[2018-10-21 15:03] LABS: INR 2.21
== END ==
LOC: M SHH 14:13
PROVIDERS: ATTEND Physician Assistant
DX: I48.0 Paroxysmal atrial fibrillation (principal)

== ENCOUNTER → 2018-10-24 | Outpatient (CLI) | payer MEDICARE ==
--- NOTE | 2018-10-27 23:45 | ECWPNPC ---
PATIENT NAME: JASMYNE DE JESUS : 1930 GENDER: MALE VISIT DATE: 10/24/2018 DISCHARGE DATE: 10/24/18 1449 VISIT LOCKED DATE TIME: PHYSICIAN: BENNY RICHARD RESOURCE: BENNY RICHARD REASON FOR APPOINTMENT 1. BACK PAIN HISTORY OF PRESENT ILLNESS PAIN SCREENING: PATIENT HAS A COMPLAINT OF ACUTE OR CHRONIC PAIN :YES 88 YR OLD MALE REFERRED TO PM FROM DR ZHANG, PCP FOR LUMBAR SPINAL STENOSIS.PATIENT HAS CHRONIC MEDICAL CONDITIONS OF CKD, CAD,HTN, PAROXYSAMOL AF, " PACEMAKER",MARIETTA, HYPERLIPIDEMIA,BPH, PEPTIC ULCER DISEASE,.HE TAKES COUMADIN. HE SAYS HE DOES NOT TAKE GABAPENTIN AT PRESENT.HAD LAMINECTOMY IN 09/15 FOR L4-5 SPINAL STENOSIS. PATIENT IS CURRENTLY TAKING TRAMADOL 100MG. HE REPORTS PAIN IN LOWER LUMBAR SPINE. FALL RISK SCREENING: SCREENING :NO FALLS REPORTED IN THE LAST YEAR CURRENT MEDICATIONS TAKING VITAMIN C 500 MG TABLET 1 TABLET ORALLY ONCE A DAY TAKING VITAMIN D3 2000 UNIT CAPSULE 1 CAPSULE ORALLY ONCE A DAY TAKING COUMADIN 1 MG TABLET 1 TAB ORALLY DAILY AT 5PM TAKING NITROSTAT 0.4 MG TABLET SUBLINGUAL 1 TAB SUBLINGUAL Q5 MIN X 3 NEEDED FOR CHEST PAIN TAKING MECLIZINE HCL 25 MG TABLET 1 TAB ORALLY EVERY 8HOURS NEEDED FOR DIZZINESS TAKING MAGNESIUM OXIDE 400 MG TABLET 1 TABLET ORALLY BEFORE BEDTIME TAKING CARVEDILOL 3.125 MG TABLET 1 ORALLY DAILY--HOLD IF SITTING OR STANDING BP IS LESS THAN 100 SYSTOLIC TAKING SUCRALFATE 1 GM TABLET 1 TABLET ORALLY TWICE A DAY TAKING OMEPRAZOLE 40 MG CAPSULE DELAYED RELEASE 1 CAPSULE ORALLY TWICE DAILY TAKING DIGOXIN 125 MCG TABLET 1 TABLET ORALLY 3 TIMES WEEK--- TAKING LIPITOR 40 MG TABLET 1 TABLET ORALLY BEFORE BEDTIME TAKING AMITRIPTYLINE HCL 50 MG TABLET 1 TAB ORALLY BEFORE BEDTIME TAKING DULOXETINE HCL 30 MG CAPSULE DELAYED RELEASE PARTICLES 1 CAPSULE ORALLY ONCE A DAY TAKING VITAMIN B-2 100 MG TABLET 1 TABLET WITH A MEAL ORALLY ONCE A DAY TAKING ZONISAMIDE 100 MG CAPSULE 1 CAP ORALLY TWICE DAILY TAKING FUROSEMIDE 20 MG TABLET 1 TABLET ORALLY ONCE A DAY NEEDED FOR SEVERE ANKLE SWELLING TAKING VITAMIN B12 1000 MCG TABLET EXTENDED RELEASE 1 TABLET ORALLY ONCE A DAY TAKING MIDODRINE HCL 5 MG TABLET 1 TABLET ORALLY THREE TIMES A DAY TAKING TIZANIDINE HCL 2 MG CAPSULE 1 CAPSULE NEEDED ORALLY THREE TIMES A DAY NOT-TAKING PERCOCET 5-325 MG TABLET 1 TABLET ORALLY EVERY 6 HRS NEEDED MDD=4 MEDICATION LIST REVIEWED AND RECONCILED WITH THE PATIENT PAST MEDICAL HISTORY ATHEROSCLEROTIC HEART DISEASE OF [place] CORONARY ARTERY WITHOUT ANGINA PECTORIS ALLERGIC RHINITIS, UNSPECIFIED CHRONIC KIDNEY DISEASE, STAGE 3 (MODERATE) SLEEP APNEA, UNSPECIFIED OTHER HEADACHE SYNDROME PERSONAL HISTORY OF COLONIC POLYPS PURE HYPERCHOLESTEROLEMIA OBSTRUCTIVE AND REFLUX UROPATHY, UNSPECIFIED PAROXYSMAL ATRIAL FIBRILLATION DIZZINESS AND GIDDINESS THROMBOCYTOPENIA, UNSPECIFIED ESSENTIAL (PRIMARY) HYPERTENSION BENIGN PROSTATIC HYPERPLASIA WITH LOWER URINARY TRACT SYMPTOMS, UNSPECIFIED MORPHOLOGY OTHER CARDIAC SOUNDS ALLERGIES VICODIN: ALLERGY AMIODARONE HCL: UNKNOWN - SIDE EFFECTS SURGICAL HISTORY APPENDECTOMY 1953 RIGHT INGUINAL HERNIA REPAIR 1999 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 COLONOSCOPY 04/2007 CATARACT EXTRACTION OU 06/14/2008, 07/05 HEMORRHOID SURGERY 04/2009 DEPUYTRANS CONTRACTURE RELEASE LEFT HAND 02/2009 COLONOSCOPY 05/2013 RIGHT ROTATOR CUFF REPAIR 04/2015 PACEMAKER PLACED 02/2015 [facility] ER-DISLOCATION OF DISTAL INTERPHALANGEAL JOINT OF RIGHT RING FINGER, LACERATION WITHOUT FOREIGN BODY OF FINGER WITHOUT DAMAGE TO NAIL 01/18/2016 COLONOSCOPY 08/13/2016 URODYNAMIC STUDY 10/31/16 GREEN LIGHT LASER ABLATION OF THE PROSTATE GLAND 12/04/2016 LAMINECTOMY L3-4, L4-5 WITH FUSION 09/02/2017 FAMILY HISTORY FATHER: PROSTATE CANCER, DIAGNOSED WITH CANCER SIBLINGS: BROTHER- PROSTATE CANCER, CANCER MOTHER: HEART DISEASE REMARKABLE FOR OVARIAN CANCER.\\\\NBOTH CHILDREN HAD MENTAL RETARDATION, SEIZURE DISORDER.\\\\NDAUGHTER HAD BREAST CANCER DIAGNOSED 2004, IN \\\\\\ AFTER SURGERY FOR A DUODENAL MASS (NOT MALIGNANT). SOCIAL HISTORY GENERAL: TOBACCO USE ARE YOU A:: FORMER SMOKER , HOW LONG HAS IT BEEN SINCE YOU LAST SMOKED?: > 10 YEARS. LATEX QUESTIONNAIRE LATEX ALLERGY : HAVE YOU EVER DEVELOPED ANY TYPE OF REACTION AFTER HANDLING LATEX PRODUCTS SUCH RUBBER GLOVES, CONDOMS, DIAPHRAGMS, BALLOONS, SOCKS, OR UNDERWEAR?NO LATEX ALLERGY : HAVE YOU EVER DEVELOPED ANY TYPE OF REACTION DURING OR AFTER DENTAL APPOINTMENT, VAGINAL/RECTAL EXAMINATION, SURGICAL PROCEDURE, OR ANY OTHER EXPOSURE?NO LATEX RISK : HAVE YOU EVER HAD ANY DIFFICULTY BREATHING OR HIVES AFTER EATING OR HANDLING ANY FRUITS, OR VEGETABLES; SUCH KIWI, BANANAS, STONE FRUITS, OR CHESTNUTSNO LATEX RISK : DO YOU HAVE A PREVIOUS PERSONAL HISTORY OF MORE THAN NINE SURGERIES, SPINA BIFIDA, OR REPEATED CATHERTIZATIONS? YES - PLEASE INDICATE : > 9 SURGERIES LATEX RISK : ARE YOU FREQUENTLY EXPOSED TO LATEX PRODUCTS IN YOUR OCCUPATION?NO DATE ASKED : 10/15/2018 BMI CARE GOAL FOLLOW-UP ABOVE NORMAL BMI FOLLOW-UPWEIGHT MONITORING ALCOHOL SCREENING DID YOU HAVE A DRINK CONTAINING ALCOHOL IN THE PAST YEAR?NO POINTS0 INTERPRETATIONNEGATIVE RECREATIONAL DRUG USE DRUG USE?NO CAFFEINE CAFFEINE USE?YES HOW OFTEN AND HOW MUCH? 2 CUPS COFFEE A DAY 1 CUP TEA SEXUAL HX HAD SEX IN THE LAST 12 MONTHS (VAGINAL, ORAL, OR ANAL)?NO HAVE YOU EVER HAD AN STD?NO HIV / HEP-C SCREENING HIV TEST OFFERED TO PATIENT:YES DATE OFFERED:11/26/2017 TEST ACCEPTED:NO HEP-C TEST OFFERED TO PATIENT:YES DATE OFFERED:11/26/2017 REASON:PATIENT DECLINED TEST ACCEPTED:YES BROCHURE PROVIDED TO PATIENTYES MANDAEN NO EPISCOPALIAN BELIEFS THAT WOULD IMPACT HEALTH CARE. LANGUAGE PALESTINIAN. LEARNING BARRIERS / SPECIAL NEEDS CHANGE FROM LAST VISIT?NO BARRIERS TO LEARNING?NO HEARING IMPAIRED?YES :HEARING AIDES VISION IMPAIRED?YES :CORRECTIVE LENSES COGNITIVELY IMPAIRED?NO READINESS TO LEARN?YES LEARNING PREFERENCES?NO LEARNING CAPABILITIES PRESENT?YES EMOTIONAL BARRIERS?NO SPECIAL DEVICES?NO RETORT FURNACE HELPER NEEDED?NO DOMESTIC VIOLENCE STATUS: DO YOU FEEL SAFE IN YOUR ENVIRONMENT?YES OCCUPATION: RETIRED [employer]. 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 PAIN CLINIC PFS, CLERGY, PUBLIC HEALTH REFERRALS HAS THE PATIENT BEEN EDUCATED REGARDING HIS/HER PLAN OF CARE?YES HAS THE PATIENT BEEN EDUCATED REGARDING PAIN, THE RISK FOR PAIN, THE IMPORTANCE OF EFFECTIVE PAIN MANAGEMENT, AND THE PAIN ASSESSMENT PROCESS?YES HOUSING: OWNS HOME. ADVANCE DIRECTIVE ADVANCE DIRECTIVE DISCUSSED WITH PATIENT:YES PT HAS HCP JAVAD DE JESUS ON FILE WITH [facility] REVIEWED WT PT 10/24/18 1331 BV. HOSPITALIZATION/MAJOR DIAGNOSTIC PROCEDURE SURGERY REALTED [facility]-RIGHT HIP AND HUMERUS FRACTURE (09/22-10/06-REHAB) 09/16-10/06/2018 REVIEW OF SYSTEMS REVIEWED BY: PROVIDER: PRIYA Arellano CONSTITUTIONAL: ANY CHANGE IN YOUR MEDICAL CONDITION? NO . CHILLS NO . FEVER NO . INFECTION: DO YOU HAVE NEW INFECTIONS? NO . DO YOU HAVE HISTORY OF MRSA? NO . MUSCULOSKELETAL: ANY NEW PATTERNS OF PAIN OR NUMBNESS? NO . SYTEMIC LUPUS NO . GASTROENTEROLOGY: ANY NEW CHANGE IN BOWEL CONTROL? NO . BARRETTS ESOPHAGUS NO . CIRRHOSIS NO . HEPATITIS NO . LIVER FAILURE NO . ACID REFLUX NO . UNEXPLAINED WEIGHT LOSS NO . GENITOURINARY: ANY NEW CHANGE IN BLADDER CONTROL? NO . IS THERE A CHANCE YOU COULD BE ? NO . HEMATOLOGY/LYMPH: DO YOU TAKE ANY BLOOD THINNERS? (FOR EXAMPLE- COUMADIN, PLAVIX, AGGRENOX, PLATEL, PRADAXA, OR XARELTO) NO . WHEN WAS YOUR LAST DOSE? DATE: TIME: . LOW PLATELET COUNT NO . SICKLE CELL DISEASE NO . VON WILLIEBRANDS NO . FACTOR V LEIDEN NO . THALLASEMIA NO . ANEMIA NO . EASY BRUISING NO . NEUROLOGY: HAVE YOU FALLEN IN THE PAST 12 MONTHS? YES, PT REPORTS FREQUENT FALLS DUE TO PAIN. STATES LAST FALL WAS IN AUGUST, AND WAS TREATED IN HOSPITAL FOR FRACTURED RIGHT HIP AND RIGHT HUMERUS . ANY NEW EXTREMITY NUMBNESS OR WEAKNESS? NO . HEAD INJURY NO . DEMENTIA NO . CEREBRAL PALSY NO . MULTIPLE SCLEROSIS NO . DIZZINESS NO . HEADACHE NO . STROKES NO . VERTIGO NO . CARDIOLOGY: DO YOU HAVE A PACEMAKER OR DEFIBRILLATOR? YES . ANGINA NO . HEART ATTACK YES, 2011 . HEART SURGERY STENTS PLACED, YES, 2011 . CONGESTIVE HEART FAILURE/FLUID OVERLOAD NO . CHEST PAIN NO . HIGH BLOOD PRESSURE NO . IRREGULAR HEART BEAT NO . RESPIRATORY: HAVE YOU BEEN SICK IN THE PAST WEEK? NO . FEVER NO . FLU LIKE SYMPTOMS? NO . CPAP YES . BYPAP NO . ASTHMA NO . EMPHYSEMA NO . CHRONIC LUNG DISEASES NO . SHORTNESS OF BREATH ON EXERTION NO . COUGH NO . SNORING NO . INTEGUMENTARY: DO YOU HAVE ANY RASHES OR OPEN SORES? NO . ALLERGIC/IMMUNO: ARE YOU ALLERGIC TO IV DYE? NO . ANY NEW ALLERGIES? NO . PSYCHIATRIC: DO YOU HAVE THOUGHTS OF HURTING YOURSELF OR SOMEONE ELSE? NO . ARE YOU ABUSED, NEGLECTED, OR IN AN UNSAFE ENVIRONMENT? NO . ENDOCRINOLOGY: ARE YOU DIABETIC? NO . THYROID DISORDER NO . OTHER: DO YOU NEED ANY PRESCRIPTIONS? NO . IF YES, PLEASE LIST: ____ . ANY NEW PROBLEMS WITH YOUR MEDICATIONS? NO . WHEN DID YOU LAST EAT? ____ . WHEN DID YOU LAST DRINK? ____ . WHAT DID YOU LAST DRINK? ____ . NAME OF PERSON DRIVING YOU HOME? ____ . DO YOU HAVE ANY OTHER QUESTIONS OR CONCERNS NO . VITAL SIGNS WT 198.8 LBS, HT 71 IN, BMI 27.72 INDEX, BP 133/81 MM HG, HR 104 /MIN, RR 20 /MIN, TEMP 97.7 F, OXYGEN SAT % 94%, NA INITIALS SC 13:14, REVIEWED BY: BV. EXAMINATION GENERAL EXAMINATION: GENERAL APPEARANCE:NO ACUTE DISTRESS, WELL NOURISHED AND HYDRATED, SLOW GAIT. LUNGS:CLEAR TO AUSCULTATION BILATERALLY, NO WHEEZES, RHONCHI, RALES. HEART:NO MURMURS, REGULAR RATE AND RHYTHM. BACK:HAS LINEAR SCAR FROM L2 TO S1 REGION. ,SLR NEGATIVE BILATERAL REFLEXES 2+ LE. ASSESSMENTS SPINAL STENOSIS - M48.00 (PRIMARY) LUMBAGO WITH SCIATICA, RIGHT SIDE - M54.41 LUMBAGO WITH SCIATICA, LEFT SIDE - M54.42 OTHER CHRONIC PAIN - G89.29 TREATMENT SPINAL STENOSIS START GABAPENTIN CAPSULE, 100 MG, 1 CAPSULE, ORALLY, TWICE A DAY, 30 DAY(S), 60 CAPSULE, REFILLS 0 CLINICAL NOTES: START GABAPENTIN TABLET, ONE TAB AT NIGHT FOR 1 WEEK. INCREASE DOSE TO TWO TABLETS IN THE SECOND WEEK. REVIEW MEDICATION IN 2 WEEKS.LONG DISCUSSION WITH PATIENT AND HIS AND DISCUSSED PAIN MANAGMENT PROCEDURE FOR PAIN.THEY BOTH WANTED TO WAIT AND REVIEW PAIN MEDICATION IN 2 WEEKS.SPOKE WITH PCP, AND ADVISED HIM THAT I PRESCRIBED GAPAENTIN 100MG BID FOR THIS PATIENT. PREVENTIVE MEDICINE PAIN CLINIC TEACHING: MEDICATIONS PT GIVEN WRITTEN AND VERBAL EDUCATION ON STARTING GABAPENTIN. PT VERBALIZES UNDERSTADNING OF ALL EDUCATION. JOHANA CASSIDY 10/24/2018 2:49:03 PM > . PROCEDURE CODES FA211 ESTABILISHED PATIENT [facility] FACILITY CHARGE DISPOSITION & COMMUNICATION FOLLOW UP 2 WEEKS ELECTRONICALLY SIGNED BY CHANDRIKA WILKINS ON 10/27/2018 AT 08:32 AM EDT DISCLAIMER : THIS IS A VISIT SUMMARY EXTRACTED FROM THE [employer] CHART. IT IS NOT A COPY OF THE [employer] PROGRESS NOTE. RUDOLPH
== END ==
LOC: M PAIN 13:00
PROVIDERS: ATTEND Nurse Practitioner Family
DX: M48.00 Spinal stenosis, site unspecified (principal); M54.41 Lumbago with sciatica, right side; M54.42 Lumbago with sciatica, left side; G89.29 Other chronic pain; I12.9 Hypertensive chronic kidney disease with stage 1 through stage 4 chronic kidney disease, or unspecified chronic kidney disease; N18.3 Chronic kidney disease, stage 3 (moderate); I25.10 Atherosclerotic heart disease of native coronary artery without angina pectoris; G47.33 Obstructive sleep apnea (adult) (pediatric); E78.00 Pure hypercholesterolemia, unspecified; I48.0 Paroxysmal atrial fibrillation; Z91.81 History of falling; Z95.0 Presence of cardiac pacemaker; Z87.891 Personal history of nicotine dependence; Z88.5 Allergy status to narcotic agent; Z88.8 Allergy status to other drugs, medicaments and biological substances; Z79.01 Long term (current) use of anticoagulants; Z79.899 Other long term (current) drug therapy

== ENCOUNTER → 2018-11-05 | Outpatient (CLI) | payer MEDICARE ==
[~2018-11-05] MED LIST changes: -ASCO25TA PO; +ASPI-255 PO; -ASPI325T25 PO; -DULO30CA PO; +DULO30CA9 PO; -MAGN1TAB25 PO; +MAGN1TAB26 PO; +MECL1CHW PO; -MECL1CHW2 PO; +VITA1TAB23 PO
--- NOTE | 2018-11-07 00:49 | ECWPNPC ---
PATIENT NAME: JASMYNE DE JESUS : 1930 GENDER: MALE VISIT DATE: 11/05/2018 DISCHARGE DATE: 11/05/18 1504 VISIT LOCKED DATE TIME: PHYSICIAN: BENNY RICHARD RESOURCE: BENNY RICHARD REASON FOR APPOINTMENT 1. 2 WKS/ BACK HISTORY OF PRESENT ILLNESS HISTORY OF PRESENT ILLNESS: PAIN THE PATIENT DESCRIBES THE PAIN... SEVERITY - PAIN SCORE OF8/10 78 YR OOLD MALE S/O SPINAL LAMINECTOMY 09/15, HERE FOR F/U.HAS BEEN USING GABAPENTIN 100MG BID WITH LTTLE EFFECT. HE WOULD LIKE TO DISCUSS LONG TERMPLAN OF MANAGEMENT. FALL RISK SCREENING: SCREENING :NO FALLS REPORTED IN THE LAST YEAR CURRENT MEDICATIONS TAKING VITAMIN C 500 MG TABLET 1 TABLET ORALLY ONCE A DAY TAKING VITAMIN D3 2000 UNIT CAPSULE 1 CAPSULE ORALLY ONCE A DAY TAKING COUMADIN 1 MG TABLET 1 TAB ORALLY DAILY AT 5PM TAKING NITROSTAT 0.4 MG TABLET SUBLINGUAL 1 TAB SUBLINGUAL Q5 MIN X 3 NEEDED FOR CHEST PAIN TAKING MECLIZINE HCL 25 MG TABLET 1 TAB ORALLY EVERY 8HOURS NEEDED FOR DIZZINESS TAKING MAGNESIUM OXIDE 400 MG TABLET 1 TABLET ORALLY BEFORE BEDTIME TAKING CARVEDILOL 3.125 MG TABLET 1 ORALLY DAILY--HOLD IF SITTING OR STANDING BP IS LESS THAN 100 SYSTOLIC TAKING SUCRALFATE 1 GM TABLET 1 TABLET ORALLY TWICE A DAY TAKING DIGOXIN 125 MCG TABLET 1 TABLET ORALLY 3 TIMES WEEK-M-W- TAKING LIPITOR 40 MG TABLET 1 TABLET ORALLY BEFORE BEDTIME TAKING AMITRIPTYLINE HCL 50 MG TABLET 1 TAB ORALLY BEFORE BEDTIME TAKING DULOXETINE HCL 30 MG CAPSULE DELAYED RELEASE PARTICLES 1 CAPSULE ORALLY ONCE A DAY TAKING VITAMIN B-2 100 MG TABLET 1 TABLET WITH A MEAL ORALLY ONCE A DAY TAKING ZONISAMIDE 100 MG CAPSULE 1 CAP ORALLY TWICE DAILY TAKING FUROSEMIDE 20 MG TABLET 1 TABLET ORALLY ONCE A DAY NEEDED FOR SEVERE ANKLE SWELLING TAKING VITAMIN B12 1000 MCG TABLET EXTENDED RELEASE 1 TABLET ORALLY ONCE A DAY TAKING MIDODRINE HCL 5 MG TABLET 1 TABLET ORALLY THREE TIMES A DAY TAKING TIZANIDINE HCL 2 MG CAPSULE 1 CAPSULE NEEDED ORALLY THREE TIMES A DAY TAKING GABAPENTIN 100 MG CAPSULE 1 CAPSULE ORALLY TWICE A DAY TAKING OMEPRAZOLE 40 MG CAPSULE DELAYED RELEASE 1 CAPSULE ORALLY TWICE DAILY NOT-TAKING PERCOCET 5-325 MG TABLET 1 TABLET ORALLY EVERY 6 HRS NEEDED MDD=4 MEDICATION LIST REVIEWED AND RECONCILED WITH THE PATIENT PAST MEDICAL HISTORY ATHEROSCLEROTIC HEART DISEASE OF [place] CORONARY ARTERY WITHOUT ANGINA PECTORIS ALLERGIC RHINITIS, UNSPECIFIED CHRONIC KIDNEY DISEASE, STAGE 3 (MODERATE) SLEEP APNEA, UNSPECIFIED OTHER HEADACHE SYNDROME PERSONAL HISTORY OF COLONIC POLYPS PURE HYPERCHOLESTEROLEMIA OBSTRUCTIVE AND REFLUX UROPATHY, UNSPECIFIED PAROXYSMAL ATRIAL FIBRILLATION DIZZINESS AND GIDDINESS THROMBOCYTOPENIA, UNSPECIFIED ESSENTIAL (PRIMARY) HYPERTENSION BENIGN PROSTATIC HYPERPLASIA WITH LOWER URINARY TRACT SYMPTOMS, UNSPECIFIED MORPHOLOGY OTHER CARDIAC SOUNDS ALLERGIES VICODIN: ALLERGY AMIODARONE HCL: UNKNOWN - SIDE EFFECTS SURGICAL HISTORY APPENDECTOMY 195 RIGHT INGUINAL HERNIA REPAIR 1999 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 COLONOSCOPY 04/2007 CATARACT EXTRACTION OU 06/14/2008, 07/05 HEMORRHOID SURGERY 04/2009 DEPUYTRANS CONTRACTURE RELEASE LEFT HAND 02/2009 COLONOSCOPY 05/2013 RIGHT ROTATOR CUFF REPAIR 04/2015 PACEMAKER PLACED 02/2015 [facility] ER-DISLOCATION OF DISTAL INTERPHALANGEAL JOINT OF RIGHT RING FINGER, LACERATION WITHOUT FOREIGN BODY OF FINGER WITHOUT DAMAGE TO NAIL 01/18/2016 COLONOSCOPY 08/13/2016 URODYNAMIC STUDY 10/31/16 GREEN LIGHT LASER ABLATION OF THE PROSTATE GLAND 12/04/2016 LAMINECTOMY L3-4, L4-5 WITH FUSION 09/02/2017 FAMILY HISTORY FATHER: PROSTATE CANCER, DIAGNOSED WITH CANCER SIBLINGS: BROTHER- PROSTATE CANCER, CANCER MOTHER: HEART DISEASE REMARKABLE FOR OVARIAN CANCER.\NBOTH CHILDREN HAD MENTAL RETARDATION, SEIZURE DISORDER.NDAUGHTER HAD BREAST CANCER DIAGNOSED 2004, [place] 03/2012 AFTER SURGERY FOR A DUODENAL MASS (NOT MALIGNANT). SOCIAL HISTORY GENERAL: TOBACCO USE ARE YOU A:: FORMER SMOKER , HOW LONG HAS IT BEEN SINCE YOU LAST SMOKED?: > 10 YEARS. LATEX QUESTIONNAIRE LATEX ALLERGY : HAVE YOU EVER DEVELOPED ANY TYPE OF REACTION AFTER HANDLING LATEX PRODUCTS SUCH RUBBER GLOVES, CONDOMS, DIAPHRAGMS, BALLOONS, SOCKS, OR UNDERWEAR?NO LATEX ALLERGY : HAVE YOU EVER DEVELOPED ANY TYPE OF REACTION DURING OR AFTER DENTAL APPOINTMENT, VAGINAL/RECTAL EXAMINATION, SURGICAL PROCEDURE, OR ANY OTHER EXPOSURE?NO LATEX RISK : HAVE YOU EVER HAD ANY DIFFICULTY BREATHING OR HIVES AFTER EATING OR HANDLING ANY FRUITS, OR VEGETABLES; SUCH KIWI, BANANAS, STONE FRUITS, OR CHESTNUTSNO LATEX RISK : DO YOU HAVE A PREVIOUS PERSONAL HISTORY OF MORE THAN NINE SURGERIES, SPINA BIFIDA, OR REPEATED CATHERTIZATIONS? YES - PLEASE INDICATE : > 9 SURGERIES LATEX RISK : ARE YOU FREQUENTLY EXPOSED TO LATEX PRODUCTS IN YOUR OCCUPATION?NO DATE ASKED : 11/05/2018 BMI CARE GOAL FOLLOW-UP ABOVE NORMAL BMI FOLLOW-UPWEIGHT MONITORING ALCOHOL SCREENING DID YOU HAVE A DRINK CONTAINING ALCOHOL IN THE PAST YEAR?NO POINTS0 INTERPRETATIONNEGATIVE RECREATIONAL DRUG USE DRUG USE?NO CAFFEINE CAFFEINE USE?YES HOW OFTEN AND HOW MUCH? 2 CUPS COFFEE A DAY 1 CUP TEA SEXUAL HX HAD SEX IN THE LAST 12 MONTHS (VAGINAL, ORAL, OR ANAL)?NO HAVE YOU EVER HAD AN STD?NO HIV / HEP-C SCREENING HIV TEST OFFERED TO PATIENT:YES DATE OFFERED:11/26/2017 TEST ACCEPTED:NO HEP-C TEST OFFERED TO PATIENT:YES DATE OFFERED:11/26/2017 REASON:PATIENT DECLINED TEST ACCEPTED:YES BROCHURE PROVIDED TO PATIENTYES [place] NO CONFUCIANIST BELIEFS THAT WOULD IMPACT HEALTH CARE. LANGUAGE MARSHALLESE. 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 PAIN CLINIC PFS, CLERGY, PUBLIC HEALTH REFERRALS WAS THE PROVIDER NOTIFIED OF ANY PERTINENT INFO?YES HAS THE PATIENT BEEN EDUCATED REGARDING HIS/HER PLAN OF CARE?YES HAS THE PATIENT BEEN EDUCATED REGARDING PAIN, THE RISK FOR PAIN, THE IMPORTANCE OF EFFECTIVE PAIN MANAGEMENT, AND THE PAIN ASSESSMENT PROCESS?YES HOUSING: OWNS HOME. ADVANCE DIRECTIVE ADVANCE DIRECTIVE DISCUSSED WITH PATIENT:YES PT HAS HCP JAVAD DE JESUS ON FILE WITH [facility] REVIEWED WT PT 10/24/18 1331 BV. HOSPITALIZATION/MAJOR DIAGNOSTIC PROCEDURE SURGERY REALTED [facility]-RIGHT HIP AND HUMERUS FRACTURE (09/22-10/06-REHAB) 09/16-10/06/2018 REVIEW OF SYSTEMS REVIEWED BY: PROVIDER: PRIYA Arellano CONSTITUTIONAL: ANY CHANGE IN YOUR MEDICAL CONDITION? NO . CHILLS NO . FEVER NO . INFECTION: DO YOU HAVE NEW INFECTIONS? NO . DO YOU HAVE HISTORY OF MRSA? NO . MUSCULOSKELETAL: ANY NEW PATTERNS OF PAIN OR NUMBNESS? YES, PT STATES THAT HE HAS NUMBNESS AND WEAKNESS IN BOTH LEGS . GASTROENTEROLOGY: ANY NEW CHANGE IN BOWEL CONTROL? NO . GENITOURINARY: ANY NEW CHANGE IN BLADDER CONTROL? NO . IS THERE A CHANCE YOU COULD BE ? NO . HEMATOLOGY/LYMPH: DO YOU TAKE ANY BLOOD THINNERS? (FOR EXAMPLE- COUMADIN, PLAVIX, AGGRENOX, PLATEL, PRADAXA, OR XARELTO) COUMADIN . WHEN WAS YOUR LAST DOSE? DATE: TIME: . NEUROLOGY: HAVE YOU FALLEN IN THE PAST 12 MONTHS? YES, PT STATES THAT HE FELL ON ICE IN [place], FRACTURED HIP AND ARM, STILL GOING TO PT . ANY NEW EXTREMITY NUMBNESS OR WEAKNESS? NO . CARDIOLOGY: DO YOU HAVE A PACEMAKER OR DEFIBRILLATOR? YES, PACEMAKER . RESPIRATORY: HAVE YOU BEEN SICK IN THE PAST WEEK? NO . FEVER NO . FLU LIKE SYMPTOMS? NO . COUGH NO . INTEGUMENTARY: DO YOU HAVE ANY RASHES OR OPEN SORES? NO . ALLERGIC/IMMUNO: ARE YOU ALLERGIC TO IV DYE? NO . ANY NEW ALLERGIES? NO . PSYCHIATRIC: DO YOU HAVE THOUGHTS OF HURTING YOURSELF OR SOMEONE ELSE? NO . ARE YOU ABUSED, NEGLECTED, OR IN AN UNSAFE ENVIRONMENT? NO . ENDOCRINOLOGY: ARE YOU DIABETIC? NO . OTHER: DO YOU NEED ANY PRESCRIPTIONS? NO . IF YES, PLEASE LIST: ____ . ANY NEW PROBLEMS WITH YOUR MEDICATIONS? GABAPENTIN SCRIPT WAS NEVER RECEIVED BY PATIENT, PT TRIED OLD GABAPENTIN SCRIPT THAT HE HAD AT HOME. NOT EFFECTIVE. DS . WHEN DID YOU LAST EAT? ____ . WHEN DID YOU LAST DRINK? ____ . WHAT DID YOU LAST DRINK? ____ . NAME OF PERSON DRIVING YOU HOME? ____ . DO YOU HAVE ANY OTHER QUESTIONS OR CONCERNS NO . VITAL SIGNS WT 198.8 LBS, HT 71 IN, BMI 27.72 INDEX, BP 132/82 MM HG, HR 91 /MIN, RR 18 /MIN, TEMP 98.4 F, OXYGEN SAT % 95%, NA INITIALS AW 1321. EXAMINATION GENERAL EXAMINATION: GENERAL APPEARANCE:NO ACUTE DISTRESS, WELL NOURISHED AND HYDRATED. LUNGS:CLEAR TO AUSCULTATION BILATERALLY, NO WHEEZES, RHONCHI, RALES. HEART:IRREGULAR RHYTHM, NO MURMURS. BACK: LINERA SCAR L2-L5 LIMITED ROM UNSTEADY GAIT TENDER TO PALPATION TO LUMBAR PARASPINAL MUSCLES SLR NEG BILAT. ASSESSMENTS SPINAL STENOSIS - M48.00 (PRIMARY) TREATMENT SPINAL STENOSIS CONTINUE GABAPENTIN CAPSULE, 100 MG, 2 CAPSULE, ORALLY, THREE TIMES A DAY, 30 DAYS, 180 CAPSULE, REFILLS 0 CT SCAN : LUMBAR [id number], CHRISTINE 11/05/2018 02:54:21 PM > CT W/O CONTRAST NOTES: EDUCATED PT REGARDING GABAPENTIN DOSE PER DR Pepper 1. FOR FIRST 3 DAYS - PT IS TO TAKE 1 DOSE AT NIGHT BEFORE BEDTIME2. AFTER FIRST 3 DAYS INCREASE GABAPENTIN DOSE - TAKE GABAPENTIN IN AFTERNOON AND AT NIGHT AND CONTINUE AFTERNOON AND EVENING DOSE FOR 3 DAYS.3. AFTER 6TH DAY, INCREASE GABAPENTIN DOSE TO TAKING 3 TIMES PER DAY, MORNING, AFTERNOON AND EVENING.PT AND ACKNOWLEDGE UNDERSTANDING OF MEDICATION TREATMENT. WRITTEN MATERIAL GIVEN . CLINICAL NOTES: PLAN: DISCUSSED WITH DR RING: OBTAIN CTW/O CONTRAST LUMBAR SPINE. INCREASE GABAPENTIN.F/U WITH DR RING. PROCEDURE CODES FA211 ESTABILISHED PATIENT [facility] CHARGE DISPOSITION & COMMUNICATION FOLLOW UP [address] RING ELECTRONICALLY SIGNED BY CHANDRIKA WILKINS ON 11/06/2018 AT 04:20 PM EDT DISCLAIMER : THIS IS A VISIT SUMMARY EXTRACTED FROM THE [employer] CHART. IT IS NOT A COPY OF THE [employer] PROGRESS NOTE. VIDALD
== END ==
LOC: M PAIN 13:00
PROVIDERS: ATTEND Nurse Practitioner Family
DX: M48.00 Spinal stenosis, site unspecified (principal); I25.10 Atherosclerotic heart disease of native coronary artery without angina pectoris; J30.9 Allergic rhinitis, unspecified; N18.3 Chronic kidney disease, stage 3 (moderate); G47.30 Sleep apnea, unspecified; E78.00 Pure hypercholesterolemia, unspecified; I48.0 Paroxysmal atrial fibrillation; R42 Dizziness and giddiness; D69.6 Thrombocytopenia, unspecified; I12.9 Hypertensive chronic kidney disease with stage 1 through stage 4 chronic kidney disease, or unspecified chronic kidney disease; N40.1 Benign prostatic hyperplasia with lower urinary tract symptoms; G44.89 Other headache syndrome; Z86.010 Personal history of colon polyps; N13.9 Obstructive and reflux uropathy, unspecified; Z87.891 Personal history of nicotine dependence; Z79.01 Long term (current) use of anticoagulants; Z79.899 Other long term (current) drug therapy; Z98.1 Arthrodesis status; Z90.49 Acquired absence of other specified parts of digestive tract; Z89.022 Acquired absence of left finger(s); Z98.41 Cataract extraction status, right eye; Z98.42 Cataract extraction status, left eye; Z95.0 Presence of cardiac pacemaker; Z88.5 Allergy status to narcotic agent; Z88.8 Allergy status to other drugs, medicaments and biological substances

== ENCOUNTER → 2018-11-05 | Outpatient (CLI) | payer MEDICARE ==
--- NOTE | 2018-11-05 17:09 | REP ---
CT lumbar spine without contrast: History: Spinal stenosis. Comparison CT study is from October 11, 2016. Technique: Helical scanning is acquired. 4 mm axial images are reformatted. Coronal and sagittal MPR images are generated. CT findings: In the interval since the prior CT study, the patient has undergone laminectomy and partial laminectomy at L3-4. Transpedicular screw interconnecting aristeo dorsal spine fixation and fusion hardware is seen in place. Lumbar vertebral body heights are preserved. Alignment is normal. There is degenerative disc disease L4-5 and L5 S1 with narrowing and vacuum phenomenon in these two disc levels. The L5-S1 vacuum phenomena and disc space narrowing are more prominent than on the prior study. L4-5 degenerative disc changes are stable. There is no evidence of spondylolysis or spondylolisthesis. No bony destructive lesion is seen. No evidence of disc herniation at L5-S1. Mild facet hypertrophy is present. There is some spray artifact at 4-5 and 3-4 discs from the metallic hardware. At the L2-3, there is mild central canal stenosis due to developmentally short pedicles, diffuse disc bulging and some ligamentum flavum hypertrophy. The thecal sac has a 9.5 mm midline dimension. This appears to be unchanged from the comparison CT study. At L1-2 there is minimal diffuse disc bulging. No new abnormality. Impression: Status post L3-L5 fusion and L4 laminectomy. Mild central canal stenosis L2-3 unchanged. Electronically Signed by Dusty Ty MD 11/05/2018 05:33 P
== END ==
LOC: M RAD 15:33
PROVIDERS: ATTEND Nurse Practitioner Family
DX: M51.36 Other intervertebral disc degeneration, lumbar region (principal); M51.37 Other intervertebral disc degeneration, lumbosacral region; M51.26 Other intervertebral disc displacement, lumbar region; M48.061 Spinal stenosis, lumbar region without neurogenic claudication; Z98.1 Arthrodesis status
CPT/HCPCS: 72131; G0463

== ENCOUNTER → 2018-11-24 | Outpatient (CLI) | payer MEDICARE ==
[~2018-11-24] MED LIST changes: +ACET-683 PO; +GABA-1171; +TIZA2TA
--- NOTE | 2018-12-09 01:50 | ECWPNPC ---
PATIENT NAME: JASMYNE DE JESUS : 1930 GENDER: MALE VISIT DATE: 11/24/2018 DISCHARGE DATE: 11/24/18 1326 VISIT LOCKED DATE TIME: PHYSICIAN: RANDI RING MD RESOURCE: RANDI RING MD REASON FOR APPOINTMENT 1. LEG PAIN HISTORY OF PRESENT ILLNESS HISTORY OF PRESENT ILLNESS: PAIN THE PATIENT DESCRIBES THE PAIN... 88 YEAR OLD MALE PATIENT WITH A HISTORY OF CHRONIC LOW BACK AND LEG PAIN. THE PATIENT DESCRIBES THE PAIN ACHING AND CONTINUOUS WITH A PAIN SCORE OF 6-9/10 DEPENDING ON PHYSICAL ACTIVITY. THE PATIENT SAID HE HAD A BACK SURGERY ONE YEAR AGO BUT THE LEG PAIN CONTINUES TO BE SEVERE. THE PATIENT SAYS THE PAIN IS CAUSING AN INABILITY FOR HIM TO FUNCTION OR SLEEP. THE PATIENT SAID HE FELL TWO MONTHS AGO AND HAS TRAUMA OVER HIS HIPS. THE PATIENT SAYS HE STARTED GABAPENTIN LAST MONTH AND EXPERIENCES NO SIDE EFFECTS, BUT HE HAS YET TO RECEIVE ANY PAIN RELIEF. PATIENT DENIES UNEXPLAINABLE WEIGHT LOSS, FEVER, CHILLS, NEW CHANGES ON HIS URINARY OR BOWEL CONTROL. FALL RISK SCREENING: SCREENING :NO FALLS REPORTED IN THE LAST YEAR CURRENT MEDICATIONS TAKING VITAMIN C 500 MG TABLET 1 TABLET ORALLY ONCE A DAY TAKING VITAMIN D3 2000 UNIT CAPSULE 1 CAPSULE ORALLY ONCE A DAY TAKING COUMADIN 1 MG TABLET 1 TAB ORALLY DAILY AT 5PM TAKING NITROSTAT 0.4 MG TABLET SUBLINGUAL 1 TAB SUBLINGUAL Q5 MIN X 3 NEEDED FOR CHEST PAIN TAKING MECLIZINE HCL 25 MG TABLET 1 TAB ORALLY EVERY 8HOURS NEEDED FOR DIZZINESS TAKING CARVEDILOL 3.125 MG TABLET 1 ORALLY DAILY--HOLD IF SITTING OR STANDING BP IS LESS THAN 100 SYSTOLIC TAKING SUCRALFATE 1 GM TABLET 1 TABLET ORALLY TWICE A DAY TAKING DIGOXIN 125 MCG TABLET 1 TABLET ORALLY 3 TIMES WEEK--- TAKING LIPITOR 40 MG TABLET 1 TABLET ORALLY BEFORE BEDTIME TAKING VITAMIN B-2 100 MG TABLET 1 TABLET WITH A MEAL ORALLY ONCE A DAY TAKING FUROSEMIDE 20 MG TABLET 1 TABLET ORALLY ONCE A DAY NEEDED FOR SEVERE ANKLE SWELLING TAKING VITAMIN B12 1000 MCG TABLET EXTENDED RELEASE 1 TABLET ORALLY ONCE A DAY TAKING TIZANIDINE HCL 2 MG CAPSULE 1 CAPSULE NEEDED ORALLY THREE TIMES A DAY TAKING OMEPRAZOLE 40 MG CAPSULE DELAYED RELEASE 1 CAPSULE ORALLY TWICE DAILY TAKING GABAPENTIN 100 MG CAPSULE 2 CAPSULE ORALLY THREE TIMES A DAY TAKING DULOXETINE HCL 30 MG CAPSULE DELAYED RELEASE PARTICLES 1 CAPSULE ORALLY ONCE A DAY NOT-TAKING PERCOCET 5-325 MG TABLET 1 TABLET ORALLY EVERY 6 HRS NEEDED MDD=4 MEDICATION LIST REVIEWED AND RECONCILED WITH THE PATIENT PAST MEDICAL HISTORY ATHEROSCLEROTIC HEART DISEASE OF [place] CORONARY ARTERY WITHOUT ANGINA PECTORIS ALLERGIC RHINITIS, UNSPECIFIED CHRONIC KIDNEY DISEASE, STAGE 3 (MODERATE) SLEEP APNEA, UNSPECIFIED OTHER HEADACHE SYNDROME PERSONAL HISTORY OF COLONIC POLYPS PURE HYPERCHOLESTEROLEMIA OBSTRUCTIVE AND REFLUX UROPATHY, UNSPECIFIED PAROXYSMAL ATRIAL FIBRILLATION DIZZINESS AND GIDDINESS THROMBOCYTOPENIA, UNSPECIFIED ESSENTIAL (PRIMARY) HYPERTENSION BENIGN PROSTATIC HYPERPLASIA WITH LOWER URINARY TRACT SYMPTOMS, UNSPECIFIED MORPHOLOGY OTHER CARDIAC SOUNDS ALLERGIES VICODIN: ALLERGY AMIODARONE HCL: UNKNOWN - SIDE EFFECTS SURGICAL HISTORY APPENDECTOMY 1953 RIGHT INGUINAL HERNIA REPAIR 1999 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 COLONOSCOPY 04/2007 CATARACT EXTRACTION OU 06/14/2008, 07/05 HEMORRHOID SURGERY 04/2009 DEPUYTRANS CONTRACTURE RELEASE LEFT HAND 02/2009 COLONOSCOPY 05/2013 RIGHT ROTATOR CUFF REPAIR 04/2015 PACEMAKER PLACED 02/2015 [facility] ER-DISLOCATION OF DISTAL INTERPHALANGEAL JOINT OF RIGHT RING FINGER, LACERATION WITHOUT FOREIGN BODY OF FINGER WITHOUT DAMAGE TO NAIL 01/18/2016 COLONOSCOPY 08/13/2016 URODYNAMIC STUDY 10/31/16 GREEN LIGHT LASER ABLATION OF THE PROSTATE GLAND 12/04/2016 LAMINECTOMY L3-4, L4-5 WITH FUSION 09/02/2017 FAMILY HISTORY FATHER: PROSTATE CANCER, DIAGNOSED WITH CANCER SIBLINGS: BROTHER- PROSTATE CANCER, CANCER MOTHER: HEART DISEASE REMARKABLE FOR OVARIAN CANCER.\\\\NBOTH CHILDREN HAD MENTAL RETARDATION, SEIZURE DISORDER.NDAUGHTER HAD BREAST CANCER DIAGNOSED 2004, IN \\\ AFTER SURGERY FOR A DUODENAL MASS (NOT MALIGNANT). SOCIAL HISTORY GENERAL: TOBACCO USE ARE YOU A:: FORMER SMOKER , HOW LONG HAS IT BEEN SINCE YOU LAST SMOKED?: > 10 YEARS. HIV / HEP-C SCREENING HIV TEST OFFERED TO PATIENT:YES DATE OFFERED:11/26/2017 TEST ACCEPTED:NO HEP-C TEST OFFERED TO PATIENT:YES DATE OFFERED:11/26/2017 REASON:PATIENT DECLINED TEST ACCEPTED:YES BROCHURE PROVIDED TO PATIENTYES HOUSING: OWNS HOME. LANGUAGE TURKISH. DOMESTIC VIOLENCE STATUS: DO YOU FEEL SAFE IN YOUR ENVIRONMENT?YES BMI CARE GOAL FOLLOW-UP ABOVE NORMAL BMI FOLLOW-UPWEIGHT MONITORING RECREATIONAL DRUG USE DRUG USE?NO LEARNING BARRIERS / SPECIAL NEEDS CHANGE FROM LAST VISIT?NO BARRIERS TO LEARNING?NO HEARING IMPAIRED?YES VISION IMPAIRED?YES COGNITIVELY IMPAIRED?NO :HEARING AIDES :CORRECTIVE LENSES READINESS TO LEARN?YES LEARNING PREFERENCES?NO LEARNING CAPABILITIES PRESENT?YES EMOTIONAL BARRIERS?NO SPECIAL DEVICES?NO HEADSTART TEACHER NEEDED?NO PAIN CLINIC PFS, CLERGY, PUBLIC HEALTH REFERRALS WAS THE PROVIDER NOTIFIED OF ANY PERTINENT INFO?YES HAS THE PATIENT BEEN EDUCATED REGARDING HIS/HER PLAN OF CARE?YES HAS THE PATIENT BEEN EDUCATED REGARDING PAIN, THE RISK FOR PAIN, THE IMPORTANCE OF EFFECTIVE PAIN MANAGEMENT, AND THE PAIN ASSESSMENT PROCESS?YES LATEX QUESTIONNAIRE LATEX ALLERGY : HAVE YOU EVER DEVELOPED ANY TYPE OF REACTION AFTER HANDLING LATEX PRODUCTS SUCH RUBBER GLOVES, CONDOMS, DIAPHRAGMS, BALLOONS, SOCKS, OR UNDERWEAR?NO LATEX ALLERGY : HAVE YOU EVER DEVELOPED ANY TYPE OF REACTION DURING OR AFTER DENTAL APPOINTMENT, VAGINAL/RECTAL EXAMINATION, SURGICAL PROCEDURE, OR ANY OTHER EXPOSURE?NO DATE ASKED : 11/21/2018 LATEX RISK : HAVE YOU EVER HAD ANY DIFFICULTY BREATHING OR HIVES AFTER EATING OR HANDLING ANY FRUITS, OR VEGETABLES; SUCH KIWI, BANANAS, STONE FRUITS, OR CHESTNUTSNO LATEX RISK : DO YOU HAVE A PREVIOUS PERSONAL HISTORY OF MORE THAN NINE SURGERIES, SPINA BIFIDA, OR REPEATED CATHERTIZATIONS? YES - PLEASE INDICATE : > 9 SURGERIES LATEX RISK : ARE YOU FREQUENTLY EXPOSED TO LATEX PRODUCTS IN YOUR OCCUPATION?NO CAFFEINE CAFFEINE USE?YES HOW OFTEN AND HOW MUCH? 2 CUPS COFFEE A DAY 1 CUP TEA ADVANCE DIRECTIVE ADVANCE DIRECTIVE DISCUSSED WITH PATIENT:YES PT HAS HCP JAVAD DE JESUS ON FILE WITH [facility] SCIENTOLOGIST NO CHRISTIAN BELIEFS THAT WOULD IMPACT HEALTH CARE. 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 SEXUAL HX HAD SEX IN THE LAST 12 MONTHS (VAGINAL, ORAL, OR ANAL)?NO HAVE YOU EVER HAD AN STD?NO REVIEWED [facility] PT 10/24/18 1331 BV. HOSPITALIZATION/MAJOR DIAGNOSTIC PROCEDURE SURGERY REALTED [facility]-RIGHT HIP AND HUMERUS FRACTURE (09/22-10/06-REHAB) 09/16-10/06/2018 REVIEW OF SYSTEMS REVIEWED BY: PROVIDER: RANDI RING MD . CONSTITUTIONAL: ANY CHANGE IN YOUR MEDICAL CONDITION? NO . CHILLS NO . FEVER NO . INFECTION: DO YOU HAVE NEW INFECTIONS? NO . DO YOU HAVE HISTORY OF MRSA? NO . MUSCULOSKELETAL: ANY NEW PATTERNS OF PAIN OR NUMBNESS? NO . GASTROENTEROLOGY: ANY NEW CHANGE IN BOWEL CONTROL? YES, PT C/O LOOSE STOOLS . GENITOURINARY: ANY NEW CHANGE IN BLADDER CONTROL? NO . IS THERE A CHANCE YOU COULD BE ? NO . HEMATOLOGY/LYMPH: DO YOU TAKE ANY BLOOD THINNERS? (FOR EXAMPLE- COUMADIN, PLAVIX, AGGRENOX, PLATEL, PRADAXA, OR XARELTO) YES, COUMADIN . WHEN WAS YOUR LAST DOSE? DATE: TIME: . NEUROLOGY: HAVE YOU FALLEN IN THE PAST 12 MONTHS? YES, PRIOR TO LAST VISIT . ANY NEW EXTREMITY NUMBNESS OR WEAKNESS? YES, BILAT LEG WEAKNESS AND NUMBNESS IN LEFT LEG . CARDIOLOGY: DO YOU HAVE A PACEMAKER OR DEFIBRILLATOR? YES, PACEMAKER . RESPIRATORY: HAVE YOU BEEN SICK IN THE PAST WEEK? NO . FEVER NO . FLU LIKE SYMPTOMS? NO . COUGH NO . INTEGUMENTARY: DO YOU HAVE ANY RASHES OR OPEN SORES? NO . ALLERGIC/IMMUNO: ARE YOU ALLERGIC TO IV DYE? NO . ANY NEW ALLERGIES? NO . PSYCHIATRIC: DO YOU HAVE THOUGHTS OF HURTING YOURSELF OR SOMEONE ELSE? YES, PAIN IS SO BAD I COULD JUMP OFF A BRIDGE . ARE YOU ABUSED, NEGLECTED, OR IN AN UNSAFE ENVIRONMENT? NO . ENDOCRINOLOGY: ARE YOU DIABETIC? NO . OTHER: DO YOU NEED ANY PRESCRIPTIONS? YES, DISCUSS W/ DR . IF YES, PLEASE LIST: ____ . ANY NEW PROBLEMS WITH YOUR MEDICATIONS? NO . WHEN DID YOU LAST EAT? ____ . WHEN DID YOU LAST DRINK? ____ . WHAT DID YOU LAST DRINK? ____ . NAME OF PERSON DRIVING YOU HOME? ____ . DO YOU HAVE ANY OTHER QUESTIONS OR CONCERNS YES, HAD PHYSICAL THERAPY, DIDN'T HELP. PT STOPPED IN LAST WEEK C/O PAIN ASKING FOR MORE PAIN RELIEF, PT WAS INSTRUCTED TO WAIT UNTIL TODAY'S APPT OR GO TO URGENT CARE, PT DID NOT GO TO URGENT CARE HE FELT THEY WOULD NOT DO ANYTHING AND EXPRESSES DISGUST IN THE SYSTEM . VITAL SIGNS WT 202 LBS, HT 71 IN, BMI 28.17 INDEX, BP 170/112 MM HG, REPEAT BP 148/100 MM HG, HR 66 /MIN, RR 18 /MIN, TEMP 98.0 F, OXYGEN SAT % 95%, NA INITIALS AW 1149, REVIEWED BY: EMLET NURSE KNOW ABOUT BPB/P RECHECK MANUAL. EM. EXAMINATION GENERAL EXAMINATION: PATIENT IS ALERT O X 3 AND COOPERATIVE. RIGHT LEG IS WEAKER AT EXTENSION AND FLEXION. MORE NUMBNESS IN LEFT LEG. CT SCAN OF THE LUMBAR SPINE DONE ON 11/05/2018 SHOWS STATUS POST L3-L5 FUSION AND L4 LAMINECTOMY. 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 DE JESUS'S PAIN MANAGEMENT CASE. DUE TO THE LUMBAR RADICULOPATHY, I WOULD LIKE TO MOVE FORWARD WITH A LUMBAR EPIDURAL STEROID INJECTION AT THIS TIME, BUT I WILL REQUEST CLEARANCE FROM THE PATIENT'S HOSPITAL PHARMACY DIRECTOR FOR THE PATIENT TO STOP COUMADIN FOR THE PROCEDURE FIRST. I WILL INCREASE THE GABAPENTIN TO 3 TABLETS PER DAY. I CREATED A SCHEDULE FOR THE PATIENT TO FOLLOW IN ORDER TO INCREASE THE MEDICATION SLOWLY AND AVOID ANY ADVERSE SIDE EFFECTS. IF THE PATIENT EXPERIENCES DIZZINESS OR ANY OTHER SIDE EFFECTS, HE WILL RETURN TO THE PREVIOUS DOSAGE. THE PATIENT WILL FOLLOW UP IN 3 WEEKS. INSTRUCTIONS WERE GIVEN, QUESTIONS WERE ANSWERED, PATIENT REPORTS UNDERSTANDING AND AGREES WITH THE PLAN. I, ROSETTE LYON, DOCUMENTED THE ABOVE INFORMATION ACTING A SCRIBE FOR DR. RING. I HAVE REVIEWED THE ABOVE DOCUMENT, WRITTEN BY ROSETTE FREIRE AND I VERIFY THAT IT IS ACCURATE. . PROCEDURE CODES FA211 ESTABILISHED PATIENT [facility] FACILITY CHARGE G8427 CURRENT MEDS W/DOSAGES DOCUMENTED G8730 PAIN ASSESS POS TOOL F/U PLAN DOC DISPOSITION & COMMUNICATION FOLLOW UP 3 WEEKS ELECTRONICALLY SIGNED BY RANDI RING MD, MD ON 12/08/2018 AT 04:54 PM EDT DISCLAIMER : THIS IS A VISIT SUMMARY EXTRACTED FROM THE [employer] CHART. IT IS NOT A COPY OF THE [employer] PROGRESS NOTE. MTDD
== END ==
LOC: M PAIN 11:45
PROVIDERS: ATTEND Anesthesiology
DX: M48.00 Spinal stenosis, site unspecified (principal); M96.1 Postlaminectomy syndrome, not elsewhere classified; M51.16 Intervertebral disc disorders with radiculopathy, lumbar region; M51.17 Intervertebral disc disorders with radiculopathy, lumbosacral region; I25.10 Atherosclerotic heart disease of native coronary artery without angina pectoris; I12.9 Hypertensive chronic kidney disease with stage 1 through stage 4 chronic kidney disease, or unspecified chronic kidney disease; N18.3 Chronic kidney disease, stage 3 (moderate); G47.30 Sleep apnea, unspecified; G44.89 Other headache syndrome; E78.00 Pure hypercholesterolemia, unspecified; Z79.01 Long term (current) use of anticoagulants; Z79.899 Other long term (current) drug therapy; Z88.5 Allergy status to narcotic agent; Z88.8 Allergy status to other drugs, medicaments and biological substances; Z86.69 Personal history of other diseases of the nervous system and sense organs; Z95.0 Presence of cardiac pacemaker; Z87.891 Personal history of nicotine dependence

== ENCOUNTER 2018-12-10 11:08 | Emergency (ER) | payer MEDICARE ==
[~2018-12-10] VITALS: Ht 180.3 cm; Wt 90.0 kg
[~2018-12-10 11:08] MED LIST changes: -ACET-683 PO; -GABA-1171; -TIZA2TA
[2018-12-10] MEDS ORDERED: GABA-1171 (11:31)
[2018-12-10] MEDS ORDERED: ACET-683 PO (11:31)
[2018-12-10] MEDS ORDERED: TIZA2TA (11:31)
--- NOTE | 2018-12-10 12:07 | REP ---
Chest one-view HISTORY: Chest pain Comparison: 08/08/2016 A minimal increase in interstitial markings is present in the lungs consistent with chronic interstitial change. The heart is normal in size. The pulmonary vasculature is normal in appearance. A cardiac pacemaker is present. Impression: Chronic interstitial change. Electronically Signed by Loco Chan MD 12/10/2018 11:59 A
[2018-12-10 12:16] LABS: BASO % 0.5 % (0.0-1.0); EOS # 0.1 10^3/uL (0.0-0.50); EOS % 0.7 % (0.0-3.0); HEMATOCRIT 43.7 % (42.0-52.0); HEMOGLOBIN 13.8 g/dl (13.5-17.5); LYMPH # 1.7 10^3/uL (1.5-4.5); LYMPH % 18.6 % (24.0-44.0); MEAN CORPUSCULAR HEMOGLOBIN 30.1 pg (27.0-33.0); MEAN CORPUSCULAR HGB CONC 31.6 g/dl (32.0-36.5); MEAN CORPUSCULAR VOLUME 95.4 fl (80.0-96.0); MONO % 11.3 % (0.0-5.0); NEUTROPHILS # 6.1 10^3/uL (1.8-7.7); NEUTROPHILS % 68.6 % (36.0-66.0); PLATELET COUNT, AUTOMATED 168 10^3/uL (150-450); RED BLOOD COUNT 4.58 10^6/uL (4.30-6.10); WHITE BLOOD COUNT 8.9 10^3/uL (4.0-10.0)
[2018-12-10 12:24] LABS: BLOOD UREA NITROGEN 42 MG/DL (7-18); CALCIUM LEVEL 8.7 MG/DL (8.8-10.2); CARBON DIOXIDE LEVEL 25 MEQ/L (21-32); CHLORIDE LEVEL 110 MEQ/L (98-107); CPK CREATINE PHOSPHOKINASE 54 U/L (39-308); CREATININE FOR GFR 1.96 MG/DL (0.70-1.30); GLOMERULAR FILTRATION RATE 34.5 (>35); GLUCOSE, FASTING 112 MG/DL (70-100); MB/CK RELATIVE INDEX 5.74 (< OR =4); POTASSIUM SERUM 4.9 MEQ/L (3.5-5.1); SODIUM LEVEL 141 MEQ/L (136-145); TROPONIN I < 0.02 NG/ML (< 0.10)
[2018-12-10 12:28] LABS: INR 1.89
[2018-12-10 12:29] LABS: PARTIAL THROMBOPLASTIN TIME 34.3 SECONDS (25.4-37.6)
[2018-12-10 14:17] LABS: CPK CREATINE PHOSPHOKINASE 52 U/L (39-308); MB/CK RELATIVE INDEX 5.77 (< OR =4); TROPONIN I < 0.02 NG/ML (< 0.10)
[2018-12-10 15:56] VITALS: BP 145/94
--- NOTE | 2018-12-11 08:07 | ECGEPIP ---
Stationary ECG Study [facility] - ED Test Date: 2018-12-10 Pat Name: JASMYNE DE JESUS Department: Room: - Gender: M Hand Straightener: ct : 1930 Requested By: Jace Arredondo Order Number: [id number] Reading MD: Jace Allan Measurements Intervals [place] Rate: 76 P: TX: 0 QRS: 0 QRSD: 10 T: 263 QT: 134 QTc: 151 Interpretive Statements ATRIAL FIBRILLATION WITH ELECTRONIC VENTRICULAR PACEMAKER INDETERMINATE AXIS LOW QRS VOLTAGE IN PRECORDIAL LEADS PATTERN CONSISTENT WITH PULMONARY DISEASE SIMILAR TO 09/11/17 Electronically Signed On 12-11-2018 8:07:43 EDT by Jace Allan
--- NOTE | 2018-12-11 08:08 | ECGEPIP ---
Stationary ECG Study [facility] - ED Test Date: 2018-12-10 Pat Name: JASMYNE DE JESUS Department: Room: - Gender: M Tripper: fitz : 1930 Requested By: Jace Arredondo Order Number: [id number] Reading MD: Jace Allan Measurements Intervals [place] Rate: 68 P: ME: 0 QRS: -54 QRSD: 153 T: 103 QT: 419 QTc: 449 Interpretive Statements ELECTRONIC VENTRICULAR PACEMAKER WITH ATRIAL FIBRILLATION SIMILAR TO PRIOR ON SAME DATE Electronically Signed On 12-11-2018 8:08:23 EDT by Jace Allan
== END 2018-12-10 15:58 | disposition home or self-care (01) ==
LOC: M ED 11:08 → EDBD 11:08 → CANBEDREQ 14:37 → M ED 15:58
DX: R07.89 Other chest pain (principal); K21.9 Gastro-esophageal reflux disease without esophagitis; N18.4 Chronic kidney disease, stage 4 (severe); Z95.0 Presence of cardiac pacemaker; I48.91 Unspecified atrial fibrillation; I25.10 Atherosclerotic heart disease of native coronary artery without angina pectoris; I10 Essential (primary) hypertension; E78.5 Hyperlipidemia, unspecified; N40.0 Benign prostatic hyperplasia without lower urinary tract symptoms; Z95.5 Presence of coronary angioplasty implant and graft; Z98.61 Coronary angioplasty status; Z87.891 Personal history of nicotine dependence; Z79.01 Long term (current) use of anticoagulants; Z79.899 Other long term (current) drug therapy; Z88.2 Allergy status to sulfonamides; Z88.5 Allergy status to narcotic agent

== ENCOUNTER → 2018-12-15 | Outpatient (CLI) | payer MEDICARE ==
[~2018-12-15] MED LIST changes: +ACET-683 PO; +GABA-1171; +TIZA2TA
--- NOTE | 2018-12-26 03:24 | ECWPNPC ---
PATIENT NAME: JASMYNE DE JESUS : 1930 GENDER: MALE VISIT DATE: 12/15/2018 DISCHARGE DATE: 12/15/18 1603 VISIT LOCKED DATE TIME: PHYSICIAN: RANDI RING MD RESOURCE: RANDI RING MD REASON FOR APPOINTMENT 1. DR AWARE 30 PATIENTS THIS DAY. WANTS THIS PATIENT BOOKED 3 WEEKS ANYWAY. HISTORY OF PRESENT ILLNESS HISTORY OF PRESENT ILLNESS: PAIN THE PATIENT DESCRIBES THE PAIN... 88 YEAR OLD MALE PATIENT WITH A HISTORY OF CHRONIC LOW BACK PAIN. THE PATIENT DESCRIBES THE PAIN ACHING, BURNING, SHARP, STABBING, AND CONTINUOUS WITH A PAIN SCORE OF 8-10/10 DEPENDING ON PHYSICAL ACTIVITY. THE PATIENT SAYS THE PAIN STARTS IN HIS LOW BACK AREA AND RADIATES DOWN BOTH LEGS, BUT STATES HIS LEFT LEG IS WORSE. THE PATIENT SAYS THAT HE HAS HAD THIS PAIN FOR OVER A YEAR SAYS HE HAD A SURGERY ON HIS LOW BACK LAST YEAR, BUT THE PAIN HAS PERSISTED. THE PATIENT SAYS THAT HE HAS DIFFICULTY WALKING DUE TO A BURNING AND THROBBING PAIN. THE PATIENT IS CURRENTLY USING GABAPENTIN TO AID IN PAIN RELIEF. PATIENT DENIES UNEXPLAINABLE WEIGHT LOSS, FEVER, CHILLS, NEW CHANGES ON HIS URINARY OR BOWEL CONTROL. FALL RISK SCREENING: SCREENING :NO FALLS REPORTED IN THE LAST YEAR CURRENT MEDICATIONS TAKING GABAPENTIN 100 MG CAPSULE 3 CAPSULE ORALLY THREE TIMES A DAY, NOTES: TAKES 2 IN AM AND AFTERNOON AND 3 AT BEDTIME TAKING SUCRALFATE 1 GM TABLET 1 TABLET ORALLY TWICE A DAY TAKING VITAMIN C 500 MG TABLET 1 TABLET ORALLY ONCE A DAY TAKING VITAMIN D3 2000 UNIT CAPSULE 1 CAPSULE ORALLY ONCE A DAY TAKING COUMADIN 1 MG TABLET 1 TAB ORALLY DAILY AT 5PM TAKING NITROSTAT 0.4 MG TABLET SUBLINGUAL 1 TAB SUBLINGUAL Q5 MIN X 3 NEEDED FOR CHEST PAIN TAKING MECLIZINE HCL 25 MG TABLET 1 TAB ORALLY EVERY 8HOURS NEEDED FOR DIZZINESS TAKING CARVEDILOL 3.125 MG TABLET 1 ORALLY DAILY--HOLD IF SITTING OR STANDING BP IS LESS THAN 100 SYSTOLIC TAKING DIGOXIN 125 MCG TABLET 1 TABLET ORALLY 3 TIMES WEEK--- TAKING LIPITOR 40 MG TABLET 1 TABLET ORALLY BEFORE BEDTIME TAKING VITAMIN B-2 100 MG TABLET 1 TABLET WITH A MEAL ORALLY ONCE A DAY TAKING VITAMIN B12 1000 MCG TABLET EXTENDED RELEASE 1 TABLET ORALLY ONCE A DAY TAKING TIZANIDINE HCL 2 MG CAPSULE 1 CAPSULE NEEDED ORALLY THREE TIMES A DAY TAKING OMEPRAZOLE 40 MG CAPSULE DELAYED RELEASE 1 CAPSULE ORALLY TWICE DAILY TAKING DULOXETINE HCL 60 MG CAPSULE DELAYED RELEASE PARTICLES 1 CAPSULE ORALLY ONCE A DAY TAKING ACETAMINOPHEN 325 MG TABLET 1 TABLET NEEDED ORALLY BEFORE BEDTIME TAKING MAGNESIUM 300 MG CAPSULE 1 CAPSULE WITH A MEAL ORALLY ONCE A DAY NOT-TAKING FUROSEMIDE 20 MG TABLET 1 TABLET ORALLY ONCE A DAY NEEDED FOR SEVERE ANKLE SWELLING NOT-TAKING PERCOCET 5-325 MG TABLET 1 TABLET ORALLY EVERY 6 HRS NEEDED MDD=4 MEDICATION LIST REVIEWED AND RECONCILED WITH THE PATIENT PAST MEDICAL HISTORY ATHEROSCLEROTIC HEART DISEASE OF [place] CORONARY ARTERY WITHOUT ANGINA PECTORIS ALLERGIC RHINITIS, UNSPECIFIED CHRONIC KIDNEY DISEASE, STAGE 3 (MODERATE) SLEEP APNEA, UNSPECIFIED OTHER HEADACHE SYNDROME PERSONAL HISTORY OF COLONIC POLYPS PURE HYPERCHOLESTEROLEMIA OBSTRUCTIVE AND REFLUX UROPATHY, UNSPECIFIED PAROXYSMAL ATRIAL FIBRILLATION DIZZINESS AND GIDDINESS THROMBOCYTOPENIA, UNSPECIFIED ESSENTIAL (PRIMARY) HYPERTENSION BENIGN PROSTATIC HYPERPLASIA WITH LOWER URINARY TRACT SYMPTOMS, UNSPECIFIED MORPHOLOGY OTHER CARDIAC SOUNDS ALLERGIES VICODIN: ALLERGY AMIODARONE HCL: UNKNOWN - SIDE EFFECTS SURGICAL HISTORY APPENDECTOMY 1953 RIGHT INGUINAL HERNIA REPAIR 1999 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 COLONOSCOPY 04/2007 CATARACT EXTRACTION OU 06/14/2008, 07/05 HEMORRHOID SURGERY 04/2009 DEPUYTRANS CONTRACTURE RELEASE LEFT HAND 02/2009 COLONOSCOPY 05/2013 RIGHT ROTATOR CUFF REPAIR 04/2015 PACEMAKER PLACED 02/2015 [facility] ER-DISLOCATION OF DISTAL INTERPHALANGEAL JOINT OF RIGHT RING FINGER, LACERATION WITHOUT FOREIGN BODY OF FINGER WITHOUT DAMAGE TO NAIL 01/18/2016 COLONOSCOPY 08/13/2016 URODYNAMIC STUDY 10/31/16 GREEN LIGHT LASER ABLATION OF THE PROSTATE GLAND 12/04/2016 LAMINECTOMY L3-4, L4-5 WITH FUSION 09/02/2017 FAMILY HISTORY FATHER: PROSTATE CANCER, DIAGNOSED WITH CANCER SIBLINGS: BROTHER- PROSTATE CANCER, CANCER MOTHER: HEART DISEASE REMARKABLE FOR OVARIAN CANCER.\\\\NBOTH CHILDREN HAD MENTAL RETARDATION, SEIZURE DISORDER.NDAUGHTER HAD BREAST CANCER DIAGNOSED 2004, IN \ AFTER SURGERY FOR A DUODENAL MASS (NOT MALIGNANT). SOCIAL HISTORY GENERAL: TOBACCO USE ARE YOU A:: FORMER SMOKER , HOW LONG HAS IT BEEN SINCE YOU LAST SMOKED?: > 10 YEARS. HIV / HEP-C SCREENING HIV TEST OFFERED TO PATIENT:YES DATE OFFERED:11/26/2017 TEST ACCEPTED:NO HEP-C TEST OFFERED TO PATIENT:YES DATE OFFERED:11/26/2017 REASON:PATIENT DECLINED TEST ACCEPTED:YES BROCHURE PROVIDED TO PATIENTYES HOUSING: OWNS HOME. LANGUAGE [place]. DOMESTIC VIOLENCE STATUS: DO YOU FEEL SAFE IN YOUR ENVIRONMENT?YES BMI CARE GOAL FOLLOW-UP ABOVE NORMAL BMI FOLLOW-UPWEIGHT MONITORING RECREATIONAL DRUG USE DRUG USE?NO LEARNING BARRIERS / SPECIAL NEEDS CHANGE FROM LAST VISIT?NO BARRIERS TO LEARNING?NO HEARING IMPAIRED?YES VISION IMPAIRED?YES COGNITIVELY IMPAIRED?NO :HEARING AIDES :CORRECTIVE LENSES READINESS TO LEARN?YES LEARNING PREFERENCES?NO LEARNING CAPABILITIES PRESENT?YES EMOTIONAL BARRIERS?NO SPECIAL DEVICES?NO DIRECTOR OF CLINICAL TRIALS NEEDED?NO PAIN CLINIC PFS, CLERGY, PUBLIC HEALTH REFERRALS WAS THE PROVIDER NOTIFIED OF ANY PERTINENT INFO?YES HAS THE PATIENT BEEN EDUCATED REGARDING HIS/HER PLAN OF CARE?YES HAS THE PATIENT BEEN EDUCATED REGARDING PAIN, THE RISK FOR PAIN, THE IMPORTANCE OF EFFECTIVE PAIN MANAGEMENT, AND THE PAIN ASSESSMENT PROCESS?YES LATEX QUESTIONNAIRE LATEX ALLERGY : HAVE YOU EVER DEVELOPED ANY TYPE OF REACTION AFTER HANDLING LATEX PRODUCTS SUCH RUBBER GLOVES, CONDOMS, DIAPHRAGMS, BALLOONS, SOCKS, OR UNDERWEAR?NO LATEX ALLERGY : HAVE YOU EVER DEVELOPED ANY TYPE OF REACTION DURING OR AFTER DENTAL APPOINTMENT, VAGINAL/RECTAL EXAMINATION, SURGICAL PROCEDURE, OR ANY OTHER EXPOSURE?NO LATEX RISK : HAVE YOU EVER HAD ANY DIFFICULTY BREATHING OR HIVES AFTER EATING OR HANDLING ANY FRUITS, OR VEGETABLES; SUCH KIWI, BANANAS, STONE FRUITS, OR CHESTNUTSNO LATEX RISK : DO YOU HAVE A PREVIOUS PERSONAL HISTORY OF MORE THAN NINE SURGERIES, SPINA BIFIDA, OR REPEATED CATHERTIZATIONS? YES - PLEASE INDICATE : > 9 SURGERIES LATEX RISK : ARE YOU FREQUENTLY EXPOSED TO LATEX PRODUCTS IN YOUR OCCUPATION?NO DATE ASKED : 12/15/2018 CAFFEINE CAFFEINE USE?YES HOW OFTEN AND HOW MUCH? 2 CUPS COFFEE A DAY 1 CUP TEA ADVANCE DIRECTIVE ADVANCE DIRECTIVE DISCUSSED WITH PATIENT:YES PT HAS HCP JAVAD DE JESUS ON FILE WITH [facility] NO CONFUCIANISM BELIEFS THAT WOULD IMPACT HEALTH CARE. 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 SEXUAL HX HAD SEX IN THE LAST 12 MONTHS (VAGINAL, ORAL, OR ANAL)?NO HAVE YOU EVER HAD AN STD?NO REVIEWED [facility] PT 10/24/18 1331 BVREVIEWED WITH PT 12/15/18 1511 BV. HOSPITALIZATION/MAJOR DIAGNOSTIC PROCEDURE SURGERY REALTED [facility]-RIGHT HIP AND HUMERUS FRACTURE (09/22-10/06-REHAB) 09/16-10/06/2018 REVIEW OF SYSTEMS REVIEWED BY: PROVIDER: RANDI RING MD . CONSTITUTIONAL: ANY CHANGE IN YOUR MEDICAL CONDITION? NO . CHILLS NO . FEVER NO . INFECTION: DO YOU HAVE NEW INFECTIONS? NO . DO YOU HAVE HISTORY OF MRSA? NO . MUSCULOSKELETAL: ANY NEW PATTERNS OF PAIN OR NUMBNESS? NO . GASTROENTEROLOGY: ANY NEW CHANGE IN BOWEL CONTROL? NO . GENITOURINARY: ANY NEW CHANGE IN BLADDER CONTROL? NO . IS THERE A CHANCE YOU COULD BE ? NO . HEMATOLOGY/LYMPH: DO YOU TAKE ANY BLOOD THINNERS? (FOR EXAMPLE- COUMADIN, PLAVIX, AGGRENOX, PLATEL, PRADAXA, OR XARELTO) NO . WHEN WAS YOUR LAST DOSE? DATE: TIME: . NEUROLOGY: HAVE YOU FALLEN IN THE PAST 12 MONTHS? YES, PT DENIES ANY FALLS SINCE LAST VISIT. STATES PREVIOUS FALLS WERE DOCUMENTED . ANY NEW EXTREMITY NUMBNESS OR WEAKNESS? YES, PT COMPLAINS OF INCREASING PAIN OVER THE PAST FEW MONTHS . CARDIOLOGY: DO YOU HAVE A PACEMAKER OR DEFIBRILLATOR? YES . RESPIRATORY: HAVE YOU BEEN SICK IN THE PAST WEEK? NO . FEVER NO . FLU LIKE SYMPTOMS? NO . COUGH NO . INTEGUMENTARY: DO YOU HAVE ANY RASHES OR OPEN SORES? NO . ALLERGIC/IMMUNO: ARE YOU ALLERGIC TO IV DYE? NO . ANY NEW ALLERGIES? NO . PSYCHIATRIC: DO YOU HAVE THOUGHTS OF HURTING YOURSELF OR SOMEONE ELSE? PT DENIES . ARE YOU ABUSED, NEGLECTED, OR IN AN UNSAFE ENVIRONMENT? NO . ENDOCRINOLOGY: ARE YOU DIABETIC? NO . OTHER: DO YOU NEED ANY PRESCRIPTIONS? NO . IF YES, PLEASE LIST: ____ . ANY NEW PROBLEMS WITH YOUR MEDICATIONS? NO . WHEN DID YOU LAST EAT? ____ . WHEN DID YOU LAST DRINK? ____ . WHAT DID YOU LAST DRINK? ____ . NAME OF PERSON DRIVING YOU HOME? ____ . DO YOU HAVE ANY OTHER QUESTIONS OR CONCERNS NO . VITAL SIGNS WT 202.3 LBS, HT 71 IN, BMI 28.21 INDEX, BP 132/87 MM HG, HR 83 /MIN, RR 18 /MIN, TEMP 97.6 F, OXYGEN SAT % 96%, NA INITIALS AW 1456, REVIEWED BY: BV. EXAMINATION GENERAL EXAMINATION: PATIENT IS ALERT O X 3 AND COOPERATIVE. PATIENT IS LIMPING FROM LEFT LEG. LEFT LEG IS WEAKER AT EXTENSION AND FLEXION. STRAIGHT LEG RAISE OF THE LEFT LEG IS POSITIVE AT [address] OF THE LUMBAR SPINE DONE ON 11/05/2018 SHOWS POST LAMINECTOMY CHANGES AND STENOSIS. ASSESSMENTS LUMBAR POST-LAMINECTOMY SYNDROME - M96.1 (PRIMARY) INTERVERTEBRAL DISC DISORDER WITH RADICULOPATHY OF LUMBAR REGION - M51.16 TREATMENT LUMBAR POST-LAMINECTOMY SYNDROME CLINICAL NOTES: WE DISCUSSED SEVERAL ISSUES WITH MR. DE JESUS'S PAIN MANAGEMENT CASE. DUE TO THE LUMBAR RADICULOPATHY AND POST LAMINECTOMY PAIN SYNDROME, I WOULD LIKE TO MOVE FORWARD WITH A CAUDAL EPIDURAL AT THIS TIME. WE DISCUSSED THE BENEFITS, RISKS, AND ALTERNATIVES OF THE INJECTION AND THE PATIENT WOULD LIKE TO PROCEED. WE RECEIVED A CLEARANCE FOR THE PATIENT TO HOLD COUMADIN, SO HE IS ABLE TO MOVE FORWARD WITH THE INJECTION AFTER HOLDING IT FOR 5 DAYS. THE PATIENT WILL DO PT/INR THE DAY OF THE PROCEDURE. I WILL ALSO INCREASE THE PATIENT'S GABAPENTIN 300MG TABLETS INSTEAD OF 100MG TABLETS. THE PATIENT WILL FOLLOW UP A FEW WEEKS AFTER THE INJECTION. INSTRUCTIONS WERE GIVEN, QUESTIONS WERE ANSWERED, PATIENT REPORTS UNDERSTANDING AND AGREES WITH THE PLAN. I, NIA BARRON, DOCUMENTED THE ABOVE INFORMATION ACTING A SCRIBE FOR DR. RING. I HAVE REVIEWED THE ABOVE DOCUMENT, WRITTEN BY NIA FREIRE AND I VERIFY THAT IT IS ACCURATE. . OTHERS REFILL GABAPENTIN CAPSULE, 300 MG, 1 CAP, ORALLY, THREE TIMES A DAY MDD3, 30 DAYS, 90, REFILLS 1, NOTES: TAKES 2 IN AM AND AFTERNOON AND 3 AT BEDTIME NOTES: WHAT IS LUMBAR EPIDURAL INJECTION? MATERIAL WAS PRINTED. PREVENTIVE MEDICINE PAIN CLINIC TEACHING: PROCEDURE TEACHING PT GIVEN WRITTEN AND VERBAL EDUCATION ON CAUDAL EPIDURAL INJECTION. PT AND VERBALIZE UNDERSTANDING. PT GIVEN WRITTEN AND VERBAL PRE-PROCEDURE INSTRUCTIONS. DISCUSSED ALL INSTRUCTIONS FOR DAY OF PROCEDURE. ALSO INSTRUCTED PT TO HOLD COUMADIN FOR 5 FULL DAYS PRIOR TO PROCEDURE AND THAT PROCEDURE WOULD BE ON 6TH DAY. PT ALSO INSTRUCTED TO HAVE LAB WORK DRAWN PRIOR TO PROCEDURE. ORDER FOR LABWORK GIVEN. BOTH PT AND VERBALIZES UNDERSTANDING OF ALL INSTRUCTIONS. JOHANA CASSIDY 12/15/2018 4:04:00 PM > . PROCEDURE CODES FA211 ESTABILISHED PATIENT [facility] FACILITY CHARGE G8427 CURRENT MEDS W/DOSAGES DOCUMENTED G8730 PAIN ASSESS POS TOOL F/U PLAN DOC DISPOSITION & COMMUNICATION FOLLOW UP 3 WEEKS AFTER (REASON: CAUDAL- PATIENT IS ON COUMADIN) ELECTRONICALLY SIGNED BY RANDI RING MD, MD ON 12/24/2018 AT 04:26 PM EDT DISCLAIMER : THIS IS A VISIT SUMMARY EXTRACTED FROM THE [employer] CHART. IT IS NOT A COPY OF THE [employer] PROGRESS NOTE. RUDOLPH
== END ==
LOC: M PAIN 15:00
PROVIDERS: ATTEND Anesthesiology
DX: M96.1 Postlaminectomy syndrome, not elsewhere classified (principal); M51.16 Intervertebral disc disorders with radiculopathy, lumbar region; I25.10 Atherosclerotic heart disease of native coronary artery without angina pectoris; E78.00 Pure hypercholesterolemia, unspecified; I48.0 Paroxysmal atrial fibrillation; I12.9 Hypertensive chronic kidney disease with stage 1 through stage 4 chronic kidney disease, or unspecified chronic kidney disease; N18.3 Chronic kidney disease, stage 3 (moderate); Z79.01 Long term (current) use of anticoagulants; Z79.899 Other long term (current) drug therapy; Z88.5 Allergy status to narcotic agent; Z88.8 Allergy status to other drugs, medicaments and biological substances; Z86.69 Personal history of other diseases of the nervous system and sense organs; Z87.891 Personal history of nicotine dependence; Z95.0 Presence of cardiac pacemaker

== ENCOUNTER → 2019-01-20 | Outpatient (CLI) | payer MEDICARE ==
--- NOTE | 2019-01-21 23:18 | ECWPNPC ---
PATIENT NAME: JASMYNE DE JESUS : 1930 GENDER: MALE VISIT DATE: 01/20/2019 DISCHARGE DATE: 01/20/19 1252 VISIT LOCKED DATE TIME: PHYSICIAN: ROSA VARGAS RESOURCE: ROSA VARGAS REASON FOR APPOINTMENT 1. F/U- MEDICATION ISSUES HISTORY OF PRESENT ILLNESS HISTORY OF PRESENT ILLNESS: PAIN THE PATIENT DESCRIBES THE PAIN... THE PATIENT DESCRIBES THE PAIN... 88 YEAR OLD MALE PATIENT WITH A HISTORY OF CHRONIC LOW BACK PAIN. THE PATIENT DESCRIBES THE PAIN ACHING WITH A PAIN SCORE OF 10/10. THE PATIENT SAYS THE PAIN STARTS IN HIS LOW BACK AREA AND RADIATES DOWN BOTH LEGS, BUT STATES HIS LEFT LEG IS WORSE. THE PATIENT IS CURRENTLY USING GABAPENTIN TO AID IN PAIN RELIEF BUT STATES THIS HAS ONLY BEEN MINIMALLY EFFECTIVE. FALL RISK SCREENING: SCREENING :NO FALLS REPORTED IN THE LAST YEAR CURRENT MEDICATIONS TAKING GABAPENTIN 300 MG CAPSULE 1 CAP ORALLY THREE TIMES A DAY MDD3 TAKING SUCRALFATE 1 GM TABLET 1 TABLET ORALLY TWICE A DAY TAKING VITAMIN C 500 MG TABLET 1 TABLET ORALLY ONCE A DAY TAKING COUMADIN 1 MG TABLET 1 TAB ORALLY 1.5MG ON SATURDAY 2.5MG EVERY OTHER DAY TAKING NITROSTAT 0.4 MG TABLET SUBLINGUAL 1 TAB SUBLINGUAL Q5 MIN X 3 NEEDED FOR CHEST PAIN TAKING MECLIZINE HCL 25 MG TABLET 1 TAB ORALLY EVERY 8HOURS NEEDED FOR DIZZINESS TAKING CARVEDILOL 3.125 MG TABLET 1 ORALLY DAILY--HOLD IF SITTING OR STANDING BP IS LESS THAN 100 SYSTOLIC TAKING DIGOXIN 125 MCG TABLET 1 TABLET ORALLY 3 TIMES WEEK--- TAKING LIPITOR 40 MG TABLET 1 TABLET ORALLY BEFORE BEDTIME TAKING VITAMIN B-2 100 MG TABLET 1 TABLET WITH A MEAL ORALLY ONCE A DAY TAKING VITAMIN B12 1000 MCG TABLET EXTENDED RELEASE 1 TABLET ORALLY ONCE A DAY TAKING TIZANIDINE HCL 2 MG CAPSULE 1 CAPSULE NEEDED ORALLY THREE TIMES A DAY TAKING OMEPRAZOLE 40 MG CAPSULE DELAYED RELEASE 1 CAPSULE ORALLY TWICE DAILY TAKING DULOXETINE HCL 60 MG CAPSULE DELAYED RELEASE PARTICLES 1 CAPSULE ORALLY ONCE A DAY TAKING ACETAMINOPHEN 325 MG TABLET 1 TABLET NEEDED ORALLY BEFORE BEDTIME TAKING MAGNESIUM 300 MG CAPSULE 1 CAPSULE WITH A MEAL ORALLY ONCE A DAY NOT-TAKING VITAMIN D3 2000 UNIT CAPSULE 1 CAPSULE ORALLY ONCE A DAY NOT-TAKING FUROSEMIDE 20 MG TABLET 1 TABLET ORALLY ONCE A DAY NEEDED FOR SEVERE ANKLE SWELLING NOT-TAKING PERCOCET 5-325 MG TABLET 1 TABLET ORALLY EVERY 6 HRS NEEDED MDD=4 MEDICATION LIST REVIEWED AND RECONCILED WITH THE PATIENT PAST MEDICAL HISTORY ATHEROSCLEROTIC HEART DISEASE OF [place] CORONARY ARTERY WITHOUT ANGINA PECTORIS ALLERGIC RHINITIS, UNSPECIFIED CHRONIC KIDNEY DISEASE, STAGE 3 (MODERATE) SLEEP APNEA, UNSPECIFIED OTHER HEADACHE SYNDROME PERSONAL HISTORY OF COLONIC POLYPS PURE HYPERCHOLESTEROLEMIA OBSTRUCTIVE AND REFLUX UROPATHY, UNSPECIFIED PAROXYSMAL ATRIAL FIBRILLATION DIZZINESS AND GIDDINESS THROMBOCYTOPENIA, UNSPECIFIED ESSENTIAL (PRIMARY) HYPERTENSION BENIGN PROSTATIC HYPERPLASIA WITH LOWER URINARY TRACT SYMPTOMS, UNSPECIFIED MORPHOLOGY OTHER CARDIAC SOUNDS GERD ALLERGIES VICODIN: ALLERGY AMIODARONE HCL: UNKNOWN - SIDE EFFECTS SURGICAL HISTORY APPENDECTOMY 1953 RIGHT INGUINAL HERNIA REPAIR 1999 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 COLONOSCOPY 04/2007 CATARACT EXTRACTION OU 06/14/2008, 07/05 HEMORRHOID SURGERY 04/2009 DEPUYTRANS CONTRACTURE RELEASE LEFT HAND 02/2009 COLONOSCOPY 05/2013 RIGHT ROTATOR CUFF REPAIR 04/2015 PACEMAKER PLACED 02/2015 [facility] ER-DISLOCATION OF DISTAL INTERPHALANGEAL JOINT OF RIGHT RING FINGER, LACERATION WITHOUT FOREIGN BODY OF FINGER WITHOUT DAMAGE TO NAIL 01/18/2016 COLONOSCOPY 08/13/2016 URODYNAMIC STUDY 10/31/16 GREEN LIGHT LASER ABLATION OF THE PROSTATE GLAND 12/04/2016 LAMINECTOMY L3-4, L4-5 WITH FUSION 09/02/2017 FAMILY HISTORY FATHER: PROSTATE CANCER, DIAGNOSED WITH CANCER SIBLINGS: BROTHER- PROSTATE CANCER, CANCER MOTHER: HEART DISEASE REMARKABLE FOR OVARIAN CANCER.\\\\NBOTH CHILDREN HAD MENTAL RETARDATION, SEIZURE DISORDER.NDAUGHTER HAD BREAST CANCER DIAGNOSED 2004, IN \\\ AFTER SURGERY FOR A DUODENAL MASS (NOT MALIGNANT). SOCIAL HISTORY GENERAL: TOBACCO USE ARE YOU A:: FORMER SMOKER , HOW LONG HAS IT BEEN SINCE YOU LAST SMOKED?: > 10 YEARS. HIV / HEP-C SCREENING HIV TEST OFFERED TO PATIENT:YES DATE OFFERED:11/26/2017 TEST ACCEPTED:NO HEP-C TEST OFFERED TO PATIENT:YES DATE OFFERED:11/26/2017 REASON:PATIENT DECLINED TEST ACCEPTED:YES BROCHURE PROVIDED TO PATIENTYES HOUSING: OWNS HOME. LANGUAGE SPANISH. DOMESTIC VIOLENCE STATUS: DO YOU FEEL SAFE IN YOUR ENVIRONMENT?YES BMI CARE GOAL FOLLOW-UP ABOVE NORMAL BMI FOLLOW-UPWEIGHT MONITORING RECREATIONAL DRUG USE DRUG USE?NO LEARNING BARRIERS / SPECIAL NEEDS CHANGE FROM LAST VISIT?NO BARRIERS TO LEARNING?NO HEARING IMPAIRED?YES VISION IMPAIRED?YES COGNITIVELY IMPAIRED?NO :HEARING AIDES :CORRECTIVE LENSES READINESS TO LEARN?YES LEARNING PREFERENCES?NO LEARNING CAPABILITIES PRESENT?YES EMOTIONAL BARRIERS?NO SPECIAL DEVICES?NO DERRICK OPERATOR NEEDED?NO PAIN CLINIC PFS, CLERGY, PUBLIC HEALTH REFERRALS WAS THE PROVIDER NOTIFIED OF ANY PERTINENT INFO?YES HAS THE PATIENT BEEN EDUCATED REGARDING HIS/HER PLAN OF CARE?YES HAS THE PATIENT BEEN EDUCATED REGARDING PAIN, THE RISK FOR PAIN, THE IMPORTANCE OF EFFECTIVE PAIN MANAGEMENT, AND THE PAIN ASSESSMENT PROCESS?YES LATEX QUESTIONNAIRE LATEX ALLERGY : HAVE YOU EVER DEVELOPED ANY TYPE OF REACTION AFTER HANDLING LATEX PRODUCTS SUCH RUBBER GLOVES, CONDOMS, DIAPHRAGMS, BALLOONS, SOCKS, OR UNDERWEAR?NO LATEX ALLERGY : HAVE YOU EVER DEVELOPED ANY TYPE OF REACTION DURING OR AFTER DENTAL APPOINTMENT, VAGINAL/RECTAL EXAMINATION, SURGICAL PROCEDURE, OR ANY OTHER EXPOSURE?NO DATE ASKED : 12/15/2018 LATEX RISK : HAVE YOU EVER HAD ANY DIFFICULTY BREATHING OR HIVES AFTER EATING OR HANDLING ANY FRUITS, OR VEGETABLES; SUCH KIWI, BANANAS, STONE FRUITS, OR CHESTNUTSNO LATEX RISK : DO YOU HAVE A PREVIOUS PERSONAL HISTORY OF MORE THAN NINE SURGERIES, SPINA BIFIDA, OR REPEATED CATHERTIZATIONS? YES - PLEASE INDICATE : > 9 SURGERIES LATEX RISK : ARE YOU FREQUENTLY EXPOSED TO LATEX PRODUCTS IN YOUR OCCUPATION?NO CAFFEINE CAFFEINE USE?YES HOW OFTEN AND HOW MUCH? 2 CUPS COFFEE A DAY 1 CUP TEA ADVANCE DIRECTIVE ADVANCE DIRECTIVE DISCUSSED WITH PATIENT:YES PT HAS HCP JAVAD DE JESUS ON FILE WITH [facility] NO EVANGELICAL BELIEFS THAT WOULD IMPACT HEALTH CARE. 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 SEXUAL HX HAD SEX IN THE LAST 12 MONTHS (VAGINAL, ORAL, OR ANAL)?NO HAVE YOU EVER HAD AN STD?NO REVIEWED [facility] PT 10/24/18 1331 BVREVIEWED WITH PT 12/15/18 1511 BVREVIEWED WITH PATIENT 12/31/18 0957 JSREVIEWED WITH PATIENT 01/20/19 1145 BV. HOSPITALIZATION/MAJOR DIAGNOSTIC PROCEDURE SURGERY REALTED [facility]-RIGHT HIP AND HUMERUS FRACTURE (09/22-10/06-REHAB) 09/16-10/06/2018 REVIEW OF SYSTEMS REVIEWED BY: PROVIDER: REMINGTON COBOS-Judith . CONSTITUTIONAL: ANY CHANGE IN YOUR MEDICAL CONDITION? NO . CHILLS NO . FEVER NO . INFECTION: DO YOU HAVE NEW INFECTIONS? NO . DO YOU HAVE HISTORY OF MRSA? NO . MUSCULOSKELETAL: ANY NEW PATTERNS OF PAIN OR NUMBNESS? YES, PAIN INTENSITY IS INCREASING . GASTROENTEROLOGY: ANY NEW CHANGE IN BOWEL CONTROL? NO . GENITOURINARY: ANY NEW CHANGE IN BLADDER CONTROL? NO . IS THERE A CHANCE YOU COULD BE ? NO . HEMATOLOGY/LYMPH: DO YOU TAKE ANY BLOOD THINNERS? (FOR EXAMPLE- COUMADIN, PLAVIX, AGGRENOX, PLATEL, PRADAXA, OR XARELTO) YES, COUMADIN . WHEN WAS YOUR LAST DOSE? DATE: TIME: . NEUROLOGY: HAVE YOU FALLEN IN THE PAST 12 MONTHS? NO . ANY NEW EXTREMITY NUMBNESS OR WEAKNESS? NO . CARDIOLOGY: DO YOU HAVE A PACEMAKER OR DEFIBRILLATOR? YES, PACEMAKER . RESPIRATORY: HAVE YOU BEEN SICK IN THE PAST WEEK? YES, PATIENT COMPLAINS OF NAUSEA/VOMIING ABOUT A WEEK AGO . FEVER NO . FLU LIKE SYMPTOMS? NO . COUGH NO . INTEGUMENTARY: DO YOU HAVE ANY RASHES OR OPEN SORES? NO . ALLERGIC/IMMUNO: ARE YOU ALLERGIC TO IV DYE? NO . ANY NEW ALLERGIES? NO . PSYCHIATRIC: DO YOU HAVE THOUGHTS OF HURTING YOURSELF OR SOMEONE ELSE? NO . ARE YOU ABUSED, NEGLECTED, OR IN AN UNSAFE ENVIRONMENT? NO . ENDOCRINOLOGY: ARE YOU DIABETIC? NO . OTHER: DO YOU NEED ANY PRESCRIPTIONS? NO . IF YES, PLEASE LIST: ____ . ANY NEW PROBLEMS WITH YOUR MEDICATIONS? NO . WHEN DID YOU LAST EAT? ____ . WHEN DID YOU LAST DRINK? ____ . WHAT DID YOU LAST DRINK? ____ . NAME OF PERSON DRIVING YOU HOME? ____ . DO YOU HAVE ANY OTHER QUESTIONS OR CONCERNS NO . VITAL SIGNS WT 205.6 LBS, HT 71 IN, BMI 28.67 INDEX, BP 105/75 MM HG, HR 74 /MIN, RR 18 /MIN, TEMP 97.2 F, OXYGEN SAT % 93%, NA INITIALS SC 11:27, REVIEWED BY: BV. EXAMINATION GENERAL EXAMINATION: GENERAL APPEARANCE:NO ACUTE DISTRESS, WELL NOURISHED AND HYDRATED. LUNGS:CLEAR TO AUSCULTATION BILATERALLY, NO WHEEZES, RHONCHI, RALES. HEART:NO MURMURS, REGULAR RATE AND RHYTHM. BACK: POINT TENDER L4-L5 L5-S1, SKIN OF LUMBAR REGION SHOWS NO ERYTHEMA, INCREASED WARMTH, OR SKIN ERUPTIONS. . ASSESSMENTS SPINAL STENOSIS - M48.00 (PRIMARY) INTERVERTEBRAL DISC DISORDER WITH RADICULOPATHY OF LUMBAR REGION - M51.16 TREATMENT SPINAL STENOSIS CONTINUE GABAPENTIN CAPSULE, 300 MG, 1 CAP, ORALLY, 1 CAPSULE IN THE MORNING AND AFTERNOON TWO CAPSULES AT BEDTIME LAB: PT-INR (ORDERED FOR 01/20/2019) NOTES: CAUDAL EPIDURAL. CLINICAL NOTES: 88 YEAR OLD MALE WITH A HX OF CHRONIC LOW BACK PAIN IN TODAY STATING THE GABAPENTIN HAS BEEN ONLY MINIMALLY EFFECTIVE BUT DOES ADMIT TO SOME RELIEF AFTER EPIDURAL. GIVEN PRESENTING SYMPTOMS AND RESULTS OF PHYSICAL EXAMINATION RECOMMENDED CAUDAL EPIDURAL, INCREASING GABAPENTIN TO 600 MG AT BEDTIME, AND FOLLOW UP AFTER PROCEDURE. PATIENT HAS EXPRESSED UNDERSTANDING OF AND WAS IN AGREEMENT WITH TX PLAN. . PREVENTIVE MEDICINE PAIN CLINIC TEACHING: PROCEDURE TEACHING PT GIVEN WRITTEN AND VERBAL PRE-PROCEDURE INSTRUCTIONS. PT ALSO GIVEN LAB ORDER TO HAVE PT/INR LAB DRAWN BEFORE PROCEDURE. BOTH PT AND VERBALIZE UNDERSTANDING OF ALL INSTRUCTIONS. JOHANA CASSIDY 01/20/2019 3:55:45 PM > . PROCEDURE CODES FA211 ESTABILISHED PATIENT [facility] FACILITY CHARGE DISPOSITION & COMMUNICATION FOLLOW UP POST PROCEDURE (REASON: CAUDAL EPIDURAL ) ELECTRONICALLY SIGNED BY CHANDRIKA ELKINS ON 01/21/2019 AT 09:49 AM EDT DISCLAIMER : THIS IS A VISIT SUMMARY EXTRACTED FROM THE [employer] CHART. IT IS NOT A COPY OF THE [employer] PROGRESS NOTE. MTDD
== END ==
LOC: M PAIN 11:00
PROVIDERS: ATTEND Family Medicine
DX: M48.00 Spinal stenosis, site unspecified (principal); M51.16 Intervertebral disc disorders with radiculopathy, lumbar region; I25.10 Atherosclerotic heart disease of native coronary artery without angina pectoris; J30.9 Allergic rhinitis, unspecified; N18.3 Chronic kidney disease, stage 3 (moderate); G47.30 Sleep apnea, unspecified; E78.00 Pure hypercholesterolemia, unspecified; N13.9 Obstructive and reflux uropathy, unspecified; I48.0 Paroxysmal atrial fibrillation; D69.6 Thrombocytopenia, unspecified; R42 Dizziness and giddiness; N40.1 Benign prostatic hyperplasia with lower urinary tract symptoms; K21.9 Gastro-esophageal reflux disease without esophagitis; G44.89 Other headache syndrome; Z95.0 Presence of cardiac pacemaker; Z98.49 Cataract extraction status, unspecified eye; Z89.022 Acquired absence of left finger(s); Z87.891 Personal history of nicotine dependence; Z79.01 Long term (current) use of anticoagulants; Z79.899 Other long term (current) drug therapy; Z88.5 Allergy status to narcotic agent; Z88.8 Allergy status to other drugs, medicaments and biological substances

== ENCOUNTER → 2019-02-18 | Outpatient (CLI) | payer MEDICARE ==
[~2019-02-18] MED LIST changes: +CYAN100049 PO; -VITA10002 PO
--- NOTE | 2019-02-20 00:59 | ECWPNPC ---
PATIENT NAME: JASMYNE DE JESUS : 1930 GENDER: MALE VISIT DATE: 02/18/2019 DISCHARGE DATE: 02/18/19 1517 VISIT LOCKED DATE TIME: PHYSICIAN: ROSA VARGAS RESOURCE: ROSA VARGAS REASON FOR APPOINTMENT 1. MEDICATION ISSUE HISTORY OF PRESENT ILLNESS HISTORY OF PRESENT ILLNESS: 88 YEAR OLD MALE IN FOR CHRONIC PAIN FOLLOW UP. HIS GABAPENTIN WAS INCREASED AT HIS LAST VISIT AND HE STATES IT IS NOT HELPFUL IN REDUCING HIS PAIN. HE RATES HIS PAIN AT A 10/10 AND DESCRIBES IT ACHING, BURNING, SORE, TENDER, SHARP, STABBING, AND SHOOTING. PAIN THE PATIENT DESCRIBES THE PAIN... FALL RISK SCREENING: SCREENING :NO FALLS REPORTED IN THE LAST YEAR CURRENT MEDICATIONS TAKING SUCRALFATE 1 GM TABLET 1 TABLET ORALLY TWICE A DAY TAKING VITAMIN C 500 MG TABLET 1 TABLET ORALLY ONCE A DAY TAKING COUMADIN 1 MG TABLET 1 TAB ORALLY 1.5MG ON SATURDAY 2.5MG EVERY OTHER DAY TAKING NITROSTAT 0.4 MG TABLET SUBLINGUAL 1 TAB SUBLINGUAL Q5 MIN X 3 NEEDED FOR CHEST PAIN TAKING MECLIZINE HCL 25 MG TABLET 1 TAB ORALLY EVERY 8HOURS NEEDED FOR DIZZINESS TAKING CARVEDILOL 3.125 MG TABLET 1 ORALLY DAILY--HOLD IF SITTING OR STANDING BP IS LESS THAN 100 SYSTOLIC TAKING DIGOXIN 125 MCG TABLET 1 TABLET ORALLY 3 TIMES WEEK--- TAKING LIPITOR 40 MG TABLET 1 TABLET ORALLY BEFORE BEDTIME TAKING VITAMIN B-2 100 MG TABLET 1 TABLET WITH A MEAL ORALLY ONCE A DAY TAKING VITAMIN B12 1000 MCG TABLET EXTENDED RELEASE 1 TABLET ORALLY ONCE A DAY TAKING TIZANIDINE HCL 2 MG CAPSULE 1 CAPSULE NEEDED ORALLY THREE TIMES A DAY TAKING OMEPRAZOLE 40 MG CAPSULE DELAYED RELEASE 1 CAPSULE ORALLY TWICE DAILY TAKING DULOXETINE HCL 60 MG CAPSULE DELAYED RELEASE PARTICLES 1 CAPSULE ORALLY ONCE A DAY TAKING ACETAMINOPHEN 325 MG TABLET 1 TABLET NEEDED ORALLY BEFORE BEDTIME TAKING MAGNESIUM 300 MG CAPSULE 1 CAPSULE WITH A MEAL ORALLY ONCE A DAY TAKING GABAPENTIN 300 MG CAPSULE 1 CAP ORALLY 1 CAPSULE IN THE MORNING AND AFTERNOON TWO CAPSULES AT BEDTIME NOT-TAKING VITAMIN D3 2000 UNIT CAPSULE 1 CAPSULE ORALLY ONCE A DAY NOT-TAKING FUROSEMIDE 20 MG TABLET 1 TABLET ORALLY ONCE A DAY NEEDED FOR SEVERE ANKLE SWELLING NOT-TAKING PERCOCET 5-325 MG TABLET 1 TABLET ORALLY EVERY 6 HRS NEEDED MDD=4 MEDICATION LIST REVIEWED AND RECONCILED WITH THE PATIENT PAST MEDICAL HISTORY ATHEROSCLEROTIC HEART DISEASE OF [place] CORONARY ARTERY WITHOUT ANGINA PECTORIS ALLERGIC RHINITIS, UNSPECIFIED CHRONIC KIDNEY DISEASE, STAGE 3 (MODERATE) SLEEP APNEA, UNSPECIFIED OTHER HEADACHE SYNDROME PERSONAL HISTORY OF COLONIC POLYPS PURE HYPERCHOLESTEROLEMIA OBSTRUCTIVE AND REFLUX UROPATHY, UNSPECIFIED PAROXYSMAL ATRIAL FIBRILLATION DIZZINESS AND GIDDINESS THROMBOCYTOPENIA, UNSPECIFIED ESSENTIAL (PRIMARY) HYPERTENSION BENIGN PROSTATIC HYPERPLASIA WITH LOWER URINARY TRACT SYMPTOMS, UNSPECIFIED MORPHOLOGY OTHER CARDIAC SOUNDS GERD ALLERGIES VICODIN: ALLERGY AMIODARONE HCL: UNKNOWN - SIDE EFFECTS SURGICAL HISTORY APPENDECTOMY 1953 RIGHT INGUINAL HERNIA REPAIR 1999 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 COLONOSCOPY 04/2007 CATARACT EXTRACTION OU 06/14/2008, 07/05 HEMORRHOID SURGERY 04/2009 DEPUYTRANS CONTRACTURE RELEASE LEFT HAND 02/2009 COLONOSCOPY 05/2013 RIGHT ROTATOR CUFF REPAIR 04/2015 PACEMAKER PLACED 02/2015 [facility] ER-DISLOCATION OF DISTAL INTERPHALANGEAL JOINT OF RIGHT RING FINGER, LACERATION WITHOUT FOREIGN BODY OF FINGER WITHOUT DAMAGE TO NAIL 01/18/2016 COLONOSCOPY 08/13/2016 URODYNAMIC STUDY 10/31/16 GREEN LIGHT LASER ABLATION OF THE PROSTATE GLAND 12/04/2016 LAMINECTOMY L3-4, L4-5 WITH FUSION 09/02/2017 FAMILY HISTORY FATHER: PROSTATE CANCER, DIAGNOSED WITH CANCER SIBLINGS: BROTHER- PROSTATE CANCER, CANCER MOTHER: HEART DISEASE REMARKABLE FOR OVARIAN CANCER.\\\\NBOTH CHILDREN HAD MENTAL RETARDATION, SEIZURE DISORDER.NDAUGHTER HAD BREAST CANCER DIAGNOSED 2004, IN \\ AFTER SURGERY FOR A DUODENAL MASS (NOT MALIGNANT). SOCIAL HISTORY GENERAL: TOBACCO USE ARE YOU A:: FORMER SMOKER , HOW LONG HAS IT BEEN SINCE YOU LAST SMOKED?: > 10 YEARS. HIV / HEP-C SCREENING HIV TEST OFFERED TO PATIENT:YES DATE OFFERED:11/26/2017 TEST ACCEPTED:NO HEP-C TEST OFFERED TO PATIENT:YES DATE OFFERED:11/26/2017 REASON:PATIENT DECLINED TEST ACCEPTED:YES BROCHURE PROVIDED TO PATIENTYES HOUSING: OWNS HOME. LANGUAGE SWEDISH. DOMESTIC VIOLENCE STATUS: DO YOU FEEL SAFE IN YOUR ENVIRONMENT?YES BMI CARE GOAL FOLLOW-UP ABOVE NORMAL BMI FOLLOW-UPWEIGHT MONITORING RECREATIONAL DRUG USE DRUG USE?NO LEARNING BARRIERS / SPECIAL NEEDS CHANGE FROM LAST VISIT?NO BARRIERS TO LEARNING?NO HEARING IMPAIRED?YES VISION IMPAIRED?YES COGNITIVELY IMPAIRED?NO :HEARING AIDES :CORRECTIVE LENSES READINESS TO LEARN?YES LEARNING PREFERENCES?NO LEARNING CAPABILITIES PRESENT?YES EMOTIONAL BARRIERS?NO SPECIAL DEVICES?NO NURSE ORTHOPEDIC NEEDED?NO PAIN CLINIC PFS, CLERGY, PUBLIC HEALTH REFERRALS WAS THE PROVIDER NOTIFIED OF ANY PERTINENT INFO?YES HAS THE PATIENT BEEN EDUCATED REGARDING HIS/HER PLAN OF CARE?YES HAS THE PATIENT BEEN EDUCATED REGARDING PAIN, THE RISK FOR PAIN, THE IMPORTANCE OF EFFECTIVE PAIN MANAGEMENT, AND THE PAIN ASSESSMENT PROCESS?YES LATEX QUESTIONNAIRE LATEX ALLERGY : HAVE YOU EVER DEVELOPED ANY TYPE OF REACTION AFTER HANDLING LATEX PRODUCTS SUCH RUBBER GLOVES, CONDOMS, DIAPHRAGMS, BALLOONS, SOCKS, OR UNDERWEAR?NO LATEX ALLERGY : HAVE YOU EVER DEVELOPED ANY TYPE OF REACTION DURING OR AFTER DENTAL APPOINTMENT, VAGINAL/RECTAL EXAMINATION, SURGICAL PROCEDURE, OR ANY OTHER EXPOSURE?NO LATEX RISK : HAVE YOU EVER HAD ANY DIFFICULTY BREATHING OR HIVES AFTER EATING OR HANDLING ANY FRUITS, OR VEGETABLES; SUCH KIWI, BANANAS, STONE FRUITS, OR CHESTNUTSNO LATEX RISK : DO YOU HAVE A PREVIOUS PERSONAL HISTORY OF MORE THAN NINE SURGERIES, SPINA BIFIDA, OR REPEATED CATHERIZATIONS? YES - PLEASE INDICATE : > 9 SURGERIES LATEX RISK : ARE YOU FREQUENTLY EXPOSED TO LATEX PRODUCTS IN YOUR OCCUPATION?NO DATE ASKED : 02/18/2019 CAFFEINE CAFFEINE USE?YES HOW OFTEN AND HOW MUCH? 2 CUPS COFFEE A DAY 1 CUP TEA ADVANCE DIRECTIVE ADVANCE DIRECTIVE DISCUSSED WITH PATIENT:YES PT HAS HCP JAVAD DE JESUS ON FILE WITH [facility] RAST[facility]ARIAN NO VOODOO BELIEFS THAT WOULD IMPACT HEALTH CARE. MARITAL STATUS: 65 YEARS THIS YEAR (2016). 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 SEXUAL HX HAD SEX IN THE LAST 12 MONTHS (VAGINAL, ORAL, OR ANAL)?NO HAVE YOU EVER HAD AN STD?NO REVIEWED [facility] PT 10/24/18 1331 BVREVIEWED WITH PT 12/15/18 1511 BVREVIEWED WITH PATIENT 12/31/18 0957 JSREVIEWED WITH PATIENT 01/20/19 1145 BV. HOSPITALIZATION/MAJOR DIAGNOSTIC PROCEDURE SURGERY REALTED [facility]-RIGHT HIP AND HUMERUS FRACTURE (09/22-10/06-REHAB) 09/16-10/06/2018 REVIEW OF SYSTEMS REVIEWED BY: PROVIDER: REMINGTON ARTEAGA . CONSTITUTIONAL: ANY CHANGE IN YOUR MEDICAL CONDITION? NO . CHILLS NO . FEVER NO . INFECTION: DO YOU HAVE NEW INFECTIONS? NO . DO YOU HAVE HISTORY OF MRSA? NO . MUSCULOSKELETAL: ANY NEW PATTERNS OF PAIN OR NUMBNESS? NO . GASTROENTEROLOGY: ANY NEW CHANGE IN BOWEL CONTROL? NO . GENITOURINARY: ANY NEW CHANGE IN BLADDER CONTROL? NO . IS THERE A CHANCE YOU COULD BE ? NO . HEMATOLOGY/LYMPH: DO YOU TAKE ANY BLOOD THINNERS? (FOR EXAMPLE- COUMADIN, PLAVIX, AGGRENOX, PLATEL, PRADAXA, OR XARELTO) NO . WHEN WAS YOUR LAST DOSE? DATE: TIME: . NEUROLOGY: HAVE YOU FALLEN IN THE PAST 12 MONTHS? NO . ANY NEW EXTREMITY NUMBNESS OR WEAKNESS? NO . CARDIOLOGY: DO YOU HAVE A PACEMAKER OR DEFIBRILLATOR? NO . RESPIRATORY: HAVE YOU BEEN SICK IN THE PAST WEEK? NO . FEVER NO . FLU LIKE SYMPTOMS? NO . COUGH NO . INTEGUMENTARY: DO YOU HAVE ANY RASHES OR OPEN SORES? NO . ALLERGIC/IMMUNO: ARE YOU ALLERGIC TO IV DYE? NO . ANY NEW ALLERGIES? NO . PSYCHIATRIC: DO YOU HAVE THOUGHTS OF HURTING YOURSELF OR SOMEONE ELSE? NO . ARE YOU ABUSED, NEGLECTED, OR IN AN UNSAFE ENVIRONMENT? NO . ENDOCRINOLOGY: ARE YOU DIABETIC? NO . OTHER: DO YOU NEED ANY PRESCRIPTIONS? NO . IF YES, PLEASE LIST: ____ . ANY NEW PROBLEMS WITH YOUR MEDICATIONS? NO . WHEN DID YOU LAST EAT? ____ . WHEN DID YOU LAST DRINK? ____ . WHAT DID YOU LAST DRINK? ____ . NAME OF PERSON DRIVING YOU HOME? ____ . DO YOU HAVE ANY OTHER QUESTIONS OR CONCERNS NO . VITAL SIGNS WT 207.0 LBS, HT 71 IN, BMI 28.87 INDEX, BP 128/83 MM HG, HR 74 /MIN, RR 18 /MIN, TEMP 96.0 F, OXYGEN SAT % 94%, SAFE IN ENV? (Y/N) Y, NA INITIALS AW 1421, REVIEWED BY: EMELIA. EXAMINATION GENERAL EXAMINATION: GENERALNO ACUTE DISTRESS, WELL NOURISHED AND HYDRATED. PSYCHAPPROPRIATE MOOD AND AFFECT . LUNGS:CLEAR TO AUSCULTATION BILATERALLY, NO WHEEZES, RHONCHI, RALES. HEART:NO MURMURS, REGULAR RATE AND RHYTHM. ASSESSMENTS SPINAL STENOSIS - M48.00 (PRIMARY) INTERVERTEBRAL DISC DISORDER WITH RADICULOPATHY OF LUMBAR REGION - M51.16 TREATMENT SPINAL STENOSIS LAB: PT-INR NOTES: DISCUSSED WEANING DOSES WITH PT AND , PT GIVEN SPECIFIC WRITTEN INSTRUCTIONS FOR MEDICATION WEANING AND DISCONTINUING, PT AND ACKNOWLEDGED UNDERSTANDING FOR WEANING SCHEDULE. DSGAVE PT SPECIFIC PRE-PROCEDURE INSTRUCTION FOR CAUDAL EPIDURAL, PT REQUIRES PT-INR ON PROCEDURE DAY BEFORE COMING TO PAIN CLINIC. DS. CLINICAL NOTES: 88 YEAR OLD MALE IN FOR CHRONIC PAIN FOLLOW UP. GIVEN PRESENTING SYMPTOMS AND RESULTS OF PHYSICAL EXAMINATION RECOMMENDED TAPERING OFF GABAPENTIN AND AWAITING RESULTS OF CAUDAL EPIDURAL PRIOR TO STARTING NEW MEDICATIONS. PATIENT HAS EXPRESSED UNDERSTANDING OF AND WAS IN AGREEMENT WITH TX PLAN. GIVEN TIME TO ASK QUESTIONS AND EXPRESS CONCERNS. . PROCEDURE CODES FA211 ESTABILISHED PATIENT [facility] CHAR[facility] DISPOSITION & COMMUNICATION FOLLOW UP AFTER PROCEDURE (REASON: CAUDAL EPIDURAL ) ELECTRONICALLY SIGNED BY CHANDRIKA ELKINS ON 02/19/2019 AT 09:17 AM EDT DISCLAIMER : THIS IS A VISIT SUMMARY EXTRACTED FROM THE [employer] CHART. IT IS NOT A COPY OF THE [employer] PROGRESS NOTE. RUDOLPH
== END ==
LOC: M PAIN 13:45
PROVIDERS: ATTEND Family Medicine
DX: M48.00 Spinal stenosis, site unspecified (principal); M51.16 Intervertebral disc disorders with radiculopathy, lumbar region; I25.10 Atherosclerotic heart disease of native coronary artery without angina pectoris; J30.9 Allergic rhinitis, unspecified; N18.3 Chronic kidney disease, stage 3 (moderate); G47.30 Sleep apnea, unspecified; E78.00 Pure hypercholesterolemia, unspecified; I48.0 Paroxysmal atrial fibrillation; R42 Dizziness and giddiness; D69.6 Thrombocytopenia, unspecified; I12.9 Hypertensive chronic kidney disease with stage 1 through stage 4 chronic kidney disease, or unspecified chronic kidney disease; G44.89 Other headache syndrome; N40.1 Benign prostatic hyperplasia with lower urinary tract symptoms; K21.9 Gastro-esophageal reflux disease without esophagitis; N13.9 Obstructive and reflux uropathy, unspecified; Z87.891 Personal history of nicotine dependence; Z79.01 Long term (current) use of anticoagulants; Z79.899 Other long term (current) drug therapy; Z89.022 Acquired absence of left finger(s); Z98.49 Cataract extraction status, unspecified eye; Z95.0 Presence of cardiac pacemaker; Z98.1 Arthrodesis status; Z88.5 Allergy status to narcotic agent; Z88.8 Allergy status to other drugs, medicaments and biological substances

== ENCOUNTER → 2019-03-03 | Outpatient (CLI) | payer MEDICARE ==
[2019-03-03 12:13] LABS: INR 1.22; PROTHROMBIN TIME 15.1 SECONDS (11.8-14.0)
== END ==
LOC: M LAB 10:55
PROVIDERS: ATTEND Family Medicine
DX: M48.00 Spinal stenosis, site unspecified (principal)

== ENCOUNTER → 2019-03-03 | Outpatient (CLI) | payer MEDICARE ==
[~2019-03-03] MED LIST changes: +BACI500O21 TOP; -DIGO0.12 PO; +DIGO0.123 PO; +DULO1CAP5 PO; +GABA-843; +ISOVUE-M 200 41% 20ML VIAL (Q9966) As Ordered ONE; +LIDOCAINE 1% SDV INJ 30 ML VIAL As Ordered ONE; -MECL-68 PO; -MECL12.575 PO; +MECL12.589 PO; +MECL1TAB31 PO; -OMEP40CA2 PO; +OMEP40CA97 PO; +ZONI100C17 PO; -ZONI100C2 PO; +diazePAM 5 MG TAB As Ordered ONE; +methylPREDNISolone SUSP 40 MG/ML (DEPO-medrol) VIAL (J1030) As Ordered ONE; +oxyCODONE 5MG TAB As Ordered ONE
--- NOTE | 2019-03-04 07:31 | REP ---
C-ARM VIEWS OF THE SACRUM: CLINICAL HISTORY: Pain. Three C-arm views of the sacral region performed during injection by Dr. Harrison. A catheter is seen overlying the sacrum and contrast is injected. 1 minute 26 seconds of fluoroscopy time utilized. Electronically Signed by Ata Farrar MD 03/05/2019 12:15 A
--- NOTE | 2019-03-11 01:20 | ECWPNPC ---
PATIENT NAME: JASMYNE DE JESUS : 1930 GENDER: MALE VISIT DATE: 03/03/2019 DISCHARGE DATE: 03/03/19 1428 VISIT LOCKED DATE TIME: PHYSICIAN: RANDI RING MD RESOURCE: RANDI RING MD REASON FOR APPOINTMENT 1. CAUDAL EPIDURAL HISTORY OF PRESENT ILLNESS HISTORY OF PRESENT ILLNESS: PAIN THE PATIENT DESCRIBES THE PAIN... FALL RISK SCREENING: SCREENING :NO FALLS REPORTED IN THE LAST YEAR CURRENT MEDICATIONS TAKING SUCRALFATE 1 GM TABLET 1 TABLET ORALLY TWICE A DAY, NOTES: 03/02/19@2199 TAKING VITAMIN C 500 MG TABLET 1 TABLET ORALLY ONCE A DAY, NOTES: 03/02/19 TAKING COUMADIN 1 MG TABLET 1 TAB ORALLY 1.5MG ON SATURDAY 2.5MG EVERY OTHER DAY, NOTES: 02/26/19@1699 TAKING NITROSTAT 0.4 MG TABLET SUBLINGUAL 1 TAB SUBLINGUAL Q5 MIN X 3 NEEDED FOR CHEST PAIN, NOTES: 1 MONTH AGO TAKING MECLIZINE HCL 25 MG TABLET 1 TAB ORALLY EVERY 8HOURS NEEDED FOR DIZZINESS, NOTES: 0900 TAKING CARVEDILOL 3.125 MG TABLET 1 ORALLY DAILY--HOLD IF SITTING OR STANDING BP IS LESS THAN 100 SYSTOLIC, NOTES: 0800 TAKING DIGOXIN 125 MCG TABLET 1 TABLET ORALLY 3 TIMES WEEK--, NOTES: 03/02/19@0800 TAKING LIPITOR 40 MG TABLET 1 TABLET ORALLY BEFORE BEDTIME, NOTES: 03/03/19@2199 TAKING VITAMIN B-2 100 MG TABLET 1 TABLET WITH A MEAL ORALLY ONCE A DAY, NOTES: 03/02/19 TAKING VITAMIN B12 1000 MCG TABLET EXTENDED RELEASE 1 TABLET ORALLY ONCE A DAY, NOTES: 03/02/19 TAKING TIZANIDINE HCL 2 MG CAPSULE 1 CAPSULE NEEDED ORALLY THREE TIMES A DAY, NOTES: 03/02/19 TAKING OMEPRAZOLE 40 MG CAPSULE DELAYED RELEASE 1 CAPSULE ORALLY TWICE DAILY, NOTES: 03/02/19 TAKING ACETAMINOPHEN 325 MG TABLET 1 TABLET NEEDED ORALLY BEFORE BEDTIME, NOTES: 03/02/19 TAKING MAGNESIUM 300 MG CAPSULE 1 CAPSULE WITH A MEAL ORALLY ONCE A DAY, NOTES: 03/02/19 TAKING GABAPENTIN 300 MG CAPSULE 1 CAP ORALLY 1 CAPSULE IN THE MORNING AND AFTERNOON TWO CAPSULES AT BEDTIME, NOTES: 03/02/19@2200 NOT-TAKING DULOXETINE HCL 60 MG CAPSULE DELAYED RELEASE PARTICLES 1 CAPSULE ORALLY ONCE A DAY DISCONTINUED VITAMIN D3 2000 UNIT CAPSULE 1 CAPSULE ORALLY ONCE A DAY DISCONTINUED FUROSEMIDE 20 MG TABLET 1 TABLET ORALLY ONCE A DAY NEEDED FOR SEVERE ANKLE SWELLING DISCONTINUED PERCOCET 5-325 MG TABLET 1 TABLET ORALLY EVERY 6 HRS NEEDED MDD=4 MEDICATION LIST REVIEWED AND RECONCILED WITH THE PATIENT PAST MEDICAL HISTORY ATHEROSCLEROTIC HEART DISEASE OF [place] CORONARY ARTERY WITHOUT ANGINA PECTORIS ALLERGIC RHINITIS, UNSPECIFIED CHRONIC KIDNEY DISEASE, STAGE 3 (MODERATE) SLEEP APNEA, UNSPECIFIED OTHER HEADACHE SYNDROME PERSONAL HISTORY OF COLONIC POLYPS PURE HYPERCHOLESTEROLEMIA OBSTRUCTIVE AND REFLUX UROPATHY, UNSPECIFIED PAROXYSMAL ATRIAL FIBRILLATION DIZZINESS AND GIDDINESS THROMBOCYTOPENIA, UNSPECIFIED ESSENTIAL (PRIMARY) HYPERTENSION BENIGN PROSTATIC HYPERPLASIA WITH LOWER URINARY TRACT SYMPTOMS, UNSPECIFIED MORPHOLOGY OTHER CARDIAC SOUNDS GERD ALLERGIES VICODIN: ALLERGY AMIODARONE HCL: UNKNOWN - SIDE EFFECTS SURGICAL HISTORY APPENDECTOMY 1953 RIGHT INGUINAL HERNIA REPAIR 1999 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 COLONOSCOPY 04/2007 CATARACT EXTRACTION OU 06/14/2008, 07/05 HEMORRHOID SURGERY 04/2009 DEPUYTRANS CONTRACTURE RELEASE LEFT HAND 02/2009 COLONOSCOPY 05/2013 RIGHT ROTATOR CUFF REPAIR 04/2015 PACEMAKER PLACED 02/2015 [facility] ER-DISLOCATION OF DISTAL INTERPHALANGEAL JOINT OF RIGHT RING FINGER, LACERATION WITHOUT FOREIGN BODY OF FINGER WITHOUT DAMAGE TO NAIL 01/18/2016 COLONOSCOPY 08/13/2016 URODYNAMIC STUDY 10/31/16 GREEN LIGHT LASER ABLATION OF THE PROSTATE GLAND 12/04/2016 LAMINECTOMY L3-4, L4-5 WITH FUSION 09/02/2017 FAMILY HISTORY FATHER: PROSTATE CANCER, DIAGNOSED WITH CANCER SIBLINGS: BROTHER- PROSTATE CANCER, CANCER MOTHER: HEART DISEASE REMARKABLE FOR OVARIAN CANCER.\\\\NBOTH CHILDREN HAD MENTAL RETARDATION, SEIZURE DISORDER.NDAUGHTER HAD BREAST CANCER DIAGNOSED 2004, IN \\ AFTER SURGERY FOR A DUODENAL MASS (NOT MALIGNANT). SOCIAL HISTORY GENERAL: TOBACCO USE ARE YOU A:: FORMER SMOKER , HOW LONG HAS IT BEEN SINCE YOU LAST SMOKED?: > 10 YEARS. HIV / HEP-C SCREENING HIV TEST OFFERED TO PATIENT:YES DATE OFFERED:11/26/2017 TEST ACCEPTED:NO HEP-C TEST OFFERED TO PATIENT:YES DATE OFFERED:11/26/2017 REASON:PATIENT DECLINED TEST ACCEPTED:YES BROCHURE PROVIDED TO PATIENTYES HOUSING: OWNS HOME. LANGUAGE DJIBOUTIAN. DOMESTIC VIOLENCE STATUS: DO YOU FEEL SAFE IN YOUR ENVIRONMENT?YES BMI CARE GOAL FOLLOW-UP ABOVE NORMAL BMI FOLLOW-UPWEIGHT MONITORING RECREATIONAL DRUG USE DRUG USE?NO LEARNING BARRIERS / SPECIAL NEEDS CHANGE FROM LAST VISIT?NO BARRIERS TO LEARNING?NO HEARING IMPAIRED?YES VISION IMPAIRED?YES COGNITIVELY IMPAIRED?NO :HEARING AIDES :CORRECTIVE LENSES READINESS TO LEARN?YES LEARNING PREFERENCES?NO LEARNING CAPABILITIES PRESENT?YES EMOTIONAL BARRIERS?NO SPECIAL DEVICES?NO DOORPERSON OR LUGGAGE PORTER NEEDED?NO PAIN CLINIC PFS, CLERGY, PUBLIC HEALTH REFERRALS WAS THE PROVIDER NOTIFIED OF ANY PERTINENT INFO?YES HAS THE PATIENT BEEN EDUCATED REGARDING HIS/HER PLAN OF CARE?YES HAS THE PATIENT BEEN EDUCATED REGARDING PAIN, THE RISK FOR PAIN, THE IMPORTANCE OF EFFECTIVE PAIN MANAGEMENT, AND THE PAIN ASSESSMENT PROCESS?YES LATEX QUESTIONNAIRE LATEX ALLERGY : HAVE YOU EVER DEVELOPED ANY TYPE OF REACTION AFTER HANDLING LATEX PRODUCTS SUCH RUBBER GLOVES, CONDOMS, DIAPHRAGMS, BALLOONS, SOCKS, OR UNDERWEAR?NO LATEX ALLERGY : HAVE YOU EVER DEVELOPED ANY TYPE OF REACTION DURING OR AFTER DENTAL APPOINTMENT, VAGINAL/RECTAL EXAMINATION, SURGICAL PROCEDURE, OR ANY OTHER EXPOSURE?NO LATEX RISK : HAVE YOU EVER HAD ANY DIFFICULTY BREATHING OR HIVES AFTER EATING OR HANDLING ANY FRUITS, OR VEGETABLES; SUCH KIWI, BANANAS, STONE FRUITS, OR CHESTNUTSNO LATEX RISK : DO YOU HAVE A PREVIOUS PERSONAL HISTORY OF MORE THAN NINE SURGERIES, SPINA BIFIDA, OR REPEATED CATHERIZATIONS? YES - PLEASE INDICATE : > 9 SURGERIES LATEX RISK : ARE YOU FREQUENTLY EXPOSED TO LATEX PRODUCTS IN YOUR OCCUPATION?NO DATE ASKED : 03/03/2019 CAFFEINE CAFFEINE USE?YES HOW OFTEN AND HOW MUCH? 2 CUPS COFFEE A DAY 1 CUP TEA ADVANCE DIRECTIVE ADVANCE DIRECTIVE DISCUSSED WITH PATIENT:YES PT HAS HCP JAVAD DE JESUS ON FILE WITH [facility] NO JAIN BELIEFS THAT WOULD IMPACT HEALTH CARE. 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 SEXUAL HX HAD SEX IN THE LAST 12 MONTHS (VAGINAL, ORAL, OR ANAL)?NO HAVE YOU EVER HAD AN STD?NO REVIEWED [facility] PT 10/24/18 1331 BVREVIEWED WITH PT 12/15/18 1511 BVREVIEWED WITH PATIENT 12/31/18 0957 JSREVIEWED WITH PATIENT 01/20/19 1145 BV. HOSPITALIZATION/MAJOR DIAGNOSTIC PROCEDURE SURGERY REALTED [facility]-RIGHT HIP AND HUMERUS FRACTURE (09/22-10/06-REHAB) 09/16-10/06/2018 REVIEW OF SYSTEMS REVIEWED BY: PROVIDER: . CONSTITUTIONAL: ANY CHANGE IN YOUR MEDICAL CONDITION? NO . CHILLS NO . FEVER NO . INFECTION: DO YOU HAVE NEW INFECTIONS? NO . DO YOU HAVE HISTORY OF MRSA? NO . MUSCULOSKELETAL: ANY NEW PATTERNS OF PAIN OR NUMBNESS? NO . GASTROENTEROLOGY: ANY NEW CHANGE IN BOWEL CONTROL? NO . GENITOURINARY: ANY NEW CHANGE IN BLADDER CONTROL? NO . IS THERE A CHANCE YOU COULD BE ? NO . HEMATOLOGY/LYMPH: DO YOU TAKE ANY BLOOD THINNERS? (FOR EXAMPLE- COUMADIN, PLAVIX, AGGRENOX, PLATEL, PRADAXA, OR XARELTO) NO . WHEN WAS YOUR LAST DOSE? DATE: TIME: @1700 <@1700> . NEUROLOGY: HAVE YOU FALLEN IN THE PAST 12 MONTHS? YES . ANY NEW EXTREMITY NUMBNESS OR WEAKNESS? NO . CARDIOLOGY: DO YOU HAVE A PACEMAKER OR DEFIBRILLATOR? YES, PACEMAKER . RESPIRATORY: HAVE YOU BEEN SICK IN THE PAST WEEK? NO . FEVER NO . FLU LIKE SYMPTOMS? NO . COUGH NO . INTEGUMENTARY: DO YOU HAVE ANY RASHES OR OPEN SORES? NO . ALLERGIC/IMMUNO: ARE YOU ALLERGIC TO IV DYE? NO . ANY NEW ALLERGIES? NO . PSYCHIATRIC: DO YOU HAVE THOUGHTS OF HURTING YOURSELF OR SOMEONE ELSE? NO . ARE YOU ABUSED, NEGLECTED, OR IN AN UNSAFE ENVIRONMENT? NO . ENDOCRINOLOGY: ARE YOU DIABETIC? NO . OTHER: DO YOU NEED ANY PRESCRIPTIONS? NO . IF YES, PLEASE LIST: ____ . ANY NEW PROBLEMS WITH YOUR MEDICATIONS? NO . WHEN DID YOU LAST EAT? ____ . WHEN DID YOU LAST DRINK? ____ . WHAT DID YOU LAST DRINK? ____ . NAME OF PERSON DRIVING YOU HOME? ____ . DO YOU HAVE ANY OTHER QUESTIONS OR CONCERNS NO . VITAL SIGNS WT 207 LBS, HT 71 IN, BMI 28.87 INDEX, BP 153/96 MM HG, HR 55 /MIN, RR 18 /MIN, TEMP 97.2 F, OXYGEN SAT % 97%, SAFE IN ENV? (Y/N) YES, NA INITIALS VA 11:36, REVIEWED BY: KRYSTYNA. 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 SURGEON DR. RANDI RING CAREER RESOURCE TECHNICIAN NONE ANESTHESIA LOCAL PRE PROCEDURE NOTE THE PATIENT HAS HISTORY OF CHRONIC LOW BACK PAIN. I EVALUATE THE PATIENT AND REVIEWED THE CHART. I WENT OVER THE RISKS, ALTERNATIVES, AND BENEFITS ASSOCIATED WITH THIS PROCEDURE. THE PATIENT WOULD LIKE TO PROCEED AND GIVE CONSENT TO PERFORMED THE PROCEDURE. THE PATIENT DENIES UNEXPLAINABLE WEIGHT LOSS, FEVER, CHILLS, OR NEW CHANGES IN URINARY OR BOWEL CONTROL. DESCRIPTION OF PROCEDURE THE PATIENT WAS BROUGHT TO THE PROCEDURE ROOM AND PLACED IN THE PRONE POSITION. THE LUMBOSACRAL AREA WAS CLEANED WITH BETADINE SOLUTION AND DRAPED ASEPTICALLY. THE PROCEDURE WAS DONE UNDER STERILE CONDITIONS. I CHECKED LATERALITY AND THE LEVEL WHERE THE PROCEDURE WAS GOING TO BE PERFORMED WITH THE PATIENT AND THE SUPPORTING STAFF AT THE MOMENT OF THE TIME OUT IN THE PROCEDURE ROOM. UNDER FLUOROSCOPIC GUIDANCE, THE TARGET POINT WAS SELECTED AT THE EPIDURAL SPACE BELOW THE SACROCOCCYGEAL LIGAMENT. LIDOCAINE 0.5% WAS USE TO NUMB THE SKIN AND THE SUBCUTANEOUS TISSUE BELOW IT. AN EPIDURAL TUOHY NEEDLE, 16-GAUGE, WAS ADVANCED UNDER FLUOROSCOPIC GUIDANCE AND FOLLOWING PATIENT FEEDBACK UNTIL THE EPIDURAL SPACE WAS REACHED 6 CM DEEP INTO THE SKIN BY THE LOSS OF RESISTANCE TECHNIQUE. I ADVANCED A 19-GAUGE CATHETER THROUGH THE NEEDLE TO LEFT L5-S1 AREA. ISOVUE M-200 DYE WAS INJECTED SHOWING ADEQUATE SPREAD OF THE DYE. THEN, A SOLUTION OF 6 ML OF NORMAL SALINE WITH DEPO-MEDROL 60 MG WAS INJECTED SLOWLY FOLLOWING THE PATIENT FEEDBACK. THERE WAS NO EVIDENCE OF BLOOD, PARESTHESIA OR CEREBROSPINAL FLUID DURING THE PROCEDURE. THE PATIENT WAS SENT TO THE RECOVERY ROOM. THE PATIENT WAS MOVING THE EXTREMITIES AND DOING WELL. THERE WAS NO COMPLICATION DURING THE PROCEDURE. FLUOROSCOPY TIME WAS 86 SECONDS POST PROCEDURE NOTE THE PATIENT WILL BE SEEN IN A FOLLOW UP IN THE NEXT FEW WEEKS. INSTRUCTIONS WERE GIVEN, QUESTIONS WERE ANSWERED, AND THE PATIENT EXPRESSED UNDERSTANDING AND AGREES WITH THE PLAN. I, NIA BARRON, DOCUMENTED THE ABOVE INFORMATION ACTING A SCRIBE FOR DR. RING. I HAVE REVIEWED THE ABOVE DOCUMENT, WRITTEN BY NIA FREIRE AND I VERIFY THAT IT IS ACCURATE. DIAGNOSTIC IMAGING [facility] FLUORO GUIDE SPINE INJECTION (PAIN)[id number] PROCEDURE CODES 6045F RADXPS IN END [id number] PXD [id number] LUMBAR/SACRAL W/ IMAGING DISPOSITION & COMMUNICATION FOLLOW UP 3 WEEKS ELECTRONICALLY SIGNED BY RANDI RING MD, MD ON 03/10/2019 AT 01:48 PM EDT DISCLAIMER : THIS IS A VISIT SUMMARY EXTRACTED FROM THE [employer] CHART. IT IS NOT A COPY OF THE [employer] PROGRESS NOTE. VIDALD
== END ==
LOC: M PAIN 10:45
PROVIDERS: ATTEND Anesthesiology
DX: M48.00 Spinal stenosis, site unspecified (principal); M96.1 Postlaminectomy syndrome, not elsewhere classified; M51.16 Intervertebral disc disorders with radiculopathy, lumbar region; I25.10 Atherosclerotic heart disease of native coronary artery without angina pectoris; J30.9 Allergic rhinitis, unspecified; N18.3 Chronic kidney disease, stage 3 (moderate); G47.30 Sleep apnea, unspecified; E78.00 Pure hypercholesterolemia, unspecified; I48.0 Paroxysmal atrial fibrillation; R42 Dizziness and giddiness; D69.6 Thrombocytopenia, unspecified; I12.9 Hypertensive chronic kidney disease with stage 1 through stage 4 chronic kidney disease, or unspecified chronic kidney disease; N40.1 Benign prostatic hyperplasia with lower urinary tract symptoms; K21.9 Gastro-esophageal reflux disease without esophagitis; G44.89 Other headache syndrome; N13.9 Obstructive and reflux uropathy, unspecified; Z90.49 Acquired absence of other specified parts of digestive tract; Z87.891 Personal history of nicotine dependence; Z89.022 Acquired absence of left finger(s); Z98.49 Cataract extraction status, unspecified eye; Z95.0 Presence of cardiac pacemaker; Z98.1 Arthrodesis status; Z79.01 Long term (current) use of anticoagulants; Z79.899 Other long term (current) drug therapy; Z88.5 Allergy status to narcotic agent; Z88.8 Allergy status to other drugs, medicaments and biological substances
CPT/HCPCS: 36415; 62323; 85610; J1030; Q9966

== ENCOUNTER → 2019-03-27 | Outpatient (CLI) | payer MEDICARE ==
[~2019-03-27] MED LIST changes: -BACI500O21 TOP; +DIGO0.12 PO; -DIGO0.123 PO; -DULO1CAP5 PO; -GABA-843; -ISOVUE-M 200 41% 20ML VIAL (Q9966) As Ordered ONE; -LIDOCAINE 1% SDV INJ 30 ML VIAL As Ordered ONE; +MECL-68 PO; +MECL12.575 PO; -MECL12.589 PO; -MECL1TAB31 PO; +OMEP40CA2 PO; -OMEP40CA97 PO; -ZONI100C17 PO; +ZONI100C2 PO; -diazePAM 5 MG TAB As Ordered ONE; -methylPREDNISolone SUSP 40 MG/ML (DEPO-medrol) VIAL (J1030) As Ordered ONE; -oxyCODONE 5MG TAB As Ordered ONE
--- NOTE | 2019-04-01 03:07 | ECWPNPC ---
PATIENT NAME: JASMYNE DE JESUS : 1930 GENDER: MALE VISIT DATE: 03/27/2019 DISCHARGE DATE: 03/27/19 1234 VISIT LOCKED DATE TIME: PHYSICIAN: ROSA VARGAS RESOURCE: ROSA VARGAS REASON FOR APPOINTMENT 1. POST PROC HISTORY OF PRESENT ILLNESS HISTORY OF PRESENT ILLNESS: PAIN THE PATIENT DESCRIBES THE PAIN... 88 YEAR OLD MALE IN FOR POST EPIDURAL. HE FEELS THE PROCEDURE HELPED TO ALLEVIATE HIS SYMPTOMS FOR A FEW DAYS. HE RATES HIS PAIN AT A 8/10 AND DESCRIBES IT ACHING. FALL RISK SCREENING: SCREENING :NO FALLS REPORTED IN THE LAST YEAR CURRENT MEDICATIONS TAKING SUCRALFATE 1 GM TABLET 1 TABLET ORALLY TWICE A DAY, NOTES: 03/02/19@2200 TAKING VITAMIN C 500 MG TABLET 1 TABLET ORALLY ONCE A DAY, NOTES: 03/02/19@1200 TAKING COUMADIN 1 MG TABLET 1 TAB ORALLY 1.5MG ON SATURDAY 2.5MG EVERY OTHER DAY, NOTES: 02/26/19@1700 TAKING NITROSTAT 0.4 MG TABLET SUBLINGUAL 1 TAB SUBLINGUAL Q5 MIN X 3 NEEDED FOR CHEST PAIN, NOTES: 1 MONTH AGO TAKING MECLIZINE HCL 25 MG TABLET 1 TAB ORALLY EVERY 8HOURS NEEDED FOR DIZZINESS, NOTES: 0900 TAKING CARVEDILOL 3.125 MG TABLET 1 ORALLY DAILY--HOLD IF SITTING OR STANDING BP IS LESS THAN 100 SYSTOLIC, NOTES: 0800 TAKING DIGOXIN 125 MCG TABLET 1 TABLET ORALLY 3 TIMES WEEK---, NOTES: 03/02/19@0800 TAKING LIPITOR 40 MG TABLET 1 TABLET ORALLY BEFORE BEDTIME, NOTES: 03/03/19@2200 TAKING VITAMIN B-2 100 MG TABLET 1 TABLET WITH A MEAL ORALLY ONCE A DAY, NOTES: 03/02/19@1200 TAKING VITAMIN B12 1000 MCG TABLET EXTENDED RELEASE 1 TABLET ORALLY ONCE A DAY, NOTES: 03/02/19@1200 TAKING TIZANIDINE HCL 2 MG CAPSULE 1 CAPSULE NEEDED ORALLY THREE TIMES A DAY, NOTES: 03/02/19@2200 TAKING OMEPRAZOLE 40 MG CAPSULE DELAYED RELEASE 1 CAPSULE ORALLY TWICE DAILY, NOTES: 03/02/19@2200 TAKING ACETAMINOPHEN 325 MG TABLET 1 TABLET NEEDED ORALLY BEFORE BEDTIME, NOTES: 03/02/19@2199 TAKING MAGNESIUM 300 MG CAPSULE 1 CAPSULE WITH A MEAL ORALLY ONCE A DAY, NOTES: 03/02/19@1200 TAKING GABAPENTIN 300 MG CAPSULE 1 CAP ORALLY 1 CAPSULE IN THE MORNING AND AFTERNOON TWO CAPSULES AT BEDTIME, NOTES: 03/02/19@2200 TAKING DULOXETINE HCL 60 MG CAPSULE DELAYED RELEASE PARTICLES 1 CAPSULE ORALLY ONCE A DAY MEDICATION LIST REVIEWED AND RECONCILED WITH THE PATIENT PAST MEDICAL HISTORY ATHEROSCLEROTIC HEART DISEASE OF [place] CORONARY ARTERY WITHOUT ANGINA PECTORIS ALLERGIC RHINITIS, UNSPECIFIED CHRONIC KIDNEY DISEASE, STAGE 3 (MODERATE) SLEEP APNEA, UNSPECIFIED OTHER HEADACHE SYNDROME PERSONAL HISTORY OF COLONIC POLYPS PURE HYPERCHOLESTEROLEMIA OBSTRUCTIVE AND REFLUX UROPATHY, UNSPECIFIED PAROXYSMAL ATRIAL FIBRILLATION DIZZINESS AND GIDDINESS THROMBOCYTOPENIA, UNSPECIFIED ESSENTIAL (PRIMARY) HYPERTENSION BENIGN PROSTATIC HYPERPLASIA WITH LOWER URINARY TRACT SYMPTOMS, UNSPECIFIED MORPHOLOGY OTHER CARDIAC SOUNDS GERD ALLERGIES VICODIN: ALLERGY AMIODARONE HCL: UNKNOWN - SIDE EFFECTS SURGICAL HISTORY APPENDECTOMY 1953 RIGHT INGUINAL HERNIA REPAIR 1999 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 COLONOSCOPY 04/2007 CATARACT EXTRACTION OU 06/14/2008, 07/05 HEMORRHOID SURGERY 04/2009 DEPUYTRANS CONTRACTURE RELEASE LEFT HAND 02/2009 COLONOSCOPY 05/2013 RIGHT ROTATOR CUFF REPAIR 04/2015 PACEMAKER PLACED 02/2015 [facility] ER-DISLOCATION OF DISTAL INTERPHALANGEAL JOINT OF RIGHT RING FINGER, LACERATION WITHOUT FOREIGN BODY OF FINGER WITHOUT DAMAGE TO NAIL 01/18/2016 COLONOSCOPY 08/13/2016 URODYNAMIC STUDY 10/31/16 GREEN LIGHT LASER ABLATION OF THE PROSTATE GLAND 12/04/2016 LAMINECTOMY L3-4, L4-5 WITH FUSION 09/02/2017 FAMILY HISTORY FATHER: PROSTATE CANCER, DIAGNOSED WITH CANCER SIBLINGS: BROTHER- PROSTATE CANCER, CANCER MOTHER: HEART DISEASE REMARKABLE FOR OVARIAN CANCER.\\\\NBOTH CHILDREN HAD MENTAL RETARDATION, SEIZURE DISORDER.NDAUGHTER HAD BREAST CANCER DIAGNOSED 2004, IN \ AFTER SURGERY FOR A DUODENAL MASS (NOT MALIGNANT). SOCIAL HISTORY GENERAL: TOBACCO USE ARE YOU A:: FORMER SMOKER , HOW LONG HAS IT BEEN SINCE YOU LAST SMOKED?: > 10 YEARS. HIV / HEP-C SCREENING HIV TEST OFFERED TO PATIENT:YES DATE OFFERED:11/26/2017 TEST ACCEPTED:NO HEP-C TEST OFFERED TO PATIENT:YES DATE OFFERED:11/26/2017 REASON:PATIENT DECLINED TEST ACCEPTED:YES BROCHURE PROVIDED TO PATIENTYES HOUSING: OWNS HOME. LANGUAGE BENGALI. DOMESTIC VIOLENCE STATUS: DO YOU FEEL SAFE IN YOUR ENVIRONMENT?YES BMI CARE GOAL FOLLOW-UP ABOVE NORMAL BMI FOLLOW-UPWEIGHT MONITORING RECREATIONAL DRUG USE DRUG USE?NO LEARNING BARRIERS / SPECIAL NEEDS CHANGE FROM LAST VISIT?NO BARRIERS TO LEARNING?NO HEARING IMPAIRED?YES :HEARING AIDES VISION IMPAIRED?YES :CORRECTIVE LENSES COGNITIVELY IMPAIRED?NO READINESS TO LEARN?YES LEARNING PREFERENCES?NO LEARNING CAPABILITIES PRESENT?YES EMOTIONAL BARRIERS?NO SPECIAL DEVICES?NO FINANCIAL PROCESSING CLERK NEEDED?NO PAIN CLINIC PFS, CLERGY, PUBLIC HEALTH REFERRALS WAS THE PROVIDER NOTIFIED OF ANY PERTINENT INFO?YES HAS THE PATIENT BEEN EDUCATED REGARDING HIS/HER PLAN OF CARE?YES HAS THE PATIENT BEEN EDUCATED REGARDING PAIN, THE RISK FOR PAIN, THE IMPORTANCE OF EFFECTIVE PAIN MANAGEMENT, AND THE PAIN ASSESSMENT PROCESS?YES LATEX QUESTIONNAIRE LATEX ALLERGY : HAVE YOU EVER DEVELOPED ANY TYPE OF REACTION AFTER HANDLING LATEX PRODUCTS SUCH RUBBER GLOVES, CONDOMS, DIAPHRAGMS, BALLOONS, SOCKS, OR UNDERWEAR?NO LATEX ALLERGY : HAVE YOU EVER DEVELOPED ANY TYPE OF REACTION DURING OR AFTER DENTAL APPOINTMENT, VAGINAL/RECTAL EXAMINATION, SURGICAL PROCEDURE, OR ANY OTHER EXPOSURE?NO LATEX RISK : HAVE YOU EVER HAD ANY DIFFICULTY BREATHING OR HIVES AFTER EATING OR HANDLING ANY FRUITS, OR VEGETABLES; SUCH KIWI, BANANAS, STONE FRUITS, OR CHESTNUTSNO LATEX RISK : DO YOU HAVE A PREVIOUS PERSONAL HISTORY OF MORE THAN NINE SURGERIES, SPINA BIFIDA, OR REPEATED CATHERIZATIONS? YES - PLEASE INDICATE : > 9 SURGERIES LATEX RISK : ARE YOU FREQUENTLY EXPOSED TO LATEX PRODUCTS IN YOUR OCCUPATION?NO DATE ASKED : 03/27/2019 CAFFEINE CAFFEINE USE?YES HOW OFTEN AND HOW MUCH? 2 CUPS COFFEE A DAY 1 CUP TEA ADVANCE DIRECTIVE ADVANCE DIRECTIVE DISCUSSED WITH PATIENT:YES PT HAS HCP JAVAD DE JESUS ON FILE WITH [facility] TENRIISM NO CAODAISM BELIEFS THAT WOULD IMPACT HEALTH CARE. 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 SEXUAL HX HAD SEX IN THE LAST 12 MONTHS (VAGINAL, ORAL, OR ANAL)?NO HAVE YOU EVER HAD AN STD?NO REVIEWED WT PT 10/24/18 1331 BVREVIEWED WITH PT 12/15/18 1511 BVREVIEWED WITH PATIENT 12/31/18 0957 JSREVIEWED WITH PATIENT 01/20/19 1145 BV. HOSPITALIZATION/MAJOR DIAGNOSTIC PROCEDURE SURGERY REALTED [facility]-RIGHT HIP AND HUMERUS FRACTURE (09/22-10/06-REHAB) 09/16-10/06/2018 REVIEW OF SYSTEMS REVIEWED BY: PROVIDER: REMINGTON ARTEAGA . CONSTITUTIONAL: ANY CHANGE IN YOUR MEDICAL CONDITION? NO . CHILLS NO . FEVER NO . INFECTION: DO YOU HAVE NEW INFECTIONS? NO . DO YOU HAVE HISTORY OF MRSA? NO . MUSCULOSKELETAL: ANY NEW PATTERNS OF PAIN OR NUMBNESS? NO . GASTROENTEROLOGY: ANY NEW CHANGE IN BOWEL CONTROL? NO . GENITOURINARY: ANY NEW CHANGE IN BLADDER CONTROL? NO . IS THERE A CHANCE YOU COULD BE ? NO . HEMATOLOGY/LYMPH: DO YOU TAKE ANY BLOOD THINNERS? (FOR EXAMPLE- COUMADIN, PLAVIX, AGGRENOX, PLATEL, PRADAXA, OR XARELTO) YES . WHEN WAS YOUR LAST DOSE? DATE: TIME:03/26/19@1700 . NEUROLOGY: HAVE YOU FALLEN IN THE PAST 12 MONTHS? YES . ANY NEW EXTREMITY NUMBNESS OR WEAKNESS? NO . CARDIOLOGY: DO YOU HAVE A PACEMAKER OR DEFIBRILLATOR? YES . RESPIRATORY: HAVE YOU BEEN SICK IN THE PAST WEEK? NO . FEVER NO . FLU LIKE SYMPTOMS? NO . COUGH NO . INTEGUMENTARY: DO YOU HAVE ANY RASHES OR OPEN SORES? NO . ALLERGIC/IMMUNO: ARE YOU ALLERGIC TO IV DYE? NO . ANY NEW ALLERGIES? NO . PSYCHIATRIC: DO YOU HAVE THOUGHTS OF HURTING YOURSELF OR SOMEONE ELSE? NO . ARE YOU ABUSED, NEGLECTED, OR IN AN UNSAFE ENVIRONMENT? NO . ENDOCRINOLOGY: ARE YOU DIABETIC? NO . OTHER: DO YOU NEED ANY PRESCRIPTIONS? YES . IF YES, PLEASE LIST: ____ . ANY NEW PROBLEMS WITH YOUR MEDICATIONS? NO . WHEN DID YOU LAST EAT? ____ . WHEN DID YOU LAST DRINK? ____ . WHAT DID YOU LAST DRINK? ____ . NAME OF PERSON DRIVING YOU HOME? ____ . DO YOU HAVE ANY OTHER QUESTIONS OR CONCERNS YES, ACHY LEGS . VITAL SIGNS WT 207.4 LBS, HT 71 IN, BMI 28.92 INDEX, BP 124/88 MM HG, HR 70 /MIN, RR 18 /MIN, TEMP 97.1 F, OXYGEN SAT % 98%, NA INITIALS AW 1141. EXAMINATION GENERAL EXAMINATION: GENERALNO ACUTE DISTRESS, WELL NOURISHED AND HYDRATED. PSYCHAPPROPRIATE MOOD AND AFFECT . LUNGS:CLEAR TO AUSCULTATION BILATERALLY, NO WHEEZES, RHONCHI, RALES. HEART:NO MURMURS, REGULAR RATE AND RHYTHM. BACK:POINT TENDER LUMBAR REGION, SURROUNDING SKIN SHOWS NO ERYTHEMA, INCREASED WARMTH, ECCHYMOSIS, AND/OR SKIN ERUPTIONS.. MUSCULOSKELETAL:EQUAL STRENGTH OF THE LOWER EXTREMITIES . ASSESSMENTS PAROXYSMAL ATRIAL FIBRILLATION - I48.0 (PRIMARY) INTERVERTEBRAL DISC DISORDER WITH RADICULOPATHY OF LUMBAR REGION - M51.16 TREATMENT PAROXYSMAL ATRIAL FIBRILLATION LAB: PT-INR NOTES: CAUDAL EPIDURAL LESI L5-S1. CLINICAL NOTES: 88 YEAR OLD MALE IN FOR POST EPIDURAL FOLLOW UP. GIVEN PRESENTING SYMPTOMS AND RESULTS OF PHYSICAL EXAMINATION RECOMMENDED REPEAT EPIDURAL WITH POST PROCEDURE FOLLOW UP. PATIENT HAS EXPRESSED UNDERSTANDING OF AND WAS IN AGREEMENT WITH TREATMENT PLAN. GIVEN TIME TO ASK QUESTIONS AND EXPRESS CONCERNS. DISPOSITION & COMMUNICATION FOLLOW UP POST PROCEDURE (REASON: CAUDAL EPIDURAL LESI L5-S1) ELECTRONICALLY SIGNED BY CHANDRIKA ELKINS ON 03/31/2019 AT 08:56 AM EDT DISCLAIMER : THIS IS A VISIT SUMMARY EXTRACTED FROM THE [facility] CHART. IT IS NOT A COPY OF THE [facility] PROGRESS NOTE. RUDOLPH
== END ==
LOC: M PAIN 11:15
PROVIDERS: ATTEND Family Medicine
DX: M51.16 Intervertebral disc disorders with radiculopathy, lumbar region (principal); I48.0 Paroxysmal atrial fibrillation; G47.30 Sleep apnea, unspecified; E78.00 Pure hypercholesterolemia, unspecified; I10 Essential (primary) hypertension; K21.9 Gastro-esophageal reflux disease without esophagitis; Z87.891 Personal history of nicotine dependence; Z88.5 Allergy status to narcotic agent; Z88.8 Allergy status to other drugs, medicaments and biological substances; Z79.01 Long term (current) use of anticoagulants; Z95.0 Presence of cardiac pacemaker; Z79.899 Other long term (current) drug therapy

== ENCOUNTER 2019-04-21 12:39 | Emergency (ER) | payer MEDICARE ==
[2019-04-21] MEDS ORDERED: DULO1CAP5 PO (13:16)
[2019-04-21] MEDS ORDERED: WARF4TAB52 PO (13:16)
[2019-04-21] MEDS ORDERED: GABA-843 (13:16)
[2019-04-21] MEDS ORDERED: BACI500O21 TOP (14:52)
[2019-04-21] MEDS ORDERED: PERCOCET 5MG/325MG TAB PO ONE (15:00)
--- NOTE | 2019-04-21 15:20 | REP ---
CT BRAIN WITHOUT IV CONTRAST: CT brain performed without IV contrast. There is mild atrophy. There is no midline shift or mass effect. Farrar-white differentiation is well maintained. There is no acute intracranial hemorrhage or extra-axial fluid collection. No skull fracture is seen. There are vascular calcifications in the carotid siphons. There is a posterior scalp hematoma in the right occipital region. IMPRESSION: No evidence of acute bleed or fracture. Electronically Signed by Ata Farrar MD 04/21/2019 04:00 P
--- NOTE | 2019-04-21 15:21 | REP ---
CT CERVICAL SPINE WITHOUT IV CONTRAST: CT cervical spine performed in the axial plane. Sagittal and coronal reconstruction images are performed. There is no compression fracture or malalignment with normal cervical lordosis. There is no prevertebral soft tissue swelling. There is mild diffuse spurring. No abnormal density is seen in the spinal canal. Diffuse narrowing, sclerosis, and spurring is seen at the posterior facet joints bilaterally. IMPRESSION: Degenerative changes. No evidence of acute fracture or dislocation. Electronically Signed by Ata Farrar MD 04/21/2019 04:01 P
[2019-04-21] MEDS ORDERED: HYDROMORPHONE HCL 0.5 MG/ 0.5 ML SYRINGE (J1170 PER 1) SQ ONE (16:00)
[2019-04-21] MEDS ORDERED: **hydrALAZINE HCL** 25 MG TAB PO ONE (16:00)
[2019-04-21] MEDS ORDERED: cloNIDine 0.1 MG TAB As Ordered ONE (16:34)
[2019-04-21 16:39] VITALS: BP 202/122
[2019-04-21] MEDS ORDERED: cloNIDine 0.1 MG TAB PO ONE (16:45)
[2019-04-21 17:05] VITALS: BP 198/108
== END 2019-04-21 17:07 | disposition home or self-care (01) ==
LOC: M ED 12:39 → EDBD 12:39 → M ED 17:07
DX: S01.01XA Laceration without foreign body of scalp, initial encounter (principal); W18.39XA Other fall on same level, initial encounter; Y92.89 Other specified places as the place of occurrence of the external cause; I12.9 Hypertensive chronic kidney disease with stage 1 through stage 4 chronic kidney disease, or unspecified chronic kidney disease; N18.3 Chronic kidney disease, stage 3 (moderate); I48.91 Unspecified atrial fibrillation; E78.00 Pure hypercholesterolemia, unspecified; Z79.899 Other long term (current) drug therapy; Z79.01 Long term (current) use of anticoagulants; Z88.1 Allergy status to other antibiotic agents; Z88.2 Allergy status to sulfonamides; Z87.891 Personal history of nicotine dependence
CPT/HCPCS: 12011; 70450; 72125; 99284; J1170

== ENCOUNTER → 2019-05-07 | Outpatient (CLI) | payer MEDICARE ==
[~2019-05-07] MED LIST changes: +BACI500O21 TOP; -DIGO0.12 PO; +DIGO0.123 PO; +DULO1CAP5 PO; +GABA-843; -MECL-68 PO; -MECL12.575 PO; +MECL12.589 PO; +MECL1TAB31 PO; -OMEP40CA2 PO; +OMEP40CA97 PO; +ZONI100C17 PO; -ZONI100C2 PO
[2019-05-07 13:35] LABS: INR 1.17; PROTHROMBIN TIME 14.7 SECONDS (11.8-14.0)
== END ==
LOC: M LAB 12:41
PROVIDERS: ATTEND Family Medicine
DX: I48.0 Paroxysmal atrial fibrillation (principal)

== ENCOUNTER → 2019-05-07 | Outpatient (CLI) | payer MEDICARE ==
[~2019-05-07] MED LIST changes: +DIGO0.12 PO; -DIGO0.123 PO; +ISOVUE-M 300 61% 15ML VIAL (Q9967) As Ordered ONE; +LIDOCAINE 1% SDV INJ 30 ML VIAL As Ordered ONE; +MECL-68 PO; +MECL12.575 PO; -MECL12.589 PO; -MECL1TAB31 PO; -ZONI100C17 PO; +ZONI100C2 PO; +diazePAM 5 MG TAB As Ordered ONE; +methylPREDNISolone SUSP 40 MG/ML (DEPO-medrol) VIAL (J1030) As Ordered ONE; +oxyCODONE 5MG TAB As Ordered ONE
--- NOTE | 2019-05-07 15:38 | REP ---
Sacrum and coccyx: Five views. History: Epidural steroid injection for pain. 11 seconds of fluoroscopy time is reported. Findings: A sequence of five last image hold fluoroscopically obtained spot radiographs of the sacrum and coccyx document needle position and contrast injection associated with caudal epidural injection procedure. Electronically Signed by Dusty Ty MD 05/07/2019 03:49 P
--- NOTE | 2019-05-21 01:28 | ECWPNPC ---
PATIENT NAME: JASMYNE DE JESUS : 1930 GENDER: MALE VISIT DATE: 05/07/2019 DISCHARGE DATE: 05/07/19 1600 VISIT LOCKED DATE TIME: PHYSICIAN: RANDI RING MD RESOURCE: RANDI RING MD REASON FOR APPOINTMENT 1. CAUDAL EPIDURAL LESI HISTORY OF PRESENT ILLNESS HISTORY OF PRESENT ILLNESS: PAIN THE PATIENT DESCRIBES THE PAIN... FALL RISK SCREENING: SCREENING :NO FALLS REPORTED IN THE LAST YEAR CURRENT MEDICATIONS TAKING SUCRALFATE 1 GM TABLET 1 TABLET ORALLY TWICE A DAY, NOTES: 05/06/19 TAKING VITAMIN C 500 MG TABLET 1 TABLET ORALLY ONCE A DAY, NOTES: 05/06/19 TAKING COUMADIN 1 MG TABLET 1 TAB ORALLY 1.5MG ON SATURDAY 2.5MG EVERY OTHER DAY, NOTES: 05/02/19 TAKING NITROSTAT 0.4 MG TABLET SUBLINGUAL 1 TAB SUBLINGUAL Q5 MIN X 3 NEEDED FOR CHEST PAIN, NOTES: NONE LATELY TAKING MECLIZINE HCL 25 MG TABLET 1 TAB ORALLY EVERY 8HOURS NEEDED FOR DIZZINESS, NOTES: 05/04/19 TAKING CARVEDILOL 3.125 MG TABLET 1 ORALLY DAILY--HOLD IF SITTING OR STANDING BP IS LESS THAN 100 SYSTOLIC, NOTES: 05/07/19 TAKING DIGOXIN 125 MCG TABLET 1 TABLET ORALLY 3 TIMES WEEK---, NOTES: 05/06/19 TAKING LIPITOR 40 MG TABLET 1 TABLET ORALLY BEFORE BEDTIME, NOTES: 05/06/19 TAKING VITAMIN B-2 100 MG TABLET 1 TABLET WITH A MEAL ORALLY ONCE A DAY, NOTES: 05/06/19 TAKING OMEPRAZOLE 40 MG CAPSULE DELAYED RELEASE 1 CAPSULE ORALLY TWICE DAILY, NOTES: 05/06/19 TAKING ACETAMINOPHEN 325 MG TABLET 1 TABLET NEEDED ORALLY BEFORE BEDTIME, NOTES: 05/07/19 TAKING MAGNESIUM 300 MG CAPSULE 1 CAPSULE WITH A MEAL ORALLY ONCE A DAY, NOTES: 05/06/19 TAKING GABAPENTIN 300 MG CAPSULE 1 CAP ORALLY 1 CAPSULE IN THE MORNING AND AFTERNOON TWO CAPSULES AT BEDTIME, NOTES: 05/07/19 TAKING DULOXETINE HCL 60 MG CAPSULE DELAYED RELEASE PARTICLES 1 CAPSULE ORALLY ONCE A DAY, NOTES: 05/06/19 TAKING VITAMIN B12 1000 MCG TABLET EXTENDED RELEASE 1 TABLET ORALLY ONCE A DAY, NOTES: 05/06/19 NOT-TAKING TIZANIDINE HCL 2 MG CAPSULE 1 CAPSULE NEEDED ORALLY THREE TIMES A DAY MEDICATION LIST REVIEWED AND RECONCILED WITH THE PATIENT PAST MEDICAL HISTORY ATHEROSCLEROTIC HEART DISEASE OF [place] CORONARY ARTERY WITHOUT ANGINA PECTORIS ALLERGIC RHINITIS, UNSPECIFIED CHRONIC KIDNEY DISEASE, STAGE 3 (MODERATE) SLEEP APNEA, UNSPECIFIED OTHER HEADACHE SYNDROME PERSONAL HISTORY OF COLONIC POLYPS PURE HYPERCHOLESTEROLEMIA OBSTRUCTIVE AND REFLUX UROPATHY, UNSPECIFIED PAROXYSMAL ATRIAL FIBRILLATION DIZZINESS AND GIDDINESS THROMBOCYTOPENIA, UNSPECIFIED ESSENTIAL (PRIMARY) HYPERTENSION BENIGN PROSTATIC HYPERPLASIA WITH LOWER URINARY TRACT SYMPTOMS, UNSPECIFIED MORPHOLOGY OTHER CARDIAC SOUNDS GERD ALLERGIES VICODIN: ALLERGY AMIODARONE HCL: UNKNOWN - SIDE EFFECTS SURGICAL HISTORY APPENDECTOMY 1953 RIGHT INGUINAL HERNIA REPAIR 1999 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 COLONOSCOPY 04/2007 CATARACT EXTRACTION OU 06/14/2008, 07/05 HEMORRHOID SURGERY 04/2009 DEPUYTRANS CONTRACTURE RELEASE LEFT HAND 02/2009 COLONOSCOPY 05/2013 RIGHT ROTATOR CUFF REPAIR 04/2015 PACEMAKER PLACED 02/2015 [facility] ER-DISLOCATION OF DISTAL INTERPHALANGEAL JOINT OF RIGHT RING FINGER, LACERATION WITHOUT FOREIGN BODY OF FINGER WITHOUT DAMAGE TO NAIL 01/18/2016 COLONOSCOPY 08/13/2016 URODYNAMIC STUDY 10/31/16 GREEN LIGHT LASER ABLATION OF THE PROSTATE GLAND 12/04/2016 LAMINECTOMY L3-4, L4-5 WITH FUSION 09/02/2017 FAMILY HISTORY FATHER: PROSTATE CANCER, DIAGNOSED WITH OTHER MALIGNANT NEOPLASM OF UNSPECIFIED SITE SIBLINGS: BROTHER- PROSTATE CANCER, OTHER MALIGNANT NEOPLASM OF UNSPECIFIED SITE MOTHER: UNSPECIFIED HEART DISEASE REMARKABLE FOR OVARIAN CANCER.\\\\NBOTH CHILDREN HAD MENTAL RETARDATION, SEIZURE DISORDER.NDAUGHTER HAD BREAST CANCER DIAGNOSED 2004, IN \\ AFTER SURGERY FOR A DUODENAL MASS (NOT MALIGNANT). SOCIAL HISTORY GENERAL: TOBACCO USE ARE YOU A:NONSMOKER HIV / HEP-C SCREENING HIV TEST OFFERED TO PATIENT:YES DATE OFFERED:11/26/2017 TEST ACCEPTED:NO HEP-C TEST OFFERED TO PATIENT:YES DATE OFFERED:11/26/2017 REASON:PATIENT DECLINED TEST ACCEPTED:YES BROCHURE PROVIDED TO PATIENTYES HOUSING: OWNS HOME. LANGUAGE BAHRAINI. DOMESTIC VIOLENCE STATUS: DO YOU FEEL SAFE IN YOUR ENVIRONMENT?YES BMI CARE GOAL FOLLOW-UP ABOVE NORMAL BMI FOLLOW-UPWEIGHT MONITORING RECREATIONAL DRUG USE DRUG USE?NO LEARNING BARRIERS / SPECIAL NEEDS CHANGE FROM LAST VISIT?NO BARRIERS TO LEARNING?NO HEARING IMPAIRED?YES VISION IMPAIRED?YES COGNITIVELY IMPAIRED?NO :HEARING AIDES :CORRECTIVE LENSES READINESS TO LEARN?YES LEARNING PREFERENCES?NO LEARNING CAPABILITIES PRESENT?YES EMOTIONAL BARRIERS?NO SPECIAL DEVICES?NO RESEARCH AND DEVELOPMENT DIRECTOR NEEDED?NO PAIN CLINIC PFS, CLERGY, PUBLIC HEALTH REFERRALS WAS THE PROVIDER NOTIFIED OF ANY PERTINENT INFO?YES HAS THE PATIENT BEEN EDUCATED REGARDING HIS/HER PLAN OF CARE?YES HAS THE PATIENT BEEN EDUCATED REGARDING PAIN, THE RISK FOR PAIN, THE IMPORTANCE OF EFFECTIVE PAIN MANAGEMENT, AND THE PAIN ASSESSMENT PROCESS?YES LATEX QUESTIONNAIRE LATEX ALLERGY : HAVE YOU EVER DEVELOPED ANY TYPE OF REACTION AFTER HANDLING LATEX PRODUCTS SUCH RUBBER GLOVES, CONDOMS, DIAPHRAGMS, BALLOONS, SOCKS, OR UNDERWEAR?NO LATEX ALLERGY : HAVE YOU EVER DEVELOPED ANY TYPE OF REACTION DURING OR AFTER DENTAL APPOINTMENT, VAGINAL/RECTAL EXAMINATION, SURGICAL PROCEDURE, OR ANY OTHER EXPOSURE?NO DATE ASKED : 03/27/2019 LATEX RISK : HAVE YOU EVER HAD ANY DIFFICULTY BREATHING OR HIVES AFTER EATING OR HANDLING ANY FRUITS, OR VEGETABLES; SUCH KIWI, BANANAS, STONE FRUITS, OR CHESTNUTSNO LATEX RISK : DO YOU HAVE A PREVIOUS PERSONAL HISTORY OF MORE THAN NINE SURGERIES, SPINA BIFIDA, OR REPEATED CATHERIZATIONS? YES - PLEASE INDICATE : > 9 SURGERIES LATEX RISK : ARE YOU FREQUENTLY EXPOSED TO LATEX PRODUCTS IN YOUR OCCUPATION?NO CAFFEINE CAFFEINE USE?YES HOW OFTEN AND HOW MUCH? 2 CUPS COFFEE A DAY 1 CUP TEA ADVANCE DIRECTIVE ADVANCE DIRECTIVE DISCUSSED WITH PATIENT:YES PT HAS HCP JAVAD DE JESUS ON FILE WITH [facility] SPIRITISM NO CATHOLIC BELIEFS THAT WOULD IMPACT HEALTH CARE. 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 SEXUAL HX HAD SEX IN THE LAST 12 MONTHS (VAGINAL, ORAL, OR ANAL)?NO HAVE YOU EVER HAD AN STD?NO REVIEWED [facility] PT 10/24/18 1331 BVREVIEWED WITH PT 12/15/18 1511 BVREVIEWED WITH PATIENT 12/31/18 0957 JSREVIEWED WITH PATIENT 01/20/19 1145 BV. HOSPITALIZATION/MAJOR DIAGNOSTIC PROCEDURE SURGERY REALTED [facility]-RIGHT HIP AND HUMERUS FRACTURE (09/22-10/06-REHAB) 09/16-10/06/2018 REVIEW OF SYSTEMS REVIEWED BY: PROVIDER: . CONSTITUTIONAL: ANY CHANGE IN YOUR MEDICAL CONDITION? NO . CHILLS NO . FEVER NO . INFECTION: DO YOU HAVE NEW INFECTIONS? NO . DO YOU HAVE HISTORY OF MRSA? NO . MUSCULOSKELETAL: ANY NEW PATTERNS OF PAIN OR NUMBNESS? NO . GASTROENTEROLOGY: ANY NEW CHANGE IN BOWEL CONTROL? NO . GENITOURINARY: ANY NEW CHANGE IN BLADDER CONTROL? NO . IS THERE A CHANCE YOU COULD BE ? NO . HEMATOLOGY/LYMPH: DO YOU TAKE ANY BLOOD THINNERS? (FOR EXAMPLE- COUMADIN, PLAVIX, AGGRENOX, PLATEL, PRADAXA, OR XARELTO) YES, COUMADIN 05/02/19 . WHEN WAS YOUR LAST DOSE? DATE: TIME: . NEUROLOGY: HAVE YOU FALLEN IN THE PAST 12 MONTHS? YES, FELL 2 WEEKS AGO PT WAS AT PHYSICAL THERAPY LOST HIS FOOTING FELL AND HIT HIS HEAD, PT WAS SEEN AND TREATED AT [facility] ER WHERE SUTURES WERE PLACED TO LACERATION . ANY NEW EXTREMITY NUMBNESS OR WEAKNESS? NO . CARDIOLOGY: DO YOU HAVE A PACEMAKER OR DEFIBRILLATOR? PACEMAKER . RESPIRATORY: HAVE YOU BEEN SICK IN THE PAST WEEK? NO . FEVER NO . FLU LIKE SYMPTOMS? NO . COUGH NO . INTEGUMENTARY: DO YOU HAVE ANY RASHES OR OPEN SORES? YES, LACERATION SUTURED CLOSED TO OCCIPITAL . ALLERGIC/IMMUNO: ARE YOU ALLERGIC TO IV DYE? NO . ANY NEW ALLERGIES? NO . PSYCHIATRIC: DO YOU HAVE THOUGHTS OF HURTING YOURSELF OR SOMEONE ELSE? NO . ARE YOU ABUSED, NEGLECTED, OR IN AN UNSAFE ENVIRONMENT? NO . ENDOCRINOLOGY: ARE YOU DIABETIC? NO . OTHER: DO YOU NEED ANY PRESCRIPTIONS? NO . IF YES, PLEASE LIST: ____ . ANY NEW PROBLEMS WITH YOUR MEDICATIONS? NO . WHEN DID YOU LAST EAT? 05/06/19 1800 . WHEN DID YOU LAST DRINK? 05/06/19 2200 . WHAT DID YOU LAST DRINK? WATER . NAME OF PERSON DRIVING YOU HOME? LES . DO YOU HAVE ANY OTHER QUESTIONS OR CONCERNS NO . VITAL SIGNS WT 202 LBS, HT 71 IN, BMI 28.17 INDEX, BP 161/100 MM HG, REPEAT BP 176/104 MM HG, HR 86 /MIN, RR 18 /MIN, TEMP 97.0 F, OXYGEN SAT % 100%, NA INITIALS AW 1328, REVIEWED BY: EMLET NURSE KNOW ABOUT BPDR JHONATHAN IS AWARE. EM. ASSESSMENTS INTERVERTEBRAL DISC DISORDERS WITH RADICULOPATHY, LUMBOSACRAL REGION - M51.17 (PRIMARY) LUMBAR POST-LAMINECTOMY SYNDROME - M96.1 PROCEDURES PN CAUDAL EPIDURALS PRE PROCEDURE DIAGNOSIS LUMBAR POST LAMINECTOMY PAIN SYNDROME POST PROCEDURE DIAGNOSIS LUMBAR POST LAMINECTOMY PAIN SYNDROME PROCEDURE CAUDAL EPIDURAL STEROID INJECTION UNDER FLUOROSCOPIC GUIDANCE. SURGEON DR. RANDI RING INSPECTOR MACHINE PARTS NONE ANESTHESIA LOCAL PRE PROCEDURE NOTE THE PATIENT HAS HISTORY OF CHRONIC LOW BACK PAIN. I EVALUATED THE PATIENT AND REVIEWED THE CHART. I WENT OVER THE RISKS, ALTERNATIVES, AND BENEFITS ASSOCIATED WITH THIS PROCEDURE. THE PATIENT WOULD LIKE TO PROCEED AND GIVES CONSENT TO PERFORM THE PROCEDURE. THE PATIENT DENIES UNEXPLAINABLE WEIGHT LOSS, FEVER, CHILLS, OR NEW CHANGES IN URINARY OR BOWEL CONTROL. DESCRIPTION OF PROCEDURE THE PATIENT WAS BROUGHT TO THE PROCEDURE ROOM AND PLACED IN THE PRONE POSITION. THE LUMBOSACRAL AREA WAS CLEANED WITH BETADINE SOLUTION AND DRAPED ASEPTICALLY. THE PROCEDURE WAS DONE UNDER STERILE CONDITIONS. I CHECKED LATERALITY AND THE LEVEL WHERE THE PROCEDURE WAS GOING TO BE PERFORMED WITH THE PATIENT AND THE SUPPORTING STAFF AT THE MOMENT OF THE TIME OUT IN THE PROCEDURE ROOM. UNDER FLUOROSCOPIC GUIDANCE, THE TARGET POINT WAS SELECTED AT THE EPIDURAL SPACE BELOW THE SACROCOCCYGEAL LIGAMENT. LIDOCAINE 0.5% WAS USE TO NUMB THE SKIN AND THE SUBCUTANEOUS TISSUE BELOW IT. AN EPIDURAL TUOHY NEEDLE, 17-GAUGE, WAS ADVANCED UNDER FLUOROSCOPIC GUIDANCE AND FOLLOWING PATIENT FEEDBACK UNTIL THE EPIDURAL SPACE WAS REACHED 6 CM DEEP INTO THE SKIN BY THE LOSS OF RESISTANCE TECHNIQUE. ISOVUE M DYE 30%, 0.25 ML, WAS INJECTED SHOWING ADEQUATE SPREAD OF THE DYE. THEN, A SOLUTION OF 6 ML OF NORMAL SALINE WITH DEPO-MEDROL 60 MG WAS INJECTED SLOWLY FOLLOWING THE PATIENT FEEDBACK. THERE WAS NO EVIDENCE OF BLOOD, PARESTHESIA OR CEREBROSPINAL FLUID DURING THE PROCEDURE. THE PATIENT WAS SENT TO THE RECOVERY ROOM. THE PATIENT WAS MOVING THE EXTREMITIES AND DOING WELL. THERE WAS NO COMPLICATION DURING THE PROCEDURE. FLUOROSCOPY TIME WAS 11 SECONDS POST PROCEDURE NOTE THE PATIENT WILL BE SEEN IN A FOLLOW UP IN THE NEXT FEW WEEKS. INSTRUCTIONS WERE GIVEN, QUESTIONS WERE ANSWERED, AND THE PATIENT EXPRESSED UNDERSTANDING AND AGREES WITH THE PLAN. I, ROSETTE LYON, DOCUMENTED THE ABOVE INFORMATION ACTING A SCRIBE FOR DR. RING. I HAVE REVIEWED THE ABOVE DOCUMENT, WRITTEN BY ROSETTE FREIRE AND I VERIFY THAT IT IS ACCURATE. DIAGNOSTIC IMAGING [facility] FLUORO GUIDE SPINE INJECTION (PAIN)[id number] PROCEDURE CODES 29293 LUMBAR/SACRAL W/ IMAGING 6045F RADXPS IN END [id number] PXD DISPOSITION & COMMUNICATION FOLLOW UP 3 WEEKS ELECTRONICALLY SIGNED BY RANDI RING MD, MD ON 05/20/2019 AT 03:05 PM EDT DISCLAIMER : THIS IS A VISIT SUMMARY EXTRACTED FROM THE [employer] CHART. IT IS NOT A COPY OF THE [employer] PROGRESS NOTE. MTDD
== END ==
LOC: M PAIN 13:00
PROVIDERS: ATTEND Anesthesiology
DX: M51.17 Intervertebral disc disorders with radiculopathy, lumbosacral region (principal); I48.0 Paroxysmal atrial fibrillation; M96.1 Postlaminectomy syndrome, not elsewhere classified; I25.10 Atherosclerotic heart disease of native coronary artery without angina pectoris; J30.9 Allergic rhinitis, unspecified; N18.3 Chronic kidney disease, stage 3 (moderate); G47.30 Sleep apnea, unspecified; E78.00 Pure hypercholesterolemia, unspecified; D69.6 Thrombocytopenia, unspecified; I12.9 Hypertensive chronic kidney disease with stage 1 through stage 4 chronic kidney disease, or unspecified chronic kidney disease; N40.1 Benign prostatic hyperplasia with lower urinary tract symptoms; N13.9 Obstructive and reflux uropathy, unspecified; K21.9 Gastro-esophageal reflux disease without esophagitis; Z86.010 Personal history of colon polyps; Z95.0 Presence of cardiac pacemaker; Z98.49 Cataract extraction status, unspecified eye; Z79.01 Long term (current) use of anticoagulants; Z79.899 Other long term (current) drug therapy; Z88.5 Allergy status to narcotic agent; Z88.8 Allergy status to other drugs, medicaments and biological substances
CPT/HCPCS: 36415; 62323; 85610; J1030; Q9967

== ENCOUNTER → 2019-06-10 | Outpatient (CLI) | payer MEDICARE ==
[~2019-06-10] MED LIST changes: -ISOVUE-M 300 61% 15ML VIAL (Q9967) As Ordered ONE; -LIDOCAINE 1% SDV INJ 30 ML VIAL As Ordered ONE; -diazePAM 5 MG TAB As Ordered ONE; -methylPREDNISolone SUSP 40 MG/ML (DEPO-medrol) VIAL (J1030) As Ordered ONE; -oxyCODONE 5MG TAB As Ordered ONE
--- NOTE | 2019-06-11 23:37 | ECWPNPC ---
PATIENT NAME: JASMYNE DE JESUS : 1930 GENDER: MALE VISIT DATE: 06/10/2019 DISCHARGE DATE: 06/10/19 1517 VISIT LOCKED DATE TIME: PHYSICIAN: ROSA VARGAS RESOURCE: ROSA VARGAS REASON FOR APPOINTMENT 1. POST PROC HISTORY OF PRESENT ILLNESS HISTORY OF PRESENT ILLNESS: PAIN THE PATIENT DESCRIBES THE PAIN... 89-YEAR-OLD MALE IN FOR POST CAUDAL EPIDURAL FOLLOW-UP. WHEN ASKED THE PATIENT DENIES ANY RELIEF OF PAIN FROM THE PROCEDURE. HE RATES PAIN CURRENTLY AT A 10 OUT OF 10 AND DESCRIBES IT ACHING, STABBING, INTERMITTENT AND THAT IT IS MOSTLY DURING THE DAY. FALL RISK SCREENING: SCREENING :NO FALLS REPORTED IN THE LAST YEAR CURRENT MEDICATIONS TAKING VITAMIN C 500 MG TABLET 1 TABLET ORALLY ONCE A DAY TAKING VITAMIN B-2 100 MG TABLET 1 TABLET WITH A MEAL ORALLY ONCE A DAY TAKING SUCRALFATE 1 GM TABLET 1 TABLET ORALLY TWICE A DAY TAKING MAGNESIUM 300 MG CAPSULE 1 CAPSULE WITH A MEAL ORALLY ONCE A DAY TAKING ACETAMINOPHEN 325 MG TABLET 1 TABLET NEEDED ORALLY BEFORE BEDTIME TAKING COUMADIN 1 MG TABLET 1 TAB ORALLY 1.5MG ON SATURDAY 2.5MG EVERY OTHER DAY TAKING VITAMIN B12 1000 MCG TABLET EXTENDED RELEASE 1 TABLET ORALLY ONCE A DAY TAKING NITROSTAT 0.4 MG TABLET SUBLINGUAL 1 TAB SUBLINGUAL Q5 MIN X 3 NEEDED FOR CHEST PAIN TAKING MECLIZINE HCL 25 MG TABLET 1 TAB ORALLY EVERY 8HOURS NEEDED FOR DIZZINESS TAKING CARVEDILOL 3.125 MG TABLET 1 ORALLY DAILY--HOLD IF SITTING OR STANDING BP IS LESS THAN 100 SYSTOLIC TAKING LIPITOR 40 MG TABLET 1 TABLET ORALLY BEFORE BEDTIME TAKING OMEPRAZOLE 40 MG CAPSULE DELAYED RELEASE 1 CAPSULE ORALLY TWICE DAILY TAKING GABAPENTIN 300 MG CAPSULE 1 CAP ORALLY 1 CAPSULE IN THE MORNING AND AFTERNOON TWO CAPSULES AT BEDTIME TAKING PREDNISONE 20 MG TABLET 1 TABLET ORALLY ONCE A DAY TAKING FLUTICASONE PROPIONATE 50 MCG/ACT SUSPENSION 2 SPRAYS IN EACH NOSTRIL NASALLY ONCE A DAY TAKING FEXOFENADINE HCL 180 MG TABLET 1 TABLET NEEDED ORALLY ONCE A DAY TAKING DIGOXIN 125 MCG TABLET 1 TABLET ORALLY 3 TIMES WEEK--- TAKING DULOXETINE HCL 60 MG CAPSULE DELAYED RELEASE PARTICLES 1 CAPSULE ORALLY ONCE A DAY NOT-TAKING TIZANIDINE HCL 2 MG CAPSULE 1 CAPSULE NEEDED ORALLY THREE TIMES A DAY MEDICATION LIST REVIEWED AND RECONCILED WITH THE PATIENT PAST MEDICAL HISTORY ATHEROSCLEROTIC HEART DISEASE OF [place] CORONARY ARTERY WITHOUT ANGINA PECTORIS ALLERGIC RHINITIS, UNSPECIFIED CHRONIC KIDNEY DISEASE, STAGE 3 (MODERATE) SLEEP APNEA, UNSPECIFIED OTHER HEADACHE SYNDROME PERSONAL HISTORY OF COLONIC POLYPS PURE HYPERCHOLESTEROLEMIA OBSTRUCTIVE AND REFLUX UROPATHY, UNSPECIFIED PAROXYSMAL ATRIAL FIBRILLATION DIZZINESS AND GIDDINESS THROMBOCYTOPENIA, UNSPECIFIED ESSENTIAL (PRIMARY) HYPERTENSION BENIGN PROSTATIC HYPERPLASIA WITH LOWER URINARY TRACT SYMPTOMS, UNSPECIFIED MORPHOLOGY OTHER CARDIAC SOUNDS GERD ALLERGIES VICODIN: ALLERGY AMIODARONE HCL: UNKNOWN - SIDE EFFECTS SURGICAL HISTORY APPENDECTOMY 195 RIGHT INGUINAL HERNIA REPAIR 1999 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 COLONOSCOPY 04/2007 CATARACT EXTRACTION OU 06/14/2008, 07/05 HEMORRHOID SURGERY 04/2009 DEPUYTRANS CONTRACTURE RELEASE LEFT HAND 02/2009 COLONOSCOPY 05/2013 RIGHT ROTATOR CUFF REPAIR 04/2015 PACEMAKER PLACED 02/2015 [facility] ER-DISLOCATION OF DISTAL INTERPHALANGEAL JOINT OF RIGHT RING FINGER, LACERATION WITHOUT FOREIGN BODY OF FINGER WITHOUT DAMAGE TO NAIL 01/18/2016 COLONOSCOPY 08/13/2016 URODYNAMIC STUDY 10/31/16 GREEN LIGHT LASER ABLATION OF THE PROSTATE GLAND 12/04/2016 LAMINECTOMY L3-4, L4-5 WITH FUSION 09/02/2017 FAMILY HISTORY FATHER: PROSTATE CANCER, DIAGNOSED WITH OTHER MALIGNANT NEOPLASM OF UNSPECIFIED SITE SIBLINGS: BROTHER- PROSTATE CANCER, OTHER MALIGNANT NEOPLASM OF UNSPECIFIED SITE MOTHER: UNSPECIFIED HEART DISEASE REMARKABLE FOR OVARIAN CANCER.\\\\NBOTH CHILDREN HAD MENTAL RETARDATION, SEIZURE DISORDER.NDAUGHTER HAD BREAST CANCER DIAGNOSED 2004, IN \\\ AFTER SURGERY FOR A DUODENAL MASS (NOT MALIGNANT). SOCIAL HISTORY GENERAL: TOBACCO USE ARE YOU A:NONSMOKER HIV / HEP-C SCREENING HIV TEST OFFERED TO PATIENT:YES DATE OFFERED:11/26/2017 TEST ACCEPTED:NO HEP-C TEST OFFERED TO PATIENT:YES DATE OFFERED:11/26/2017 REASON:PATIENT DECLINED TEST ACCEPTED:YES BROCHURE PROVIDED TO PATIENTYES HOUSING: OWNS HOME. LANGUAGE SPANISH. DOMESTIC VIOLENCE STATUS: DO YOU FEEL SAFE IN YOUR ENVIRONMENT?YES BMI CARE GOAL FOLLOW-UP ABOVE NORMAL BMI FOLLOW-UPWEIGHT MONITORING RECREATIONAL DRUG USE DRUG USE?NO LEARNING BARRIERS / SPECIAL NEEDS CHANGE FROM LAST VISIT?NO BARRIERS TO LEARNING?NO HEARING IMPAIRED?YES VISION IMPAIRED?YES COGNITIVELY IMPAIRED?NO :HEARING AIDES :CORRECTIVE LENSES READINESS TO LEARN?YES LEARNING PREFERENCES?NO LEARNING CAPABILITIES PRESENT?YES EMOTIONAL BARRIERS?NO SPECIAL DEVICES?NO TRANSMISSION DESIGN ENGINEER NEEDED?NO PAIN CLINIC PFS, CLERGY, PUBLIC HEALTH REFERRALS WAS THE PROVIDER NOTIFIED OF ANY PERTINENT INFO?YES HAS THE PATIENT BEEN EDUCATED REGARDING HIS/HER PLAN OF CARE?YES HAS THE PATIENT BEEN EDUCATED REGARDING PAIN, THE RISK FOR PAIN, THE IMPORTANCE OF EFFECTIVE PAIN MANAGEMENT, AND THE PAIN ASSESSMENT PROCESS?YES LATEX QUESTIONNAIRE LATEX ALLERGY : HAVE YOU EVER DEVELOPED ANY TYPE OF REACTION AFTER HANDLING LATEX PRODUCTS SUCH RUBBER GLOVES, CONDOMS, DIAPHRAGMS, BALLOONS, SOCKS, OR UNDERWEAR?NO LATEX ALLERGY : HAVE YOU EVER DEVELOPED ANY TYPE OF REACTION DURING OR AFTER DENTAL APPOINTMENT, VAGINAL/RECTAL EXAMINATION, SURGICAL PROCEDURE, OR ANY OTHER EXPOSURE?NO LATEX RISK : HAVE YOU EVER HAD ANY DIFFICULTY BREATHING OR HIVES AFTER EATING OR HANDLING ANY FRUITS, OR VEGETABLES; SUCH KIWI, BANANAS, STONE FRUITS, OR CHESTNUTSNO LATEX RISK : DO YOU HAVE A PREVIOUS PERSONAL HISTORY OF MORE THAN NINE SURGERIES, SPINA BIFIDA, OR REPEATED CATHERIZATIONS? YES - PLEASE INDICATE : > 9 SURGERIES LATEX RISK : ARE YOU FREQUENTLY EXPOSED TO LATEX PRODUCTS IN YOUR OCCUPATION?NO DATE ASKED : 03/27/2019 CAFFEINE CAFFEINE USE?YES HOW OFTEN AND HOW MUCH? 2 CUPS COFFEE A DAY 1 CUP TEA ADVANCE DIRECTIVE ADVANCE DIRECTIVE DISCUSSED WITH PATIENT:YES PT HAS HCP JAVAD DE JESUS ON FILE WITH [facility] [place] NO PENTECOSTAL BELIEFS THAT WOULD IMPACT HEALTH CARE. 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 SEXUAL HX HAD SEX IN THE LAST 12 MONTHS (VAGINAL, ORAL, OR ANAL)?NO HAVE YOU EVER HAD AN STD?NO REVIEWED [facility] PT 10/24/18 1331 BVREVIEWED WITH PT 12/15/18 1511 BVREVIEWED WITH PATIENT 12/31/18 0957 JSREVIEWED WITH PATIENT 01/20/19 1145 BVREVIEWED WITH PATIENT 06/10/19 1420 JS. HOSPITALIZATION/MAJOR DIAGNOSTIC PROCEDURE SURGERY REALTED [facility]-RIGHT HIP AND HUMERUS FRACTURE (09/22-10/06-REHAB) 09/16-10/06/2018 REVIEW OF SYSTEMS REVIEWED BY: PROVIDER: REMINGTON ARTEAGA . CONSTITUTIONAL: ANY CHANGE IN YOUR MEDICAL CONDITION? NO . CHILLS NO . FEVER NO . INFECTION: DO YOU HAVE NEW INFECTIONS? NO . DO YOU HAVE HISTORY OF MRSA? NO . MUSCULOSKELETAL: ANY NEW PATTERNS OF PAIN OR NUMBNESS? NO . GASTROENTEROLOGY: ANY NEW CHANGE IN BOWEL CONTROL? NO . GENITOURINARY: ANY NEW CHANGE IN BLADDER CONTROL? NO . IS THERE A CHANCE YOU COULD BE ? NO . HEMATOLOGY/LYMPH: DO YOU TAKE ANY BLOOD THINNERS? (FOR EXAMPLE- COUMADIN, PLAVIX, AGGRENOX, PLATEL, PRADAXA, OR XARELTO) YES, COUMADIN . WHEN WAS YOUR LAST DOSE? DATE: 06/09/19TIME: 1700 . NEUROLOGY: HAVE YOU FALLEN IN THE PAST 12 MONTHS? YES, STATES FALL YESTERDAY INTO SNOW BANK, NO INJURIES, NO ED VISIT. ALSO STATES FALL IN GARAGE YESTERDAY, SCRAPED HIS LEFT KNEE . ANY NEW EXTREMITY NUMBNESS OR WEAKNESS? YES, NUMBNESS/WEAKNESS TO BILATERAL LEGS . CARDIOLOGY: DO YOU HAVE A PACEMAKER OR DEFIBRILLATOR? YES, PACEMAKER . RESPIRATORY: HAVE YOU BEEN SICK IN THE PAST WEEK? NO . FEVER NO . FLU LIKE SYMPTOMS? NO . COUGH NO . INTEGUMENTARY: DO YOU HAVE ANY RASHES OR OPEN SORES? YES, OPEN SORE TO LEFT KNEE FROM FALLING IN GARAGE YESTERDAY . ALLERGIC/IMMUNO: ARE YOU ALLERGIC TO IV DYE? NO . ANY NEW ALLERGIES? NO . PSYCHIATRIC: DO YOU HAVE THOUGHTS OF HURTING YOURSELF OR SOMEONE ELSE? NO . ARE YOU ABUSED, NEGLECTED, OR IN AN UNSAFE ENVIRONMENT? NO . ENDOCRINOLOGY: ARE YOU DIABETIC? NO . OTHER: DO YOU NEED ANY PRESCRIPTIONS? YES . IF YES, PLEASE LIST: ____GABAPENTIN . ANY NEW PROBLEMS WITH YOUR MEDICATIONS? NO . WHEN DID YOU LAST EAT? ____ . WHEN DID YOU LAST DRINK? ____ . WHAT DID YOU LAST DRINK? ____ . NAME OF PERSON DRIVING YOU HOME? ____ . DO YOU HAVE ANY OTHER QUESTIONS OR CONCERNS FLU VACCINE 1 WEEK AGO . VITAL SIGNS WT 207.4 LBS, HT 71 IN, BMI 28.92 INDEX, BP 123/88 MM HG, HR 106 /MIN, RR 18 /MIN, TEMP 98.1 F, OXYGEN SAT % 98%, SAFE IN ENV? (Y/N) YES, NA INITIALS AW 1412, REVIEWED BY: TREMAINE. EXAMINATION GENERAL EXAMINATION: GENERALNO ACUTE DISTRESS, WELL NOURISHED AND HYDRATED. PSYCHAPPROPRIATE MOOD AND AFFECT . LUNGS:CLEAR TO AUSCULTATION BILATERALLY, NO WHEEZES, RHONCHI, RALES. HEART:NO MURMURS, REGULAR RATE AND RHYTHM. BACK:POINT TENDER ALONG LUMBAR SPINE, SURROUNDING SKIN SHOWS NO ERYTHEMA, ECCHYMOSIS, INCREASED WARMTH, AND/OR SKIN OPTIONS NOTED. . MUSCULOSKELETAL:EQUAL STRENGTH OF THE LOWER EXTREMITIES BILATERALLY . ASSESSMENTS INTERVERTEBRAL DISC DISORDER WITH RADICULOPATHY OF LUMBOSACRAL REGION - M51.17 (PRIMARY) PAROXYSMAL ATRIAL FIBRILLATION - I48.0 TREATMENT INTERVERTEBRAL DISC DISORDER WITH RADICULOPATHY OF LUMBOSACRAL REGION REFILL GABAPENTIN CAPSULE, 300 MG, 1 CAP, ORALLY, 1 CAPSULE IN THE MORNING AND AFTERNOON TWO CAPSULES AT BEDTIME, 30 DAYS, 120, REFILLS 2 NOTES: CAUDAL EPIDURAL WITH CATHETER. CLINICAL NOTES: 89-YEAR-OLD MALE IN FOR CAUDAL EPIDURAL FOLLOW-UP. GIVEN PRESENTING SYMPTOMS, CONSULT WITH DR. RING, AND RESULTS OF PHYSICAL EXAMINATION RECOMMENDED CAUDAL EPIDURAL WITH CATHETER. PATIENT HAS EXPRESSED UNDERSTANDING OF AND WAS IN AGREEMENT WITH TREATMENT PLAN. GIVEN TIME TO ASK QUESTIONS AND EXPRESS CONCERNS. PAROXYSMAL ATRIAL FIBRILLATION LAB: PT-INR PREVENTIVE MEDICINE PAIN CLINIC TEACHING: PROCEDURE TEACHING PATIENT GIVEN PRE-PROCEDURE INSTRUCTIONS. PATIENT SIGNED A COPY OF THE PRE-PROCEDURE INSTRUCTIONS BUT WAS IN A HURRY AND TOOK THE SIGNED COPY AND WOULD NOT ALLOW THIS NOZZLE WORKER TO REVIEW THE INSTRUCTIONS. ORDER GIVEN FOR THE PT/INR TO BE PERFORMED PRIOR TO THE PROCEDURE AND INSTRUCTED PATIENT TO ENSURE HE HAS THIS DONE 1-2 HOURS PRIOR TO HIS PROCEDURE TIME. QIAN JONES 06/10/2019 3:16:23 PM > . PROCEDURE CODES FA211 ESTABILISHED PATIENT [facility] CHARGE DISPOSITION & COMMUNICATION FOLLOW UP POSTPROCEDURE (REASON: CAUDAL EPIDURAL WITH CATHETER) ELECTRONICALLY SIGNED BY CHANDRIKA ELKINS ON 06/11/2019 AT 03:26 PM EST DISCLAIMER : THIS IS A VISIT SUMMARY EXTRACTED FROM THE [employer] CHART. IT IS NOT A COPY OF THE [employer] PROGRESS NOTE. RUDOLPH
== END ==
LOC: M PAIN 14:30
PROVIDERS: ATTEND Family Medicine
DX: M51.17 Intervertebral disc disorders with radiculopathy, lumbosacral region (principal); I48.0 Paroxysmal atrial fibrillation; I25.10 Atherosclerotic heart disease of native coronary artery without angina pectoris; G47.30 Sleep apnea, unspecified; E78.00 Pure hypercholesterolemia, unspecified; I10 Essential (primary) hypertension; K21.9 Gastro-esophageal reflux disease without esophagitis; Z88.5 Allergy status to narcotic agent; Z88.8 Allergy status to other drugs, medicaments and biological substances; Z79.01 Long term (current) use of anticoagulants; Z79.899 Other long term (current) drug therapy

== ENCOUNTER → 2019-08-18 | Outpatient (POV) | payer MEDICARE ==
[~2019-08-18] VITALS: Ht 180.3 cm; Wt 90.9 kg
[~2019-08-18] MED LIST changes: -DIGO0.12 PO; +DIGO0.123 PO; -MECL-68 PO; -MECL12.575 PO; +MECL12.589 PO; +MECL1TAB31 PO; +ZONI100C17 PO; -ZONI100C2 PO
[2019-08-18 14:00] VITALS: BP 136/62
--- NOTE | 2019-08-19 09:43 | IRCOV ---
[facility] IR Consult Office Visit IR Consult Office Visit DATE: Aug 18, 2019 REASON FOR CONSULTATION/CHIEF COMPLAINT: Chronic shooting pains down both legs. HISTORY OF PRESENT ILLNESS: 89-year-old male self-referred for shooting pain down bilateral lower extremities. Patient has a history of chronic back pain and underwent lower back surgery, years ago which resolved the back pain. But he has continued shooting pains down both legs which occurs at all times of the day and night, not associated with rest or movement. He denies anything that makes it worse. It's not relieved by leaning forward. He does say heat and ice on the legs relieves and provide some comfort. He is seen in pain clinic for epidural steroid injections. Patient denies intermittent claudication but is not super active. He feels off balance and states he is receiving physical therapy for this. He is on Coumadin for A. fib and tends to get bruised easily. He reports a prior stroke and has word finding difficulty. ALLERGIES: Please see below. HOME MEDICATIONS: Please see below. PAST MEDICAL HISTORY: Coronary artery disease Chronic kidney disease Headache syndrome Sleep apnea Hyperlipidemia Obstructive and reflux neuropathy Paroxysmal atrial fibrillation Dizziness and giddiness Hypertension BPH GERD PAST SURGICAL HISTORY: Appendectomy Right hernia repair Left distal 3 finger amputation Cataract surgery Hemorrhoid surgery Right rotator cuff repair Pacemaker FAMILY HISTORY: Noncontributory. SOCIAL HISTORY: Denies smoking, alcohol or drugs. REVIEW OF SYSTEMS: Otherwise negative. PHYSICAL EXAMINATION: VITAL SIGNS: Please see below. GENERAL APPEARANCE: Appears well. Comfortable at rest. HEENT: No scleral icterus. RESPIRATORY: Normal breathing at rest. CARDIOVASCULAR: Irregularly irregular heart beat. ABDOMEN: Soft nontender. EXTREMITIES: Bilateral lower extremities: Edema 1+ at the ankles. Both appear slightly red, skin is dry and hairless. No tenderness. Bilateral pulses: femoral 2+ Popliteal 2+ DP/PT 2+ No bulging varicose veins. Motor 5 out of 5 Sensation 5 out of 5. NEUROLOGICAL: Alert and oriented. Has long-term ongoing word finding difficulties. PSYCHIATRIC: Appropriate to circumstance. LABORATORY DATA: Non recent at [facility] Imaging: I personally reviewed the lower extremity arterial ultrasound from June 2018. Normal WALLY bilaterally. Very nice triphasic waveforms in bilateral lower extremity arteries. Monophasic in the right anterior tibial artery. I personally reviewed the CT L-spine from October 2018. Posterior surgical hardware noted. There is a posterior disc osteophyte complex at L5-S1 protruding into the canal. ASSESSMENT/PLAN: 89-year-old male with chronic bilateral lower extremity shooting pains associated with prior history of low back pain and back surgery. Suggest continued follow up with the pain clinic for ongoing epidural steroid injections and/or other therapies including implantable spinal cord stimulator. Suggest follow-up with PCP for ongoing physical therapy prescriptions and balance training therapies if available. I spent 30 minutes in consultation with the patient. Cc Dr. Josep Solitario Cc Dr. Gale Allergies Coded Allergies: Sulfa (Sulfonamide Antibiotics) (Verified Allergy, Unknown, 12/10/18) Home Medications Scheduled Acetaminophen (Acetaminophen), 1 TAB PO Q6H, (Reported) Ascorbic Acid (Ascorbic Acid), 500 MG PO DAILY, (Reported) Atorvastatin Calcium (Atorvastatin Calcium), 40 MG PO QHS, (Reported) Bacitracin (Bacitracin), 1 APLCT TOP DAILY Carvedilol (Carvedilol), 3.125 MG PO DAILY, (Reported) Cholecalciferol (Vitamin D3) (Vitamin D3), 2,000 UNIT PO DAILY, (Reported) Cyanocobalamin (Vitamin B-12) (Vitamin B-12), 1,000 MCG PO DAILY, (Reported) Digoxin (Digoxin), 125 MCG PO 3XW, (Reported) Duloxetine Hcl (Duloxetine HCl), 60 MG PO DAILY, (Reported) Magnesium Oxide (Magnesium Oxide 400), 400 MG PO QHS, (Reported) Omeprazole (Omeprazole), 40 MG PO BID, (Reported) Sucralfate (Sucralfate), 1 GM PO BID, (Reported) Warfarin Sodium (Warfarin Sodium), 1 MG PO TID, (Reported) Scheduled PRN Meclizine HCl (Meclizine HCl), 25 MG PO Q8H PRN for DIZZINESS, (Reported) Nitroglycerin (Nitrostat), 0.4 MG SL NITRO PRN for CHEST PAIN, (Reported) Miscellaneous Medications Gabapentin (Gabapentin), (Reported) Tizanidine HCl (Tizanidine HCl), (Reported) VS, I&O, 24H, Fishbone Vital Signs/I&O Vital Signs Date Time Temp Pulse Resp B/P (MAP) Pulse Ox O2 Delivery O2 Flow Rate FiO2 08/18/19 14:00 98.3 98 18 136/62 (86) 97 Room Air ZURI CASEY MD Aug 19, 2019 09:43
== END ==
LOC: M IRPOV 13:40
PROVIDERS: ATTEND Radiology Diagnostic Radiology
DX: M79.604 Pain in right leg (principal); M79.605 Pain in left leg; I48.0 Paroxysmal atrial fibrillation; I12.9 Hypertensive chronic kidney disease with stage 1 through stage 4 chronic kidney disease, or unspecified chronic kidney disease; I25.10 Atherosclerotic heart disease of native coronary artery without angina pectoris; N18.9 Chronic kidney disease, unspecified; R51 Headache; G47.30 Sleep apnea, unspecified; E78.5 Hyperlipidemia, unspecified; N13.9 Obstructive and reflux uropathy, unspecified; N40.0 Benign prostatic hyperplasia without lower urinary tract symptoms; K21.9 Gastro-esophageal reflux disease without esophagitis; Z79.01 Long term (current) use of anticoagulants; Z95.0 Presence of cardiac pacemaker

== ENCOUNTER → 2019-09-02 | Outpatient (CLI) | payer MEDICARE ==
[~2019-09-02] MED LIST changes: +ISOVUE-M 300 61% 15ML VIAL (Q9967) As Ordered ONE; +LIDOCAINE 1% SDV INJ 30 ML VIAL As Ordered ONE; +diazePAM 5 MG TAB As Ordered ONE; +methylPREDNISolone SUSP 40 MG/ML (DEPO-medrol) VIAL (J1030) As Ordered ONE; +oxyCODONE 5MG TAB As Ordered ONE
--- NOTE | 2019-09-02 14:26 | REP ---
Limited sacrum and coccyx: Four views. History: Caudal epidural steroid injection. Pain. 18 seconds of fluoroscopy time is reported. Findings: A sequence of four last image hold fluoroscopically obtained spot radiographs of the sacrum and coccyx document needle and catheter position and contrast injection associated with injection procedure. Electronically Signed by Dusty Ty MD 09/02/2019 02:17 P
--- NOTE | 2019-09-11 04:33 | ECWPNPC ---
PATIENT NAME: JASMYNE DE JESUS : 1930 GENDER: MALE VISIT DATE: 09/02/2019 DISCHARGE DATE: 09/02/19 1443 VISIT LOCKED DATE TIME: PHYSICIAN: RANDI RING MD RESOURCE: RANDI RING MD REASON FOR APPOINTMENT 1. CAUDAL EPIDURAL WITH CATHETER HISTORY OF PRESENT ILLNESS HISTORY OF PRESENT ILLNESS: PAIN THE PATIENT DESCRIBES THE PAIN... FALL RISK SCREENING: SCREENING :NO FALLS REPORTED IN THE LAST YEAR CURRENT MEDICATIONS TAKING VITAMIN C 500 MG TABLET 1 TABLET ORALLY ONCE A DAY, NOTES: 09-01-192099 TAKING VITAMIN B-2 100 MG TABLET 1 TABLET WITH A MEAL ORALLY ONCE A DAY, NOTES: 09-01-192099 TAKING SUCRALFATE 1 GM TABLET 1 TABLET ORALLY TWICE A DAY, NOTES: 09-01-192099 TAKING MAGNESIUM 300 MG CAPSULE 1 CAPSULE WITH A MEAL ORALLY BID, NOTES: 09-01-192099 TAKING ACETAMINOPHEN 325 MG TABLET 1 TABLET NEEDED ORALLY BEFORE BEDTIME, NOTES: 09-02-19899 TAKING COUMADIN 1 MG TABLET 1 TAB ORALLY 1.5MG ON SATURDAY 2.5MG EVERY OTHER DAY, NOTES: 08-28-191699 TAKING VITAMIN B12 1000 MCG TABLET EXTENDED RELEASE 1 TABLET ORALLY ONCE A DAY, NOTES: 09-01-192099 TAKING NITROSTAT 0.4 MG TABLET SUBLINGUAL 1 TAB SUBLINGUAL Q5 MIN X 3 NEEDED FOR CHEST PAIN, NOTES: 2-3 DAYS AGO TAKING MECLIZINE HCL 25 MG TABLET 1 TAB ORALLY EVERY 8HOURS NEEDED FOR DIZZINESS, NOTES: UNSURE TAKING CARVEDILOL 3.125 MG TABLET 1 ORALLY DAILY--HOLD IF SITTING OR STANDING BP IS LESS THAN 100 SYSTOLIC, NOTES: 09-02-19799 TAKING OMEPRAZOLE 40 MG CAPSULE DELAYED RELEASE 1 CAPSULE ORALLY TWICE DAILY, NOTES: 09-01-192099 TAKING FLUTICASONE PROPIONATE 50 MCG/ACT SUSPENSION 2 SPRAYS IN EACH NOSTRIL NASALLY ONCE A DAY, NOTES: NONE RECENTLY TAKING DIGOXIN 125 MCG TABLET 1 TABLET ORALLY 3 TIMES WEEK---, NOTES: 09-02-19799 TAKING LIPITOR 40 MG TABLET 1 TABLET ORALLY ONCE DAILY, NOTES: 09-01-192099 TAKING GABAPENTIN 100 MG CAPSULE 1 CAP ORALLY TID, NOTES: 09-01-192099 TAKING TIZANIDINE HCL 2 MG TABLET 1 TABLET NEEDED ORALLY TWO TIMES A DAY PRN, NOTES: UNSURE TAKING DULOXETINE HCL 60 MG CAPSULE DELAYED RELEASE PARTICLES 1 CAPSULE ORALLY ONCE A DAY, NOTES: UNSURE TAKING FUROSEMIDE 20 MG TABLET 1 TABLET ORALLY ONCE A DAY NEEDED FOR EDEMA, NOTES: 09-01-191199 TAKING ZONISAMIDE 50 MG CAPSULE 1 CAPSULE ORALLY BEFORE BEDTIME, NOTES: 09-01-192099 TAKING FEXOFENADINE HCL 180 MG TABLET 1 TABLET NEEDED ORALLY ONCE A DAY, NOTES: UNSURE MEDICATION LIST REVIEWED AND RECONCILED WITH THE PATIENT PAST MEDICAL HISTORY ATHEROSCLEROTIC HEART DISEASE OF [place] CORONARY ARTERY WITHOUT ANGINA PECTORIS ALLERGIC RHINITIS, UNSPECIFIED CHRONIC KIDNEY DISEASE, STAGE 3 (MODERATE) SLEEP APNEA, UNSPECIFIED OTHER HEADACHE SYNDROME PERSONAL HISTORY OF COLONIC POLYPS PURE HYPERCHOLESTEROLEMIA OBSTRUCTIVE AND REFLUX UROPATHY, UNSPECIFIED PAROXYSMAL ATRIAL FIBRILLATION DIZZINESS AND GIDDINESS THROMBOCYTOPENIA, UNSPECIFIED ESSENTIAL (PRIMARY) HYPERTENSION BENIGN PROSTATIC HYPERPLASIA WITH LOWER URINARY TRACT SYMPTOMS, UNSPECIFIED MORPHOLOGY OTHER CARDIAC SOUNDS GERD ALLERGIES VICODIN: ALLERGY AMIODARONE HCL: UNKNOWN - SIDE EFFECTS SURGICAL HISTORY APPENDECTOMY 1953 RIGHT INGUINAL HERNIA REPAIR 1999 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 COLONOSCOPY 04/2007 CATARACT EXTRACTION OU 06/14/2008, 07/05 HEMORRHOID SURGERY 04/2009 DEPUYTRANS CONTRACTURE RELEASE LEFT HAND 02/2009 COLONOSCOPY 05/2013 RIGHT ROTATOR CUFF REPAIR 04/2015 PACEMAKER PLACED 02/2015 [facility] ER-DISLOCATION OF DISTAL INTERPHALANGEAL JOINT OF RIGHT RING FINGER, LACERATION WITHOUT FOREIGN BODY OF FINGER WITHOUT DAMAGE TO NAIL 01/18/2016 COLONOSCOPY 08/13/2016 URODYNAMIC STUDY 10/31/16 GREEN LIGHT LASER ABLATION OF THE PROSTATE GLAND 12/04/2016 LAMINECTOMY L3-4, L4-5 WITH FUSION 09/02/2017 FAMILY HISTORY FATHER: PROSTATE CANCER, DIAGNOSED WITH OTHER MALIGNANT NEOPLASM OF UNSPECIFIED SITE SIBLINGS: BROTHER- PROSTATE CANCER, OTHER MALIGNANT NEOPLASM OF UNSPECIFIED SITE MOTHER: UNSPECIFIED HEART DISEASE REMARKABLE FOR OVARIAN CANCER.\\\\NBOTH CHILDREN HAD MENTAL RETARDATION, SEIZURE DISORDER.NDAUGHTER HAD BREAST CANCER DIAGNOSED 2004, IN \\ AFTER SURGERY FOR A DUODENAL MASS (NOT MALIGNANT). SOCIAL HISTORY GENERAL: TOBACCO USE ARE YOU A:NONSMOKER HIV / HEP-C SCREENING HIV TEST OFFERED TO PATIENT:YES DATE OFFERED:11/26/2017 TEST ACCEPTED:NO HEP-C TEST OFFERED TO PATIENT:YES DATE OFFERED:11/26/2017 REASON:PATIENT DECLINED TEST ACCEPTED:YES BROCHURE PROVIDED TO PATIENTYES HOUSING: OWNS HOME. LANGUAGE BRAZILIAN. DOMESTIC VIOLENCE STATUS: DO YOU FEEL SAFE IN YOUR ENVIRONMENT?YES BMI CARE GOAL FOLLOW-UP ABOVE NORMAL BMI FOLLOW-UPWEIGHT MONITORING RECREATIONAL DRUG USE DRUG USE?NO LEARNING BARRIERS / SPECIAL NEEDS CHANGE FROM LAST VISIT?NO BARRIERS TO LEARNING?NO HEARING IMPAIRED?YES VISION IMPAIRED?YES COGNITIVELY IMPAIRED?NO :HEARING AIDES :CORRECTIVE LENSES READINESS TO LEARN?YES LEARNING PREFERENCES?NO LEARNING CAPABILITIES PRESENT?YES EMOTIONAL BARRIERS?NO SPECIAL DEVICES?NO BULK STATION AGENT NEEDED?NO PAIN CLINIC PFS, CLERGY, PUBLIC HEALTH REFERRALS WAS THE PROVIDER NOTIFIED OF ANY PERTINENT INFO?YES HAS THE PATIENT BEEN EDUCATED REGARDING HIS/HER PLAN OF CARE?YES HAS THE PATIENT BEEN EDUCATED REGARDING PAIN, THE RISK FOR PAIN, THE IMPORTANCE OF EFFECTIVE PAIN MANAGEMENT, AND THE PAIN ASSESSMENT PROCESS?YES LATEX QUESTIONNAIRE LATEX ALLERGY : HAVE YOU EVER DEVELOPED ANY TYPE OF REACTION AFTER HANDLING LATEX PRODUCTS SUCH RUBBER GLOVES, CONDOMS, DIAPHRAGMS, BALLOONS, SOCKS, OR UNDERWEAR?NO LATEX ALLERGY : HAVE YOU EVER DEVELOPED ANY TYPE OF REACTION DURING OR AFTER DENTAL APPOINTMENT, VAGINAL/RECTAL EXAMINATION, SURGICAL PROCEDURE, OR ANY OTHER EXPOSURE?NO LATEX RISK : HAVE YOU EVER HAD ANY DIFFICULTY BREATHING OR HIVES AFTER EATING OR HANDLING ANY FRUITS, OR VEGETABLES; SUCH KIWI, BANANAS, STONE FRUITS, OR CHESTNUTSNO LATEX RISK : DO YOU HAVE A PREVIOUS PERSONAL HISTORY OF MORE THAN NINE SURGERIES, SPINA BIFIDA, OR REPEATED CATHERIZATIONS? YES - PLEASE INDICATE : > 9 SURGERIES LATEX RISK : ARE YOU FREQUENTLY EXPOSED TO LATEX PRODUCTS IN YOUR OCCUPATION?NO DATE ASKED : 03/27/2019 CAFFEINE CAFFEINE USE?YES HOW OFTEN AND HOW MUCH? 2 CUPS COFFEE A DAY 1 CUP TEA ADVANCE DIRECTIVE ADVANCE DIRECTIVE DISCUSSED WITH PATIENT:YES PT HAS HCP JAVAD DE JESUS ON FILE WITH [facility] NONDENOMINATIONAL NO SCIENTOLOGY BELIEFS THAT WOULD IMPACT HEALTH CARE. 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 SEXUAL HX HAD SEX IN THE LAST 12 MONTHS (VAGINAL, ORAL, OR ANAL)?NO HAVE YOU EVER HAD AN STD?NO REVIEWED [facility] PT 10/24/18 1331 BVREVIEWED WITH PT 12/15/18 1511 BVREVIEWED WITH PATIENT 12/31/18 0957 JSREVIEWED WITH PATIENT 01/20/19 1145 BVREVIEWED WITH PATIENT 06/10/19 1420 JSPRE SCREENING PHONE CALL DONE 09/01/19 1144 BV. HOSPITALIZATION/MAJOR DIAGNOSTIC PROCEDURE SURGERY REALTED [facility]-RIGHT HIP AND HUMERUS FRACTURE (09/22-10/06-REHAB) 09/16-10/06/2018 REVIEW OF SYSTEMS REVIEWED BY: PROVIDER: . CONSTITUTIONAL: ANY CHANGE IN YOUR MEDICAL CONDITION? YES . CHILLS NO . FEVER NO . INFECTION: DO YOU HAVE NEW INFECTIONS? NO . DO YOU HAVE HISTORY OF MRSA? NO . MUSCULOSKELETAL: ANY NEW PATTERNS OF PAIN OR NUMBNESS? YES - WORSE . GASTROENTEROLOGY: ANY NEW CHANGE IN BOWEL CONTROL? NO . GENITOURINARY: ANY NEW CHANGE IN BLADDER CONTROL? NO . IS THERE A CHANCE YOU COULD BE ? NO . HEMATOLOGY/LYMPH: DO YOU TAKE ANY BLOOD THINNERS? (FOR EXAMPLE- COUMADIN, PLAVIX, AGGRENOX, PLATEL, PRADAXA, OR XARELTO) YES . WHEN WAS YOUR LAST DOSE? DATE: TIME:08-28-19 . NEUROLOGY: HAVE YOU FALLEN IN THE PAST 12 MONTHS? YES . ANY NEW EXTREMITY NUMBNESS OR WEAKNESS? YES . CARDIOLOGY: DO YOU HAVE A PACEMAKER OR DEFIBRILLATOR? NO . RESPIRATORY: HAVE YOU BEEN SICK IN THE PAST WEEK? NO - HAS HAD A HEADACHE . FEVER NO . FLU LIKE SYMPTOMS? NO . COUGH NO . INTEGUMENTARY: DO YOU HAVE ANY RASHES OR OPEN SORES? NO . ALLERGIC/IMMUNO: ARE YOU ALLERGIC TO IV DYE? NO . ANY NEW ALLERGIES? NO . PSYCHIATRIC: DO YOU HAVE THOUGHTS OF HURTING YOURSELF OR SOMEONE ELSE? NO . ARE YOU ABUSED, NEGLECTED, OR IN AN UNSAFE ENVIRONMENT? NO . ENDOCRINOLOGY: ARE YOU DIABETIC? NO . OTHER: DO YOU NEED ANY PRESCRIPTIONS? NO . IF YES, PLEASE LIST: ____ . ANY NEW PROBLEMS WITH YOUR MEDICATIONS? NO . WHEN DID YOU LAST EAT? 09-01-19 1800 . WHEN DID YOU LAST DRINK? 09-02-19 1045 . WHAT DID YOU LAST DRINK? SIP OF WATER . NAME OF PERSON DRIVING YOU HOME? ____ . DO YOU HAVE ANY OTHER QUESTIONS OR CONCERNS YES . VITAL SIGNS WT 190. LBS, HT 71 IN, BMI 26.50 INDEX, BP 190/100 MANUAL, REPEAT BP 180/90 MANUAL @ 1120, HR 100 /MIN, RR 18 /MIN, TEMP 97.0 F, OXYGEN SAT % 94%, SAFE IN ENV? (Y/N) Y, NA INITIALS AW 1106, REVIEWED BY: LS. ASSESSMENTS INTERVERTEBRAL DISC DISORDER WITH RADICULOPATHY OF LUMBOSACRAL REGION - M51.17 (PRIMARY) TREATMENT INTERVERTEBRAL DISC DISORDER WITH RADICULOPATHY OF LUMBOSACRAL REGION [facility] FLUORO GUIDE SPINE INJECTION (PAIN)[id number] PROCEDURES PN CAUDAL EPIDURALS PRE PROCEDURE DIAGNOSIS LUMBAR POST LAMINECTOMY PAIN SYNDROME POST PROCEDURE DIAGNOSIS LUMBAR POST LAMINECTOMY PAIN SYNDROME PROCEDURE CAUDAL EPIDURAL STEROID INJECTION UNDER FLUOROSCOPIC GUIDANCE. SURGEON DR. RANDI RING INTERNAL MEDICINE DOCTOR NONE ANESTHESIA LOCAL PRE PROCEDURE NOTE THE PATIENT HAS HISTORY OF CHRONIC LOW BACK PAIN. I EVALUATED THE PATIENT AND REVIEWED THE CHART. I WENT OVER THE RISKS, ALTERNATIVES, AND BENEFITS ASSOCIATED WITH THIS PROCEDURE. THE PATIENT WOULD LIKE TO PROCEED AND GIVES CONSENT TO PERFORM THE PROCEDURE. THE PATIENT DENIES UNEXPLAINABLE WEIGHT LOSS, FEVER, CHILLS, OR NEW CHANGES IN URINARY OR BOWEL CONTROL. DESCRIPTION OF PROCEDURE THE PATIENT WAS BROUGHT TO THE PROCEDURE ROOM AND PLACED IN THE PRONE POSITION. THE LUMBOSACRAL AREA WAS CLEANED WITH BETADINE SOLUTION AND DRAPED ASEPTICALLY. THE PROCEDURE WAS DONE UNDER STERILE CONDITIONS. I CHECKED LATERALITY AND THE LEVEL WHERE THE PROCEDURE WAS GOING TO BE PERFORMED WITH THE PATIENT AND THE SUPPORTING STAFF AT THE MOMENT OF THE TIME OUT IN THE PROCEDURE ROOM. UNDER FLUOROSCOPIC GUIDANCE, THE TARGET POINT WAS SELECTED AT THE EPIDURAL SPACE BELOW THE SACROCOCCYGEAL LIGAMENT. LIDOCAINE 0.5% WAS USE TO NUMB THE SKIN AND THE SUBCUTANEOUS TISSUE BELOW IT. AN EPIDURAL TUOHY NEEDLE, 16-GAUGE, WAS ADVANCED UNDER FLUOROSCOPIC GUIDANCE AND FOLLOWING PATIENT FEEDBACK UNTIL THE EPIDURAL SPACE WAS REACHED 6 CM DEEP INTO THE SKIN BY THE LOSS OF RESISTANCE TECHNIQUE. I ADVANCED A 19-GAUGE EPIMED CATHETER THROUGH A 16-GAUGE NEEDLE. ISOVUE M DYE 30%, 0.25 ML, WAS INJECTED SHOWING ADEQUATE SPREAD OF THE DYE. THEN, A SOLUTION OF 6 ML OF NORMAL SALINE WITH DEPO-MEDROL 60 MG WAS INJECTED SLOWLY FOLLOWING THE PATIENT FEEDBACK. THERE WAS NO EVIDENCE OF BLOOD, PARESTHESIA OR CEREBROSPINAL FLUID DURING THE PROCEDURE. THE PATIENT WAS SENT TO THE RECOVERY ROOM. THE PATIENT WAS MOVING THE EXTREMITIES AND DOING WELL. THERE WAS NO COMPLICATION DURING THE PROCEDURE. FLUOROSCOPY TIME WAS 18 SECONDS POST PROCEDURE NOTE THE PATIENT WILL BE SEEN IN A FOLLOW UP IN THE NEXT FEW WEEKS. I AM LOOKING FOR LONG LASTING PAIN RELIEF WITH THIS PROCEDURE. DEPENDING ON THIS EPIDURAL'S RESULTS, INSTRUCTIONS WERE GIVEN, QUESTIONS WERE ANSWERED, AND THE PATIENT EXPRESSED UNDERSTANDING AND AGREES WITH THE PLAN. I, ROSETTE LYON, DOCUMENTED THE ABOVE INFORMATION ACTING A SCRIBE FOR DR. RING. I HAVE REVIEWED THE ABOVE DOCUMENT, WRITTEN BY ROSETTE LYON SCRIBE AND I VERIFY THAT IT IS ACCURATE. PROCEDURE CODES 32165 LUMBAR/SACRAL W/ IMAGING 6045F RADXPS IN END [id number] PXD DISPOSITION & COMMUNICATION FOLLOW UP 3 WEEKS ELECTRONICALLY SIGNED BY RANDI RING MD, MD ON 09/10/2019 AT 01:47 PM EST DISCLAIMER : THIS IS A VISIT SUMMARY EXTRACTED FROM THE [employer] CHART. IT IS NOT A COPY OF THE [employer] PROGRESS NOTE. MTDGuille
== END ==
LOC: M PAIN 10:45
PROVIDERS: ATTEND Anesthesiology
DX: M51.17 Intervertebral disc disorders with radiculopathy, lumbosacral region (principal); G47.30 Sleep apnea, unspecified; E78.00 Pure hypercholesterolemia, unspecified; I10 Essential (primary) hypertension; K21.9 Gastro-esophageal reflux disease without esophagitis; Z88.5 Allergy status to narcotic agent; Z88.8 Allergy status to other drugs, medicaments and biological substances; Z79.01 Long term (current) use of anticoagulants; Z79.899 Other long term (current) drug therapy
CPT/HCPCS: 62323; J1030; Q9967

== ENCOUNTER → 2019-09-02 | Outpatient (CLI) | payer MEDICARE ==
[~2019-09-02] MED LIST changes: -ISOVUE-M 300 61% 15ML VIAL (Q9967) As Ordered ONE; -LIDOCAINE 1% SDV INJ 30 ML VIAL As Ordered ONE; -diazePAM 5 MG TAB As Ordered ONE; -methylPREDNISolone SUSP 40 MG/ML (DEPO-medrol) VIAL (J1030) As Ordered ONE; -oxyCODONE 5MG TAB As Ordered ONE
[2019-09-02 10:56] LABS: INR 1.23; PROTHROMBIN TIME 15.2 SECONDS (11.8-14.0)
== END ==
LOC: M LAB 10:02
PROVIDERS: ATTEND Family Medicine
DX: I48.0 Paroxysmal atrial fibrillation (principal)

== ENCOUNTER → 2019-09-09 | Outpatient (CLI) | payer MEDICARE ==
--- NOTE | 2019-09-09 15:13 | REPPI ---
Clinical: Left rib pain Technique: Frontal view of the chest with five views of the left hemithorax. Findings: Frontal view of the chest demonstrates pacemaker and diffuse chronic changes. Skeletal structures demonstrate osteopenia and degenerative changes which limit evaluation. No obvious acute or displaced left rib fracture identified. Impression: No obvious acute or displaced left rib fracture identified. Electronically Signed by Ravi Avila MD 09/09/2019 12:32 P
== END ==
LOC: M PLAIMG 12:03
PROVIDERS: ATTEND Internal Medicine
DX: R07.81 Pleurodynia (principal); Z95.0 Presence of cardiac pacemaker
CPT/HCPCS: 71101; G0463

== ENCOUNTER → 2019-09-21 | Outpatient (CLI) | payer MEDICARE ==
--- NOTE | 2019-09-25 05:39 | ECWPNPC ---
PATIENT NAME: JASMYNE DE JESUS : 1930 GENDER: MALE VISIT DATE: 09/21/2019 DISCHARGE DATE: 09/21/19 1216 VISIT LOCKED DATE TIME: PHYSICIAN: ROSA VARGAS RESOURCE: ROSA VARGAS REASON FOR APPOINTMENT 1. POST PROCEDURE HISTORY OF PRESENT ILLNESS HISTORY OF PRESENT ILLNESS: PAIN THE PATIENT DESCRIBES THE PAIN... 89-YEAR-OLD MALE IN FOR POST EPIDURAL FOLLOW-UP. HE FEELS THE PROCEDURE WAS INEFFECTIVE. HE RATES HIS PAIN CURRENTLY AT A 10 OUT OF 10 AND DESCRIBES IT ACHING. FALL RISK SCREENING: SCREENING :NO FALLS REPORTED IN THE LAST YEAR CURRENT MEDICATIONS TAKING CARVEDILOL 3.125 MG TABLET 1 ORALLY BID TAKING VITAMIN C 500 MG TABLET 1 TABLET ORALLY ONCE A DAY TAKING VITAMIN B-2 100 MG TABLET 1 TABLET WITH A MEAL ORALLY ONCE A DAY TAKING SUCRALFATE 1 GM TABLET 1 TABLET ORALLY TWICE A DAY TAKING MAGNESIUM 300 MG CAPSULE 1 CAPSULE WITH A MEAL ORALLY BID TAKING ACETAMINOPHEN 325 MG TABLET 1 TABLET NEEDED ORALLY BEFORE BEDTIME TAKING COUMADIN 3 MG TABLET 1 TAB ORALLY DAILY TAKING VITAMIN B12 1000 MCG TABLET EXTENDED RELEASE 1 TABLET ORALLY ONCE A DAY TAKING MECLIZINE HCL 25 MG TABLET 1 TAB ORALLY EVERY 8HOURS NEEDED FOR DIZZINESS TAKING OMEPRAZOLE 40 MG CAPSULE DELAYED RELEASE 1 CAPSULE ORALLY TWICE DAILY TAKING FLUTICASONE PROPIONATE 50 MCG/ACT SUSPENSION 2 SPRAYS IN EACH NOSTRIL NASALLY ONCE A DAY TAKING DIGOXIN 125 MCG TABLET 1 TABLET ORALLY 3 TIMES WEEK--- TAKING LIPITOR 40 MG TABLET 1 TABLET ORALLY ONCE DAILY TAKING GABAPENTIN 100 MG CAPSULE 1 CAP ORALLY TID TAKING TIZANIDINE HCL 2 MG TABLET 1 TABLET NEEDED ORALLY TWO TIMES A DAY PRN TAKING DULOXETINE HCL 60 MG CAPSULE DELAYED RELEASE PARTICLES 1 CAPSULE ORALLY ONCE A DAY TAKING FUROSEMIDE 20 MG TABLET 1 TABLET ORALLY ONCE A DAY NEEDED FOR EDEMA TAKING ZONISAMIDE 50 MG CAPSULE 1 CAPSULE ORALLY BEFORE BEDTIME TAKING FEXOFENADINE HCL 180 MG TABLET 1 TABLET NEEDED ORALLY ONCE A DAY NOT-TAKING FLOMAX 0.4 MG CAPSULE 1 CAPSULE ORALLY ONCE A DAY NOT-TAKING NITROSTAT 0.4 MG TABLET SUBLINGUAL 1 TAB SUBLINGUAL Q5 MIN X 3 NEEDED FOR CHEST PAIN MEDICATION LIST REVIEWED AND RECONCILED WITH THE PATIENT PAST MEDICAL HISTORY ATHEROSCLEROTIC HEART DISEASE OF [place] CORONARY ARTERY WITHOUT ANGINA PECTORIS ALLERGIC RHINITIS, UNSPECIFIED CHRONIC KIDNEY DISEASE, STAGE 3 (MODERATE) SLEEP APNEA, UNSPECIFIED OTHER HEADACHE SYNDROME PERSONAL HISTORY OF COLONIC POLYPS PURE HYPERCHOLESTEROLEMIA OBSTRUCTIVE AND REFLUX UROPATHY, UNSPECIFIED PAROXYSMAL ATRIAL FIBRILLATION DIZZINESS AND GIDDINESS THROMBOCYTOPENIA, UNSPECIFIED ESSENTIAL (PRIMARY) HYPERTENSION BENIGN PROSTATIC HYPERPLASIA WITH LOWER URINARY TRACT SYMPTOMS, UNSPECIFIED MORPHOLOGY OTHER CARDIAC SOUNDS GERD ALLERGIES VICODIN: ALLERGY AMIODARONE HCL: UNKNOWN - SIDE EFFECTS SURGICAL HISTORY APPENDECTOMY 1953 RIGHT INGUINAL HERNIA REPAIR 1999 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 COLONOSCOPY 04/2007 CATARACT EXTRACTION OU 06/14/2008, 07/05 HEMORRHOID SURGERY 04/2009 DEPUYTRANS CONTRACTURE RELEASE LEFT HAND 02/2009 COLONOSCOPY 05/2013 RIGHT ROTATOR CUFF REPAIR 04/2015 PACEMAKER PLACED 02/2015 [facility] ER-DISLOCATION OF DISTAL INTERPHALANGEAL JOINT OF RIGHT RING FINGER, LACERATION WITHOUT FOREIGN BODY OF FINGER WITHOUT DAMAGE TO NAIL 01/18/2016 COLONOSCOPY 08/13/2016 URODYNAMIC STUDY 10/31/16 GREEN LIGHT LASER ABLATION OF THE PROSTATE GLAND 12/04/2016 LAMINECTOMY L3-4, L4-5 WITH FUSION 09/02/2017 FAMILY HISTORY FATHER: PROSTATE CANCER, DIAGNOSED WITH OTHER MALIGNANT NEOPLASM OF UNSPECIFIED SITE SIBLINGS: BROTHER- PROSTATE CANCER, OTHER MALIGNANT NEOPLASM OF UNSPECIFIED SITE MOTHER: UNSPECIFIED HEART DISEASE REMARKABLE FOR OVARIAN CANCER.\\\\NBOTH CHILDREN HAD MENTAL RETARDATION, SEIZURE DISORDER.NDAUGHTER HAD BREAST CANCER DIAGNOSED 2004, IN \\ AFTER SURGERY FOR A DUODENAL MASS (NOT MALIGNANT). SOCIAL HISTORY GENERAL: TOBACCO USE ARE YOU A:NONSMOKER HIV / HEP-C SCREENING HIV TEST OFFERED TO PATIENT:YES DATE OFFERED:11/26/2017 TEST ACCEPTED:NO HEP-C TEST OFFERED TO PATIENT:YES DATE OFFERED:11/26/2017 REASON:PATIENT DECLINED TEST ACCEPTED:YES BROCHURE PROVIDED TO PATIENTYES HOUSING: OWNS HOME. LANGUAGE KYRGYZ. DOMESTIC VIOLENCE STATUS: DO YOU FEEL SAFE IN YOUR ENVIRONMENT?YES BMI CARE GOAL FOLLOW-UP ABOVE NORMAL BMI FOLLOW-UPWEIGHT MONITORING RECREATIONAL DRUG USE DRUG USE?NO LEARNING BARRIERS / SPECIAL NEEDS CHANGE FROM LAST VISIT?NO BARRIERS TO LEARNING?NO HEARING IMPAIRED?YES VISION IMPAIRED?YES COGNITIVELY IMPAIRED?NO :HEARING AIDES :CORRECTIVE LENSES READINESS TO LEARN?YES LEARNING PREFERENCES?NO LEARNING CAPABILITIES PRESENT?YES EMOTIONAL BARRIERS?NO SPECIAL DEVICES?NO AMMUNITION SPECIALIST NEEDED?NO PAIN CLINIC PFS, CLERGY, PUBLIC HEALTH REFERRALS WAS THE PROVIDER NOTIFIED OF ANY PERTINENT INFO?YES HAS THE PATIENT BEEN EDUCATED REGARDING HIS/HER PLAN OF CARE?YES HAS THE PATIENT BEEN EDUCATED REGARDING PAIN, THE RISK FOR PAIN, THE IMPORTANCE OF EFFECTIVE PAIN MANAGEMENT, AND THE PAIN ASSESSMENT PROCESS?YES LATEX QUESTIONNAIRE LATEX ALLERGY : HAVE YOU EVER DEVELOPED ANY TYPE OF REACTION AFTER HANDLING LATEX PRODUCTS SUCH RUBBER GLOVES, CONDOMS, DIAPHRAGMS, BALLOONS, SOCKS, OR UNDERWEAR?NO LATEX ALLERGY : HAVE YOU EVER DEVELOPED ANY TYPE OF REACTION DURING OR AFTER DENTAL APPOINTMENT, VAGINAL/RECTAL EXAMINATION, SURGICAL PROCEDURE, OR ANY OTHER EXPOSURE?NO DATE ASKED : 09/09/2019 LATEX RISK : HAVE YOU EVER HAD ANY DIFFICULTY BREATHING OR HIVES AFTER EATING OR HANDLING ANY FRUITS, OR VEGETABLES; SUCH KIWI, BANANAS, STONE FRUITS, OR CHESTNUTSNO LATEX RISK : DO YOU HAVE A PREVIOUS PERSONAL HISTORY OF MORE THAN NINE SURGERIES, SPINA BIFIDA, OR REPEATED CATHERIZATIONS? YES - PLEASE INDICATE : > 9 SURGERIES LATEX RISK : ARE YOU FREQUENTLY EXPOSED TO LATEX PRODUCTS IN YOUR OCCUPATION?NO CAFFEINE CAFFEINE USE?YES HOW OFTEN AND HOW MUCH? 2 CUPS COFFEE A DAY 1 CUP TEA ADVANCE DIRECTIVE ADVANCE DIRECTIVE DISCUSSED WITH PATIENT:YES PT HAS HCP JAVAD DE JESUS ON FILE WITH [facility] MANDAEN NO BAPTISM BELIEFS THAT WOULD IMPACT HEALTH CARE. 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 SEXUAL HX HAD SEX IN THE LAST 12 MONTHS (VAGINAL, ORAL, OR ANAL)?NO HAVE YOU EVER HAD AN STD?NO REVIEWED WT PT 10/24/18 1331 BVREVIEWED WITH PT 12/15/18 1511 BVREVIEWED WITH PATIENT 12/31/18 0957 JSREVIEWED WITH PATIENT 01/20/19 1145 BVREVIEWED WITH PATIENT 06/10/19 1420 JSPRE SCREENING PHONE CALL DONE 09/01/19 1144 BV. HOSPITALIZATION/MAJOR DIAGNOSTIC PROCEDURE SURGERY REALTED [facility]-RIGHT HIP AND HUMERUS FRACTURE (09/22-10/06-REHAB) 09/16-10/06/2018 REVIEW OF SYSTEMS REVIEWED BY: PROVIDER: REMINGTON ARTEAGA . CONSTITUTIONAL: ANY CHANGE IN YOUR MEDICAL CONDITION? NO . CHILLS NO . FEVER NO . INFECTION: DO YOU HAVE NEW INFECTIONS? NO . DO YOU HAVE HISTORY OF MRSA? NO . MUSCULOSKELETAL: ANY NEW PATTERNS OF PAIN OR NUMBNESS? NO . GASTROENTEROLOGY: ANY NEW CHANGE IN BOWEL CONTROL? NO . GENITOURINARY: ANY NEW CHANGE IN BLADDER CONTROL? YES, NOCTURNAL URINATION FOR MONTHS NOW . IS THERE A CHANCE YOU COULD BE ? NO . HEMATOLOGY/LYMPH: DO YOU TAKE ANY BLOOD THINNERS? (FOR EXAMPLE- COUMADIN, PLAVIX, AGGRENOX, PLATEL, PRADAXA, OR XARELTO) YES, COUMADIN . WHEN WAS YOUR LAST DOSE? DATE: TIME: . NEUROLOGY: HAVE YOU FALLEN IN THE PAST 12 MONTHS? YES, PRIOR TO LAST VISIT . ANY NEW EXTREMITY NUMBNESS OR WEAKNESS? YES, LEFT LEG WEAKNESS . CARDIOLOGY: DO YOU HAVE A PACEMAKER OR DEFIBRILLATOR? YES, PACEMAKER . RESPIRATORY: HAVE YOU BEEN SICK IN THE PAST WEEK? NO . FEVER NO . FLU LIKE SYMPTOMS? NO . COUGH NO . INTEGUMENTARY: DO YOU HAVE ANY RASHES OR OPEN SORES? NO . ALLERGIC/IMMUNO: ARE YOU ALLERGIC TO IV DYE? NO . ANY NEW ALLERGIES? NO . PSYCHIATRIC: DO YOU HAVE THOUGHTS OF HURTING YOURSELF OR SOMEONE ELSE? NO . ARE YOU ABUSED, NEGLECTED, OR IN AN UNSAFE ENVIRONMENT? NO . ENDOCRINOLOGY: ARE YOU DIABETIC? NO . OTHER: DO YOU NEED ANY PRESCRIPTIONS? NO . IF YES, PLEASE LIST: ____ . ANY NEW PROBLEMS WITH YOUR MEDICATIONS? NO . WHEN DID YOU LAST EAT? ____ . WHEN DID YOU LAST DRINK? ____ . WHAT DID YOU LAST DRINK? ____ . NAME OF PERSON DRIVING YOU HOME? ____ . DO YOU HAVE ANY OTHER QUESTIONS OR CONCERNS NO . VITAL SIGNS WT 200.8 LBS, HT 71 IN, BMI 28.00 INDEX, BP 171/103 MM HG, HR 72 /MIN, RR 18 /MIN, TEMP 98.6 F, OXYGEN SAT % 98%, NA INITIALS AW 1135, REVIEWED BY: ALIYAH VARGAS NP AWARE OF B/P. EM. EXAMINATION GENERAL EXAMINATION: GENERALNO ACUTE DISTRESS, WELL NOURISHED AND HYDRATED. PSYCHAPPROPRIATE MOOD AND AFFECT . LUNGS:CLEAR TO AUSCULTATION BILATERALLY, NO WHEEZES, RHONCHI, RALES. HEART:NO MURMURS, REGULAR RATE AND RHYTHM. ASSESSMENTS INTERVERTEBRAL DISC DISORDER WITH RADICULOPATHY OF LUMBAR REGION - M51.16 (PRIMARY) TREATMENT INTERVERTEBRAL DISC DISORDER WITH RADICULOPATHY OF LUMBAR REGION CLINICAL NOTES: 89-YEAR-OLD MALE IN FOR POST PROCEDURAL FOLLOW-UP. GIVEN PRESENTING SYMPTOMS AND RESULTS PHYSICAL EXAMINATION RECOMMENDED REFERRAL TO THE [facility] PROCEDURES HAVE PROVED INEFFECTIVE WITH PATIENT AND THE [facility] MAY HAVE DIFFERENT IDEAS REGARDING PATIENT'S MED MANAGEMENT. PATIENT HAS EXPRESSED UNDERSTANDING OF AND WAS IN AGREEMENT WITH TREATMENT PLAN. GIVEN TIME TO ASK QUESTIONS AND EXPRESS CONCERNS. [facility] REASON:MEDICATION MANAGMENT OTHERS REFILL TIZANIDINE HCL TABLET, 2 MG, 1 TABLET NEEDED, ORALLY, TWO TIMES A DAY PRN, 30 DAYS, 60 PROCEDURE CODES FA211 ESTABILISHED PATIENT [facility] FACILITY CHARGE DISPOSITION & COMMUNICATION FOLLOW UP 3 MONTHS (REASON: BACK PAIN) ELECTRONICALLY SIGNED BY CHANDRIKA ELKINS ON 09/24/2019 AT 06:00 PM EST DISCLAIMER : THIS IS A VISIT SUMMARY EXTRACTED FROM THE [employer] [facility] CHART. IT IS NOT A COPY OF THE [employer] PROGRESS NOTE. RUDOLPH
== END ==
LOC: M PAIN 11:30
PROVIDERS: ATTEND Family Medicine
DX: M51.16 Intervertebral disc disorders with radiculopathy, lumbar region (principal)

== ENCOUNTER → 2019-10-07 | Outpatient (REF) | payer MEDICARE ==
[2019-10-07 17:54] LABS: HEMATOCRIT 50.4 % (42.0-52.0); HEMOGLOBIN 15.9 g/dl (13.5-17.5); MEAN CORPUSCULAR VOLUME 93.2 fl (80.0-96.0); RED BLOOD COUNT 5.41 10^6/uL (4.30-6.10); WHITE BLOOD COUNT 8.9 10^3/uL (4.0-10.0)
[2019-10-07 17:55] LABS: BASO # 0.1 10^3/uL (0.0-0.2); BASO % 0.7 % (0.0-1.0); EOS # 0.3 10^3/uL (0.0-0.5); EOS % 2.9 % (0.0-3.0); LYMPH # 1.6 10^3/uL (1.5-5.0); LYMPH % 18.4 % (24.0-44.0); MEAN CORPUSCULAR HEMOGLOBIN 29.4 pg (27.0-33.0); MEAN CORPUSCULAR HGB CONC 31.5 g/dl (32.0-36.5); MONO % 11.7 % (0.0-5.0); NEUTROPHILS # 5.8 10^3/uL (1.5-8.5); NEUTROPHILS % 65.7 % (36.0-66.0); PLATELET COUNT, AUTOMATED 170 10^3/uL (150-450)
[2019-10-07 18:09] LABS: ALBUMIN 3.8 GM/DL (3.2-5.2); BILIRUBIN,TOTAL 0.7 MG/DL (0.2-1.0); CALCIUM LEVEL 9.2 MG/DL (8.8-10.2); CREATININE FOR GFR 1.85 MG/DL (0.70-1.30); GLOMERULAR FILTRATION RATE 36.8 (>35); MAGNESIUM LEVEL 2.3 MG/DL (1.8-2.4); POTASSIUM SERUM 5.3 MEQ/L (3.5-5.1); TOTAL PROTEIN 6.6 GM/DL (6.4-8.2)
[2019-10-07 18:42] LABS: PTH INTACT 164.2 PG/ML (18.5-88.0)
== END ==
LOC: M SFHCPLAZ 14:59
PROVIDERS: ATTEND Internal Medicine
DX: I12.9 Hypertensive chronic kidney disease with stage 1 through stage 4 chronic kidney disease, or unspecified chronic kidney disease (principal); N18.3 Chronic kidney disease, stage 3 (moderate); D69.6 Thrombocytopenia, unspecified
CPT/HCPCS: 36415; 80053; 83735; 83970; 85025; 86580; G0463

== ENCOUNTER → 2019-12-01 | Outpatient (CLI) | payer MEDICARE ==
--- NOTE | 2019-12-01 16:13 | REP ---
URINARY BLADDER ULTRASOUND: Real-time sonographic evaluation of the urinary bladder performed. The bladder measures 6.3 x 7.2 x 6.5 cm for a total volume of 193 mL. Postvoid residual is 94 mL, which is 49% of the original volume. There is no definite mass of the bladder wall. No calculus is seen. Prostate measures 5.0 x 4.7 x 4.3 cm for a total volume of 53 mL. Ureteral jets could not be visualized with Doppler color evaluation. IMPRESSION: Post void residual of the bladder is 49%. No bladder wall mass. Prostate volume 53 mL. Electronically Signed by Ata Farrar MD 12/01/2019 04:29 P
== END ==
LOC: M RAD 14:21
PROVIDERS: ATTEND Internal Medicine Nephrology
DX: R33.9 Retention of urine, unspecified (principal)